=== PATIENT | male | born 1950 | race African-American/Black ===

== ENCOUNTER 2019-05-03 15:33 | Inpatient (IN) | payer OTHER ==
--- NOTE | 2019-05-03 16:10 | PDOC ---
History of Present Illness - General Chief Complaint: Shortness of Breath Stated Complaint: DIFFICULTY BREATHING Time Seen by Provider: 05/03/19 15:47 History Source: Patient, EMS, Spouse ( present at bedside.), Old Records Exam Limitations: No Limitations - History of Present Illness Initial Comments: HPI: 69 y/o male BIBEMS to [facility] ED from Dr. Johnson clinic waiting area for episode of weakness. EMS reports pt was found to be dyspneic and hypoxic. On arrival, the pt states he was getting off the elevator when he suddenly felt weak and then lowered himself to the floor. He never lost consciousness. On arrival, pts only complaint is tiredness. Denies worsening SOB, chest pain, lightheadedness, or dizziness. arrived at bedside after initial interview. Reports her has had poor PO intake for the past several weeks. Also reports he has received Azithromycin and Doxycycline for outpatient treatment of his cough with no improvement. Deck Worker: /Pt unable to recall name. Has been evaluated by Dr. Vazquez in past admission. Medical Assistant Dermatology: Dr. Mosley @ [facility] Steam Shovelman: Dr. Gibson Processing Manager: Dr. Bran PCP: Dr. Yousuf Mart Social Hx: - Tobacco: Former smoker, quit 1998 Medical Hx: - HTN - Emphysema - S/p renal transplant (2013, [facility]), on Prograf (Tacrolimus) - Insulin dependent diabetes Review of Systems: In addition to that documented in the HPI above, the additional ROS was obtained : Constitutional: Denies fevers or chills. In normal state of health. Head: Denies vision changes ENMT: Denies sore throat CV: Denies chest pain, orthopnea, or paroxysmal nocturnal dyspnea Resp: Endorses infrequent dry cough. Denies SOB or worsening exertional dyspnea. GI: Denies abd pain, vomiting, or diarrhea : Denies painful urination or hematuria MSK: Denies recent trauma Skin: Denies new rashes Neuro: Denies new numbness or tingling or weakness Endocrine: Denies polyuria Heme: Denies bleeding or bruising Physical Examination: Constitutional: Nontoxic elderly adult male in no acute distress or obvious discomfort. Found semi-fowlers on hospital bed. Alert and oriented x4. Answered all questions appropriately and completely. Speech was non-labored, non- pressured. Head: Normocephalic. No obvious external signs of trauma. Neck: Supple, trachea is midline. No JVD. Cardiovascular / Chest: Regular rate and regular rhythm. No murmur, rubs, clicks , or gallops. Peripheral pulses: radial pulses full. No pretibial edema. Respiratory: Nasal cannula in place. Breathing mildly tachypneic with infrequent wet sounding cough. Equal chest rise and fall. Decreased breath sounds bilaterally with diffuse trace rhonchi. No stridor or wheezing. Neuro: Alert and oriented. Moving all four extremities spontaneously. Skin: Warm, dry, and intact. Psych: Affect: appropriate. Mood: normal. MDM: *Reviewed vital signs, nursing notes, and prior visit documentation (if available). 69 y/o male presenting s/p pre-syncopal episode and weakness. Poor PO intake over the past several weeks. Afebrile. Vitals unremarkable for hypotension or tachycardia. Normoxic on 3LPM via nasal cannula, which is home dose per pt. Physical exam as described above. CBC revealed mild anemia, suspect chronic. CMP revealed elevated likely SOLE. Cr elevated above baseline. EKG unremarkable for acute ischemic findings. Troponin not elevated. Three hour repeat ordered. BNP elevated but CXR unremarkable for effusion, no significant pretibial edema, no JVD in setting of normal ECHO in November. Low suspicion for acute CHF exacerbation. CXR concerning for possible right lower lobe pneumonia. Ordered Vancomycin and Cefepime for broad spectrum given failure of outpatient abx. 18:50 Page sent for physician covering for Dr. Mosley through office answering service. Awaiting call back. 18:[address] Mart for admission through office answering service. Awaiting call back. Renal transplant U/S revealed morphologically unremarkable right renal transplant. 19:[address] Nevarez, nephrology fellow covering for Dr. Mart. Verbally appraised of the pts HPI, ED course, and current plan of management. Reports Cr baseline is actually 1.8-2.0 according to labs drawn from 2018 and earlier this year. Will place callback request with transplant outreach team. Will admit pt for presyncope with community acquired pneumonia that failed outpatient abx. 19:[address] Yousuf Mart. Verbally appraised of the pts HPI, ED course, and current plan of management. Will admit pt to telemetry on inpatient status. Requested cardiology and pulmonology consults. Three hour troponin and EKG pending. Jose Choe M.D., PGY2 Emergency Medicine Resident Past History - Past Medical History Allergies/Adverse Reactions: Allergies Allergy/AdvReac Type Severity Reaction Status Date / Time No Known Allergies Allergy Verified 05/03/19 15:45 Home Medications: Ambulatory Orders Amlodipine Besylate [Norvasc -] 10 mg PO DAILY 02/26/14 Aspirin [ASA -] 81 mg PO DAILY 02/26/14 Carvedilol 25 mg PO BID 02/26/14 Insulin Glargine,Hum.rec.anlog [Lantus Solostar PEN -] 0 units SQ HS 02/26/14 Insulin Regular, Human [Humulin R -] 0 units SQ DAILY 02/26/14 Atorvastatin Calcium 10 mg PO HS 05/03/19 Tacrolimus [Envarsus Xr] 12 mg PO DAILY 05/03/19 predniSONE [Deltasone -] 5 mg PO DAILY 05/03/19 COPD: Yes Diabetes: Yes (TYPE 2) Dialysis: Yes (T,TH,SA) HTN: Yes Hypercholesterolemia: Yes - Immunization History Immunization Up to Date: Yes - Suicide/Smoking/Psychosocial Hx Smoking Status: No Smoking History: Former smoker Have you smoked in the past 12 months: No Number of Cigarettes Smoked Daily: 0 If you are a former smoker, when did you quit?: 1990 Cigars Per Day: 0 Information on smoking cessation initiated: No 'Breaking Loose' booklet given: 01/24/12 Hx Alcohol Use: Yes (occasional socially) Drug/Substance Use Hx: No Substance Use Type: None Hx Substance Use Treatment: No *Physical Exam - Vital Signs Last Vital Signs Temp Pulse Resp BP Pulse Ox 98.9 F 75 30 H 118/51 L 88 L 05/03/19 15:43 05/03/19 15:43 05/03/19 15:43 05/03/19 15:43 05/03/19 15:43 Vital Signs - Vital Signs #1 Blood Pressure: 106/54 (@ 16:00) MAP: 71 BP Location: Right Arm Blood Pressure Position: Sitting Pulse Rate: 80 Respiratory Rate: 20 O2 Sat by Pulse Oximetry (%): 94 Oxygen Delivery Method: Nasal Cannula Oxygen Flow Rate: 3 ED Treatment Course - LABORATORY CBC & Chemistry Diagram: 05/03/19 16:32 05/03/19 16:32 - RADIOLOGY Radiology Studies Ordered: Category Date Time Status CHEST PA & LAT [RAD] Stat Radiology 05/03/19 16:05 Ordered *DC/Admit/Observation/Transfer Diagnosis at time of Disposition: Pre-syncope, Poor nutrition, Generalized weakness Pneumonia Qualifiers: Pneumonia type: due to unspecified organism Laterality: right Lung location: lower lobe of lung Qualified Code(s): J18.1 - Lobar pneumonia, unspecified organism - Discharge Dispostion Condition at time of disposition: Stable Decision to Admit order: Yes - Referrals Referrals: Yousuf Mart MD [Primary Care Provider] - - Patient Instructions - Post Discharge Activity
[2019-05-03 16:47] LABS: BASO % 0.1 % (0-2.0); EOS % 0.2 % (0-4.5); HEMATOCRIT 31.7 % (35.4-49); HEMOGLOBIN 10.1 GM/dL (11.7-16.9); LYMPH % 6.5 % (8-40); MCH 25.5 pg (25.7-33.7); MCHC 31.7 g/dl (32.0-35.9); MEAN CELL VOLUME 80.3 fl (80-96); MEAN PLT VOLUME 6.8 fl (7.5-11.1); MONO % 6.8 % (3.8-10.2); NEUT % 86.4 % (42.8-82.8); PLATELET COUNT 257 K/MM3 (134-434); RBC 3.95 M/mm3 (4.00-5.60); RDW 16.8 % (11.9-15.9); WHITE BLOOD COUNT 4.9 K/mm3 (4.0-10.0)
[2019-05-03 17:11] LABS: ALBUMIN 2.3 g/dl (3.4-5.0); BILIRUBIN,TOTAL 0.5 mg/dL (0.2-1); BLOOD UREA NITROGEN 36.4 mg/dL (7-18); CALCIUM 9.3 mg/dL (8.5-10.1); CREATININE 1.9 mg/dL (0.55-1.3); N-TERMINAL BNP 2660.3 pg/ml (5-125); POTASSIUM 4.3 mmol/L (3.5-5.1); TOT PROT 7.1 g/dl (6.4-8.2)
[2019-05-03] MEDS ORDERED: ALBUTEROL SO4 2.5/IPRATROPIUM 0.5 INH SOL 3 ML VIAL.NEB. NEB ONE ×2 (17:26→18:04)
[2019-05-03] MEDS ORDERED: methylPREDNISolone NA SUCC 125 MG/2 ML VIAL IVPUSH ONE (17:26)
[2019-05-03] MEDS ORDERED: SODIUM CHLORIDE 0.9% 500 ML INFUS.BAG IV ONE (17:26)
[2019-05-03] MEDS ORDERED: SODIUM CHLORIDE 1,000 ML IV SCH (17:30)
[2019-05-03] MEDS ORDERED: methylPREDNISolone NA SUCC 125 MG/2 ML VIAL ONE (18:05)
--- NOTE | 2019-05-03 18:15 | PDOC ---
Documentation entered by Mercedes Anderson SCRIBE, acting as scribe for Vanna Ordonez DO. Vanna Ordonez DO: This documentation has been prepared by the son, Mercedes Anderson SCRIBE, under my direction and personally reviewed by me in its entirety. I confirm that the documentation accurately reflects all work, treatment, procedures, and medical decision making performed by me. Attending Attestation - Resident Resident Name: ChoeJose - ED Attending Attestation I have performed the following: I have examined & evaluated the patient, The case was reviewed & discussed with the resident, I agree w/resident's findings & plan, Exceptions are as noted - HPI HPI: 05/03/19 18:18 The patient is a 69-year-old male with a past medical history significant for COPD (on home O2, f/up with Dr. Hernández), renal transplant, and DM presents to the emergency department via EMS s/p a near syncopal episode. The patient reports he was visiting Dr. Johnson office today for diabetes follow up when he had a near syncopal episode associated with generalized weakness and shortness of breath. EMS reports the patient was noted to be hypoxic on arrival despite having home O2 3L in use. The patient reports hes been having a productive cough with white sputum production. The patient was started on 2 courses of abx , Zpack about a month ago, and following doxycycline 10-day course last week. The patient endorses decreased appetite and generalized weakness. The patient reports he was unable to do COPD chest PT secondary to the weakness. The patient reports on a good day he has 2 meals a day, and on a bad day 1 meal, denies having any meals today. Denies head injury, nausea, or vomiting. Denies chest pain, abdominal pain - Physicial Exam PE: 05/03/19 18:18 Constitutional: Awake, alert, oriented. No acute distress. Head: Normocephalic. Atraumatic Eyes: PERRL. EOMI. Conjunctivae are not pale. ENT: Mucous membranes are moist and intact. Posterior pharynx without exudates or erythema. Uvula midline. Neck: Supple. Full ROM. No lymphadenopathy. Cardiovascular: Regular rate. Regular rhythm. S1, S2 regular. Pulmonary/Chest: +decreased breath sounds bilaterally. No wheezing, rales or rhonchi. Abdominal: Soft and nondistended. There is no tenderness. Back: No CVA tenderness. Musculoskeletal: No edema. No cyanosis. No clubbing. Full range of motion in all extremities. Skin: Skin is warm and dry. Neurological: No focal findings. - Medical Decision Making 05/03/19 18:04 I, Dr. Vanna Ordonez, DO, attest that this document has been prepared under my direction and personally reviewed by me in its entirety. I further attest, that it accurately reflects all work, treatment, procedures and medical decision -making performed by me. 05/03/19 18:04 a/p: 69yo male with copd on home o2, renal transplant, dm with a near syncopal episode at [facility]'s office today -pt states decreased po intake recently -pt states trying to do chest pt for copd but too weak to do it -only eating 1-2 meals a day -states cough - no f/c no change in sputum production, but has finished 2 courses of abx - azithro and then doxy -pulm is castillo hernández at [facility], PMD ramirez mart -pt with mild tachypnea and accessory muscle use -pt with dry mm -suspect dehydration and poss sole -suspect copd exacerbation - has only used inhalers intermittently at home -will send labs, ekg, cxr, ua -ivf hydration -will need admission for near syncope and failure to thrive 05/03/19 18:13 pt with SOLE, baseline cr 0.9, now 1.9 in a transplant kidney -cxr unchanged -pt with copd exacerbation -will obtain ultrasound of kidney -will call Dr. Mart 05/03/19 19:29 baseline cr per nephro at [facility] is 1.9-2, not an SOLE here resident discussed the case with nephzeynep pt will be admitted for copd/pna abx and cultures ordered cxr read as consolidation in chest - coughing, has had 2 courses of abx as outpt Heart Score/ECG Review - ECG Intrepretation Comment:: 05/03/19 18:14 sinus at 82, nl axis, nl interval, incomplete RBBB which is new from prior, no acute st/t wave findings
[2019-05-03] MEDS ORDERED: VANCOMYCIN 1,000 MG in DEXTROSE 5%-WATER - 250 ML IVPB ONE (18:52)
[2019-05-03] MEDS ORDERED: CEFEPIME HCL/D5W 2 GM/50 ML BAG IVPB ONE (18:53)
[2019-05-03] MEDS ORDERED: CEFEPIME 2 GM in DEXTROSE 5%-WATER 100 ML IVPB ONE (20:15)
[2019-05-03] MEDS ORDERED: VANCOMYCIN 1 GRAM (PRE-DOCKED) 1,000 MG/250 ML BAG IVPB ONE (22:13)
[2019-05-04] MEDS ORDERED: CARVEDILOL 12.5 MG TABLET (FP) ONE (00:16)
[2019-05-04] MEDS ORDERED: ATORVASTATIN CA 10 MG TABLET (FP) ONE (00:17)
[2019-05-04] MEDS: ATORVASTATIN CA 10 MG TABLET (FP) PO SCH ×2 (00:22→21:25)
[2019-05-04] MEDS: CARVEDILOL 25 MG TABLET (FP) PO SCH ×3 (00:22→21:25)
[2019-05-04 04:20] LABS: EPI CELLS 3.4 /HPF (0-5/HPF); HYALINE CASTS 10 /lpf (0-8); URINE APPEARANCE CLOUDY; URINE BACTERIA 4.6 /hpf (NEGATIVE); URINE BILIRUBIN NEGATIVE (NEGATIVE); URINE COLOR YELLOW; URINE GLUCOSE (UA) 2+ (NEGATIVE); URINE KETONE 1+ (NEGATIVE); URINE LEUK ESTERASE NEGATIVE (NEGATIVE); URINE NITRITE NEGATIVE (NEGATIVE); URINE PROTEIN 1+ (NEGATIVE); URINE UROBILINOGEN 0.2 mg/dL (0.2-1.0)
[2019-05-04 05:47] LABS: URINE RBC MANY /hpf (0-4)
[2019-05-04 05:48] LABS: URINE WBC MANY /hpf (0-5); YEAST MANY (NEGATIVE)
[2019-05-04 07:26] LABS: HEMATOCRIT 29.7 % (35.4-49); HEMOGLOBIN 9.5 GM/dL (11.7-16.9); MCHC 32.1 g/dl (32.0-35.9); MEAN CELL VOLUME 80.9 fl (80-96); MEAN PLT VOLUME 7.1 fl (7.5-11.1); PLATELET COUNT 258 K/MM3 (134-434); RBC 3.67 M/mm3 (4.00-5.60); RDW 17.3 % (11.9-15.9); WHITE BLOOD COUNT 2.9 K/mm3 (4.0-10.0)
[2019-05-04 07:38] LABS: ALBUMIN 2.1 g/dl (3.4-5.0); BILIRUBIN,TOTAL 0.6 mg/dL (0.2-1); BLOOD UREA NITROGEN 47.8 mg/dL (7-18); CALCIUM 8.9 mg/dL (8.5-10.1); CREATININE 1.9 mg/dL (0.55-1.3); POTASSIUM 5.3 mmol/L (3.5-5.1); TOT PROT 6.9 g/dl (6.4-8.2)
[2019-05-04] MEDS: INSULIN SLIDING SCALE (NOVOLOG) 1 VIAL SQ SCH ×4 (08:00→21:25)
[2019-05-04] MEDS ORDERED: Insulin (LOG) Aspart 100 UNITS/ML VIAL SQ ONE ×2 (09:02→10:38)
[2019-05-04] MEDS ORDERED: predniSONE 5 MG TABLET (UD) PO SCH (10:00)
--- NOTE | 2019-05-04 10:52 | HP ---
Admitting History and Physical - Primary Care Physician PCP: Yousuf Mart - Admission Chief Complaint: weakness History of Present Illness: Pt with significant Hx/o renal transplant, emphysema on O2 at home, DM, had appt to see Dr. Gibson ([facility]) yesterday but felt very weak and sat down on the floor by the elevator while in the her office builind; he came to ER via EMS. In ER he was found to have pneumonia. Per pt's baseline creatinine is 1.2 History Source: Patient, Family Member (pt's , at bedside) - Past Medical History QUALITY ASSURANCE SPECIALIST: No: Syncope Cardiovascular: Yes: HTN, Hyperlipdemia, MS, Other (Hx/o cardiac arrest) Pulmonary: Yes: COPD Renal/: Yes: Renal Inusuff, Other (renal transplant 10/09/13) Endocrine: Yes: Diabetes Mellitus - Past Surgical History Past Surgical History: Yes: Kidney Transplant - Smoking History Smoking history: Former smoker Have you smoked in the past 12 months: No Aproximately how many cigarettes per day: 0 If you are a former smoker, when did you quit?: 1989 - Alcohol/Substance Use Hx Alcohol Use: Yes (occasional socially) - Social History ADL: Independent History of Recent Travel: No Home Medications - Allergies Allergies/Adverse Reactions: Allergies Allergy/AdvReac Type Severity Reaction Status Date / Time No Known Allergies Allergy Verified 05/03/19 15:45 - Home Medications Home Medications: Ambulatory Orders Amlodipine Besylate [Norvasc -] 10 mg PO DAILY 02/26/14 Aspirin [ASA -] 81 mg PO DAILY 02/26/14 Carvedilol 25 mg PO BID 02/26/14 Insulin Glargine,Hum.rec.anlog [Lantus Solostar PEN -] 20 units SQ HS 02/26/14 Insulin Regular, Human [Humulin R -] 0 units SQ DAILY 02/26/14 Atorvastatin Calcium 10 mg PO HS 05/03/19 Fluticasone/Vilanterol [Breo Ellipta 100-25 Mcg INH] 1 each IH DAILY 05/03/19 Tacrolimus [Envarsus Xr] 12 mg PO DAILY 05/03/19 predniSONE [Deltasone -] 5 mg PO DAILY 05/03/19 Review of Systems - Review of Systems Constitutional: denies: Chills, Fever Eyes: reports: Blurred Vision. denies: Recent Change in Vision HENT: denies: Ear Discharge, Throat Pain Neck: denies: Pain on Movement, Stiffness Cardiovascular: denies: Chest Pain, Edema, Palpitations Respiratory: denies: Cough, Hemoptysis, SOB on Exertion, Wheezing Gastrointestinal: denies: Abdominal Pain, Diarrhea, Nausea, Vomiting Genitourinary: denies: Burning, Discharge Musculoskeletal: denies: Back Pain, Muscle Pain Integumentary: denies: Blister, Rash Neurological: reports: Weakness. denies: Change in LOC, Incoordination, Numbness Endocrine: denies: Excessive Sweating, Intolerance to Cold Hematology/Lymphatic: denies: Easily Bruised, Excessive Bleeding Psychiatric: denies: Anxiety, Depression Physical Examination Vital Signs: Vital Signs Temperature 97.4 F L 05/04/19 09:00 Pulse Rate 70 05/04/19 09:00 Respiratory Rate 17 05/04/19 09:00 Blood Pressure 115/58 L 05/04/19 09:00 O2 Sat by Pulse Oximetry (%) 95 05/04/19 09:00 Constitutional: Yes: No Distress, Calm Eyes: Yes: Conjunctiva Clear, EOM Intact HENT: Yes: Thrush. No: Epistaxis, Rhinnorhea Neck: Yes: Trachea Midline. No: Lymphadenopathy Cardiovascular: Yes: Regular Rate and Rhythm, S1, S2 Respiratory: Yes: Regular, Rhonchi (at bases , R > L). No: Wheezes Gastrointestinal: Yes: Normal Bowel Sounds, Soft. No: Tenderness ...Rectal Exam: Yes: Deferred Renal/: No: CVA Tenderness - Left, CVA Tenderness - Right Edema: No Integumentary: No: Bruising, Rash Neurological: Yes: Alert, Oriented, Other (motor and sensory examination is symmetric in UE/ LE/ face) Psychiatric: Yes: Alert, Oriented Labs: CBC, BMP 05/04/19 06:19 05/04/19 06:19 Imaging - Results Chest X-ray: Report Reviewed Problem List - Problems (1) Pneumonia Code(s): J18.9 - PNEUMONIA, UNSPECIFIED ORGANISM Qualifiers: Pneumonia type: due to unspecified organism Laterality: bilateral Lung location: lower lobe of lung Qualified Code(s): J18.1 - Lobar pneumonia, unspecified organism (2) Acute on chronic renal failure Code(s): N17.9 - ACUTE KIDNEY FAILURE, UNSPECIFIED; N18.9 - CHRONIC KIDNEY DISEASE, UNSPECIFIED Qualifiers: Chronic kidney disease stage: stage 5, not on chronic dialysis (3) Renal transplant recipient Code(s): Z94.0 - KIDNEY TRANSPLANT STATUS (4) Hyperglycemia Code(s): R73.9 - HYPERGLYCEMIA, UNSPECIFIED (5) Diabetes mellitus Code(s): E11.9 - TYPE 2 DIABETES MELLITUS WITHOUT COMPLICATIONS (6) Hyperkalemia Code(s): E87.5 - HYPERKALEMIA (7) COPD (chronic obstructive pulmonary disease) with emphysema Code(s): J43.9 - EMPHYSEMA, UNSPECIFIED Assessment/Plan IV abtx IVF ID consult Renal consult; pt's condition was d/w Dr. Morales Pulmonary consult Cardio Consult Endo consult; pt's condition and DM mangement was d/w Dr. Gibson. Admit to monitor bed AM labs Pt's contion was Rx was d/w ER nurse.
--- NOTE | 2019-05-04 10:56 | CON.CARD ---
Consult Consult Specialty:: Cardiology Referred by:: Yousuf Mart MD Reason for Consultation:: Near syncope - History of Present Illness Chief Complaint: Near syncope History of Present Illness: The patient is a 69-year-old male with a past medical history significant for COPD (on home O2, f/up with Dr. 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 EMS reports the patient was noted to be hypoxic on arrival despite having home O2 3L in use. The patient endorses decreased appetite and generalized weakness. Denies chest pain, palpitations, true syncope, orthopnea, PND or LE edema, feels back to baseline after eating. - History Source History Provided By: Patient Limitations to Obtaining History: No Limitations - Past Medical History Cardio/Vascular: Yes: HTN, Hyperlipdemia, [place] (cardiac arrest last evening see HPI) Pulmonary: Yes: COPD Renal/: Yes: Renal Inusuff, Other (renal transplant 10/09/13) Endocrine: Yes: Diabetes Mellitus - Past Surgical History Past Surgical History: Yes: Kidney Transplant - Alcohol/Substance Use Hx Alcohol Use: Yes (occasional socially) - Smoking History Smoking history: Former smoker Have you smoked in the past 12 months: No Aproximately how many cigarettes per day: 0 If you are a former smoker, when did you quit?: 1989 - Social History Usual Living Arrangement: With Spouse ADL: Independent History of Recent Travel: No Home Medications - Allergies Allergies/Adverse Reactions: Allergies Allergy/AdvReac Type Severity Reaction Status Date / Time No Known Allergies Allergy Verified 05/03/19 15:45 - Home Medications Home Medications: Ambulatory Orders Amlodipine Besylate [Norvasc -] 10 mg PO DAILY 02/26/14 Aspirin [ASA -] 81 mg PO DAILY 02/26/14 Carvedilol 25 mg PO BID 02/26/14 Insulin Glargine,Hum.rec.anlog [Lantus Solostar PEN -] 20 units SQ HS 02/26/14 Insulin Regular, Human [Humulin R -] 0 units SQ DAILY 02/26/14 Atorvastatin Calcium 10 mg PO HS 05/03/19 Fluticasone/Vilanterol [Breo Ellipta 100-25 Mcg INH] 1 each IH DAILY 05/03/19 Tacrolimus [Envarsus Xr] 12 mg PO DAILY 05/03/19 predniSONE [Deltasone -] 5 mg PO DAILY 05/03/19 Review of Systems - Review of Systems Constitutional: reports: Lethargy, Loss of Appetite, Weakness Vital Signs: Vital Signs Temperature 97.4 F L 05/04/19 09:00 Pulse Rate 70 05/04/19 09:00 Respiratory Rate 17 05/04/19 09:00 Blood Pressure 115/58 L 05/04/19 09:00 O2 Sat by Pulse Oximetry (%) 95 05/04/19 09:00 Constitutional: Yes: No Distress, Calm, Thin Neck: Yes: Supple Respiratory: Yes: Regular, Diminished, On Nasal O2 Gastrointestinal: Yes: Normal Bowel Sounds, Soft Cardiovascular: Yes: Regular Rate and Rhythm JVD: No Carotid Bruit: No Heart Sounds: Yes: S1, S2 Murmur: Yes: Systolic Murmur, Grade 1 Edema: No - Other Data Labs, Other Data: CBC, BMP 05/04/19 06:19 05/04/19 06:19 Troponin, BNP 05/03/19 05/03/19 05/04/19 16:32 20:00 06:19 Troponin I < 0.02 < 0.02 < 0.02 B-Natriuretic Peptide 2660.3 H Troponin, BNP 05/03/19 05/03/19 05/04/19 16:32 20:00 06:19 Troponin I < 0.02 < 0.02 < 0.02 B-Natriuretic Peptide 2660.3 H NSR @ 74 IRBBB Imaging - Results Chest X-ray: Report Reviewed (R>L infiltrates) Problem List - Problems (1) Generalized weakness Code(s): R53.1 - WEAKNESS (2) Pneumonia Code(s): J18.9 - PNEUMONIA, UNSPECIFIED ORGANISM Qualifiers: Pneumonia type: due to unspecified organism Laterality: bilateral Lung location: lower lobe of lung Qualified Code(s): J18.1 - Lobar pneumonia, unspecified organism (3) Pre-syncope Code(s): R55 - SYNCOPE AND COLLAPSE (4) Acute on chronic renal failure Code(s): N17.9 - ACUTE KIDNEY FAILURE, UNSPECIFIED; N18.9 - CHRONIC KIDNEY DISEASE, UNSPECIFIED Qualifiers: Chronic kidney disease stage: stage 5, not on chronic dialysis (5) Anemia Code(s): D64.9 - ANEMIA, UNSPECIFIED Qualifiers: Anemia type: due to chronic kidney disease Chronic kidney disease stage: stage 5, not on chronic dialysis Qualified Code(s): N18.5 - Chronic kidney disease, stage 5; D63.1 - Anemia in chronic kidney disease (6) Transplant recipient Code(s): Z94.89 - OTHER TRANSPLANTED ORGAN AND TISSUE STATUS Assessment/Plan 05/01/2017 Echo: Normal LV size, mild LVH, normal LV systolic function, normal biatrial sizes, normal RV size and fxn, mild AR, tr MR, TR, no pericardial effusion 1. Acute on Chronic Hypoxic Respiratory Failure 2. Anorexia, lethargy, R>L PNA ?atypical vs fungal 3. H/o post cardiopulmonary arrest, post respiratory failure now on O2 nasal 4. ESRD s/p right renal transplant with hyperkalemia 5. HTN 6. Type II DM 7. Hyperlipidemia 8. COPD 9. Erectile dysfunction on Cialis PLAN: 1. Continue current cardiac therapy including Metoprolol 2. IV steroids, BD and IV antibiotics coverage, f/u sputum cultures for C&S, AFB and fungus, O2 to keep SpO2 >90% 3. Immunosuppressive meds per renal, Lokelma, high resistive index in graft, urology called, IVF given pre-renal disease 4. CT chest noncontrast 5. Continue Norvasc 10 qd, ASA 81 qd, Lipitor 10 qhs, carvedilol 25 bid, Insulin , prednisone, tacrolimus per renal transplant team 6. Thank you for consultative opportunity
[2019-05-04] MEDS ORDERED: SODIUM POLYSTYRENE SULFONATE 15 GM/60 ML BOTTLE PO ONE (11:05)
[2019-05-04] MEDS: ASPIRIN 81 MG CHEWABLE TABLETS PO SCH (11:34)
[2019-05-04] MEDS: amLODIPine BESYLATE 10 MG TABLET (FP) PO SCH (11:34)
[2019-05-04] MEDS ORDERED: SODIUM ZIRCONIUM CYCLOSILICATE (LOKELMA) 5 GM PACKET PO ONE (11:45)
[2019-05-04] MEDS: TACROLIMUS 4 MG PO SCH (13:53)
--- NOTE | 2019-05-04 14:03 | EKG ---
Test Reason : Blood Pressure : / mmHG Vent. Rate : 074 BPM Atrial Rate : 074 BPM P-R Int : 140 ms QRS Dur : 122 ms QT Int : 416 ms P-R-T Axes : 076 078 067 degrees QTc Int : 461 ms NORMAL SINUS RHYTHM RSR' OR QR PATTERN IN V1 SUGGESTS RIGHT VENTRICULAR CONDUCTION DELAY WHEN COMPARED WITH ECG OF 03-MAY-2019 15:54, PREMATURE ATRIAL COMPLEXES ARE NO LONGER PRESENT Confirmed by YVES COUGHLIN MD ([id number]) on 05/04/2019 2:03:10 PM Referred By: Confirmed By:YVES COUGHLIN MD
--- NOTE | 2019-05-04 14:05 | EKG ---
Test Reason : Blood Pressure : / mmHG Vent. Rate : 082 BPM Atrial Rate : 082 BPM P-R Int : 144 ms QRS Dur : 116 ms QT Int : 404 ms P-R-T Axes : 073 080 064 degrees QTc Int : 472 ms SINUS RHYTHM WITH PREMATURE ATRIAL COMPLEXES INCOMPLETE RIGHT BUNDLE BRANCH BLOCK Confirmed by YVES COUGHLIN MD ([id number]) on 05/04/2019 2:05:26 PM Referred By: Confirmed By:YVES COUGHLIN MD
--- NOTE | 2019-05-04 14:58 | CONSULT ---
Consult Consult Specialty:: Nephrology Reason for Consultation:: CKD - History of Present Illness Chief Complaint: shortness of breath and fatigue History of Present Illness: Pt is a 69 year old male with pmhx of kidney transplant in 2013, dm, ht, copd on home oxygen who presents to the ER with shortness of breath and fatigue. He does have a cough. His blood sugar has been uncontrolled. I was called to evaluate him for elevated creatinine. He says he is compliant with his transplant meds. He denies dysuria or hematuria. He denies abdominal pain. He has not had much to eat or drink over the last few days. He denies lower ext edema. - History Source History Provided By: Patient, Medical Record - Past Medical History Cardio/Vascular: Yes: HTN, Hyperlipdemia, [place] (cardiac arrest last evening see HPI) Pulmonary: Yes: COPD, O2 Dependent Renal/: Yes: Renal Inusuff, Other (renal transplant 10/09/13) Endocrine: Yes: Diabetes Mellitus - Past Surgical History Past Surgical History: Yes: Kidney Transplant - Alcohol/Substance Use Hx Alcohol Use: Yes (occasional socially) - Smoking History Smoking history: Former smoker Have you smoked in the past 12 months: No Aproximately how many cigarettes per day: 0 If you are a former smoker, when did you quit?: 1989 - Social History Usual Living Arrangement: With Spouse ADL: Independent History of Recent Travel: No Home Medications - Allergies Allergies/Adverse Reactions: Allergies Allergy/AdvReac Type Severity Reaction Status Date / Time No Known Allergies Allergy Verified 05/03/19 15:45 - Home Medications Home Medications: Ambulatory Orders Amlodipine Besylate [Norvasc -] 10 mg PO DAILY 02/26/14 Aspirin [ASA -] 81 mg PO DAILY 02/26/14 Insulin Glargine,Hum.rec.anlog [Lantus Solostar PEN -] 20 units SQ HS 02/26/14 Insulin Regular, Human [Humulin R -] 0 units SQ DAILY 02/26/14 RX: Carvedilol 25 mg PO BID 02/26/14 Fluticasone/Vilanterol [Breo Ellipta 100-25 Mcg INH] 1 each IH DAILY 05/03/19 RX: Atorvastatin Calcium 10 mg PO HS 05/03/19 Tacrolimus [Envarsus Xr] 12 mg PO DAILY 05/03/19 predniSONE [Deltasone -] 5 mg PO DAILY 05/03/19 Family Disease History - Family Disease History Family History: Denies Review of Systems - Review of Systems Constitutional: reports: Malaise Eyes: reports: No Symptoms HENT: reports: No Symptoms Neck: reports: No Symptoms Cardiovascular: denies: Edema Respiratory: reports: Cough, SOB on Exertion Gastrointestinal: reports: No Symptoms Genitourinary: reports: No Symptoms Musculoskeletal: reports: No Symptoms Integumentary: reports: No Symptoms Neurological: reports: No Symptoms Endocrine: reports: No Symptoms Hematology/Lymphatic: reports: No Symptoms Psychiatric: reports: No Symptoms Physical Exam Vital Signs: Vital Signs Temperature 97.5 F L 05/04/19 11:00 Pulse Rate 75 05/04/19 11:25 Respiratory Rate 19 05/04/19 11:25 Blood Pressure 118/56 L 05/04/19 13:15 O2 Sat by Pulse Oximetry (%) 95 05/04/19 11:25 Constitutional: Yes: Calm Eyes: Yes: Conjunctiva Clear HENT: Yes: Atraumatic Neck: Yes: Supple Cardiovascular: Yes: S1, S2 Respiratory: Yes: On Nasal O2 Gastrointestinal: Yes: Soft Renal/: Yes: WNL, Other (graft is soft, neg thrill or bruit) Musculoskeletal: Yes: WNL Edema: No Neurological: Yes: Oriented Psychiatric: Yes: Oriented Labs: CBC, BMP 05/04/19 06:19 05/04/19 06:19 Laboratory Tests 05/03/19 05/03/19 05/04/19 16:32 16:32 03:45 Sodium Potassium 4.3 BUN Creatinine Creatine Kinase Urine Protein 1+ H Urine Blood Trace Ur Random Sodium Tacrolimus Pending 05/04/19 05/04/19 05/04/19 03:45 06:19 06:19 Sodium 138 Potassium 5.3 H BUN 47.8 H Creatinine 1.9 H Creatine Kinase 23 L Urine Protein Urine Blood Ur Random Sodium 26 L Tacrolimus Imaging - Results Chest X-ray: Report Reviewed Ultrasound: Report Reviewed Problem List - Problems (1) Generalized weakness Code(s): R53.1 - WEAKNESS (2) Pneumonia Code(s): J18.9 - PNEUMONIA, UNSPECIFIED ORGANISM Qualifiers: Pneumonia type: due to unspecified organism Laterality: right Lung location: lower lobe of lung Qualified Code(s): J18.1 - Lobar pneumonia, unspecified organism (3) Acute on chronic renal failure Code(s): N17.9 - ACUTE KIDNEY FAILURE, UNSPECIFIED; N18.9 - CHRONIC KIDNEY DISEASE, UNSPECIFIED (4) Transplant recipient Code(s): Z94.89 - OTHER TRANSPLANTED ORGAN AND TISSUE STATUS Assessment/Plan Current Medications Generic Name Dose Route Start Last Admin Trade Name Blake PRN Reason Stop Dose Admin Amlodipine Besylate 10 mg 05/04/19 10:00 05/04/19 11:34 Norvasc - PO 10 mg DAILY [facility] Administration Aspirin 81 mg 05/04/19 10:00 05/04/19 11:34 Asa - PO 81 mg DAILY [facility] Administration Atorvastatin Calcium 10 mg 05/03/19 23:34 05/04/19 00:22 Lipitor - PO 10 mg HS [facility] Administration Carvedilol 25 mg 05/03/19 23:45 05/04/19 11:34 Coreg - PO 25 mg BID [facility] Administration Insulin Aspart 1 vial 05/04/19 07:00 05/04/19 12:57 Novolog Vial Sliding Scale - SQ Not Given ACHS [facility] Protocol Non-Formulary Medication 1 each 05/04/19 10:00 Fluticasone/Vilanterol [Breo Ellipta 100-25 Mcg Inh] IH DAILY [facility] Patient's Own 12 mg 05/04/19 10:00 05/04/19 13:53 Medication (Non- PO 12 mg Formulary) ( DAILY [facility] Administration Tacrolimus [Envarsus Xr] 4 Mg) Prednisone 5 mg 05/04/19 10:00 05/04/19 11:34 Deltasone - PO 5 mg DAILY [facility] Administration Impression 1. CKD 2. SOLE 3. kidney transplant 4. copd 5. pna 6. DM 7. HLD 8. HTN 9. hyperkalemia Plan - cont fluids - d/c kayexylate, can give [facility] - called transplant center to verify meds, awaiting call back - urine sodium is low which is consistent with pre-renal disease - monitor response to fluids - recommend ID eval - check mag level - high resistive index in graft, urology called - discussed with medical team - check prograf level before next dose
--- NOTE | 2019-05-04 16:46 | CON.PULM ---
Consult Consult Specialty:: PULMONARY Referred by:: Dr Mart Reason for Consultation:: pneumonia - History of Present Illness Chief Complaint: generalized weakness History of Present Illness: 69yo male with h/o HTN, DM, hyperlipidemia, COPD, chronic hypoxic respiratory failure on home O2, ESRD on HD, h/o renal transplant who was admitted with worsening shortness of breath x 3 days. Denies chest pain or discomfort. + nonproductive cough without wheezing. No fevers, chills or sweats. Was treated for pneumonia last month as an outpt. Does report some coughing with eating. Appetite has been poor. He is a remote smoker. - History Source History Provided By: Patient, Medical Record Limitations to Obtaining History: No Limitations - Past Medical History Cardio/Vascular: Yes: HTN, Hyperlipdemia, [place] (cardiac arrest last evening see HPI) Pulmonary: Yes: COPD Renal/: Yes: Renal Inusuff, Other (renal transplant 10/09/13) Endocrine: Yes: Diabetes Mellitus - Past Surgical History Past Surgical History: Yes: Kidney Transplant - Alcohol/Substance Use Hx Alcohol Use: Yes (occasional socially) - Smoking History Smoking history: Former smoker Have you smoked in the past 12 months: No Aproximately how many cigarettes per day: 0 If you are a former smoker, when did you quit?: 1989 - Social History Usual Living Arrangement: With Spouse ADL: Independent History of Recent Travel: No Home Medications - Allergies Allergies/Adverse Reactions: Allergies Allergy/AdvReac Type Severity Reaction Status Date / Time No Known Allergies Allergy Verified 05/03/19 15:45 - Home Medications Home Medications: Ambulatory Orders Amlodipine Besylate [Norvasc -] 10 mg PO DAILY 02/26/14 Aspirin [ASA -] 81 mg PO DAILY 02/26/14 Carvedilol 25 mg PO BID 02/26/14 Insulin Glargine,Hum.rec.anlog [Lantus Solostar PEN -] 20 units SQ HS 02/26/14 Insulin Regular, Human [Humulin R -] 0 units SQ DAILY 02/26/14 Atorvastatin Calcium 10 mg PO HS 05/03/19 Fluticasone/Vilanterol [Breo Ellipta 100-25 Mcg INH] 1 each IH DAILY 05/03/19 Tacrolimus [Envarsus Xr] 12 mg PO DAILY 05/03/19 predniSONE [Deltasone -] 5 mg PO DAILY 05/03/19 Review of Systems - Review of Systems Constitutional: reports: Malaise, Weakness Eyes: denies: Recent Change in Vision HENT: denies: Nasal Congestion, Throat Pain Neck: denies: Stiffness, Tenderness Cardiovascular: denies: Chest Pain, Shortness of Breath Respiratory: reports: Cough. denies: Wheezing Gastrointestinal: denies: Abdominal Pain, Nausea, Vomiting Genitourinary: denies: Dysuria, Hematuria Neurological: denies: Dizziness, Headache Endocrine: denies: Unexplained Weight Loss Physical Exam Vital Sings: Vital Signs Temperature 97.5 F L 05/04/19 11:00 Pulse Rate 75 05/04/19 11:25 Respiratory Rate 19 05/04/19 11:25 Blood Pressure 118/56 L 05/04/19 13:15 O2 Sat by Pulse Oximetry (%) 95 05/04/19 11:25 Constitutional: Yes: Calm Eyes: Yes: Conjunctiva Clear, EOM Intact HENT: Yes: Atraumatic, Normocephalic Neck: Yes: Supple, Trachea Midline Cardiovascular: Yes: Regular Rate and Rhythm Respiratory: Yes: Rales ...Clubbing: No Gastrointestinal: Yes: Normal Bowel Sounds, Soft. No: Tenderness Edema: No Labs: CBC, BMP 05/04/19 06:19 05/04/19 06:19 Imaging - Results Chest X-ray: Report Reviewed, Image Reviewed (bibasilar infiltrates) Problem List - Problems (1) Pneumonia Code(s): J18.9 - PNEUMONIA, UNSPECIFIED ORGANISM Qualifiers: Pneumonia type: due to unspecified organism Laterality: right Lung location: lower lobe of lung Qualified Code(s): J18.1 - Lobar pneumonia, unspecified organism (2) Sepsis Code(s): A41.9 - SEPSIS, UNSPECIFIED ORGANISM Assessment/Plan Acute on Chronic Hypoxic Respiratory Failure Pneumonia Sepsis Acute COPD Exacerbation h/o Renal Transplant CAD HTN DM Hyperlipidemia - IV antibiotics - f/u cultures - urinary antigens - O2 to keep SpO2 >90% - short course of medrol - inhaled bronchodilators - CT chest noncontrast - swallow eval - DVT prophylaxis Thank you for this consult Sixto Solis MD
[2019-05-04] MEDS ORDERED: ALBUTEROL SO4 0.083% IH SOL 2.5 MG/3 ML VIAL.NEB. NEB PRN (16:54)
[2019-05-04] MEDS ORDERED: CEFTRIAXONE 1 GM in DEXTROSE 5%-WATER - 50 ML IVPB SCH (17:00)
[2019-05-04] MEDS ORDERED: AZITHROMYCIN IVPB 500 MG/250 ML BAG IVPB SCH (17:00)
--- NOTE | 2019-05-04 17:42 | PN ---
Progress Note (short form) - Note Progress Note: ID CONSULT DICTATED BIBASILAR PNEUMONIA S/P RENAL TRANSPLANT ON IMMUNOSUPPRESSIVE TX + ORAL CANDIDIASIS LEUKOPENIA AZOTEMIA UNCONTROLLED DM HX + SPUTUM C/S ASPERGILLUS, MAC UTI OBTAIN C/S CT CHEST ASPERGILLUS SEROLOGY QUANTIFERON SPUTUM AFB LEGIONELLA/ PNEUMOCOCCAL AG EMPIRIC ZOSYN WOULD AVOID POTENTIAL ZITHROMAX/ TACROLIMUS INTERACTION WOULD CONSIDER TRANSFER TO TRANSPLANT CENTER
[2019-05-04] MEDS ORDERED: CEFTRIAXONE 1 GM/50 ML BAG ONE (17:46)
[2019-05-04] MEDS ORDERED: methylPREDNISolone NA SUCC 40 MG/1 ML VIAL ONE (17:46)
[2019-05-04] MEDS: methylPREDNISolone NA SUCC 40 MG/1 ML VIAL IVPUSH SCH (17:59)
[2019-05-04] MEDS ORDERED: PIPERACILLIN/TAZOB 3.375 GM 3.375 GM/50 ML BAG IVPB ONE (18:03)
[2019-05-04] MEDS: NYSTATIN 500,000 UNITS/5 ML SUSPENSION PO SCH ×2 (18:39→23:35)
[2019-05-04] MEDS: PIPERACILLIN/TAZOB 3.375 GM 3.375 GM in DEXTROSE 5%-WATER - 50 ML IVPB SCH (18:39)
[2019-05-04] MEDS: ALBUTEROL SO4 2.5/IPRATROPIUM 0.5 INH SOL 3 ML VIAL.NEB. NEB SCH (20:53)
[2019-05-04] MEDS ORDERED: INSULIN (LEVEMIR) 100 UNITS/ML UNITS SQ SCH (22:00)
[2019-05-05] MEDS ORDERED: DEXTROSE 5%-WATER - 50 ML IVPB ONE ×3 (01:15→17:09)
[2019-05-05] MEDS ORDERED: PIPERACILLIN/TAZOBACTAM 3.375 GM VIAL IVPB ONE ×3 (01:15→17:09)
[2019-05-05] MEDS: PIPERACILLIN/TAZOB 3.375 GM 3.375 GM in DEXTROSE 5%-WATER - 50 ML IVPB SCH ×3 (01:52→17:10)
[2019-05-05] MEDS ORDERED: INSULIN (NOVOLOG) ASPART 100 UNITS/ML 10ML VIAL SQ ONE (02:00)
[2019-05-05] MEDS ORDERED: PT OWN MED DRAWER 7, Y5N ONE ×3 (03:39→19:45)
[2019-05-05] MEDS: INSULIN SLIDING SCALE (NOVOLOG) 1 VIAL SQ SCH ×4 (06:33→22:35)
[2019-05-05] MEDS: NYSTATIN 500,000 UNITS/5 ML SUSPENSION PO SCH ×3 (06:33→17:10)
--- NOTE | 2019-05-05 06:54 | CONS ---
INFECTIOUS DISEASE CONSULTATION DATE OF CONSULTATION: DATE OF DICTATION: 05/04/2019 HISTORY: The patient is a 69-year-old status post renal transplant 2013 evaluated for pneumonia. The patient reports that he was going to his scheduled appointment with his primary care physician when he felt profoundly weak. Prior to getting to the office, he was very weak and sat on the floor. He states he did not lose consciousness or have any head trauma. EMS was called. They responded, and he was found to be dyspneic. He was taken to the emergency room where he was further evaluated. Chest x-ray shows bibasilar infiltrates. Patient reports cough productive of whitish sputum and occasionally blood-streaked sputum. He denies any chest pain. He denies any associated fever or chills. The patient is status post renal transplant in 2013 on immunosuppressive therapy. He denies any ill contacts. No recent hospitalizations. He is a former smoker. PAST MEDICAL HISTORY: Positive for end-stage renal disease status post renal transplant 2013, COPD, hypertension, insulin-dependent diabetes mellitus, hyperlipidemia. ALLERGIES: No known allergies. SOCIAL HISTORY: He is a former smoker. Lives at home with his significant other. No history of alcohol abuse or illicit drug use. MEDICATIONS: Include albuterol, Norvasc, aspirin, Lipitor, Coreg, insulin, methylprednisolone, nystatin. SYSTEMS REVIEW: Neurologic: No loss of consciousness, seizure activity, focal weakness. Cardiac: Negative chest pain or palpitations. Respiratory: As per HPI. Gastrointestinal: Negative vomiting or diarrhea. Genitourinary: Positive for urinary tract infection. LABORATORY DATA: White count 2.9, neutrophils 86, lymphocytes 6, monocytes 6, hematocrit 29.7, platelets 258, BUN 47, creatinine 1.9, glucose 485. Liver enzymes normal. Urinalysis: Many white cells. Chest x-ray: Increased markings at the bases bilaterally. PHYSICAL EXAMINATION: General: He is awake on the stretcher in the emergency room. He is not acutely toxic appearing. His breathing is nonlabored. Vital Signs: Temperature 97.5, blood pressure 118/56, pulse 75 regular, respirations 19 per minute. HEENT: Sclerae anicteric. Oropharynx positive for thrush. Heart: Sounds S1, S2. Lungs: Rales at the bases bilaterally. Abdomen: Soft. No tenderness elicited. No mass, rebound, or rigidity. Extremities: Negative for edema. IMPRESSION: 1. Bibasilar pneumonia. 2. Status post renal transplant on immunosuppressive therapy. 3. Oral candidiasis. 4. Leukopenia. 5. Azotemia. 6. Uncontrolled diabetes mellitus. 7. History of positive sputum culture, Aspergillus and Mycobacterium avium complex. 8. Urinary tract infection. PLAN: Obtain cultures. CAT scan of the chest. Aspergillus serology. QuantiFERON. Sputum AFB. Urine Legionella and pneumococcal antigen. Empiric antibiotic coverage with Zosyn. Would avoid potential Zithromax, Tacrolimus interaction. Would consider transfer to transplant center. Thank you for the kind referral. YVES VICTOR M.D. [id number]
[2019-05-05 07:24] LABS: BILIRUBIN,TOTAL 0.2 mg/dL (0.2-1); CALCIUM 9.2 mg/dL (8.5-10.1); CREATININE 1.8 mg/dL (0.55-1.3); POTASSIUM 4.7 mmol/L (3.5-5.1); TOT PROT 6.6 g/dl (6.4-8.2)
[2019-05-05 07:27] LABS: BASO % 0.5 % (0-2.0); HEMATOCRIT 27.7 % (35.4-49); HEMOGLOBIN 9.1 GM/dL (11.7-16.9); LYMPH % 3.9 % (8-40); MCH 26.1 pg (25.7-33.7); MCHC 32.8 g/dl (32.0-35.9); MEAN CELL VOLUME 79.8 fl (80-96); MONO % 4.8 % (3.8-10.2); NEUT % 90.8 % (42.8-82.8); PLATELET COUNT 269 K/MM3 (134-434); RBC 3.48 M/mm3 (4.00-5.60); RDW 16.9 % (11.9-15.9); WHITE BLOOD COUNT 6.6 K/mm3 (4.0-10.0)
[2019-05-05] MEDS: ALBUTEROL SO4 2.5/IPRATROPIUM 0.5 INH SOL 3 ML VIAL.NEB. NEB SCH ×4 (08:43→20:40)
[2019-05-05] MEDS: ASPIRIN 81 MG CHEWABLE TABLETS PO SCH (10:15)
[2019-05-05] MEDS: amLODIPine BESYLATE 10 MG TABLET (FP) PO SCH (10:15)
[2019-05-05] MEDS: methylPREDNISolone NA SUCC 40 MG/1 ML VIAL IVPUSH SCH (10:16)
[2019-05-05] MEDS: CARVEDILOL 25 MG TABLET (FP) PO SCH ×2 (10:16→22:30)
--- NOTE | 2019-05-05 10:16 | PN ---
Progress Note, Physician History of Present Illness: Appetite improved, cough, dyspnea, weakness slowly recovering. - Current Medication List Current Medications: Active Medications Albuterol Sulfate (Ventolin 0.083% Nebulizer Soln -) 1 amp NEB Q4H PRN PRN Reason: SHORT OF BREATH/WHEEZING Albuterol/Ipratropium (Duoneb -) 1 amp NEB RQID [facility] Last Admin: 05/05/19 08:43 Dose: 1 amp Amlodipine Besylate (Norvasc -) 10 mg PO DAILY [facility] Last Admin: 05/04/19 11:34 Dose: 10 mg Aspirin (Asa -) 81 mg PO DAILY [facility] Last Admin: 05/04/19 11:34 Dose: 81 mg Atorvastatin Calcium (Lipitor -) 10 mg PO HS [facility] Last Admin: 05/04/19 21:25 Dose: 10 mg Carvedilol (Coreg -) 25 mg PO BID [facility] Last Admin: 05/04/19 21:25 Dose: 25 mg Piperacillin Sod/Tazobactam (Sod 3.375 gm/ Dextrose) 50 mls @ 100 mls/hr IVPB Q8H-IV [facility]; Protocol Last Admin: 05/05/19 01:52 Dose: 100 mls/hr Insulin Aspart (Novolog Vial Sliding Scale -) 1 vial SQ ACHS [facility]; Protocol Last Admin: 05/05/19 06:33 Dose: 10 units Insulin Detemir (Levemir Vial) 20 units SQ HS [facility] Last Admin: 05/04/19 22:16 Dose: 20 units Methylprednisolone Sodium Succinate (Solu-Medrol -) 40 mg IVPUSH DAILY [facility] Stop: 05/08/19 10:01 Last Admin: 05/04/19 17:59 Dose: 40 mg Non-Formulary Medication (Fluticasone/Vilanterol [Breo Ellipta 100-25 Mcg Inh]) 1 each IH DAILY [facility] Patient's Own Medication (Non- Formulary) ( Tacrolimus [Envarsus Xr] 4 Mg) 12 mg PO DAILY [facility] Last Admin: 05/04/19 13:53 Dose: 12 mg Nystatin (Nystatin Oral Suspension -) 500,000 units PO Q6HPO [facility] Last Admin: 05/05/19 06:33 Dose: 500,000 units - Objective Vital Signs: Vital Signs Temperature 97.8 F 05/05/19 09:00 Pulse Rate 63 05/05/19 09:00 Respiratory Rate 05/05/19 09:00 Blood Pressure 109/54 L 05/05/19 09:00 O2 Sat by Pulse Oximetry (%) 95 05/05/19 00:16 Constitutional: Yes: No Distress, Calm, Thin Neck: Yes: Supple Cardiovascular: Yes: Regular Rate and Rhythm Respiratory: Yes: Regular, Diminished, On Nasal O2 Gastrointestinal: Yes: Normal Bowel Sounds, Soft Edema: No Labs: CBC, BMP 05/05/19 06:00 05/05/19 06:00 - ....Imaging Cat Scan: Pending EKG: Report Reviewed (Tele< NSR) Problem List - Problems (1) Generalized weakness Code(s): R53.1 - WEAKNESS (2) Pneumonia Code(s): J18.9 - PNEUMONIA, UNSPECIFIED ORGANISM Qualifiers: Pneumonia type: due to unspecified organism Laterality: bilateral Lung location: lower lobe of lung Qualified Code(s): J18.1 - Lobar pneumonia, unspecified organism (3) Pre-syncope Code(s): R55 - SYNCOPE AND COLLAPSE (4) Acute on chronic renal failure Code(s): N17.9 - ACUTE KIDNEY FAILURE, UNSPECIFIED; N18.9 - CHRONIC KIDNEY DISEASE, UNSPECIFIED Qualifiers: Chronic kidney disease stage: stage 5, not on chronic dialysis (5) Anemia Code(s): D64.9 - ANEMIA, UNSPECIFIED Qualifiers: Anemia type: due to chronic kidney disease Chronic kidney disease stage: stage 5, not on chronic dialysis Qualified Code(s): N18.5 - Chronic kidney disease, stage 5; D63.1 - Anemia in chronic kidney disease (6) Transplant recipient Code(s): Z94.89 - OTHER TRANSPLANTED ORGAN AND TISSUE STATUS Assessment/Plan 05/01/2017 Echo: Normal LV size, mild LVH, normal LV systolic function, normal biatrial sizes, normal RV size and fxn, mild AR, tr MR, TR, no pericardial effusion 1. Acute on Chronic Hypoxic Respiratory Failure 2. Anorexia, lethargy, R>L PNA ?atypical vs fungal 3. H/o post cardiopulmonary arrest, post respiratory failure now on O2 nasal 4. ESRD s/p right renal transplant with hyperkalemia 5. HTN 6. Type II DM 7. Hyperlipidemia 8. COPD 9. Erectile dysfunction on Cialis PLAN: 1. Continue Norvasc 10 qd, ASA 81 qd, Lipitor 10 qhs, carvedilol 25 bid, Insulin , tacrolimus per renal transplant team 2. IV steroids, BD and IV antibiotics coverage, f/u sputum cultures for C&S, AFB and fungus, O2 to keep SpO2 >90% 3. Immunosuppressive meds per renal, high resistive index in graft, urology called 4. F/u CT chest noncontrast
[2019-05-05] MEDS: TACROLIMUS 4 MG PO SCH (10:17)
--- NOTE | 2019-05-05 11:14 | PN ---
Progress Note (short form) - Note Progress Note: PULMONARY Feeling better. Appetite improving. Denies shortness of breath. +nonproductive cough. No fevers or chills. Vital Signs Period Temp Pulse Resp BP Sys/Grey Pulse Ox Last 24 Hr 97.6 F-97.8 F 62-75 18-20 109-133/45-66 95-95 Gen: NAD at rest Heart: RRR Lung: decreased breath sounds at the bases Abd: soft, nontender Ext: no edema CBC, BMP 05/05/19 06:00 05/05/19 06:00 Active Medications Albuterol Sulfate (Ventolin 0.083% Nebulizer Soln -) 1 amp NEB Q4H PRN PRN Reason: SHORT OF BREATH/WHEEZING Albuterol/Ipratropium (Duoneb -) 1 amp NEB RQID [facility] Last Admin: 05/05/19 08:43 Dose: 1 amp Amlodipine Besylate (Norvasc -) 10 mg PO DAILY [facility] Last Admin: 05/05/19 10:15 Dose: 10 mg Aspirin (Asa -) 81 mg PO DAILY [facility] Last Admin: 05/05/19 10:15 Dose: 81 mg Atorvastatin Calcium (Lipitor -) 10 mg PO HS [facility] Last Admin: 05/04/19 21:25 Dose: 10 mg Carvedilol (Coreg -) 25 mg PO BID [facility] Last Admin: 05/05/19 10:16 Dose: 25 mg Piperacillin Sod/Tazobactam (Sod 3.375 gm/ Dextrose) 50 mls @ 100 mls/hr IVPB Q8H-IV [facility]; Protocol Last Admin: 05/05/19 10:16 Dose: 100 mls/hr Insulin Aspart (Novolog Vial Sliding Scale -) 1 vial SQ ACHS [facility]; Protocol Last Admin: 05/05/19 06:33 Dose: 10 units Insulin Detemir (Levemir Vial) 20 units SQ HS [facility] Last Admin: 05/04/19 22:16 Dose: 20 units Methylprednisolone Sodium Succinate (Solu-Medrol -) 40 mg IVPUSH DAILY [facility] Stop: 05/08/19 10:01 Last Admin: 05/05/19 10:16 Dose: 40 mg Non-Formulary Medication (Fluticasone/Vilanterol [Breo Ellipta 100-25 Mcg Inh]) 1 each IH DAILY [facility] Patient's Own Medication (Non- Formulary) ( Tacrolimus [Envarsus Xr] 4 Mg) 12 mg PO DAILY [facility] Last Admin: 05/05/19 10:17 Dose: 12 mg Nystatin (Nystatin Oral Suspension -) 500,000 units PO Q6HPO [facility] Last Admin: 05/05/19 06:33 Dose: 500,000 units A/P Acute on Chronic Hypoxic Respiratory Failure Pneumonia Sepsis Acute COPD Exacerbation h/o Renal Transplant CAD HTN DM Hyperlipidemia - continue antibiotics - f/u cultures - urinary antigens - O2 to keep SpO2 >90% - short course of medrol - inhaled bronchodilators - CT chest noncontrast - swallow eval - DVT prophylaxis Problem List - Problems (1) Pneumonia Code(s): J18.9 - PNEUMONIA, UNSPECIFIED ORGANISM Qualifiers: Pneumonia type: due to unspecified organism Laterality: bilateral Lung location: lower lobe of lung Qualified Code(s): J18.1 - Lobar pneumonia, unspecified organism (2) Sepsis Code(s): A41.9 - SEPSIS, UNSPECIFIED ORGANISM
--- NOTE | 2019-05-05 11:33 | PN ---
Progress Note, Physician History of Present Illness: Pt is breathing better, has better appetite. Pt W/o CP, palpitations, SOB, abd pain - Current Medication List Current Medications: Active Medications Albuterol Sulfate (Ventolin 0.083% Nebulizer Soln -) 1 amp NEB Q4H PRN PRN Reason: SHORT OF BREATH/WHEEZING Albuterol/Ipratropium (Duoneb -) 1 amp NEB RQID [facility] Last Admin: 05/05/19 08:43 Dose: 1 amp Amlodipine Besylate (Norvasc -) 10 mg PO DAILY [facility] Last Admin: 05/05/19 10:15 Dose: 10 mg Aspirin (Asa -) 81 mg PO DAILY [facility] Last Admin: 05/05/19 10:15 Dose: 81 mg Atorvastatin Calcium (Lipitor -) 10 mg PO HS [facility] Last Admin: 05/04/19 21:25 Dose: 10 mg Carvedilol (Coreg -) 25 mg PO BID [facility] Last Admin: 05/05/19 10:16 Dose: 25 mg Piperacillin Sod/Tazobactam (Sod 3.375 gm/ Dextrose) 50 mls @ 100 mls/hr IVPB Q8H-IV [facility]; Protocol Last Admin: 05/05/19 10:16 Dose: 100 mls/hr Insulin Aspart (Novolog Vial Sliding Scale -) 1 vial SQ [facility]; Protocol Last Admin: 05/05/19 06:33 Dose: 10 units Insulin Detemir (Levemir Vial) 20 units SQ HS [facility] Last Admin: 05/04/19 22:16 Dose: 20 units Methylprednisolone Sodium Succinate (Solu-Medrol -) 40 mg IVPUSH DAILY [facility] Stop: 05/08/19 10:01 Last Admin: 05/05/19 10:16 Dose: 40 mg Non-Formulary Medication (Fluticasone/Vilanterol [Breo Ellipta 100-25 Mcg Inh]) 1 each IH DAILY [facility] Patient's Own Medication (Non- Formulary) ( Tacrolimus [Envarsus Xr] 4 Mg) 12 mg PO DAILY [facility] Last Admin: 05/05/19 10:17 Dose: 12 mg Nystatin (Nystatin Oral Suspension -) 500,000 units PO Q6HPO [facility] Last Admin: 05/05/19 06:33 Dose: 500,000 units - Objective Vital Signs: Vital Signs Temperature 97.8 F 05/05/19 09:00 Pulse Rate 63 05/05/19 09:00 Respiratory Rate 19 05/05/19 09:00 Blood Pressure 109/54 L 05/05/19 09:00 O2 Sat by Pulse Oximetry (%) 95 05/05/19 00:16 Constitutional: Yes: No Distress, Calm Cardiovascular: Yes: Regular Rate and Rhythm, S1, S2 Respiratory: Yes: Regular, Rales Gastrointestinal: Yes: Normal Bowel Sounds, Soft. No: Tenderness Edema: No Neurological: Yes: Alert, Oriented Labs: CBC, BMP 05/05/19 06:00 05/05/19 06:00 Problem List - Problems (1) Pneumonia Code(s): J18.9 - PNEUMONIA, UNSPECIFIED ORGANISM Qualifiers: Pneumonia type: due to unspecified organism Laterality: bilateral Lung location: lower lobe of lung Qualified Code(s): J18.1 - Lobar pneumonia, unspecified organism (2) Renal transplant recipient Code(s): Z94.0 - KIDNEY TRANSPLANT STATUS (3) Hyperglycemia Code(s): R73.9 - HYPERGLYCEMIA, UNSPECIFIED (4) Diabetes mellitus Code(s): E11.9 - TYPE 2 DIABETES MELLITUS WITHOUT COMPLICATIONS (5) Hyperkalemia Code(s): E87.5 - HYPERKALEMIA (6) COPD (chronic obstructive pulmonary disease) with emphysema Code(s): J43.9 - EMPHYSEMA, UNSPECIFIED (7) CRF (chronic renal failure) Code(s): N18.9 - CHRONIC KIDNEY DISEASE, UNSPECIFIED Assessment/Plan IV abtx IV steroids ID, Renal, Cardio. Pulmonary consults are appreciated To increase Levemir Trial of Robitussin DM diabetic Pt's baseline recent creatinine is 1.9 (per his transplant team), so no ARF. Admitted to monitor bed AM labs Pt's condition and Rx was d/w his nurse.
[2019-05-05] MEDS: guaiFENesin/D-M SUGAR-FREE/ACLHOL-FREE 118 ML BOTTLE PO SCH ×3 (13:00→22:31)
--- NOTE | 2019-05-05 15:05 | CONS ---
INFECTIOUS DISEASE CONSULTATION DATE OF CONSULTATION: DATE OF DICTATION: 05/05/2019 HISTORY OF PRESENT ILLNESS: The patient is a 69-year-old male, status post renal transplant 2013, evaluated for sepsis. The patient reports that he was going to his routine doctor's appointment, when he felt profoundly weak. Prior to the arrival at the doctor's office, he became very weak and short of breath. He reports sitting on the floor. He denies falling or sustaining trauma. He denies any loss of consciousness. EMS was called and he was taken to the emergency room. In the emergency room, he complained of shortness of breath and cough productive of whitish sputum and occasionally blood-streaked sputum. According to the notes, he has been experiencing worsening generalized weakness for the past several weeks, in addition to poor oral intake. He has had respiratory tract symptoms and had received a course of Zithromax and a recent 10-day course of doxycycline. In the emergency room, a chest x-ray was performed and showed increased markings at the bases bilaterally. He was empirically treated with vancomycin and cefepime. He denies any ill contacts. He lives at home with his significant other. No recent travel. He is status post renal transplant, on immunosuppressive therapy. Transplant was performed in 2013. He denies any recent hospitalizations. PAST MEDICAL HISTORY: Positive for COPD, hypertension, insulin-dependent diabetes mellitus, hyperlipidemia, chronic kidney disease. He was hospitalized in 2014 with pneumonia and was found at that time to have positive sputum cultures for aspergillus and MAC. PAST SURGICAL HISTORY: Status post renal transplant. ALLERGIES: No known allergies. MEDICATIONS: Albuterol, amlodipine, aspirin, Lipitor, Coreg, insulin, methylprednisolone, tacrolimus, prednisone 5 mg. SOCIAL HISTORY: As per HPI. He is a former smoker. SYSTEMS REVIEW: Neurologic: No loss of consciousness, seizure activity, focal weakness. Cardiac: Negative chest pain or palpitations. Respiratory: As per HPI. Gastrointestinal: Negative vomiting or diarrhea. Genitourinary: Negative for dysuria or hematuria. LABORATORY DATA: White count 2.9, neutrophils 86, lymphocytes 6, monocytes 6, hematocrit 29.7, platelets 258; BUN 47, creatinine 1.9, glucose 485. Urinalysis: Many white cells. PHYSICAL EXAMINATION: General: On examination, he is awake and responsive. Slightly short of breath at rest on nasal cannula O2. Vital signs: Temperature 97.5, blood pressure 118/56, pulse 75 regular, respirations 19 per minute. Eyes: Sclerae are anicteric. Throat: Oropharynx positive for thrush. Lungs: Crepitations at the bases bilaterally. Abdomen: Soft and nontender. Palpable mass in the right lower abdomen. Extremities: Negative for edema. IMPRESSION: 1. Bibasilar pneumonia. 2. Status post renal transplant; on immunosuppressive therapy. 3. Oral candidiasis. 4. Leukopenia. 5. Azotemia. 6. Uncontrolled diabetes mellitus. 7. 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 8. Urinary tract infection. Await cultures. Obtain CT of the chest, QuantiFERON, aspergillus serology, urine legionella, and pneumococcal antigen. Empiric antibiotic coverage with Zosyn, pending sepsis workup. Would avoid Zithromax due to potential Zithromax-tacrolimus interaction. Thank you for the kind referral. YVES VICTOR M.D. [id number]
[2019-05-05 15:29] VITALS: BMI 19.7
--- NOTE | 2019-05-05 16:17 | PN ---
Progress Note, Physician History of Present Illness: AWAKE, ALERT NO COMPLAINTS DENIES CHEST PAIN/ DYSPNEA/ COUGH NO C/O DYSURIA AFEBRILE - Current Medication List Current Medications: Active Medications Albuterol Sulfate (Ventolin 0.083% Nebulizer Soln -) 1 amp NEB Q4H PRN PRN Reason: SHORT OF BREATH/WHEEZING Albuterol/Ipratropium (Duoneb -) 1 amp NEB RQID [facility] Last Admin: 05/05/19 15:39 Dose: 1 amp Amlodipine Besylate (Norvasc -) 10 mg PO DAILY [facility] Last Admin: 05/05/19 10:15 Dose: 10 mg Aspirin (Asa -) 81 mg PO DAILY [facility] Last Admin: 05/05/19 10:15 Dose: 81 mg Atorvastatin Calcium (Lipitor -) 10 mg PO HS [facility] Last Admin: 05/04/19 21:25 Dose: 10 mg Carvedilol (Coreg -) 25 mg PO BID [facility] Last Admin: 05/05/19 10:16 Dose: 25 mg Guaifenesin (Diabetic Tussin Dm -) 5 ml PO Q4H [facility] Stop: 05/10/19 12:44 Piperacillin Sod/Tazobactam (Sod 3.375 gm/ Dextrose) 50 mls @ 100 mls/hr IVPB Q8H-IV [facility]; Protocol Last Admin: 05/05/19 10:16 Dose: 100 mls/hr Insulin Aspart (Novolog Vial Sliding Scale -) 1 vial SQ [facility]; Protocol Last Admin: 05/05/19 11:58 Dose: 10 units Insulin Detemir (Levemir Vial) 30 units SQ [facility] Methylprednisolone Sodium Succinate (Solu-Medrol -) 40 mg IVPUSH DAILY [facility] Stop: 05/08/19 10:01 Last Admin: 05/05/19 10:16 Dose: 40 mg Non-Formulary Medication (Fluticasone/Vilanterol [Breo Ellipta 100-25 Mcg Inh]) 1 each IH DAILY [facility] Patient's Own Medication (Non- Formulary) ( Tacrolimus [Envarsus Xr] 4 Mg) 12 mg PO DAILY [facility] Last Admin: 05/05/19 10:17 Dose: 12 mg Nystatin (Nystatin Oral Suspension -) 500,000 units PO Q6HPO [facility] Last Admin: 05/05/19 11:58 Dose: 500,000 units - Objective Vital Signs: Vital Signs Temperature 97.9 F 05/05/19 14:20 Pulse Rate 66 05/05/19 14:20 Respiratory Rate 20 05/05/19 14:20 Blood Pressure 124/57 L 05/05/19 14:20 O2 Sat by Pulse Oximetry (%) 95 05/05/19 00:16 Constitutional: Yes: No Distress Cardiovascular: Yes: Regular Rate and Rhythm, S1, S2 Respiratory: Yes: Other (CREPITATIONS T BASES) Gastrointestinal: Yes: Normal Bowel Sounds, Soft Edema: No Labs: CBC, BMP 05/05/19 06:00 05/05/19 06:00 Assessment/Plan RLL PNEUMONIA BRONCHIECTASIS S/P RENAL TRANSPLANT LEUKOPENIA IMPROVED AZOTEMIA UTI UNCONTROLLED DIABETES MELLITUS AWAIT C/S CONTINUE ZOSYN
--- NOTE | 2019-05-05 21:11 | PN ---
Progress Note (short form) - Note Progress Note: covering dr louis ckd s/p kidney txplt Pna Current Medications Albuterol Sulfate (Ventolin 0.083% Nebulizer Soln -) 1 amp NEB Q4H PRN PRN Reason: SHORT OF BREATH/WHEEZING Albuterol/Ipratropium (Duoneb -) 1 amp NEB RQID [facility] Last Admin: 05/05/19 15:39 Dose: 1 amp Amlodipine Besylate (Norvasc -) 10 mg PO DAILY [facility] Last Admin: 05/05/19 10:15 Dose: 10 mg Aspirin (Asa -) 81 mg PO DAILY [facility] Last Admin: 05/05/19 10:15 Dose: 81 mg Atorvastatin Calcium (Lipitor -) 10 mg PO HS [facility] Last Admin: 05/04/19 21:25 Dose: 10 mg Carvedilol (Coreg -) 25 mg PO BID [facility] Last Admin: 05/05/19 10:16 Dose: 25 mg Guaifenesin (Diabetic Tussin Dm -) 5 ml PO Q4H [facility] Stop: 05/10/19 12:44 Last Admin: 05/05/19 17:10 Dose: 5 ml Piperacillin Sod/Tazobactam (Sod 3.375 gm/ Dextrose) 50 mls @ 100 mls/hr IVPB Q8H-IV [facility]; Protocol Last Admin: 05/05/19 17:10 Dose: 100 mls/hr Insulin Aspart (Novolog Vial Sliding Scale -) 1 vial SQ [facility]; Protocol Last Admin: 05/05/19 17:05 Dose: 10 units Insulin Detemir (Levemir Vial) 30 units SQ [facility] Methylprednisolone Sodium Succinate (Solu-Medrol -) 40 mg IVPUSH DAILY [facility] Stop: 05/08/19 10:01 Last Admin: 05/05/19 10:16 Dose: 40 mg Non-Formulary Medication (Fluticasone/Vilanterol [Breo Ellipta 100-25 Mcg Inh]) 1 each IH DAILY [facility] Patient's Own Medication (Non- Formulary) ( Tacrolimus [Envarsus Xr] 4 Mg) 12 mg PO DAILY [facility] Last Admin: 05/05/19 10:17 Dose: 12 mg Nystatin (Nystatin Oral Suspension -) 500,000 units PO Q6HPO [facility] Last Admin: 05/05/19 17:10 Dose: 500,000 units Last Vital Signs Temp Pulse Resp BP Pulse Ox 98.0 F 72 18 138/68 95 05/05/19 18:00 05/05/19 18:00 05/05/19 18:00 05/05/19 18:00 05/05/19 09:00 CBC, BMP 05/05/19 06:00 05/05/19 06:00 IMP- mirna improving trend Plan- continue supportive care hydration
[2019-05-05] MEDS: ATORVASTATIN CA 10 MG TABLET (FP) PO SCH (22:30)
[2019-05-05] MEDS: INSULIN (LEVEMIR) 100 UNITS/ML UNITS SQ SCH (22:34)
[2019-05-06] MEDS: NYSTATIN 500,000 UNITS/5 ML SUSPENSION PO SCH ×4 (00:49→18:22)
[2019-05-06] MEDS: guaiFENesin/D-M SUGAR-FREE/ACLHOL-FREE 118 ML BOTTLE PO SCH ×6 (00:49→21:19)
[2019-05-06] MEDS ORDERED: PIPERACILLIN/TAZOBACTAM 3.375 GM VIAL IVPB ONE ×3 (01:08→18:21)
[2019-05-06] MEDS ORDERED: DEXTROSE 5%-WATER - 50 ML IVPB ONE ×3 (01:09→18:21)
[2019-05-06] MEDS ORDERED: INSULIN (LEVEMIR) 100 UNITS/ML UNITS SQ ONE (01:10)
[2019-05-06] MEDS: PIPERACILLIN/TAZOB 3.375 GM 3.375 GM in DEXTROSE 5%-WATER - 50 ML IVPB SCH ×3 (01:13→18:38)
[2019-05-06] MEDS: INSULIN SLIDING SCALE (NOVOLOG) 1 VIAL SQ SCH ×4 (06:42→21:20)
[2019-05-06] MEDS ORDERED: INSULIN SLIDING SCALE (NOVOLOG) 1 VIAL SQ ONE (07:00)
[2019-05-06] MEDS: ALBUTEROL SO4 2.5/IPRATROPIUM 0.5 INH SOL 3 ML VIAL.NEB. NEB SCH ×4 (08:01→20:39)
[2019-05-06 08:38] LABS: HEMATOCRIT 30.4 % (35.4-49); HEMOGLOBIN 9.8 GM/dL (11.7-16.9); MCH 25.8 pg (25.7-33.7); MCHC 32.2 g/dl (32.0-35.9); MEAN CELL VOLUME 80.1 fl (80-96); MEAN PLT VOLUME 6.8 fl (7.5-11.1); PLATELET COUNT 257 K/MM3 (134-434); RBC 3.79 M/mm3 (4.00-5.60); RDW 16.9 % (11.9-15.9); WHITE BLOOD COUNT 6.5 K/mm3 (4.0-10.0)
[2019-05-06 09:16] LABS: ALBUMIN 2.2 g/dl (3.4-5.0); BILIRUBIN,TOTAL 0.6 mg/dL (0.2-1); BLOOD UREA NITROGEN 42.7 mg/dL (7-18); CALCIUM 9.4 mg/dL (8.5-10.1); CREATININE 1.5 mg/dL (0.55-1.3); POTASSIUM 4.1 mmol/L (3.5-5.1)
[2019-05-06] MEDS: amLODIPine BESYLATE 10 MG TABLET (FP) PO SCH (10:02)
[2019-05-06] MEDS: ASPIRIN 81 MG CHEWABLE TABLETS PO SCH (10:03)
[2019-05-06] MEDS: CARVEDILOL 25 MG TABLET (FP) PO SCH ×2 (10:03→21:19)
[2019-05-06] MEDS: methylPREDNISolone NA SUCC 40 MG/1 ML VIAL IVPUSH SCH (10:03)
[2019-05-06] MEDS: TACROLIMUS 4 MG PO SCH (10:04)
--- NOTE | 2019-05-06 10:23 | PN ---
Progress Note (short form) - Note Progress Note: PULMONARY Denies shortness of breath. +nonproductive cough. No fevers or chills. Vital Signs Period Temp Pulse Resp BP Sys/Grey Pulse Ox Last 24 Hr 97.8 F-98.6 F 57-72 18-69 105-138/54-68 94 Gen: NAD at rest Heart: RRR Lung: decreased breath sounds at the bases Abd: soft, nontender Ext: no edema CBC, BMP 05/06/19 08:15 05/06/19 08:15 Active Medications Albuterol Sulfate (Ventolin 0.083% Nebulizer Soln -) 1 amp NEB Q4H PRN PRN Reason: SHORT OF BREATH/WHEEZING Albuterol/Ipratropium (Duoneb -) 1 amp NEB RQID [facility] Last Admin: 05/06/19 08:01 Dose: 1 amp Amlodipine Besylate (Norvasc -) 10 mg PO DAILY [facility] Last Admin: 05/05/19 10:15 Dose: 10 mg Aspirin (Asa -) 81 mg PO DAILY [facility] Last Admin: 05/05/19 10:15 Dose: 81 mg Atorvastatin Calcium (Lipitor -) 10 mg PO HS [facility] Last Admin: 05/05/19 22:30 Dose: 10 mg Carvedilol (Coreg -) 25 mg PO BID [facility] Last Admin: 05/05/19 22:30 Dose: 25 mg Guaifenesin (Diabetic Tussin Dm -) 5 ml PO Q4H [facility] Stop: 05/10/19 12:44 Last Admin: 05/06/19 06:41 Dose: 5 ml Piperacillin Sod/Tazobactam (Sod 3.375 gm/ Dextrose) 50 mls @ 100 mls/hr IVPB Q8H-IV [facility]; Protocol Last Admin: 05/06/19 01:13 Dose: 100 mls/hr Insulin Aspart (Novolog Vial Sliding Scale -) 1 vial SQ [facility]; Protocol Last Admin: 05/06/19 06:42 Dose: 8 units Insulin Detemir (Levemir Vial) 30 units SQ HS [facility] Last Admin: 05/05/19 22:34 Dose: 30 units Methylprednisolone Sodium Succinate (Solu-Medrol -) 40 mg IVPUSH DAILY [facility] Stop: 05/08/19 10:01 Last Admin: 05/05/19 10:16 Dose: 40 mg Non-Formulary Medication (Fluticasone/Vilanterol [Breo Ellipta 100-25 Mcg Inh]) 1 each IH DAILY [facility] Patient's Own Medication (Non- Formulary) ( Tacrolimus [Envarsus Xr] 4 Mg) 12 mg PO DAILY [facility] Last Admin: 05/05/19 10:17 Dose: 12 mg Nystatin (Nystatin Oral Suspension -) 500,000 units PO Q6HPO [facility] Last Admin: 05/06/19 06:42 Dose: 500,000 units A/P Acute on Chronic Hypoxic Respiratory Failure Pneumonia Sepsis Acute COPD Exacerbation h/o Renal Transplant CAD HTN DM Hyperlipidemia - continue antibiotics - f/u cultures - urinary antigens - O2 to keep SpO2 >90% - short course of medrol - inhaled bronchodilators - outpt f/u of chest imaging - swallow eval - DVT prophylaxis Problem List - Problems (1) Pneumonia Code(s): J18.9 - PNEUMONIA, UNSPECIFIED ORGANISM Qualifiers: Pneumonia type: due to unspecified organism Laterality: bilateral Lung location: lower lobe of lung Qualified Code(s): J18.1 - Lobar pneumonia, unspecified organism (2) Sepsis Code(s): A41.9 - SEPSIS, UNSPECIFIED ORGANISM
--- NOTE | 2019-05-06 14:04 | PN ---
Progress Note, Physician History of Present Illness: Appetite improved, cough, dyspnea, weakness slowly recovering. - Current Medication List Current Medications: Active Medications Albuterol Sulfate (Ventolin 0.083% Nebulizer Soln -) 1 amp NEB Q4H PRN PRN Reason: SHORT OF BREATH/WHEEZING Albuterol/Ipratropium (Duoneb -) 1 amp NEB RQID [facility] Last Admin: 05/06/19 12:03 Dose: 1 amp Amlodipine Besylate (Norvasc -) 10 mg PO DAILY [facility] Last Admin: 05/06/19 10:02 Dose: 10 mg Aspirin (Asa -) 81 mg PO DAILY [facility] Last Admin: 05/06/19 10:03 Dose: 81 mg Atorvastatin Calcium (Lipitor -) 10 mg PO HS [facility] Last Admin: 05/05/19 22:30 Dose: 10 mg Carvedilol (Coreg -) 25 mg PO BID [facility] Last Admin: 05/06/19 10:03 Dose: 25 mg Guaifenesin (Diabetic Tussin Dm -) 5 ml PO Q4H [facility] Stop: 05/10/19 12:44 Last Admin: 05/06/19 06:41 Dose: 5 ml Piperacillin Sod/Tazobactam (Sod 3.375 gm/ Dextrose) 50 mls @ 100 mls/hr IVPB Q8H-IV [facility]; Protocol Last Admin: 05/06/19 10:03 Dose: 100 mls/hr Insulin Aspart (Novolog Vial Sliding Scale -) 1 vial SQ ACHS [facility]; Protocol Last Admin: 05/06/19 13:18 Dose: 2 units Insulin Detemir (Levemir Vial) 30 units SQ HS [facility] Last Admin: 05/05/19 22:34 Dose: 30 units Methylprednisolone Sodium Succinate (Solu-Medrol -) 40 mg IVPUSH DAILY [facility] Stop: 05/08/19 10:01 Last Admin: 05/06/19 10:03 Dose: 40 mg Non-Formulary Medication (Fluticasone/Vilanterol [Breo Ellipta 100-25 Mcg Inh]) 1 each IH DAILY [facility] Patient's Own Medication (Non- Formulary) ( Tacrolimus [Envarsus Xr] 4 Mg) 12 mg PO DAILY [facility] Last Admin: 05/06/19 10:04 Dose: 12 mg Nystatin (Nystatin Oral Suspension -) 500,000 units PO Q6HPO [facility] Last Admin: 05/06/19 13:15 Dose: 500,000 units - Objective Vital Signs: Vital Signs Temperature 97.9 F 05/06/19 06:48 Pulse Rate 57 L 05/06/19 06:48 Respiratory Rate 18 05/06/19 06:48 Blood Pressure 119/66 05/06/19 06:48 O2 Sat by Pulse Oximetry (%) 94 L 05/05/19 21:00 Constitutional: Yes: No Distress, Calm, Thin Neck: Yes: Supple Cardiovascular: Yes: Regular Rate and Rhythm Respiratory: Yes: Regular, Diminished, On Nasal O2 Gastrointestinal: Yes: Normal Bowel Sounds, Soft Edema: No Labs: CBC, BMP 05/06/19 08:15 05/06/19 08:15 - ....Imaging EKG: Report Reviewed (Tele: NSR) Problem List - Problems (1) Generalized weakness Code(s): R53.1 - WEAKNESS (2) Pneumonia Code(s): J18.9 - PNEUMONIA, UNSPECIFIED ORGANISM Qualifiers: Pneumonia type: due to unspecified organism Laterality: bilateral Lung location: lower lobe of lung Qualified Code(s): J18.1 - Lobar pneumonia, unspecified organism (3) Pre-syncope Code(s): R55 - SYNCOPE AND COLLAPSE (4) Acute on chronic renal failure Code(s): N17.9 - ACUTE KIDNEY FAILURE, UNSPECIFIED; N18.9 - CHRONIC KIDNEY DISEASE, UNSPECIFIED Qualifiers: Chronic kidney disease stage: stage 5, not on chronic dialysis (5) Anemia Code(s): D64.9 - ANEMIA, UNSPECIFIED Qualifiers: Anemia type: due to chronic kidney disease Chronic kidney disease stage: stage 5, not on chronic dialysis Qualified Code(s): N18.5 - Chronic kidney disease, stage 5; D63.1 - Anemia in chronic kidney disease (6) Transplant recipient Code(s): Z94.89 - OTHER TRANSPLANTED ORGAN AND TISSUE STATUS Assessment/Plan 05/01/2017 Echo: Normal LV size, mild LVH, normal LV systolic function, normal biatrial sizes, normal RV size and fxn, mild AR, tr MR, TR, no pericardial effusion 05/04/[address]: Chronic ILD, RLL PNA 1. Acute on Chronic Hypoxic Respiratory Failure 2. Anorexia, lethargy, RLL PNA ?atypical vs fungal 3. H/o post cardiopulmonary arrest, post respiratory failure now on O2 nasal 4. ESRD s/p right renal transplant with acute on CKD and hyperkalemia resolving 5. HTN 6. Type II DM 7. Hyperlipidemia 8. COPD 9. Erectile dysfunction on Cialis PLAN: 1. Continue Norvasc 10 qd, ASA 81 qd, Lipitor 10 qhs, carvedilol 25 bid, Insulin , tacrolimus per renal transplant team 2. IV steroids, BD and IV antibiotics coverage, f/u sputum cultures for C&S, AFB and fungus, O2 to keep SpO2 >90% 3. Immunosuppressive meds per renal, high resistive index in graft, urology called 4. OOB to chair
--- NOTE | 2019-05-06 14:58 | PN ---
Progress Note, Physician History of Present Illness: Pt is breathing better (sitting in the chair , with his ). Pt W/o CP, palpitations, SOB, abd pain - Current Medication List Current Medications: Active Medications Albuterol Sulfate (Ventolin 0.083% Nebulizer Soln -) 1 amp NEB Q4H PRN PRN Reason: SHORT OF BREATH/WHEEZING Albuterol/Ipratropium (Duoneb -) 1 amp NEB RQID [facility] Last Admin: 05/06/19 12:03 Dose: 1 amp Amlodipine Besylate (Norvasc -) 10 mg PO DAILY [facility] Last Admin: 05/06/19 10:02 Dose: 10 mg Aspirin (Asa -) 81 mg PO DAILY [facility] Last Admin: 05/06/19 10:03 Dose: 81 mg Atorvastatin Calcium (Lipitor -) 10 mg PO HS [facility] Last Admin: 05/05/19 22:30 Dose: 10 mg Carvedilol (Coreg -) 25 mg PO BID [facility] Last Admin: 05/06/19 10:03 Dose: 25 mg Guaifenesin (Diabetic Tussin Dm -) 5 ml PO Q4H [facility] Stop: 05/10/19 12:44 Last Admin: 05/06/19 06:41 Dose: 5 ml Piperacillin Sod/Tazobactam (Sod 3.375 gm/ Dextrose) 50 mls @ 100 mls/hr IVPB Q8H-IV [facility]; Protocol Last Admin: 05/06/19 10:03 Dose: 100 mls/hr Insulin Aspart (Novolog Vial Sliding Scale -) 1 vial SQ [facility]; Protocol Last Admin: 05/06/19 13:18 Dose: 2 units Insulin Detemir (Levemir Vial) 30 units SQ [facility] Last Admin: 05/05/19 22:34 Dose: 30 units Methylprednisolone Sodium Succinate (Solu-Medrol -) 40 mg IVPUSH DAILY [facility] Stop: 05/08/19 10:01 Last Admin: 05/06/19 10:03 Dose: 40 mg Non-Formulary Medication (Fluticasone/Vilanterol [Breo Ellipta 100-25 Mcg Inh]) 1 each IH DAILY [facility] Patient's Own Medication (Non- Formulary) ( Tacrolimus [Envarsus Xr] 4 Mg) 12 mg PO DAILY [facility] Last Admin: 05/06/19 10:04 Dose: 12 mg Nystatin (Nystatin Oral Suspension -) 500,000 units PO Q6HPO [facility] Last Admin: 05/06/19 13:15 Dose: 500,000 units - Objective Vital Signs: Vital Signs Temperature 97.9 F 05/06/19 06:48 Pulse Rate 57 L 05/06/19 06:48 Respiratory Rate 18 05/06/19 06:48 Blood Pressure 119/66 05/06/19 06:48 O2 Sat by Pulse Oximetry (%) 94 L 05/05/19 21:00 Constitutional: Yes: No Distress, Calm Cardiovascular: Yes: Regular Rate and Rhythm, S1, S2 Respiratory: Yes: Regular, Rales, Rhonchi Gastrointestinal: Yes: Normal Bowel Sounds, Soft. No: Tenderness Edema: No Neurological: Yes: Alert, Oriented Labs: CBC, BMP 05/06/19 08:15 05/06/19 08:15 Problem List - Problems (1) Pneumonia Code(s): J18.9 - PNEUMONIA, UNSPECIFIED ORGANISM Qualifiers: Pneumonia type: due to unspecified organism Laterality: bilateral Lung location: lower lobe of lung Qualified Code(s): J18.1 - Lobar pneumonia, unspecified organism (2) Renal transplant recipient Code(s): Z94.0 - KIDNEY TRANSPLANT STATUS (3) Hyperglycemia Code(s): R73.9 - HYPERGLYCEMIA, UNSPECIFIED (4) Diabetes mellitus Code(s): E11.9 - TYPE 2 DIABETES MELLITUS WITHOUT COMPLICATIONS (5) Hyperkalemia Code(s): E87.5 - HYPERKALEMIA (6) COPD (chronic obstructive pulmonary disease) with emphysema Code(s): J43.9 - EMPHYSEMA, UNSPECIFIED (7) CRF (chronic renal failure) Code(s): N18.9 - CHRONIC KIDNEY DISEASE, UNSPECIFIED Assessment/Plan IV abtx (Zosyn) IV steroids ID, Renal, Cardio. Pulmonary consults are appreciated Levemir was increased, BGM are getting better, to monitor. Trial of Robitussin DM diabetic Pt's baseline recent creatinine is 1.9 (per his transplant team), so no ARF. Admitted to monitor bed AM labs Pt's condition and Rx was d/w his nurse, pt and his (at bedside).
--- NOTE | 2019-05-06 15:52 | PN ---
Progress Note, Physician History of Present Illness: OOB IN CHAIR AWAKE, ALERT NO COMPLAINTS DENIES CHEST PAIN/ DYSPNEA/ COUGH NO C/O DYSURIA AFEBRILE - Current Medication List Current Medications: Active Medications Albuterol Sulfate (Ventolin 0.083% Nebulizer Soln -) 1 amp NEB Q4H PRN PRN Reason: SHORT OF BREATH/WHEEZING Albuterol/Ipratropium (Duoneb -) 1 amp NEB RQID [facility] Last Admin: 05/06/19 12:03 Dose: 1 amp Amlodipine Besylate (Norvasc -) 10 mg PO DAILY [facility] Last Admin: 05/06/19 10:02 Dose: 10 mg Aspirin (Asa -) 81 mg PO DAILY [facility] Last Admin: 05/06/19 10:03 Dose: 81 mg Atorvastatin Calcium (Lipitor -) 10 mg PO HS [facility] Last Admin: 05/05/19 22:30 Dose: 10 mg Carvedilol (Coreg -) 25 mg PO BID [facility] Last Admin: 05/06/19 10:03 Dose: 25 mg Guaifenesin (Diabetic Tussin Dm -) 5 ml PO Q4H [facility] Stop: 05/10/19 12:44 Last Admin: 05/06/19 06:41 Dose: 5 ml Piperacillin Sod/Tazobactam (Sod 3.375 gm/ Dextrose) 50 mls @ 100 mls/hr IVPB Q8H-IV [facility]; Protocol Last Admin: 05/06/19 10:03 Dose: 100 mls/hr Insulin Aspart (Novolog Vial Sliding Scale -) 1 vial SQ [facility]; Protocol Last Admin: 05/06/19 13:18 Dose: 2 units Insulin Detemir (Levemir Vial) 30 units SQ [facility] Last Admin: 05/05/19 22:34 Dose: 30 units Methylprednisolone Sodium Succinate (Solu-Medrol -) 40 mg IVPUSH DAILY [facility] Stop: 05/08/19 10:01 Last Admin: 05/06/19 10:03 Dose: 40 mg Non-Formulary Medication (Fluticasone/Vilanterol [Breo Ellipta 100-25 Mcg Inh]) 1 each IH DAILY [facility] Patient's Own Medication (Non- Formulary) ( Tacrolimus [Envarsus Xr] 4 Mg) 12 mg PO DAILY [facility] Last Admin: 05/06/19 10:04 Dose: 12 mg Nystatin (Nystatin Oral Suspension -) 500,000 units PO Q6HPO [facility] Last Admin: 05/06/19 13:15 Dose: 500,000 units - Objective Vital Signs: Vital Signs Temperature 97.9 F 05/06/19 06:48 Pulse Rate 57 L 05/06/19 06:48 Respiratory Rate 18 05/06/19 06:48 Blood Pressure 119/66 05/06/19 06:48 O2 Sat by Pulse Oximetry (%) 94 L 05/05/19 21:00 Constitutional: Yes: No Distress Cardiovascular: Yes: Regular Rate and Rhythm, S1, S2 Respiratory: Yes: Other (FEW CREPITATIONS, BASES) Gastrointestinal: Yes: Soft, Abdomen, Obese Edema: No Labs: CBC, BMP 05/06/19 08:15 05/06/19 08:15 Assessment/Plan RLL PNEUMONIA BRONCHIECTASIS S/P RENAL TRANSPLANT LEUKOPENIA IMPROVED AZOTEMIA UTI UNCONTROLLED DIABETES MELLITUS CONTINUE ZOSYN
--- NOTE | 2019-05-06 21:07 | PN ---
Progress Note (short form) - Note Progress Note: covering dr louis ckd s/p kidney txplt Pna Current Medications Albuterol Sulfate (Ventolin 0.083% Nebulizer Soln -) 1 amp NEB Q4H PRN PRN Reason: SHORT OF BREATH/WHEEZING Albuterol/Ipratropium (Duoneb -) 1 amp NEB RQID [facility] Last Admin: 05/06/19 20:39 Dose: 1 amp Amlodipine Besylate (Norvasc -) 10 mg PO DAILY [facility] Last Admin: 05/06/19 10:02 Dose: 10 mg Aspirin (Asa -) 81 mg PO DAILY [facility] Last Admin: 05/06/19 10:03 Dose: 81 mg Atorvastatin Calcium (Lipitor -) 10 mg PO HS [facility] Last Admin: 05/05/19 22:30 Dose: 10 mg Carvedilol (Coreg -) 25 mg PO BID [facility] Last Admin: 05/06/19 10:03 Dose: 25 mg Guaifenesin (Diabetic Tussin Dm -) 5 ml PO Q4H [facility] Stop: 05/10/19 12:44 Last Admin: 05/06/19 18:39 Dose: 5 ml Piperacillin Sod/Tazobactam (Sod 3.375 gm/ Dextrose) 50 mls @ 100 mls/hr IVPB Q8H-IV [facility]; Protocol Last Admin: 05/06/19 18:38 Dose: 100 mls/hr Insulin Aspart (Novolog Vial Sliding Scale -) 1 vial SQ ACHS [facility]; Protocol Last Admin: 05/06/19 18:17 Dose: 6 units Insulin Detemir (Levemir Vial) 30 units SQ [facility] Last Admin: 05/05/19 22:34 Dose: 30 units Methylprednisolone Sodium Succinate (Solu-Medrol -) 40 mg IVPUSH DAILY [facility] Stop: 05/08/19 10:01 Last Admin: 05/06/19 10:03 Dose: 40 mg Non-Formulary Medication (Fluticasone/Vilanterol [Breo Ellipta 100-25 Mcg Inh]) 1 each IH DAILY [facility] Patient's Own Medication (Non- Formulary) ( Tacrolimus [Envarsus Xr] 4 Mg) 12 mg PO DAILY [facility] Last Admin: 05/06/19 10:04 Dose: 12 mg Nystatin (Nystatin Oral Suspension -) 500,000 units PO Q6HPO [facility] Last Admin: 05/06/19 18:22 Dose: 500,000 units Last Vital Signs Temp Pulse Resp BP Pulse Ox 97.9 F 57 L 18 119/66 94 L 05/06/19 06:48 05/06/19 06:48 05/06/19 09:00 05/06/19 06:48 05/06/19 09:00 alert in nad, c/o persistent sob Lungs clear heart reg Abd soft nontender ext no edema CBC, BMP 05/06/19 08:15 05/06/19 08:15 CBC, BMP 05/05/19 06:00 05/05/19 06:00 IMP- mirna improving resp status minimally improved c/o anxiety with albuterol nebs Plan- continue supportive care hydration
[2019-05-06] MEDS: ATORVASTATIN CA 10 MG TABLET (FP) PO SCH (21:19)
[2019-05-06] MEDS: INSULIN (LEVEMIR) 100 UNITS/ML UNITS SQ SCH (21:19)
[2019-05-07] MEDS: NYSTATIN 500,000 UNITS/5 ML SUSPENSION PO SCH ×5 (00:18→23:10)
[2019-05-07] MEDS: guaiFENesin/D-M SUGAR-FREE/ACLHOL-FREE 118 ML BOTTLE PO SCH ×6 (00:18→22:36)
[2019-05-07] MEDS ORDERED: DEXTROSE 5%-WATER - 50 ML IVPB ONE ×3 (00:52→16:49)
[2019-05-07] MEDS ORDERED: PIPERACILLIN/TAZOBACTAM 3.375 GM VIAL IVPB ONE ×3 (00:52→16:48)
[2019-05-07] MEDS: PIPERACILLIN/TAZOB 3.375 GM 3.375 GM in DEXTROSE 5%-WATER - 50 ML IVPB SCH ×3 (01:46→17:31)
[2019-05-07] MEDS: INSULIN SLIDING SCALE (NOVOLOG) 1 VIAL SQ SCH ×4 (06:19→23:04)
[2019-05-07 06:41] LABS: HEMATOCRIT 29.4 % (35.4-49); HEMOGLOBIN 9.4 GM/dL (11.7-16.9); MCH 25.9 pg (25.7-33.7); MEAN CELL VOLUME 80.7 fl (80-96); MEAN PLT VOLUME 7.2 fl (7.5-11.1); PLATELET COUNT 244 K/MM3 (134-434); RBC 3.64 M/mm3 (4.00-5.60); RDW 17.2 % (11.9-15.9); WHITE BLOOD COUNT 7.1 K/mm3 (4.0-10.0)
[2019-05-07] MEDS ORDERED: INSULIN (LEVEMIR) 100 UNITS/ML UNITS SQ ONE (06:41)
[2019-05-07] MEDS ORDERED: INSULIN SLIDING SCALE (NOVOLOG) 1 VIAL SQ ONE (06:41)
[2019-05-07 06:43] LABS: BILIRUBIN,TOTAL 0.3 mg/dL (0.2-1); BLOOD UREA NITROGEN 40.4 mg/dL (7-18); CALCIUM 9.1 mg/dL (8.5-10.1); CREATININE 1.4 mg/dL (0.55-1.3); POTASSIUM 4.7 mmol/L (3.5-5.1); TOT PROT 6.2 g/dl (6.4-8.2)
[2019-05-07] MEDS: ALBUTEROL SO4 2.5/IPRATROPIUM 0.5 INH SOL 3 ML VIAL.NEB. NEB SCH ×4 (07:30→20:10)
--- NOTE | 2019-05-07 09:32 | PN ---
Progress Note, Physician History of Present Illness: Pt had breakfast, now resting comfortably. Pt w/o CP, palpitations, SOB, abd pain - Current Medication List Current Medications: Active Medications Albuterol Sulfate (Ventolin 0.083% Nebulizer Soln -) 1 amp NEB Q4H PRN PRN Reason: SHORT OF BREATH/WHEEZING Albuterol/Ipratropium (Duoneb -) 1 amp NEB RQID [facility] Last Admin: 05/07/19 07:30 Dose: 1 amp Amlodipine Besylate (Norvasc -) 10 mg PO DAILY [facility] Last Admin: 05/06/19 10:02 Dose: 10 mg Aspirin (Asa -) 81 mg PO DAILY [facility] Last Admin: 05/06/19 10:03 Dose: 81 mg Atorvastatin Calcium (Lipitor -) 10 mg PO HS [facility] Last Admin: 05/06/19 21:19 Dose: 10 mg Carvedilol (Coreg -) 25 mg PO BID [facility] Last Admin: 05/06/19 21:19 Dose: 25 mg Guaifenesin (Diabetic Tussin Dm -) 5 ml PO Q4H [facility] Stop: 05/10/19 12:44 Last Admin: 05/07/19 06:18 Dose: 5 ml Piperacillin Sod/Tazobactam (Sod 3.375 gm/ Dextrose) 50 mls @ 100 mls/hr IVPB Q8H-IV [facility]; Protocol Last Admin: 05/07/19 01:46 Dose: 100 mls/hr Insulin Aspart (Novolog Vial Sliding Scale -) 1 vial SQ [facility]; Protocol Last Admin: 05/07/19 06:19 Dose: 6 units Insulin Detemir (Levemir Vial) 30 units SQ [facility] Last Admin: 05/06/19 21:19 Dose: 30 units Methylprednisolone Sodium Succinate (Solu-Medrol -) 40 mg IVPUSH DAILY [facility] Stop: 05/08/19 10:01 Last Admin: 05/06/19 10:03 Dose: 40 mg Non-Formulary Medication (Fluticasone/Vilanterol [Breo Ellipta 100-25 Mcg Inh]) 1 each IH DAILY [facility] Patient's Own Medication (Non- Formulary) ( Tacrolimus [Envarsus Xr] 4 Mg) 12 mg PO DAILY [facility] Last Admin: 05/06/19 10:04 Dose: 12 mg Nystatin (Nystatin Oral Suspension -) 500,000 units PO Q6HPO [facility] Last Admin: 05/07/19 06:19 Dose: 500,000 units - Objective Vital Signs: Vital Signs Temperature 97.9 F 05/07/19 06:00 Pulse Rate 60 05/07/19 06:00 Respiratory Rate 18 05/07/19 06:00 Blood Pressure 122/64 05/07/19 06:00 O2 Sat by Pulse Oximetry (%) 94 L 05/06/19 21:00 Constitutional: Yes: No Distress Cardiovascular: Yes: Regular Rate and Rhythm, S1, S2 Respiratory: Yes: Regular, Wheezes (minimal, scatered bilat) Gastrointestinal: Yes: Normal Bowel Sounds, Soft, Tenderness Edema: No Neurological: Yes: Alert, Oriented Labs: CBC, BMP 05/07/19 05:10 05/07/19 05:10 Problem List - Problems (1) Pneumonia Code(s): J18.9 - PNEUMONIA, UNSPECIFIED ORGANISM Qualifiers: Pneumonia type: due to unspecified organism Laterality: bilateral Lung location: lower lobe of lung Qualified Code(s): J18.1 - Lobar pneumonia, unspecified organism (2) Renal transplant recipient Code(s): Z94.0 - KIDNEY TRANSPLANT STATUS (3) Hyperglycemia Code(s): R73.9 - HYPERGLYCEMIA, UNSPECIFIED (4) Diabetes mellitus Code(s): E11.9 - TYPE 2 DIABETES MELLITUS WITHOUT COMPLICATIONS (5) Hyperkalemia Code(s): E87.5 - HYPERKALEMIA (6) COPD (chronic obstructive pulmonary disease) with emphysema Code(s): J43.9 - EMPHYSEMA, UNSPECIFIED Assessment/Plan IV abtx ID, Renal, Pulmonary, Cardio consults are appreciated TO consider increasing Levemir if BGM are still running high. Admitted to monitor bed AM labs Pt's condition was d/w his nurse.
[2019-05-07] MEDS: amLODIPine BESYLATE 10 MG TABLET (FP) PO SCH (10:25)
[2019-05-07] MEDS: CARVEDILOL 25 MG TABLET (FP) PO SCH ×2 (10:25→22:36)
[2019-05-07] MEDS: ASPIRIN 81 MG CHEWABLE TABLETS PO SCH (10:25)
[2019-05-07] MEDS: TACROLIMUS 4 MG PO SCH (10:26)
[2019-05-07] MEDS: methylPREDNISolone NA SUCC 40 MG/1 ML VIAL IVPUSH SCH (10:26)
--- NOTE | 2019-05-07 10:47 | PN ---
Progress Note, Physician History of Present Illness: Pt seen and examined at bedside. He is awake and alert. He says that his breathing is alot better today. - Current Medication List Current Medications: Active Medications Albuterol Sulfate (Ventolin 0.083% Nebulizer Soln -) 1 amp NEB Q4H PRN PRN Reason: SHORT OF BREATH/WHEEZING Albuterol/Ipratropium (Duoneb -) 1 amp NEB RQID [facility] Last Admin: 05/07/19 07:30 Dose: 1 amp Amlodipine Besylate (Norvasc -) 10 mg PO DAILY [facility] Last Admin: 05/07/19 10:25 Dose: 10 mg Aspirin (Asa -) 81 mg PO DAILY [facility] Last Admin: 05/07/19 10:25 Dose: 81 mg Atorvastatin Calcium (Lipitor -) 10 mg PO HS [facility] Last Admin: 05/06/19 21:19 Dose: 10 mg Carvedilol (Coreg -) 25 mg PO BID [facility] Last Admin: 05/07/19 10:25 Dose: 25 mg Guaifenesin (Diabetic Tussin Dm -) 5 ml PO Q4H [facility] Stop: 05/10/19 12:44 Last Admin: 05/07/19 10:32 Dose: Not Given Piperacillin Sod/Tazobactam (Sod 3.375 gm/ Dextrose) 50 mls @ 100 mls/hr IVPB Q8H-IV [facility]; Protocol Last Admin: 05/07/19 10:25 Dose: 100 mls/hr Insulin Aspart (Novolog Vial Sliding Scale -) 1 vial SQ [facility]; Protocol Last Admin: 05/07/19 06:19 Dose: 6 units Insulin Detemir (Levemir Vial) 30 units SQ [facility] Last Admin: 05/06/19 21:19 Dose: 30 units Methylprednisolone Sodium Succinate (Solu-Medrol -) 40 mg IVPUSH DAILY [facility] Stop: 05/08/19 10:01 Last Admin: 05/07/19 10:26 Dose: 40 mg Non-Formulary Medication (Fluticasone/Vilanterol [Breo Ellipta 100-25 Mcg Inh]) 1 each IH DAILY [facility] Patient's Own Medication (Non- Formulary) ( Tacrolimus [Envarsus Xr] 4 Mg) 12 mg PO DAILY [facility] Last Admin: 05/07/19 10:26 Dose: 12 mg Nystatin (Nystatin Oral Suspension -) 500,000 units PO Q6HPO [facility] Last Admin: 05/07/19 06:19 Dose: 500,000 units - Objective Vital Signs: Vital Signs Temperature 97.9 F 05/07/19 06:00 Pulse Rate 60 05/07/19 06:00 Respiratory Rate 18 05/07/19 06:00 Blood Pressure 122/64 05/07/19 06:00 O2 Sat by Pulse Oximetry (%) 94 L 05/06/19 21:00 Constitutional: Yes: Calm Eyes: Yes: Conjunctiva Clear HENT: Yes: Atraumatic Neck: Yes: Supple Cardiovascular: Yes: S1, S2 Respiratory: Yes: On Nasal O2, Wheezes Gastrointestinal: Yes: Soft Genitourinary: Yes: Other (graft soft and non tender) Musculoskeletal: Yes: WNL Edema: No Integumentary: Yes: WNL Neurological: Yes: Oriented Psychiatric: Yes: Oriented Labs: CBC, BMP 05/07/19 05:10 05/07/19 05:10 Problem List - Problems (1) Generalized weakness Code(s): R53.1 - WEAKNESS (2) Pneumonia Code(s): J18.9 - PNEUMONIA, UNSPECIFIED ORGANISM Qualifiers: Pneumonia type: due to unspecified organism Laterality: bilateral Lung location: lower lobe of lung Qualified Code(s): J18.1 - Lobar pneumonia, unspecified organism (3) Acute on chronic renal failure Code(s): N17.9 - ACUTE KIDNEY FAILURE, UNSPECIFIED; N18.9 - CHRONIC KIDNEY DISEASE, UNSPECIFIED Qualifiers: Chronic kidney disease stage: stage 5, not on chronic dialysis (4) Transplant recipient Code(s): Z94.89 - OTHER TRANSPLANTED ORGAN AND TISSUE STATUS Assessment/Plan Current Medications Generic Name Dose Route Start Last Admin Trade Name Freq PRN Reason Stop Dose Admin Albuterol Sulfate 1 amp 05/04/19 16:54 Ventolin 0.083% Nebulizer Soln - NEB Q4H PRN SHORT OF BREATH/WHEEZING Albuterol/Ipratropium 1 amp 05/04/19 20:00 05/07/19 07:30 Duoneb - NEB 1 amp RQID [facility] Administration Amlodipine Besylate 10 mg 05/04/19 10:00 05/07/19 10:25 Norvasc - PO 10 mg DAILY [facility] Administration Aspirin 81 mg 05/04/19 10:00 05/07/19 10:25 Asa - PO 81 mg DAILY [facility] Administration Atorvastatin Calcium 10 mg 05/03/19 23:34 05/06/19 21:19 Lipitor - PO 10 mg HS [facility] Administration Carvedilol 25 mg 05/03/19 23:45 05/07/19 10:25 Coreg - PO 25 mg BID [facility] Administration Guaifenesin 5 ml 05/05/19 12:45 05/07/19 10:32 Diabetic Tussin Dm - PO 05/10/19 12:44 Not Given Q4H [facility] Piperacillin Sod/Tazobactam 50 mls @ 100 mls/hr 05/04/19 18:00 05/07/19 10:25 Sod 3.375 gm/ Dextrose IVPB 100 mls/hr Q8H-IV [facility] Administration Protocol Insulin Aspart 1 vial 05/04/19 07:00 05/07/19 06:19 Novolog Vial Sliding Scale - SQ 6 units ACHS [facility] Administration Protocol Insulin Detemir 30 units 05/05/19 22:00 05/06/19 21:19 Levemir Vial SQ 30 units HS [facility] Administration Methylprednisolone Sodium Succinate 40 mg 05/04/19 17:00 05/07/19 10:26 Solu-Medrol - IVPUSH 05/08/19 10:01 40 mg DAILY [facility] Administration Non-Formulary Medication 1 each 05/04/19 10:00 Fluticasone/Vilanterol [Breo Ellipta 100-25 Mcg Inh] IH DAILY [facility] Patient's Own 12 mg 05/04/19 10:00 05/07/19 10:26 Medication (Non- PO 12 mg Formulary) ( DAILY [facility] Administration Tacrolimus [Envarsus Xr] 4 Mg) Nystatin 500,000 units 05/04/19 18:00 05/07/19 06:19 Nystatin Oral Suspension - PO 500,000 units Q6HPO [facility] Administration Microbiology 05/03/19 21:25 Blood - Peripheral Venous Blood Culture - Preliminary NO GROWTH OBTAINED AFTER 72 HOURS, INCUBATION TO CONTINUE FOR 2 DAYS. 05/03/19 20:50 Blood - Peripheral Venous Blood Culture - Preliminary NO GROWTH OBTAINED AFTER 72 HOURS, INCUBATION TO CONTINUE FOR 2 DAYS. Impression 1. CKD 2. SOLE 3. kidney transplant 4. copd 5. pna 6. DM 7. HLD 8. HTN 9. hyperkalemia Plan - renal function is improving - last network operations lead at transplant center was 1.9 - stable off of fluids - cultures neg so far - will need better glucose control - follow prograf level - high resistive index in graft, follow urology
--- NOTE | 2019-05-07 11:02 | PN ---
Progress Note, Physician History of Present Illness: Appetite improved, cough, dyspnea, weakness slowly recovering on NC. - Current Medication List Current Medications: Active Medications Albuterol Sulfate (Ventolin 0.083% Nebulizer Soln -) 1 amp NEB Q4H PRN PRN Reason: SHORT OF BREATH/WHEEZING Albuterol/Ipratropium (Duoneb -) 1 amp NEB RQID [facility] Last Admin: 05/07/19 07:30 Dose: 1 amp Amlodipine Besylate (Norvasc -) 10 mg PO DAILY [facility] Last Admin: 05/07/19 10:25 Dose: 10 mg Aspirin (Asa -) 81 mg PO DAILY [facility] Last Admin: 05/07/19 10:25 Dose: 81 mg Atorvastatin Calcium (Lipitor -) 10 mg PO HS [facility] Last Admin: 05/06/19 21:19 Dose: 10 mg Carvedilol (Coreg -) 25 mg PO BID [facility] Last Admin: 05/07/19 10:25 Dose: 25 mg Guaifenesin (Diabetic Tussin Dm -) 5 ml PO Q4H [facility] Stop: 05/10/19 12:44 Last Admin: 05/07/19 10:32 Dose: Not Given Piperacillin Sod/Tazobactam (Sod 3.375 gm/ Dextrose) 50 mls @ 100 mls/hr IVPB Q8H-IV [facility]; Protocol Last Admin: 05/07/19 10:25 Dose: 100 mls/hr Insulin Aspart (Novolog Vial Sliding Scale -) 1 vial SQ ACHS [facility]; Protocol Last Admin: 05/07/19 06:19 Dose: 6 units Insulin Detemir (Levemir Vial) 30 units SQ [facility] Last Admin: 05/06/19 21:19 Dose: 30 units Methylprednisolone Sodium Succinate (Solu-Medrol -) 40 mg IVPUSH DAILY [facility] Stop: 05/08/19 10:01 Last Admin: 05/07/19 10:26 Dose: 40 mg Non-Formulary Medication (Fluticasone/Vilanterol [Breo Ellipta 100-25 Mcg Inh]) 1 each IH DAILY [facility] Patient's Own Medication (Non- Formulary) ( Tacrolimus [Envarsus Xr] 4 Mg) 12 mg PO DAILY [facility] Last Admin: 05/07/19 10:26 Dose: 12 mg Nystatin (Nystatin Oral Suspension -) 500,000 units PO Q6HPO [facility] Last Admin: 05/07/19 06:19 Dose: 500,000 units - Objective Vital Signs: Vital Signs Temperature 97.9 F 05/07/19 06:00 Pulse Rate 60 05/07/19 06:00 Respiratory Rate 18 05/07/19 06:00 Blood Pressure 122/64 05/07/19 06:00 O2 Sat by Pulse Oximetry (%) 94 L 05/06/19 21:00 Constitutional: Yes: No Distress, Calm, Thin Neck: Yes: Supple Cardiovascular: Yes: Regular Rate and Rhythm Respiratory: Yes: Regular, Diminished, On Nasal O2 Gastrointestinal: Yes: Normal Bowel Sounds, Soft Edema: No Labs: CBC, BMP 05/07/19 05:10 05/07/19 05:10 - ....Imaging EKG: Report Reviewed (Tele: NSR) Problem List - Problems (1) Generalized weakness Code(s): R53.1 - WEAKNESS (2) Pneumonia Code(s): J18.9 - PNEUMONIA, UNSPECIFIED ORGANISM Qualifiers: Pneumonia type: due to unspecified organism Laterality: bilateral Lung location: lower lobe of lung Qualified Code(s): J18.1 - Lobar pneumonia, unspecified organism (3) Pre-syncope Code(s): R55 - SYNCOPE AND COLLAPSE (4) Acute on chronic renal failure Code(s): N17.9 - ACUTE KIDNEY FAILURE, UNSPECIFIED; N18.9 - CHRONIC KIDNEY DISEASE, UNSPECIFIED Qualifiers: Chronic kidney disease stage: stage 5, not on chronic dialysis (5) Anemia Code(s): D64.9 - ANEMIA, UNSPECIFIED Qualifiers: Anemia type: due to chronic kidney disease Chronic kidney disease stage: stage 5, not on chronic dialysis Qualified Code(s): N18.5 - Chronic kidney disease, stage 5; D63.1 - Anemia in chronic kidney disease (6) Transplant recipient Code(s): Z94.89 - OTHER TRANSPLANTED ORGAN AND TISSUE STATUS Assessment/Plan 05/01/2017 Echo: Normal LV size, mild LVH, normal LV systolic function, normal biatrial sizes, normal RV size and fxn, mild AR, tr MR, TR, no pericardial effusion 05/04/[address]: Chronic ILD, RLL PNA 1. Acute on Chronic Hypoxic Respiratory Failure 2. Anorexia, lethargy, RLL PNA ?atypical vs fungal 3. H/o post cardiopulmonary arrest, post respiratory failure now on O2 nasal 4. ESRD s/p right renal transplant with acute on CKD and hyperkalemia resolving 5. HTN 6. Type II DM 7. Hyperlipidemia 8. COPD 9. Erectile dysfunction on Cialis PLAN: 1. Continue Norvasc 10 qd, ASA 81 qd, Lipitor 10 qhs, carvedilol 25 bid, Insulin , tacrolimus per renal transplant team 2. IV steroids, BD and IV antibiotics coverage, f/u sputum cultures for C&S, AFB and fungus, O2 to keep SpO2 >90% 3. Immunosuppressive meds per renal, high resistive index in graft, urology called 4. Ambulate as tolerated
[2019-05-07 11:23] LABS: MAGNESIUM 1.8 mg/dL (1.8-2.4)
--- NOTE | 2019-05-07 11:34 | PN ---
Progress Note, Physician History of Present Illness: PULMONARY ALERT,OOB-CHAIR,LESS DYSPNEIC ON O2 - Current Medication List Current Medications: Active Medications Albuterol Sulfate (Ventolin 0.083% Nebulizer Soln -) 1 amp NEB Q4H PRN PRN Reason: SHORT OF BREATH/WHEEZING Albuterol/Ipratropium (Duoneb -) 1 amp NEB RQID [facility] Last Admin: 05/07/19 07:30 Dose: 1 amp Amlodipine Besylate (Norvasc -) 10 mg PO DAILY [facility] Last Admin: 05/07/19 10:25 Dose: 10 mg Aspirin (Asa -) 81 mg PO DAILY [facility] Last Admin: 05/07/19 10:25 Dose: 81 mg Atorvastatin Calcium (Lipitor -) 10 mg PO HS [facility] Last Admin: 05/06/19 21:19 Dose: 10 mg Carvedilol (Coreg -) 25 mg PO BID [facility] Last Admin: 05/07/19 10:25 Dose: 25 mg Guaifenesin (Diabetic Tussin Dm -) 5 ml PO Q4H [facility] Stop: 05/10/19 12:44 Last Admin: 05/07/19 10:32 Dose: Not Given Piperacillin Sod/Tazobactam (Sod 3.375 gm/ Dextrose) 50 mls @ 100 mls/hr IVPB Q8H-IV [facility]; Protocol Last Admin: 05/07/19 10:25 Dose: 100 mls/hr Insulin Aspart (Novolog Vial Sliding Scale -) 1 vial SQ ACHS [facility]; Protocol Last Admin: 05/07/19 06:19 Dose: 6 units Insulin Detemir (Levemir Vial) 30 units SQ [facility] Last Admin: 05/06/19 21:19 Dose: 30 units Methylprednisolone Sodium Succinate (Solu-Medrol -) 40 mg IVPUSH DAILY [facility] Stop: 05/08/19 10:01 Last Admin: 05/07/19 10:26 Dose: 40 mg Non-Formulary Medication (Fluticasone/Vilanterol [Breo Ellipta 100-25 Mcg Inh]) 1 each IH DAILY [facility] Patient's Own Medication (Non- Formulary) ( Tacrolimus [Envarsus Xr] 4 Mg) 12 mg PO DAILY [facility] Last Admin: 05/07/19 10:26 Dose: 12 mg Nystatin (Nystatin Oral Suspension -) 500,000 units PO Q6HPO [facility] Last Admin: 05/07/19 06:19 Dose: 500,000 units - Objective Vital Signs: Vital Signs Temperature 97.8 F 05/07/19 10:00 Pulse Rate 70 05/07/19 10:00 Respiratory Rate 23 H 05/07/19 10:00 Blood Pressure 131/70 05/07/19 10:00 O2 Sat by Pulse Oximetry (%) 91 L 05/07/19 09:00 Constitutional: Yes: Well Nourished, Other (MOLDLY DYSPNEIC) Eyes: Yes: WNL HENT: Yes: WNL Neck: Yes: WNL Cardiovascular: Yes: Regular Rate and Rhythm, S1, S2 Respiratory: Yes: Rhonchi (SCATTERED RHONCHI) Gastrointestinal: Yes: Normal Bowel Sounds, Soft Extremities: Yes: WNL Edema: No Labs: CBC, BMP 05/07/19 05:10 05/07/19 05:10 Problem List - Problems (1) Acute and chronic respiratory failure with hypoxia Code(s): J96.21 - ACUTE AND CHRONIC RESPIRATORY FAILURE WITH HYPOXIA (2) COPD (chronic obstructive pulmonary disease) with emphysema Code(s): J43.9 - EMPHYSEMA, UNSPECIFIED (3) Diabetes mellitus Code(s): E11.9 - TYPE 2 DIABETES MELLITUS WITHOUT COMPLICATIONS (4) Transplant recipient Code(s): Z94.89 - OTHER TRANSPLANTED ORGAN AND TISSUE STATUS Assessment/Plan A/P Acute on Chronic Hypoxic Respiratory Failure Pneumonia Sepsis Acute COPD Exacerbation h/o Renal Transplant CAD HTN DM Hyperlipidemia - antibiotics - O2 to keep SpO2 >90% - medrol - inhaled bronchodilators - outpt f/u of chest imaging - DVT prophylaxis Problem List - Problems (1) Pneumonia Code(s): J18.9 - PNEUMONIA, UNSPECIFIED ORGANISM Qualifiers: Pneumonia type: due to unspecified organism Laterality: bilateral Lung location: lower lobe of lung Qualified Code(s): J18.1 - Lobar pneumonia, unspecified organism (2) Sepsis Code(s): A41.9 - SEPSIS, UNSPECIFIED ORGANISM
--- NOTE | 2019-05-07 14:18 | PN ---
Progress Note (short form) - Note Progress Note: feels improved still with cough, nonproductive- feels like the mucous is stuck Vital Signs Period Temp Pulse Resp BP Sys/Grey Pulse Ox Last 24 Hr 97.6 F-97.9 F 60-70 18-23 113-131/58-70 91-94 +thrush cor-rrr lungs bibasilar crackles abd soft,nt ext no edema CBC, BMP 05/07/19 05:10 05/07/19 05:10 Microbiology 05/03/19 20:50 Blood - Peripheral Venous Blood Culture - Preliminary NO GROWTH OBTAINED AFTER 72 HOURS, INCUBATION TO CONTINUE FOR 2 DAYS. 05/03/19 21:25 Blood - Peripheral Venous Blood Culture - Preliminary NO GROWTH OBTAINED AFTER 72 HOURS, INCUBATION TO CONTINUE FOR 2 DAYS. a/p pneumonia RLL renal transplant anemia diabetes continue zosyn day #3 urinary antigens
[2019-05-07] MEDS ORDERED: PT OWN MED DRAWER 7, Y5N ONE ×2 (22:12→22:48)
[2019-05-07] MEDS: ATORVASTATIN CA 10 MG TABLET (FP) PO SCH (22:37)
[2019-05-07] MEDS: FLUTICASONE PROP 0.05% 16 GM NASAL SPRAY NS SCH (22:41)
[2019-05-07] MEDS: INSULIN (LEVEMIR) 100 UNITS/ML UNITS SQ SCH (23:04)
[2019-05-07] MEDS ORDERED: INSULIN (NOVOLOG) ASPART 100 UNITS/ML 10ML VIAL SQ ONE (23:15)
[2019-05-07] MEDS ORDERED: INSULIN (LEVEMIR) 100 UNITS/ML UNITS SQ SCH (23:15)
[2019-05-08] MEDS ORDERED: LORATADINE 10 MG TABLET PO ONE (00:45)
[2019-05-08] MEDS: guaiFENesin/D-M SUGAR-FREE/ACLHOL-FREE 118 ML BOTTLE PO SCH ×6 (00:59→20:37)
[2019-05-08] MEDS ORDERED: DEXTROSE 5%-WATER - 50 ML IVPB ONE ×2 (01:01→09:40)
[2019-05-08] MEDS ORDERED: PIPERACILLIN/TAZOBACTAM 3.375 GM VIAL IVPB ONE ×3 (01:01→17:02)
[2019-05-08] MEDS: SODIUM CHLORIDE NASAL SPRAY 44 ML BOTTLE NS PRN ×4 (01:09→17:15)
[2019-05-08] MEDS: PIPERACILLIN/TAZOB 3.375 GM 3.375 GM in DEXTROSE 5%-WATER - 50 ML IVPB SCH ×3 (01:38→17:16)
[2019-05-08] MEDS ORDERED: INSULIN (NOVOLOG) ASPART 100 UNITS/ML 10ML VIAL SQ ONE ×2 (03:00→21:20)
[2019-05-08] MEDS ORDERED: PT OWN MED DRAWER 7, Y5N ONE ×5 (03:10→20:53)
[2019-05-08] MEDS: NYSTATIN 500,000 UNITS/5 ML SUSPENSION PO SCH ×4 (06:48→23:19)
[2019-05-08] MEDS: INSULIN SLIDING SCALE (NOVOLOG) 1 VIAL SQ SCH ×4 (06:49→21:38)
[2019-05-08 07:44] LABS: HEMATOCRIT 31.7 % (35.4-49); HEMOGLOBIN 10.1 GM/dL (11.7-16.9); MCH 25.8 pg (25.7-33.7); MCHC 31.9 g/dl (32.0-35.9); MEAN CELL VOLUME 80.6 fl (80-96); MEAN PLT VOLUME 7.2 fl (7.5-11.1); PLATELET COUNT 261 K/MM3 (134-434); RBC 3.93 M/mm3 (4.00-5.60); RDW 16.9 % (11.9-15.9); WHITE BLOOD COUNT 7.1 K/mm3 (4.0-10.0)
[2019-05-08 07:53] LABS: ALBUMIN 2.2 g/dl (3.4-5.0); BILIRUBIN,TOTAL 0.2 mg/dL (0.2-1); BLOOD UREA NITROGEN 43.8 mg/dL (7-18); CALCIUM 9.4 mg/dL (8.5-10.1); CREATININE 1.4 mg/dL (0.55-1.3); MAGNESIUM 1.7 mg/dL (1.8-2.4); POTASSIUM 4.3 mmol/L (3.5-5.1); TOT PROT 6.9 g/dl (6.4-8.2)
[2019-05-08] MEDS: ALBUTEROL SO4 2.5/IPRATROPIUM 0.5 INH SOL 3 ML VIAL.NEB. NEB SCH ×4 (08:36→20:48)
[2019-05-08] MEDS: CARVEDILOL 25 MG TABLET (FP) PO SCH ×2 (10:09→21:53)
[2019-05-08] MEDS: ASPIRIN 81 MG CHEWABLE TABLETS PO SCH (10:09)
[2019-05-08] MEDS: amLODIPine BESYLATE 10 MG TABLET (FP) PO SCH (10:09)
[2019-05-08] MEDS: FLUTICASONE PROP 0.05% 16 GM NASAL SPRAY NS SCH ×2 (10:10→21:54)
[2019-05-08] MEDS: methylPREDNISolone NA SUCC 40 MG/1 ML VIAL IVPUSH SCH (10:10)
[2019-05-08] MEDS: TACROLIMUS 4 MG PO SCH (10:12)
[2019-05-08] MEDS ORDERED: MAGNESIUM SULF 50% (8.12 MEQ/2 ML-1 GM VIAL) IVPB ONE (10:30)
--- NOTE | 2019-05-08 12:03 | PN ---
Progress Note, Physician Chief Complaint: Events noted Intermittent cough and dyspnea, improving History of Present Illness: Patient was seen and examined. Awake and alert. Chart was reviewed Denies chest pain or palpitations. As outlined - Current Medication List Current Medications: Active Medications Albuterol Sulfate (Ventolin 0.083% Nebulizer Soln -) 1 amp NEB Q4H PRN PRN Reason: SHORT OF BREATH/WHEEZING Last Admin: 05/08/19 00:10 Dose: 1 amp Albuterol/Ipratropium (Duoneb -) 1 amp NEB RQID [facility] Last Admin: 05/08/19 08:36 Dose: 1 amp Amlodipine Besylate (Norvasc -) 10 mg PO DAILY [facility] Last Admin: 05/08/19 10:09 Dose: 10 mg Aspirin (Asa -) 81 mg PO DAILY [facility] Last Admin: 05/08/19 10:09 Dose: 81 mg Atorvastatin Calcium (Lipitor -) 10 mg PO HS [facility] Last Admin: 05/07/19 22:37 Dose: 10 mg Carvedilol (Coreg -) 25 mg PO BID [facility] Last Admin: 05/08/19 10:09 Dose: 25 mg Fluticasone Propionate (Flonase -) 1 spray NS BID [facility] Last Admin: 05/08/19 10:10 Dose: 1 spray Guaifenesin (Diabetic Tussin Dm -) 5 ml PO Q4H [facility] Stop: 05/10/19 12:44 Last Admin: 05/08/19 10:09 Dose: 5 ml Piperacillin Sod/Tazobactam (Sod 3.375 gm/ Dextrose) 50 mls @ 100 mls/hr IVPB Q8H-IV [facility]; Protocol Last Admin: 05/08/19 10:09 Dose: 100 mls/hr Insulin Aspart (Novolog Vial Sliding Scale -) 1 vial SQ ACHS [facility]; Protocol Last Admin: 05/08/19 06:49 Dose: 2 units Insulin Detemir (Levemir Vial) 36 units SQ [facility] Last Admin: 05/07/19 23:19 Dose: 36 unit Non-Formulary Medication (Fluticasone/Vilanterol [Breo Ellipta 100-25 Mcg Inh]) 1 each IH DAILY [facility] Patient's Own Medication (Non- Formulary) ( Tacrolimus [Envarsus Xr] 4 Mg) 12 mg PO DAILY [facility] Last Admin: 05/08/19 10:12 Dose: 12 mg Nystatin (Nystatin Oral Suspension -) 500,000 units PO Q6HPO [facility] Last Admin: 05/08/19 06:48 Dose: 500,000 units Sodium Chloride ([place] Nasal [place] -) 2 spray NS Q1H PRN PRN Reason: NASAL CONGESTION Last Admin: 05/08/19 03:05 Dose: 2 spray - Objective Vital Signs: Vital Signs Temperature 98.2 F 05/08/19 08:18 Pulse Rate 62 05/08/19 08:18 Respiratory Rate 16 05/08/19 08:18 Blood Pressure 153/67 05/08/19 08:18 O2 Sat by Pulse Oximetry (%) 98 05/08/19 08:06 Eyes: Yes: PERRL HENT: Yes: Atraumatic Neck: Yes: Supple Cardiovascular: Yes: Regular Rate and Rhythm, S1, S2 Respiratory: Yes: Diminished Gastrointestinal: Yes: Normal Bowel Sounds, Soft. No: Tenderness Edema: No Additional Findings/Remarks: - Review of Systems Constitutional: denies Weakness. denies: Chills, Fever Cardiovascular: denies: Palpitations, (+) Shortness of Breath. denies: Chest Pain Respiratory: (+) Cough, denies:Hemoptysis, Orthopnea, PND Gastrointestinal: denies: Abdominal Pain, Constipation, Diarrhea, Melena, Nausea , Rectal Bleeding, Vomiting Genitourinary: denies: Dysuria Neurological: denies: Dizziness, Headache, Seizure, Syncope Labs: CBC, BMP 05/08/19 06:05 05/08/19 06:05 Problem List - Problems (1) Acute and chronic respiratory failure with hypoxia Code(s): J96.21 - ACUTE AND CHRONIC RESPIRATORY FAILURE WITH HYPOXIA (2) COPD (chronic obstructive pulmonary disease) with emphysema Code(s): J43.9 - EMPHYSEMA, UNSPECIFIED (3) Diabetes mellitus Code(s): E11.9 - TYPE 2 DIABETES MELLITUS WITHOUT COMPLICATIONS (4) Generalized weakness Code(s): R53.1 - WEAKNESS (5) Hyperkalemia Code(s): E87.5 - HYPERKALEMIA (6) Pneumonia Code(s): J18.9 - PNEUMONIA, UNSPECIFIED ORGANISM Qualifiers: Pneumonia type: due to unspecified organism Laterality: bilateral Lung location: lower lobe of lung Qualified Code(s): J18.1 - Lobar pneumonia, unspecified organism (7) Sepsis Code(s): A41.9 - SEPSIS, UNSPECIFIED ORGANISM (8) Anemia Code(s): D64.9 - ANEMIA, UNSPECIFIED Qualifiers: Anemia type: due to chronic kidney disease Chronic kidney disease stage: stage 5, not on chronic dialysis Qualified Code(s): N18.5 - Chronic kidney disease, stage 5; D63.1 - Anemia in chronic kidney disease Assessment/Plan 1. Acute on Chronic hypoxic respiratory failure 2. Anorexia, lethargy, RLL pneumonia ?atypical vs. fungal 3. Post cardiopulmonary arrest and respiratory failure 4. ESRD s/p right renal transplant with acute on CKD and hyperkalemia 5. HTN 6. Type II DM 7. Hyperlipidemia 8. COPD 9. Erectile dysfunction on Cialis PLAN: 1. Continue Norvasc 10 mg QD, ASA 81 mg QD, Lipitor 10 mg QHS and Carvedilol 25 mg BID. Continue Insulin and Tacrolimus per renal transplant 2. IV steroids, bronchodilator and IV antibiotics coverage 3. Ambulate as tolerated Further plans are to follow Juan Ward MD
--- NOTE | 2019-05-08 12:20 | PN ---
Progress Note, Physician History of Present Illness: PULMONARY AWAKE,WEAK,STILL SOB WITH EXERTION - Current Medication List Current Medications: Active Medications Albuterol Sulfate (Ventolin 0.083% Nebulizer Soln -) 1 amp NEB Q4H PRN PRN Reason: SHORT OF BREATH/WHEEZING Last Admin: 05/08/19 00:10 Dose: 1 amp Albuterol/Ipratropium (Duoneb -) 1 amp NEB RQID [facility] Last Admin: 05/08/19 08:36 Dose: 1 amp Amlodipine Besylate (Norvasc -) 10 mg PO DAILY [facility] Last Admin: 05/08/19 10:09 Dose: 10 mg Aspirin (Asa -) 81 mg PO DAILY [facility] Last Admin: 05/08/19 10:09 Dose: 81 mg Atorvastatin Calcium (Lipitor -) 10 mg PO HS [facility] Last Admin: 05/07/19 22:37 Dose: 10 mg Carvedilol (Coreg -) 25 mg PO BID [facility] Last Admin: 05/08/19 10:09 Dose: 25 mg Fluticasone Propionate (Flonase -) 1 spray NS BID [facility] Last Admin: 05/08/19 10:10 Dose: 1 spray Guaifenesin (Diabetic Tussin Dm -) 5 ml PO Q4H [facility] Stop: 05/10/19 12:44 Last Admin: 05/08/19 10:09 Dose: 5 ml Piperacillin Sod/Tazobactam (Sod 3.375 gm/ Dextrose) 50 mls @ 100 mls/hr IVPB Q8H-IV [facility]; Protocol Last Admin: 05/08/19 10:09 Dose: 100 mls/hr Insulin Aspart (Novolog Vial Sliding Scale -) 1 vial SQ ACHS [facility]; Protocol Last Admin: 05/08/19 12:13 Dose: Not Given Insulin Detemir (Levemir Vial) 36 units SQ HS [facility] Last Admin: 05/07/19 23:19 Dose: 36 unit Non-Formulary Medication (Fluticasone/Vilanterol [Breo Ellipta 100-25 Mcg Inh]) 1 each IH DAILY [facility] Patient's Own Medication (Non- Formulary) ( Tacrolimus [Envarsus Xr] 4 Mg) 12 mg PO DAILY [facility] Last Admin: 05/08/19 10:12 Dose: 12 mg Nystatin (Nystatin Oral Suspension -) 500,000 units PO Q6HPO [facility] Last Admin: 05/08/19 06:48 Dose: 500,000 units Sodium Chloride ([place] Nasal [place] -) 2 spray NS Q1H PRN PRN Reason: NASAL CONGESTION Last Admin: 05/08/19 03:05 Dose: 2 spray - Objective Vital Signs: Vital Signs Temperature 98.2 F 05/08/19 08:18 Pulse Rate 62 05/08/19 08:18 Respiratory Rate 16 05/08/19 08:18 Blood Pressure 153/67 05/08/19 08:18 O2 Sat by Pulse Oximetry (%) 98 05/08/19 08:06 Constitutional: Yes: Well Nourished, Calm Eyes: Yes: WNL HENT: Yes: WNL Neck: Yes: WNL Cardiovascular: Yes: Regular Rate and Rhythm, S1, S2 Respiratory: Yes: Diminished Gastrointestinal: Yes: Normal Bowel Sounds, Soft Extremities: Yes: WNL Edema: No Labs: CBC, BMP 05/08/19 06:05 05/08/19 06:05 Problem List - Problems (1) Acute and chronic respiratory failure with hypoxia Code(s): J96.21 - ACUTE AND CHRONIC RESPIRATORY FAILURE WITH HYPOXIA (2) COPD (chronic obstructive pulmonary disease) with emphysema Code(s): J43.9 - EMPHYSEMA, UNSPECIFIED (3) Diabetes mellitus Code(s): E11.9 - TYPE 2 DIABETES MELLITUS WITHOUT COMPLICATIONS (4) Transplant recipient Code(s): Z94.89 - OTHER TRANSPLANTED ORGAN AND TISSUE STATUS Assessment/Plan A/P Acute on Chronic Hypoxic Respiratory Failure Pneumonia Sepsis Acute COPD Exacerbation h/o Renal Transplant CAD HTN DM Hyperlipidemia - antibiotics - O2 to keep SpO2 >90% - medrol - inhaled bronchodilators - outpt f/u of chest imaging - DVT prophylaxis Problem List - Problems (1) Pneumonia Code(s): J18.9 - PNEUMONIA, UNSPECIFIED ORGANISM Qualifiers: Pneumonia type: due to unspecified organism Laterality: bilateral Lung location: lower lobe of lung Qualified Code(s): J18.1 - Lobar pneumonia, unspecified organism (2) Sepsis Code(s): A41.9 - SEPSIS, UNSPECIFIED ORGANISM
--- NOTE | 2019-05-08 12:22 | PN ---
Progress Note, Physician - Current Medication List Current Medications: Active Medications Albuterol Sulfate (Ventolin 0.083% Nebulizer Soln -) 1 amp NEB Q4H PRN PRN Reason: SHORT OF BREATH/WHEEZING Last Admin: 05/08/19 00:10 Dose: 1 amp Albuterol/Ipratropium (Duoneb -) 1 amp NEB RQID [facility] Last Admin: 05/08/19 08:36 Dose: 1 amp Amlodipine Besylate (Norvasc -) 10 mg PO DAILY [facility] Last Admin: 05/08/19 10:09 Dose: 10 mg Aspirin (Asa -) 81 mg PO DAILY [facility] Last Admin: 05/08/19 10:09 Dose: 81 mg Atorvastatin Calcium (Lipitor -) 10 mg PO HS [facility] Last Admin: 05/07/19 22:37 Dose: 10 mg Carvedilol (Coreg -) 25 mg PO BID [facility] Last Admin: 05/08/19 10:09 Dose: 25 mg Fluticasone Propionate (Flonase -) 1 spray NS BID [facility] Last Admin: 05/08/19 10:10 Dose: 1 spray Guaifenesin (Diabetic Tussin Dm -) 5 ml PO Q4H [facility] Stop: 05/10/19 12:44 Last Admin: 05/08/19 10:09 Dose: 5 ml Piperacillin Sod/Tazobactam (Sod 3.375 gm/ Dextrose) 50 mls @ 100 mls/hr IVPB Q8H-IV [facility]; Protocol Last Admin: 05/08/19 10:09 Dose: 100 mls/hr Insulin Aspart (Novolog Vial Sliding Scale -) 1 vial SQ [facility]; Protocol Last Admin: 05/08/19 12:13 Dose: Not Given Insulin Detemir (Levemir Vial) 36 units SQ [facility] Last Admin: 05/07/19 23:19 Dose: 36 unit Non-Formulary Medication (Fluticasone/Vilanterol [Breo Ellipta 100-25 Mcg Inh]) 1 each IH DAILY [facility] Patient's Own Medication (Non- Formulary) ( Tacrolimus [Envarsus Xr] 4 Mg) 12 mg PO DAILY [facility] Last Admin: 05/08/19 10:12 Dose: 12 mg Nystatin (Nystatin Oral Suspension -) 500,000 units PO Q6HPO [facility] Last Admin: 05/08/19 06:48 Dose: 500,000 units Sodium Chloride ([place] Nasal [place] -) 2 spray NS Q1H PRN PRN Reason: NASAL CONGESTION Last Admin: 05/08/19 03:05 Dose: 2 spray - Objective Vital Signs: Vital Signs Temperature 98.2 F 05/08/19 08:18 Pulse Rate 62 05/08/19 08:18 Respiratory Rate 16 05/08/19 08:18 Blood Pressure 153/67 05/08/19 08:18 O2 Sat by Pulse Oximetry (%) 98 05/08/19 08:06 Labs: CBC, BMP 05/08/19 06:05 05/08/19 06:05 Problem List - Problems (1) Acute and chronic respiratory failure with hypoxia Code(s): J96.21 - ACUTE AND CHRONIC RESPIRATORY FAILURE WITH HYPOXIA (2) COPD (chronic obstructive pulmonary disease) with emphysema Code(s): J43.9 - EMPHYSEMA, UNSPECIFIED (3) Diabetes mellitus Code(s): E11.9 - TYPE 2 DIABETES MELLITUS WITHOUT COMPLICATIONS (4) Transplant recipient Code(s): Z94.89 - OTHER TRANSPLANTED ORGAN AND TISSUE STATUS
--- NOTE | 2019-05-08 13:16 | PN ---
Progress Note, Physician History of Present Illness: Pt seen and examined at bedside. He is awake and alert. He denies shortness of breath. - Current Medication List Current Medications: Active Medications Albuterol Sulfate (Ventolin 0.083% Nebulizer Soln -) 1 amp NEB Q4H PRN PRN Reason: SHORT OF BREATH/WHEEZING Last Admin: 05/08/19 00:10 Dose: 1 amp Albuterol/Ipratropium (Duoneb -) 1 amp NEB RQID [facility] Last Admin: 05/08/19 12:55 Dose: 1 amp Amlodipine Besylate (Norvasc -) 10 mg PO DAILY [facility] Last Admin: 05/08/19 10:09 Dose: 10 mg Aspirin (Asa -) 81 mg PO DAILY [facility] Last Admin: 05/08/19 10:09 Dose: 81 mg Atorvastatin Calcium (Lipitor -) 10 mg PO HS [facility] Last Admin: 05/07/19 22:37 Dose: 10 mg Carvedilol (Coreg -) 25 mg PO BID [facility] Last Admin: 05/08/19 10:09 Dose: 25 mg Fluticasone Propionate (Flonase -) 1 spray NS BID [facility] Last Admin: 05/08/19 10:10 Dose: 1 spray Guaifenesin (Diabetic Tussin Dm -) 5 ml PO Q4H [facility] Stop: 05/10/19 12:44 Last Admin: 05/08/19 13:08 Dose: 5 ml Piperacillin Sod/Tazobactam (Sod 3.375 gm/ Dextrose) 50 mls @ 100 mls/hr IVPB Q8H-IV [facility]; Protocol Last Admin: 05/08/19 10:09 Dose: 100 mls/hr Insulin Aspart (Novolog Vial Sliding Scale -) 1 vial SQ ACHS [facility]; Protocol Last Admin: 05/08/19 12:13 Dose: Not Given Insulin Detemir (Levemir Vial) 36 units SQ HS [facility] Last Admin: 05/07/19 23:19 Dose: 36 unit Non-Formulary Medication (Fluticasone/Vilanterol [Breo Ellipta 100-25 Mcg Inh]) 1 each IH DAILY [facility] Patient's Own Medication (Non- Formulary) ( Tacrolimus [Envarsus Xr] 4 Mg) 12 mg PO DAILY [facility] Last Admin: 05/08/19 10:12 Dose: 12 mg Nystatin (Nystatin Oral Suspension -) 500,000 units PO Q6HPO [facility] Last Admin: 05/08/19 13:08 Dose: 500,000 units Sodium Chloride ([place] Nasal [place] -) 2 spray NS Q1H PRN PRN Reason: NASAL CONGESTION Last Admin: 05/08/19 13:08 Dose: 2 spray - Objective Vital Signs: Vital Signs Temperature 98.2 F 05/08/19 08:18 Pulse Rate 62 05/08/19 08:18 Respiratory Rate 16 05/08/19 08:18 Blood Pressure 153/67 05/08/19 08:18 O2 Sat by Pulse Oximetry (%) 98 05/08/19 08:06 Constitutional: Yes: Calm Eyes: Yes: Conjunctiva Clear HENT: Yes: Atraumatic Cardiovascular: Yes: S1, S2 Respiratory: Yes: CTA Bilaterally Gastrointestinal: Yes: Soft Genitourinary: Yes: WNL, Other (graft soft and non tender) Musculoskeletal: Yes: WNL Edema: No Neurological: Yes: Oriented Psychiatric: Yes: Oriented Labs: CBC, BMP 05/08/19 06:05 05/08/19 06:05 Problem List - Problems (1) Generalized weakness Code(s): R53.1 - WEAKNESS (2) Pneumonia Code(s): J18.9 - PNEUMONIA, UNSPECIFIED ORGANISM Qualifiers: Pneumonia type: due to unspecified organism Laterality: bilateral Lung location: lower lobe of lung Qualified Code(s): J18.1 - Lobar pneumonia, unspecified organism (3) Acute on chronic renal failure Code(s): N17.9 - ACUTE KIDNEY FAILURE, UNSPECIFIED; N18.9 - CHRONIC KIDNEY DISEASE, UNSPECIFIED Qualifiers: Chronic kidney disease stage: stage 5, not on chronic dialysis (4) Transplant recipient Code(s): Z94.89 - OTHER TRANSPLANTED ORGAN AND TISSUE STATUS Assessment/Plan Current Medications Generic Name Dose Route Start Last Admin Trade Name Freq PRN Reason Stop Dose Admin Albuterol Sulfate 1 amp 05/04/19 16:54 05/08/19 00:10 Ventolin 0.083% Nebulizer Soln - NEB 1 amp Q4H PRN Administration SHORT OF BREATH/WHEEZING Albuterol/Ipratropium 1 amp 05/04/19 20:00 05/08/19 12:55 Duoneb - NEB 1 amp RQID [facility] Administration Amlodipine Besylate 10 mg 05/04/19 10:00 05/08/19 10:09 Norvasc - PO 10 mg DAILY [facility] Administration Aspirin 81 mg 05/04/19 10:00 05/08/19 10:09 Asa - PO 81 mg DAILY [facility] Administration Atorvastatin Calcium 10 mg 05/03/19 23:34 05/07/19 22:37 Lipitor - PO 10 mg HS [facility] Administration Carvedilol 25 mg 05/03/19 23:45 05/08/19 10:09 Coreg - PO 25 mg BID [facility] Administration Fluticasone Propionate 1 spray 05/07/19 22:00 05/08/19 10:10 Flonase - NS 1 spray BID [facility] Administration Guaifenesin 5 ml 05/05/19 12:45 05/08/19 13:08 Diabetic Tussin Dm - PO 05/10/19 12:44 5 ml Q4H [facility] Administration Piperacillin Sod/Tazobactam 50 mls @ 100 mls/hr 05/04/19 18:00 05/08/19 10:09 Sod 3.375 gm/ Dextrose IVPB 100 mls/hr Q8H-IV [facility] Administration Protocol Insulin Aspart 1 vial 05/04/19 07:00 05/08/19 12:13 Novolog Vial Sliding Scale - SQ Not Given ACHS [facility] Protocol Insulin Detemir 36 units 05/07/19 23:15 05/07/19 23:19 Levemir Vial SQ 36 unit HS [facility] Administration Non-Formulary Medication 1 each 05/04/19 10:00 Fluticasone/Vilanterol [Breo Ellipta 100-25 Mcg Inh] IH DAILY [facility] Patient's Own 12 mg 05/04/19 10:00 05/08/19 10:12 Medication (Non- PO 12 mg Formulary) ( DAILY [facility] Administration Tacrolimus [Envarsus Xr] 4 Mg) Nystatin 500,000 units 05/04/19 18:00 05/08/19 13:08 Nystatin Oral Suspension - PO 500,000 units Q6HPO [facility] Administration Sodium Chloride 2 spray 05/08/19 00:39 05/08/19 13:08 [place] Nasal [place] - NS 2 spray Q1H PRN Administration NASAL CONGESTION Impression 1. CKD 2. SOLE 3. kidney transplant 4. copd 5. pna 6. DM 7. HLD 8. HTN 9. hyperkalemia Plan - cont to monitor renal function - follow repeat prograf level, first one was drawn at more time - renal function is improved - cultures neg so far - high resistive index in graft, follow urology
[2019-05-08 15:07] LABS: ASPERGIL AG 0.04 Index (0.00-0.49)
[2019-05-08] MEDS ORDERED: DEXTROSE 5%-WATER - 100 ML IVPB ONE (17:02)
--- NOTE | 2019-05-08 17:31 | PN ---
Progress Note (short form) - Note Progress Note: feels improved great appetite no complaints nose is less stuffed today Vital Signs Period Temp Pulse Resp BP Sys/Grey Pulse Ox Last 24 Hr 97.5 F-98.3 F 62-81 16-22 117-153/63-74 98-98 cor-rrr lungs scattered rhonchi abd soft,nt ext no edema CBC, BMP 05/08/19 06:05 05/08/19 06:05 Microbiology 05/07/19 20:05 Sputum - Expectorated Gram Stain - Final 05/07/19 16:30 Urine For Antigen Detection Legionella Antigen - Final- negative 05/07/19 16:30 Urine For Antigen Detection Streptococcus pneumoniae Antigen (M - Final-negative 05/03/19 20:50 Blood - Peripheral Venous Blood Culture - Preliminary NO GROWTH OBTAINED AFTER 96 HOURS, INCUBATION TO CONTINUE FOR 1 DAYS. 05/03/19 21:25 Blood - Peripheral Venous Blood Culture - Preliminary NO GROWTH OBTAINED AFTER 96 HOURS, INCUBATION TO CONTINUE FOR 1 DAYS. a/p pneumonia RLL copd on home oxygen renal transplant anemia diabetes continue zosyn day #4 urinary antigens negative can switch to po augmentin in am would finish total 10 days please call back if needed
[2019-05-08] MEDS: ATORVASTATIN CA 10 MG TABLET (FP) PO SCH (21:53)
[2019-05-08] MEDS ORDERED: LORATADINE 10 MG TABLET PO SCH (22:00)
[2019-05-08] MEDS ORDERED: INSULIN (LEVEMIR) 100 UNITS/ML UNITS SQ SCH (22:00)
--- NOTE | 2019-05-08 23:45 | PN ---
Progress Note, Physician History of Present Illness: Pt w/o CP, palpitations, SOB, abd pain. He feel a litlte tight this afternnon - Current Medication List Current Medications: Active Medications Albuterol Sulfate (Ventolin 0.083% Nebulizer Soln -) 1 amp NEB Q4H PRN PRN Reason: SHORT OF BREATH/WHEEZING Last Admin: 05/08/19 00:10 Dose: 1 amp Albuterol/Ipratropium (Duoneb -) 1 amp NEB RQID [facility] Last Admin: 05/08/19 20:48 Dose: 1 amp Amlodipine Besylate (Norvasc -) 10 mg PO DAILY [facility] Last Admin: 05/08/19 10:09 Dose: 10 mg Aspirin (Asa -) 81 mg PO DAILY [facility] Last Admin: 05/08/19 10:09 Dose: 81 mg Atorvastatin Calcium (Lipitor -) 10 mg PO HS [facility] Last Admin: 05/08/19 21:53 Dose: 10 mg Carvedilol (Coreg -) 25 mg PO BID [facility] Last Admin: 05/08/19 21:53 Dose: 25 mg Fluticasone Propionate (Flonase -) 1 spray NS BID [facility] Last Admin: 05/08/19 21:54 Dose: 1 spray Guaifenesin (Diabetic Tussin Dm -) 5 ml PO Q4H [facility] Stop: 05/10/19 12:44 Last Admin: 05/08/19 20:37 Dose: 5 ml Piperacillin Sod/Tazobactam (Sod 3.375 gm/ Dextrose) 50 mls @ 100 mls/hr IVPB Q8H-IV [facility]; Protocol Last Admin: 05/08/19 17:16 Dose: 100 mls/hr Insulin Aspart (Novolog Vial Sliding Scale -) 1 vial SQ ACHS [facility]; Protocol Last Admin: 05/08/19 21:38 Dose: Not Given Insulin Aspart (Novolog Vial) 7 units SQ TIDAC [facility]; Protocol Insulin Detemir (Levemir Vial) 40 units SQ HS [facility] Last Admin: 05/08/19 21:54 Dose: 40 units Loratadine (Claritin -) 10 mg PO HS [facility] Last Admin: 05/08/19 21:53 Dose: 10 mg Non-Formulary Medication (Fluticasone/Vilanterol [Breo Ellipta 100-25 Mcg Inh]) 1 each IH DAILY [facility] Patient's Own Medication (Non- Formulary) ( Tacrolimus [Envarsus Xr] 4 Mg) 12 mg PO DAILY [facility] Last Admin: 05/08/19 10:12 Dose: 12 mg Nystatin (Nystatin Oral Suspension -) 500,000 units PO Q6HPO [facility] Last Admin: 05/08/19 23:19 Dose: Not Given Sodium Chloride ([place] Nasal [place] -) 2 spray NS Q1H PRN PRN Reason: NASAL CONGESTION Last Admin: 05/08/19 17:15 Dose: 2 spray - Objective Vital Signs: Vital Signs Temperature 97.5 F L 05/08/19 22:00 Pulse Rate 76 05/08/19 22:00 Respiratory Rate 18 05/08/19 22:00 Blood Pressure 136/67 05/08/19 22:00 O2 Sat by Pulse Oximetry (%) 97 05/08/19 21:00 Constitutional: Yes: No Distress, Calm Cardiovascular: Yes: Regular Rate and Rhythm, S1, S2 Respiratory: Yes: Regular, Rhonchi (scattered bilat with deep inspiration) Gastrointestinal: Yes: Normal Bowel Sounds, Soft, Tenderness Edema: No Neurological: Yes: Alert, Oriented Labs: CBC, BMP 05/08/19 06:05 05/08/19 06:05 Problem List - Problems (1) Pneumonia Code(s): J18.9 - PNEUMONIA, UNSPECIFIED ORGANISM Qualifiers: Pneumonia type: due to unspecified organism Laterality: bilateral Lung location: lower lobe of lung Qualified Code(s): J18.1 - Lobar pneumonia, unspecified organism (2) Renal transplant recipient Code(s): Z94.0 - KIDNEY TRANSPLANT STATUS (3) Hyperglycemia Code(s): R73.9 - HYPERGLYCEMIA, UNSPECIFIED (4) Diabetes mellitus Code(s): E11.9 - TYPE 2 DIABETES MELLITUS WITHOUT COMPLICATIONS (5) Hyperkalemia Code(s): E87.5 - HYPERKALEMIA (6) COPD (chronic obstructive pulmonary disease) with emphysema Code(s): J43.9 - EMPHYSEMA, UNSPECIFIED Assessment/Plan IV abtx -to f/u with ID ID, Renal, Pulmonary, Cardio consults are appreciated. Levemir was increased last night,; today BGMs were better untill ACDinner. To consider increasing Levemir again. Admitted to monitor bed AM labs Pt's condition was d/w his nurse.
[2019-05-09] MEDS ORDERED: PIPERACILLIN/TAZOBACTAM 3.375 GM VIAL IVPB ONE ×3 (00:56→16:47)
[2019-05-09] MEDS ORDERED: DEXTROSE 5%-WATER - 50 ML IVPB ONE ×3 (00:57→16:47)
[2019-05-09] MEDS ORDERED: PT OWN MED DRAWER 7, Y5N ONE ×6 (00:58→18:39)
[2019-05-09] MEDS: guaiFENesin/D-M SUGAR-FREE/ACLHOL-FREE 118 ML BOTTLE PO SCH ×5 (01:45→17:46)
[2019-05-09] MEDS: PIPERACILLIN/TAZOB 3.375 GM 3.375 GM in DEXTROSE 5%-WATER - 50 ML IVPB SCH ×3 (01:45→17:45)
[2019-05-09] MEDS ORDERED: INSULIN (NOVOLOG) ASPART 100 UNITS/ML 10ML VIAL SQ ONE (02:00)
[2019-05-09] MEDS: INSULIN SLIDING SCALE (NOVOLOG) 1 VIAL SQ SCH ×3 (06:45→17:09)
[2019-05-09] MEDS: INSULIN (NOVOLOG) ASPART 100 UNITS/ML 10ML VIAL SQ SCH ×3 (06:47→17:08)
[2019-05-09] MEDS: NYSTATIN 500,000 UNITS/5 ML SUSPENSION PO SCH ×3 (06:50→17:46)
[2019-05-09 08:07] LABS: BILIRUBIN,TOTAL 0.3 mg/dL (0.2-1); BLOOD UREA NITROGEN 38.5 mg/dL (7-18); CALCIUM 9.3 mg/dL (8.5-10.1); CREATININE 1.3 mg/dL (0.55-1.3); POTASSIUM 4.1 mmol/L (3.5-5.1); TOT PROT 6.4 g/dl (6.4-8.2)
--- NOTE | 2019-05-09 08:34 | CONSULT ---
Consult Consult Specialty:: urology Referred by:: Brittny Reason for Consultation:: Acute kidney injury in transplanted kidney - History of Present Illness Chief Complaint: acute kidney injury History of Present Illness: Patient is a 69 year old male with history of ESRD s/p renal transplant 5 years ago. Patient was admitted with weakness. Patient denies gross hematuria, dysuria, nausea/vomiting, or pain. Patient is voiding well without evidence of obstruction. Patient is currently on iv antibiotics for pneumonia. 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 Cardio/Vascular: Yes: HTN, Hyperlipdemia, MO, Other (Hx/o cardiac arrest) Pulmonary: Yes: COPD Renal/: Yes: Renal Inusuff, Other (renal transplant 10/09/13) Endocrine: Yes: Diabetes Mellitus - Past Surgical History Past Surgical History: Yes: Kidney Transplant - Alcohol/Substance Use Hx Alcohol Use: Yes (occasional socially) - Smoking History Smoking history: Former smoker Have you smoked in the past 12 months: No Aproximately how many cigarettes per day: 0 If you are a former smoker, when did you quit?: 1989 - Social History Usual Living Arrangement: With Spouse ADL: Independent History of Recent Travel: No Home Medications - Allergies Allergies/Adverse Reactions: Allergies Allergy/AdvReac Type Severity Reaction Status Date / Time No Known Allergies Allergy Verified 05/03/19 15:45 - Home Medications Home Medications: Ambulatory Orders Amlodipine Besylate [Norvasc -] 10 mg PO DAILY 02/26/14 Aspirin [ASA -] 81 mg PO DAILY 02/26/14 Carvedilol 25 mg PO BID 02/26/14 Insulin Glargine,Hum.rec.anlog [Lantus Solostar PEN -] 20 units SQ HS 02/26/14 Insulin Regular, Human [Humulin R -] 0 units SQ DAILY 02/26/14 Atorvastatin Calcium 10 mg PO HS 05/03/19 Fluticasone/Vilanterol [Breo Ellipta 100-25 Mcg INH] 1 each IH DAILY 05/03/19 Tacrolimus [Envarsus Xr] 12 mg PO DAILY 05/03/19 predniSONE [Deltasone -] 5 mg PO DAILY 05/03/19 Physical Exam Vital Signs: Vital Signs Temperature 98.1 F 05/09/19 06:00 Pulse Rate 62 05/09/19 06:00 Respiratory Rate 16 05/09/19 06:00 Blood Pressure 131/58 L 05/09/19 06:00 O2 Sat by Pulse Oximetry (%) 97 05/08/19 21:00 Constitutional: Yes: No Distress, Calm Eyes: Yes: WNL, Conjunctiva Clear, EOM Intact HENT: Yes: WNL, Atraumatic, Normocephalic Neck: Yes: WNL, Supple, Trachea Midline Cardiovascular: Yes: WNL, Regular Rate and Rhythm Respiratory: Yes: WNL, Regular Gastrointestinal: Yes: WNL, Normal Bowel Sounds, Soft ...Rectal Exam: Yes: Deferred Renal/: Yes: WNL Breast(s): Yes: WNL (bladder not palpable) Labs: CBC, BMP 05/09/19 06:08 Imaging - Results Ultrasound: Report Reviewed Assessment/Plan imp pneumonia acute kidney injury in renal translplant plan Patient with increase resistance to 1.0 (normal is up to .70) in artery to transplant unit without evidence of obstruction of kidney This may indicate early rejection. At this time it may be prudent to have patient treated for his pneumonia and then patient has been instructed to follow -up with his transplant team. His creatine has improved but is above his baseline. If creatinine rises further he should be transferred to a tertiary center and may need a renal biopsy to rule out acute rejection.
[2019-05-09 08:47] LABS: HEMATOCRIT 30.8 % (35.4-49); HEMOGLOBIN 9.8 GM/dL (11.7-16.9); MCH 25.5 pg (25.7-33.7); MCHC 31.7 g/dl (32.0-35.9); MEAN CELL VOLUME 80.5 fl (80-96); MEAN PLT VOLUME 7.2 fl (7.5-11.1); PLATELET COUNT 248 K/MM3 (134-434); RBC 3.83 M/mm3 (4.00-5.60); RDW 17.5 % (11.9-15.9); WHITE BLOOD COUNT 6.1 K/mm3 (4.0-10.0)
[2019-05-09] MEDS: ALBUTEROL SO4 2.5/IPRATROPIUM 0.5 INH SOL 3 ML VIAL.NEB. NEB SCH ×3 (09:18→17:23)
--- NOTE | 2019-05-09 09:26 | PN ---
Progress Note, Physician History of Present Illness: Appetite improved, cough, dyspnea, weakness resolving on NC. - Current Medication List Current Medications: Active Medications Albuterol Sulfate (Ventolin 0.083% Nebulizer Soln -) 1 amp NEB Q4H PRN PRN Reason: SHORT OF BREATH/WHEEZING Last Admin: 05/08/19 00:10 Dose: 1 amp Albuterol/Ipratropium (Duoneb -) 1 amp NEB RQID [facility] Last Admin: 05/09/19 09:18 Dose: 1 amp Amlodipine Besylate (Norvasc -) 10 mg PO DAILY [facility] Last Admin: 05/08/19 10:09 Dose: 10 mg Aspirin (Asa -) 81 mg PO DAILY [facility] Last Admin: 05/08/19 10:09 Dose: 81 mg Atorvastatin Calcium (Lipitor -) 10 mg PO HS [facility] Last Admin: 05/08/19 21:53 Dose: 10 mg Carvedilol (Coreg -) 25 mg PO BID [facility] Last Admin: 05/08/19 21:53 Dose: 25 mg Fluticasone Propionate (Flonase -) 1 spray NS BID [facility] Last Admin: 05/08/19 21:54 Dose: 1 spray Guaifenesin (Diabetic Tussin Dm -) 5 ml PO Q4H [facility] Stop: 05/10/19 12:44 Last Admin: 05/09/19 06:50 Dose: Not Given Piperacillin Sod/Tazobactam (Sod 3.375 gm/ Dextrose) 50 mls @ 100 mls/hr IVPB Q8H-IV [facility]; Protocol Last Admin: 05/09/19 01:45 Dose: 100 mls/hr Insulin Aspart (Novolog Vial Sliding Scale -) 1 vial SQ ACHS [facility]; Protocol Last Admin: 05/09/19 06:45 Dose: Not Given Insulin Aspart (Novolog Vial) 7 units SQ TIDAC [facility]; Protocol Last Admin: 05/09/19 06:47 Dose: 7 units Insulin Detemir (Levemir Vial) 40 units SQ HS [facility] Last Admin: 05/08/19 21:54 Dose: 40 units Loratadine (Claritin -) 10 mg PO HS [facility] Last Admin: 05/08/19 21:53 Dose: 10 mg Non-Formulary Medication (Fluticasone/Vilanterol [Breo Ellipta 100-25 Mcg Inh]) 1 each IH DAILY [facility] Patient's Own Medication (Non- Formulary) ( Tacrolimus [Envarsus Xr] 4 Mg) 12 mg PO DAILY [facility] Last Admin: 05/08/19 10:12 Dose: 12 mg Nystatin (Nystatin Oral Suspension -) 500,000 units PO Q6HPO [facility] Last Admin: 05/09/19 06:50 Dose: Not Given Sodium Chloride ([place] Nasal [place] -) 2 spray NS Q1H PRN PRN Reason: NASAL CONGESTION Last Admin: 05/08/19 17:15 Dose: 2 spray - Objective Vital Signs: Vital Signs Temperature 98.1 F 05/09/19 06:00 Pulse Rate 62 05/09/19 06:00 Respiratory Rate 16 05/09/19 06:00 Blood Pressure 131/58 L 05/09/19 06:00 O2 Sat by Pulse Oximetry (%) 97 05/08/19 21:00 Constitutional: Yes: No Distress, Calm, Thin Neck: Yes: Supple Cardiovascular: Yes: Regular Rate and Rhythm Respiratory: Yes: Regular, Cough, Diminished, On Nasal O2, SOB Gastrointestinal: Yes: Normal Bowel Sounds, Soft Edema: No Labs: CBC, BMP 05/09/19 06:08 05/09/19 06:08 - ....Imaging EKG: Report Reviewed (Tele: NSR) Problem List - Problems (1) Generalized weakness Code(s): R53.1 - WEAKNESS (2) Pneumonia Code(s): J18.9 - PNEUMONIA, UNSPECIFIED ORGANISM Qualifiers: Pneumonia type: due to unspecified organism Laterality: bilateral Lung location: lower lobe of lung Qualified Code(s): J18.1 - Lobar pneumonia, unspecified organism (3) Pre-syncope Code(s): R55 - SYNCOPE AND COLLAPSE (4) Acute on chronic renal failure Code(s): N17.9 - ACUTE KIDNEY FAILURE, UNSPECIFIED; N18.9 - CHRONIC KIDNEY DISEASE, UNSPECIFIED Qualifiers: Chronic kidney disease stage: stage 5, not on chronic dialysis (5) Anemia Code(s): D64.9 - ANEMIA, UNSPECIFIED Qualifiers: Anemia type: due to chronic kidney disease Chronic kidney disease stage: stage 5, not on chronic dialysis Qualified Code(s): N18.5 - Chronic kidney disease, stage 5; D63.1 - Anemia in chronic kidney disease (6) Transplant recipient Code(s): Z94.89 - OTHER TRANSPLANTED ORGAN AND TISSUE STATUS Assessment/Plan 05/01/2017 Echo: Normal LV size, mild LVH, normal LV systolic function, normal biatrial sizes, normal RV size and fxn, mild AR, tr MR, TR, no pericardial effusion 05/04/[address]: Chronic ILD, RLL PNA 1. Acute on Chronic Hypoxic Respiratory Failure 2. Anorexia, lethargy, RLL PNA ?atypical vs fungal 3. H/o post cardiopulmonary arrest, post respiratory failure now on O2 nasal 4. ESRD s/p right renal transplant with acute on CKD and hyperkalemia resolving 5. HTN 6. Type II DM 7. Hyperlipidemia 8. COPD 9. Erectile dysfunction on Cialis PLAN: 1. Continue Norvasc 10 mg QD, ASA 81 mg QD, Lipitor 10 mg QHS and Carvedilol 25 mg BID. Continue Insulin and Tacrolimus per renal transplant 2. Bronchodilator and IV antibiotics coverage, off steroids 3. Ambulate as tolerated 4. RI is high in graft, urology input greatly appreciated, will need follow up with transplant team, pt was taken off of mmf at [place] for leukopenia
[2019-05-09] MEDS: ASPIRIN 81 MG CHEWABLE TABLETS PO SCH (09:28)
[2019-05-09] MEDS: CARVEDILOL 25 MG TABLET (FP) PO SCH (09:28)
[2019-05-09] MEDS: amLODIPine BESYLATE 10 MG TABLET (FP) PO SCH (09:28)
[2019-05-09] MEDS: FLUTICASONE PROP 0.05% 16 GM NASAL SPRAY NS SCH (09:29)
[2019-05-09] MEDS: TACROLIMUS 4 MG PO SCH (09:31)
--- NOTE | 2019-05-09 09:52 | PN ---
Progress Note, Physician History of Present Illness: Pt w/o CP, palpitations, SOB, abd pain. - Current Medication List Current Medications: Active Medications Albuterol Sulfate (Ventolin 0.083% Nebulizer Soln -) 1 amp NEB Q4H PRN PRN Reason: SHORT OF BREATH/WHEEZING Last Admin: 05/08/19 00:10 Dose: 1 amp Albuterol/Ipratropium (Duoneb -) 1 amp NEB RQID [facility] Last Admin: 05/09/19 09:18 Dose: 1 amp Amlodipine Besylate (Norvasc -) 10 mg PO DAILY [facility] Last Admin: 05/09/19 09:28 Dose: 10 mg Aspirin (Asa -) 81 mg PO DAILY [facility] Last Admin: 05/09/19 09:28 Dose: 81 mg Atorvastatin Calcium (Lipitor -) 10 mg PO HS [facility] Last Admin: 05/08/19 21:53 Dose: 10 mg Carvedilol (Coreg -) 25 mg PO BID [facility] Last Admin: 05/09/19 09:28 Dose: 25 mg Fluticasone Propionate (Flonase -) 1 spray NS BID [facility] Last Admin: 05/09/19 09:29 Dose: Not Given Guaifenesin (Diabetic Tussin Dm -) 5 ml PO Q4H [facility] Stop: 05/10/19 12:44 Last Admin: 05/09/19 09:28 Dose: 5 ml Piperacillin Sod/Tazobactam (Sod 3.375 gm/ Dextrose) 50 mls @ 100 mls/hr IVPB Q8H-IV [facility]; Protocol Last Admin: 05/09/19 09:29 Dose: 100 mls/hr Insulin Aspart (Novolog Vial Sliding Scale -) 1 vial SQ ACHS [facility]; Protocol Last Admin: 05/09/19 06:45 Dose: Not Given Insulin Aspart (Novolog Vial) 7 units SQ TIDAC [facility]; Protocol Last Admin: 05/09/19 06:47 Dose: 7 units Insulin Detemir (Levemir Vial) 40 units SQ HS [facility] Last Admin: 05/08/19 21:54 Dose: 40 units Loratadine (Claritin -) 10 mg PO HS [facility] Last Admin: 05/08/19 21:53 Dose: 10 mg Non-Formulary Medication (Fluticasone/Vilanterol [Breo Ellipta 100-25 Mcg Inh]) 1 each IH DAILY [facility] Patient's Own Medication (Non- Formulary) ( Tacrolimus [Envarsus Xr] 4 Mg) 12 mg PO DAILY [facility] Last Admin: 05/09/19 09:31 Dose: 12 mg Nystatin (Nystatin Oral Suspension -) 500,000 units PO Q6HPO [facility] Last Admin: 05/09/19 06:50 Dose: Not Given Sodium Chloride ([place] Nasal [place] -) 2 spray NS Q1H PRN PRN Reason: NASAL CONGESTION Last Admin: 05/08/19 17:15 Dose: 2 spray - Objective Vital Signs: Vital Signs Temperature 98.1 F 05/09/19 06:00 Pulse Rate 62 05/09/19 06:00 Respiratory Rate 16 05/09/19 06:00 Blood Pressure 131/58 L 05/09/19 06:00 O2 Sat by Pulse Oximetry (%) 97 05/08/19 21:00 Constitutional: Yes: No Distress, Calm Cardiovascular: Yes: Regular Rate and Rhythm, S1, S2 Respiratory: Yes: Regular, Rales (minimal, scattered) Gastrointestinal: Yes: Normal Bowel Sounds, Soft. No: Tenderness Edema: No Neurological: Yes: Alert, Oriented Labs: CBC, BMP 05/09/19 06:08 05/09/19 06:08 Problem List - Problems (1) Pneumonia Code(s): J18.9 - PNEUMONIA, UNSPECIFIED ORGANISM Qualifiers: Pneumonia type: due to unspecified organism Laterality: bilateral Lung location: lower lobe of lung Qualified Code(s): J18.1 - Lobar pneumonia, unspecified organism (2) Renal transplant recipient Code(s): Z94.0 - KIDNEY TRANSPLANT STATUS (3) Hyperglycemia Code(s): R73.9 - HYPERGLYCEMIA, UNSPECIFIED (4) Diabetes mellitus Code(s): E11.9 - TYPE 2 DIABETES MELLITUS WITHOUT COMPLICATIONS (5) Hyperkalemia Code(s): E87.5 - HYPERKALEMIA (6) COPD (chronic obstructive pulmonary disease) with emphysema Code(s): J43.9 - EMPHYSEMA, UNSPECIFIED Assessment/Plan Abtx to be chahged to PO ID, Renal, Pulmonary, Cardio consults are appreciated. Better BGM values Admitted to monitor bed To [place] home with outpt f/u Pt's condition was d/w his nurse.
--- NOTE | 2019-05-09 10:17 | PN ---
Progress Note, Physician History of Present Illness: Pt seen and examined at bedside. He says he feels better. He denies shortness of breath. - Current Medication List Current Medications: Active Medications Albuterol Sulfate (Ventolin 0.083% Nebulizer Soln -) 1 amp NEB Q4H PRN PRN Reason: SHORT OF BREATH/WHEEZING Last Admin: 05/08/19 00:10 Dose: 1 amp Albuterol/Ipratropium (Duoneb -) 1 amp NEB RQID [facility] Last Admin: 05/09/19 09:18 Dose: 1 amp Amlodipine Besylate (Norvasc -) 10 mg PO DAILY [facility] Last Admin: 05/09/19 09:28 Dose: 10 mg Aspirin (Asa -) 81 mg PO DAILY [facility] Last Admin: 05/09/19 09:28 Dose: 81 mg Atorvastatin Calcium (Lipitor -) 10 mg PO HS [facility] Last Admin: 05/08/19 21:53 Dose: 10 mg Carvedilol (Coreg -) 25 mg PO BID [facility] Last Admin: 05/09/19 09:28 Dose: 25 mg Fluticasone Propionate (Flonase -) 1 spray NS BID [facility] Last Admin: 05/09/19 09:29 Dose: Not Given Guaifenesin (Diabetic Tussin Dm -) 5 ml PO Q4H [facility] Stop: 05/10/19 12:44 Last Admin: 05/09/19 09:28 Dose: 5 ml Piperacillin Sod/Tazobactam (Sod 3.375 gm/ Dextrose) 50 mls @ 100 mls/hr IVPB Q8H-IV [facility]; Protocol Last Admin: 05/09/19 09:29 Dose: 100 mls/hr Insulin Aspart (Novolog Vial Sliding Scale -) 1 vial SQ ACHS [facility]; Protocol Last Admin: 05/09/19 06:45 Dose: Not Given Insulin Aspart (Novolog Vial) 7 units SQ TIDAC [facility]; Protocol Last Admin: 05/09/19 06:47 Dose: 7 units Insulin Detemir (Levemir Vial) 40 units SQ HS [facility] Last Admin: 05/08/19 21:54 Dose: 40 units Loratadine (Claritin -) 10 mg PO HS [facility] Last Admin: 05/08/19 21:53 Dose: 10 mg Non-Formulary Medication (Fluticasone/Vilanterol [Breo Ellipta 100-25 Mcg Inh]) 1 each IH DAILY [facility] Patient's Own Medication (Non- Formulary) ( Tacrolimus [Envarsus Xr] 4 Mg) 12 mg PO DAILY [facility] Last Admin: 05/09/19 09:31 Dose: 12 mg Nystatin (Nystatin Oral Suspension -) 500,000 units PO Q6HPO [facility] Last Admin: 05/09/19 06:50 Dose: Not Given Sodium Chloride ([place] Nasal [place] -) 2 spray NS Q1H PRN PRN Reason: NASAL CONGESTION Last Admin: 05/08/19 17:15 Dose: 2 spray - Objective Vital Signs: Vital Signs Temperature 98.1 F 05/09/19 06:00 Pulse Rate 62 05/09/19 06:00 Respiratory Rate 16 05/09/19 06:00 Blood Pressure 131/58 L 05/09/19 06:00 O2 Sat by Pulse Oximetry (%) 97 05/08/19 21:00 Constitutional: Yes: Calm Eyes: Yes: Conjunctiva Clear HENT: Yes: Atraumatic Neck: Yes: Supple Cardiovascular: Yes: S1, S2 Respiratory: Yes: CTA Bilaterally Gastrointestinal: Yes: Soft Genitourinary: Yes: WNL, Other (graft soft) Musculoskeletal: Yes: WNL Edema: No Neurological: Yes: Oriented Psychiatric: Yes: Oriented Labs: CBC, BMP 05/09/19 06:08 05/09/19 06:08 Problem List - Problems (1) Generalized weakness Code(s): R53.1 - WEAKNESS (2) Pneumonia Code(s): J18.9 - PNEUMONIA, UNSPECIFIED ORGANISM Qualifiers: Pneumonia type: due to unspecified organism Laterality: bilateral Lung location: lower lobe of lung Qualified Code(s): J18.1 - Lobar pneumonia, unspecified organism (3) Acute on chronic renal failure Code(s): N17.9 - ACUTE KIDNEY FAILURE, UNSPECIFIED; N18.9 - CHRONIC KIDNEY DISEASE, UNSPECIFIED Qualifiers: Chronic kidney disease stage: stage 5, not on chronic dialysis (4) Transplant recipient Code(s): Z94.89 - OTHER TRANSPLANTED ORGAN AND TISSUE STATUS Assessment/Plan Current Medications Generic Name Dose Route Start Last Admin Trade Name Freq PRN Reason Stop Dose Admin Albuterol Sulfate 1 amp 05/04/19 16:54 05/08/19 00:10 Ventolin 0.083% Nebulizer Soln - NEB 1 amp Q4H PRN Administration SHORT OF BREATH/WHEEZING Albuterol/Ipratropium 1 amp 05/04/19 20:00 05/09/19 09:18 Duoneb - NEB 1 amp RQID [facility] Administration Amlodipine Besylate 10 mg 05/04/19 10:00 05/09/19 09:28 Norvasc - PO 10 mg DAILY [facility] Administration Aspirin 81 mg 05/04/19 10:00 05/09/19 09:28 Asa - PO 81 mg DAILY [facility] Administration Atorvastatin Calcium 10 mg 05/03/19 23:34 05/08/19 21:53 Lipitor - PO 10 mg HS [facility] Administration Carvedilol 25 mg 05/03/19 23:45 05/09/19 09:28 Coreg - PO 25 mg BID [facility] Administration Fluticasone Propionate 1 spray 05/07/19 22:00 05/09/19 09:29 Flonase - NS Not Given BID [facility] Guaifenesin 5 ml 05/05/19 12:45 05/09/19 09:28 Diabetic Tussin Dm - PO 05/10/19 12:44 5 ml Q4H [facility] Administration Piperacillin Sod/Tazobactam 50 mls @ 100 mls/hr 05/04/19 18:00 05/09/19 09:29 Sod 3.375 gm/ Dextrose IVPB 100 mls/hr Q8H-IV [facility] Administration Protocol Insulin Aspart 1 vial 05/04/19 07:00 05/09/19 06:45 Novolog Vial Sliding Scale - SQ Not Given ACHS [facility] Protocol Insulin Aspart 7 units 05/09/19 07:00 05/09/19 06:47 Novolog Vial SQ 7 units TIDAC [facility] Administration Protocol Insulin Detemir 40 units 05/08/19 22:00 05/08/19 21:54 Levemir Vial SQ 40 units HS [facility] Administration Loratadine 10 mg 05/08/19 22:00 05/08/19 21:53 Claritin - PO 10 mg HS [facility] Administration Non-Formulary Medication 1 each 05/04/19 10:00 Fluticasone/Vilanterol [Breo Ellipta 100-25 Mcg Inh] IH DAILY [facility] Patient's Own 12 mg 05/04/19 10:00 05/09/19 09:31 Medication (Non- PO 12 mg Formulary) ( DAILY [facility] Administration Tacrolimus [Envarsus Xr] 4 Mg) Nystatin 500,000 units 05/04/19 18:00 05/09/19 06:50 Nystatin Oral Suspension - PO Not Given Q6HPO [facility] Sodium Chloride 2 spray 05/08/19 00:39 05/08/19 17:15 Stem [place] Nasal [place] - NS 2 spray Q1H PRN Administration NASAL CONGESTION Impression 1. CKD 2. SOLE 3. kidney transplant 4. copd 5. pna 6. DM 7. HLD 8. HTN 9. 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
--- NOTE | 2019-05-09 13:25 | PN ---
Progress Note, Physician History of Present Illness: PULMONARY ALERT,FEELING BETTER,LESS DYSPNEIC,WEAKNESS IMPROVING,LESS COUGH - Current Medication List Current Medications: Active Medications Albuterol Sulfate (Ventolin 0.083% Nebulizer Soln -) 1 amp NEB Q4H PRN PRN Reason: SHORT OF BREATH/WHEEZING Last Admin: 05/08/19 00:10 Dose: 1 amp Albuterol/Ipratropium (Duoneb -) 1 amp NEB RQID [facility] Last Admin: 05/09/19 12:03 Dose: 1 amp Amlodipine Besylate (Norvasc -) 10 mg PO DAILY [facility] Last Admin: 05/09/19 09:28 Dose: 10 mg Aspirin (Asa -) 81 mg PO DAILY [facility] Last Admin: 05/09/19 09:28 Dose: 81 mg Atorvastatin Calcium (Lipitor -) 10 mg PO HS [facility] Last Admin: 05/08/19 21:53 Dose: 10 mg Carvedilol (Coreg -) 25 mg PO BID [facility] Last Admin: 05/09/19 09:28 Dose: 25 mg Fluticasone Propionate (Flonase -) 1 spray NS BID [facility] Last Admin: 05/09/19 09:29 Dose: Not Given Guaifenesin (Diabetic Tussin Dm -) 5 ml PO Q4H [facility] Stop: 05/10/19 12:44 Last Admin: 05/09/19 12:45 Dose: Not Given Piperacillin Sod/Tazobactam (Sod 3.375 gm/ Dextrose) 50 mls @ 100 mls/hr IVPB Q8H-IV [facility]; Protocol Last Admin: 05/09/19 09:29 Dose: 100 mls/hr Insulin Aspart (Novolog Vial Sliding Scale -) 1 vial SQ ACHS [facility]; Protocol Last Admin: 05/09/19 11:34 Dose: Not Given Insulin Aspart (Novolog Vial) 7 units SQ TIDAC [facility]; Protocol Last Admin: 05/09/19 11:33 Dose: Not Given Insulin Detemir (Levemir Vial) 40 units SQ HS [facility] Last Admin: 05/08/19 21:54 Dose: 40 units Loratadine (Claritin -) 10 mg PO HS [facility] Last Admin: 05/08/19 21:53 Dose: 10 mg Non-Formulary Medication (Fluticasone/Vilanterol [Breo Ellipta 100-25 Mcg Inh]) 1 each IH DAILY [facility] Patient's Own Medication (Non- Formulary) ( Tacrolimus [Envarsus Xr] 4 Mg) 12 mg PO DAILY [facility] Last Admin: 05/09/19 09:31 Dose: 12 mg Nystatin (Nystatin Oral Suspension -) 500,000 units PO Q6HPO [facility] Last Admin: 05/09/19 12:01 Dose: 500,000 units Sodium Chloride ([place] Nasal [place] -) 2 spray NS Q1H PRN PRN Reason: NASAL CONGESTION Last Admin: 05/08/19 17:15 Dose: 2 spray - Objective Vital Signs: Vital Signs Temperature 97.6 F 05/09/19 10:00 Pulse Rate 76 05/09/19 10:00 Respiratory Rate 20 05/09/19 10:00 Blood Pressure 122/67 05/09/19 10:00 O2 Sat by Pulse Oximetry (%) 96 05/09/19 10:00 Constitutional: Yes: Well Nourished, Calm Eyes: Yes: WNL HENT: Yes: WNL Neck: Yes: WNL Cardiovascular: Yes: Regular Rate and Rhythm, S1, S2 Respiratory: Yes: Diminished Gastrointestinal: Yes: Normal Bowel Sounds, Soft Extremities: Yes: WNL Edema: No Labs: CBC, BMP 05/09/19 06:08 05/09/19 06:08 Problem List - Problems (1) Acute and chronic respiratory failure with hypoxia Code(s): J96.21 - ACUTE AND CHRONIC RESPIRATORY FAILURE WITH HYPOXIA (2) COPD (chronic obstructive pulmonary disease) with emphysema Code(s): J43.9 - EMPHYSEMA, UNSPECIFIED (3) Diabetes mellitus Code(s): E11.9 - TYPE 2 DIABETES MELLITUS WITHOUT COMPLICATIONS (4) Transplant recipient Code(s): Z94.89 - OTHER TRANSPLANTED ORGAN AND TISSUE STATUS Assessment/Plan A/P Acute on Chronic Hypoxic Respiratory Failure Pneumonia Sepsis Acute COPD Exacerbation h/o Renal Transplant CAD HTN DM Hyperlipidemia - antibiotics - O2 to keep SpO2 >90% - inhaled bronchodilators - outpt f/u of chest imaging - DVT prophylaxis Problem List - Problems (1) Pneumonia Code(s): J18.9 - PNEUMONIA, UNSPECIFIED ORGANISM Qualifiers: Pneumonia type: due to unspecified organism Laterality: bilateral Lung location: lower lobe of lung Qualified Code(s): J18.1 - Lobar pneumonia, unspecified organism (2) Sepsis Code(s): A41.9 - SEPSIS, UNSPECIFIED ORGANISM
--- NOTE | 2019-05-09 17:42 | DS ---
Physical Examination Vital Signs: Vital Signs Temperature 97.6 F 05/09/19 13:35 Pulse Rate 68 05/09/19 13:35 Respiratory Rate 18 05/09/19 13:35 Blood Pressure 128/63 05/09/19 13:35 O2 Sat by Pulse Oximetry (%) 96 05/09/19 10:00 Findings/Remarks: See Progress Note for HPI, ROS, PE, Plan Labs: CBC, BMP 05/09/19 06:08 05/09/19 06:08 Discharge Summary Reason For Visit: PRE-SYNCOPE,WEAKNESS,PNEUMONIA,NUTRITIONAL DEF Current Active Problems Acute and chronic respiratory failure with hypoxia (Acute) COPD (chronic obstructive pulmonary disease) with emphysema (Acute) CRF (chronic renal failure) (Acute) Diabetes mellitus (Acute) Generalized weakness (Acute) Hyperkalemia (Acute) Pneumonia (Acute) Poor nutrition (Acute) Pre-syncope (Acute) Renal transplant recipient (Acute) Sepsis (Acute) Procedures: Principal: CHest CT scan. Renal US Hospital Course: Pt with significant Hx/o of COPD, DM, renal transplant came to ER with severe weakness, found to have PNA. Pt was started on IV Abtx, was seen by ID ( Dr Haque), Pulmonary(Dr. Solis/ Flavio, started on IV steroids), Cardio (Dr Vazquez), Renal (Dr. Morales), (Dr Perales, for high resistive index in R renal artery). Pt's hospital stay was significant for uncontrolled DM (multifactorial : infection, steroids) that responded adjustment in medications. Pt to be DC'ed home on PO abtx and outpt f/u. Condition: Improved - Instructions Diet, Activity, Other Instructions: Resume diet. To follow up with Transplant team within one week Referrals: Yousuf Mart MD [Primary Care Provider] - (in 1 week) Carlos Bran MD [Staff Physician] - 1 Week () Charity Gibson MD [Staff Physician] - 1 Week Disposition: HOME - Home Medications Comprehensive Discharge Medication List: Ambulatory Orders See PaTIENT DISCHARGE INSTRUCTIONS
[2019-05-09 18:09] VITALS: BP 144/69; PULSE 71; TEMP 98
== END 2019-05-09 19:31 | disposition home or self-care (01) | DRG 177 ==
LOC: JER 15:33 → JERBED 19:08 → J4S 05-04 20:37
PROVIDERS: ADMIT Specialist; ATTEND Specialist
DX: J15.6 Pneumonia due to other Gram-negative bacteria (principal); J96.21 Acute and chronic respiratory failure with hypoxia; N18.6 End stage renal disease; Z94.0 Kidney transplant status; N17.9 Acute kidney failure, unspecified; Z68.1 Body mass index [BMI] 19.9 or less, adult; B37.0 Candidal stomatitis; E46 Unspecified protein-calorie malnutrition; E11.22 Type 2 diabetes mellitus with diabetic chronic kidney disease; J43.9 Emphysema, unspecified; I12.9 Hypertensive chronic kidney disease with stage 1 through stage 4 chronic kidney disease, or unspecified chronic kidney disease; N18.9 Chronic kidney disease, unspecified; E11.65 Type 2 diabetes mellitus with hyperglycemia; J47.9 Bronchiectasis, uncomplicated; N52.9 Male erectile dysfunction, unspecified; E87.5 Hyperkalemia; D72.819 Decreased white blood cell count, unspecified; Z87.891 Personal history of nicotine dependence; Z79.4 Long term (current) use of insulin; I25.2 Old myocardial infarction; Z86.74 Personal history of sudden cardiac arrest; Z99.81 Dependence on supplemental oxygen; D64.9 Anemia, unspecified
CPT/HCPCS: 36415; 71046-TC-FY; 71250-TC; 76775-TC; 80053; 80197; 81003; 82436; 82550; 82962; 83735; 83880; 84133; 84300; 84484; 85025; 85027; 86480; 87040; 87070; 87107; 87186; 87205; 87305; 87449; 87899; 93005; 93010; 94640; 97116-GP; 97161-GP; 99284-25; J7030

== ENCOUNTER 2019-05-15 11:42 | Inpatient (IN) | payer OTHER ==
[2019-05-15] MEDS ORDERED: ALBUTEROL SO4 2.5/IPRATROPIUM 0.5 INH SOL 3 ML VIAL.NEB. NEB ONE ×3 (12:36→16:28)
--- NOTE | 2019-05-15 13:01 | PDOC ---
History of Present Illness - General Chief Complaint: Shortness of Breath Stated Complaint: Shortness of Breath Time Seen by Provider: 05/15/19 12:07 History Source: Patient Exam Limitations: No Limitations - History of Present Illness Initial Comments: 05/15/19 12:07 69 yo M pmh DM, COPD, CRD s/p renal transplant on chronic immunosupression ( tacrolimnus, prednisone) who was recently admitted for PNA and discharged on sent in by night clerk Dr. Bran for DIETZ, stuffy nose, and productive cough (sometimes blood-tinged) that has not improved since discharge. Has been on constant 3L home O2 since dc, which is new for patient. Endorses new swelling around the ankles. Denies fevers/chills, chest pain, n/v/d , abdominal pain, bloody stool, or dysuria/hematuria. Patient was discharged w/ augmentin. Chart review of sputum culture (05/07/19) show pseudomonas that is sensitive only to levofloxacin and maltophilia sensitive to levofloxacin and bactrim. NKDA Denies current tobacco, etoh Past History - Past Medical History Allergies/Adverse Reactions: Allergies Allergy/AdvReac Type Severity Reaction Status Date / Time No Known Allergies Allergy Verified 05/15/19 12:12 Home Medications: Ambulatory Orders Amlodipine Besylate [Norvasc -] 10 mg PO DAILY 02/26/14 Aspirin [ASA -] 81 mg PO DAILY 02/26/14 Insulin Glargine,Hum.rec.anlog [Lantus Solostar PEN -] 20 units SQ HS 02/26/14 Insulin Regular, Human [Humulin R -] 0 units SQ DAILY 02/26/14 Atorvastatin Calcium 10 mg PO HS 05/03/19 Fluticasone/Vilanterol [Breo Ellipta 100-25 Mcg INH] 1 each IH DAILY 05/03/19 Tacrolimus [Envarsus Xr] 12 mg PO DAILY 05/03/19 predniSONE [Deltasone -] 5 mg PO DAILY 05/03/19 Amoxicillin/Potassium Clav [Augmentin 875-125 Tablet] 1 each PO Q12H 6 Days #12 tablet MDD 2 05/09/19 Carvedilol [Coreg -] 25 mg PO BID tablet 05/09/19 Fluticasone Prop 0.05% Nasal [Flonase -] 1 spray NS BID #1 bottle MDD 2 Loratadine [Claritin -] 10 mg PO HS 30 Days #30 tablet MDD 1 05/09/19 Nystatin Oral Suspension - [Nystatin Oral Susp 266548 Units/5 ML -] 5 ml PO Q6HPO #600 ml MDD 4 05/09/19 Sodium Chloride Nasal [place] [[place] Nasal [place] -] 2 spray NS Q1H PRN #1 bottle MDD 2 05/09/19 COPD: Yes Diabetes: Yes (TYPE 2) Dialysis: Yes (T,TH,SA) HTN: Yes Hypercholesterolemia: Yes - Immunization History Immunization Up to Date: Yes - Suicide/Smoking/Psychosocial Hx Smoking Status: No Smoking History: Unknown if ever smoked Have you smoked in the past 12 months: No Number of Cigarettes Smoked Daily: 0 If you are a former smoker, when did you quit?: 1990 Cigars Per Day: 0 Information on smoking cessation initiated: No 'Breaking Loose' booklet given: 01/24/12 Hx Alcohol Use: No Drug/Substance Use Hx: No Substance Use Type: None Hx Substance Use Treatment: No Review of Systems - Review of Systems Able to Perform ROS?: Yes Comments:: 05/15/19 12:07 ENDORSES new swelling around the ankles. DENIES fevers/chills, chest pain, n/v/d, abdominal pain, bloody stool, or dysuria/hematuria Is the patient limited Indonesian proficient: No *Physical Exam - Vital Signs Last Vital Signs Temp Pulse Resp BP Pulse Ox 97.8 F 78 18 130/95 95 05/15/19 12:08 05/15/19 12:08 05/15/19 12:08 05/15/19 12:08 05/15/19 12:08 - Physical Exam Comments: 05/15/19 12:07 GEN: nontoxic appearing, tachypnic in speech HEENT: NC/AT, EOMI, PERRLA, CN II-XII intact. CV: S1/S2, RRR, no m/r/g LUNG: increased work of breathing on 4L NC, saturating well. Decreased air movement on ascultation but no wheezes, crackles GI: soft, ndnt, +BS, no guarding, no rebound. No masses EXTREMITIES: mild nonpitting edema around the b/l ankles ED Treatment Course - LABORATORY CBC & Chemistry Diagram: 05/15/19 14:15 05/15/19 14:15 - RADIOLOGY Radiology Studies Ordered: Category Date Time Status CHEST X-RAY PORTABLE* [RAD] Stat Radiology 05/15/19 12:35 Ordered Medical Decision Making - Medical Decision Making 05/15/19 12:48 69 yo M on chronic immunosuppresion s/p transplant who was recently discharged with augmentin for a pneumonia admission with non-improving symptoms. Has occasional blood tinged sputum. Previous sputum culture (05/07/19) shows pseudomonas sensitive to levofloxacin and maltophilia sensitive to levofloxacin and bactrim. Exam significant for increased work of breathing and decreased air movement b/l. Tachypnic in speech but saturating well on 4L NC. DDx - likely treatment resistant PNA; COPD exacerbation. Unlikely ACS given noncardiac hx but will r/o. - CBC, CMP, BCX, cardiac - CT chest - EKG - pulm c/s - Nebs 05/15/19 13:40 Discussed patient w/ Dr. Mart - will admit under him, pending labs for bed situation. c/s Dr. Bran and Dr. Haque. Team discussed patient w/ Dr. Solis 05/15/19 14:20 An ultrasound guided IV was placed. will initiate abx pendings labs - Initiate Levoquin bc renal dosing only changes the timing. 05/15/19 15:24 EKG today NSR vent rate 76, NH 144, QRS 124, QTC 466 showing RBBB - not significantly different when compared to previous EKG in system (05/03/19) E-GFR seen; Bactrim initiated / / ADMITTED *DC/Admit/Observation/Transfer Diagnosis at time of Disposition: Shortness of breath - Discharge Dispostion Condition at time of disposition: Guarded Decision to Admit order: Yes - Referrals - Patient Instructions - Post Discharge Activity
--- NOTE | 2019-05-15 14:15 | PDOC ---
Documentation entered by Geneva Zhao SCRIBE, acting as scribe for Vanna Ordonez DO. Vanna Ordonez DO: This documentation has been prepared by the Pavel cline Brenda, SCRIBE, under my direction and personally reviewed by me in its entirety. I confirm that the documentation accurately reflects all work, treatment, procedures, and medical decision making performed by me. Attending Attestation - Resident Resident Name: Ar Quigley - ED Attending Attestation I have performed the following: I have examined & evaluated the patient, The case was reviewed & discussed with the resident, I agree w/resident's findings & plan, Exceptions are as noted - HPI HPI: 05/15/19 13:21 The patient is a 69 year old male, with a significant PMH of HTN, HLD, COPD ( on home O2, f/up with Dr. Bran), ESRD (//Tue), renal transplant, and NIDDM, who was recently admitted for PNA and discharged on 05/09/19, presents to the emergency department with dyspnea on exertion, along with a cough productive of blood. Patient reports that at first he was coughing up a brown colored sputum, which turned into blood earlier today. As per patient, when he was discharged he was told to follow-up with his PCP which he did today, who advised him to return to the hospital. The patient denies chest pain, headache and dizziness. Denies fever, chills, nausea, vomiting, diarrhea and constipation. Denies any urinary symptoms. . Allergies: NKA Past surgical history: Kidney transplant, on chronic immunosuppression ( tacrolimus, prednisone). Social history: Former smoker, quit 1998. Senior System Operator: Dr. Bran PCP: Dr. Yousuf Mart - Physicial Exam PE: 05/15/19 13:21 GENERAL: (+) Conversational dyspnea. (+) Respiratory distress. 95 on nasal cannula. Awake, alert, and fully oriented. HEAD: No signs of trauma EYES: Sclera anicteric, conjunctiva clear NECK: Normal ROM, supple, no lymphadenopathy, JVD, or masses LUNGS: (+) Coarse breath sounds bilaterally. No wheezes, and no crackles HEART: Regular rate and rhythm, normal S1 and S2, no murmurs, rubs or gallops ABDOMEN: Soft, nontender, normoactive bowel sounds. No guarding, no rebound. No masses EXTREMITIES: Normal range of motion, no edema. No clubbing or cyanosis. No cords, erythema, or tenderness NEUROLOGICAL: Cranial nerves II through XII grossly intact. Normal speech, normal gait SKIN: Warm, Dry, normal turgor, no rashes or lesions noted. - Medical Decision Making 05/15/19 14:12 I, Dr. Vanna Ordonez, DO, attest that this document has been prepared under my direction and personally reviewed by me in its entirety. I further attest, that it accurately reflects all work, treatment, procedures and medical decision -making performed by me. a/p: 69yo male with hx of recent admission for pna and hx of renal transplant followed at [facility] -recently on abx for pna -culture +mdr pseudomonas -on augmentin - not getting better -still with blood tinged sputum -sob, worsening cough -sent by Dr. Mart for further eval -pulm dr. bran -will send labs, cultures, ct chest, ekg -will start levaquin and bactrim for abx given prior culture -will discuss with Dr. Mart 05/15/19 14:[address] Solis who will see patient in consult resident discussed the case with Dr. Mart 05/15/19 14:33 pt will be admitted to Dr. Mart 05/15/19 15:04 no elevated wbc case discussed with Dr. Haque who will see the patient in consult 05/15/19 15:18 gfr 58 will add bactrim pt will need admission Heart Score/ECG Review - ECG Intrepretation Comment:: 05/15/19 15:17 sinus at 75, RBBB, no acute st/t wave findings
[2019-05-15 14:38] LABS: BASO % 0.2 % (0-2.0); EOS % 0.7 % (0-4.5); HEMOGLOBIN 10.4 GM/dL (11.7-16.9); MCH 25.8 pg (25.7-33.7); MCHC 32.4 g/dl (32.0-35.9); MEAN CELL VOLUME 79.7 fl (80-96); MEAN PLT VOLUME 7.2 fl (7.5-11.1); MONO % 7.4 % (3.8-10.2); NEUT % 84.7 % (42.8-82.8); PLATELET COUNT 238 K/MM3 (134-434); RBC 4.01 M/mm3 (4.00-5.60); RDW 17.1 % (11.9-15.9); WHITE BLOOD COUNT 5.1 K/mm3 (4.0-10.0)
[2019-05-15 15:08] LABS: ARTERIAL BLD GAS O2 SATURATION 95.3 % (95-98); ARTERIAL BLOOD GAS BASE EXCESS 6.6 meq/l (-2-2); ARTERIAL BLOOD GAS PCO2 52.7 mmHg (35-45); ARTERIAL BLOOD GAS PO2 77.6 mmHg (80-100); CARBOXYHEMOGLOBIN 1.4 % (0-2)
[2019-05-15 15:14] LABS: ALBUMIN 2.4 g/dl (3.4-5.0); BILIRUBIN,TOTAL 0.6 mg/dL (0.2-1); CALCIUM 9.6 mg/dL (8.5-10.1); CREATININE 1.4 mg/dL (0.55-1.3); POTASSIUM 4.5 mmol/L (3.5-5.1); TOT PROT 7.5 g/dl (6.4-8.2)
[2019-05-15] MEDS ORDERED: SULFAMETHOXAZOLE/TRIMETHOPRIM 800MG/160MG D.S. TABLET PO ONE (15:18)
--- NOTE | 2019-05-15 15:34 | CON.PULM ---
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 Hemoptysis described as pink colored. No chest pain, fevers or chills. Last admission sputum culture grew out pseudomonas and stenotrophomonas as well as mold. - History Source History Provided By: Patient, Medical Record Limitations to Obtaining History: Clinical Condition - Past Medical History Cardio/Vascular: Yes: HTN, Hyperlipdemia, [place], Other (Hx/o cardiac arrest) Pulmonary: Yes: COPD Renal/: Yes: Renal Inusuff, Other (renal transplant 10/09/13) Endocrine: Yes: Diabetes Mellitus - Past Surgical History Past Surgical History: Yes: Kidney Transplant - Alcohol/Substance Use Hx Alcohol Use: No - Smoking History Smoking history: Unknown if ever smoked Have you smoked in the past 12 months: No Aproximately how many cigarettes per day: 0 If you are a former smoker, when did you quit?: 1989 - Social History Usual Living Arrangement: With Spouse ADL: Independent History of Recent Travel: No Home Medications - Allergies Allergies/Adverse Reactions: Allergies Allergy/AdvReac Type Severity Reaction Status Date / Time No Known Allergies Allergy Verified 05/15/19 12:12 - Home Medications Home Medications: Ambulatory Orders Amlodipine Besylate [Norvasc -] 10 mg PO DAILY 02/26/14 Aspirin [ASA -] 81 mg PO DAILY 02/26/14 Insulin Glargine,Hum.rec.anlog [Lantus Solostar PEN -] 20 units SQ HS 02/26/14 Insulin Regular, Human [Humulin R -] 0 units SQ DAILY 02/26/14 Atorvastatin Calcium 10 mg PO HS 05/03/19 Fluticasone/Vilanterol [Breo Ellipta 100-25 Mcg INH] 1 each IH DAILY 05/03/19 Tacrolimus [Envarsus Xr] 12 mg PO DAILY 05/03/19 predniSONE [Deltasone -] 5 mg PO DAILY 05/03/19 Amoxicillin/Potassium Clav [Augmentin 875-125 Tablet] 1 each PO Q12H 6 Days #12 tablet MDD 2 05/09/19 Carvedilol [Coreg -] 25 mg PO BID tablet 05/09/19 Fluticasone Prop 0.05% Nasal [Flonase -] 1 spray NS BID #1 bottle MDD 2 Loratadine [Claritin -] 10 mg PO HS 30 Days #30 tablet MDD 1 05/09/19 Nystatin Oral Suspension - [Nystatin Oral Susp 330862 Units/5 ML -] 5 ml PO Q6HPO #600 ml MDD 4 05/09/19 Sodium Chloride Nasal [place] [[place] Nasal [place] -] 2 spray NS Q1H PRN #1 bottle MDD 2 05/09/19 Review of Systems - Review of Systems Constitutional: reports: Malaise, Weakness. denies: Chills, Fever Eyes: denies: Recent Change in Vision HENT: denies: Nasal Congestion, Throat Pain Neck: denies: Tenderness Cardiovascular: reports: Shortness of Breath. denies: Chest Pain, Edema, Palpitations Respiratory: reports: Cough, Hemoptysis. denies: Wheezing Gastrointestinal: denies: Abdominal Pain, Nausea, Vomiting Genitourinary: denies: Dysuria, Hematuria Neurological: denies: Dizziness, Headache Endocrine: denies: Unexplained Weight Loss Physical Exam Vital Sings: Vital Signs Temperature 97.8 F 05/15/19 12:08 Pulse Rate 78 05/15/19 12:08 Respiratory Rate 18 05/15/19 12:08 Blood Pressure 130/95 05/15/19 12:08 O2 Sat by Pulse Oximetry (%) 95 05/15/19 12:12 Constitutional: Yes: Mild Distress Eyes: Yes: Conjunctiva Clear, EOM Intact HENT: Yes: Atraumatic, Normocephalic Neck: Yes: Supple, Trachea Midline Cardiovascular: Yes: Regular Rate and Rhythm Respiratory: Yes: Rales, Rhonchi ...Clubbing: No Gastrointestinal: Yes: Normal Bowel Sounds, Soft. No: Tenderness Edema: No Neurological: Yes: Alert, Oriented Labs: CBC, BMP 05/15/19 14:15 05/15/19 14:15 ABG Results ABG pH 7.40 (7.35-7.45) 05/15/19 14:32 ABG pCO2 at Pt Temp 52.7 mmHg (35-45) H 05/15/19 14:32 ABG pO2 at Pt Temp 77.6 mmHg (80-100) L 05/15/19 14:32 ABG HCO3 32.0 mmol/L (22-27) H 05/15/19 14:32 ABG O2 Sat (Measured) 95.3 % (95-98) 05/15/19 14:32 ABG O2 Content 13.1 % vol (15-22) L 05/15/19 14:32 ABG Base Excess 6.6 meq/l (-2-2) H 05/15/19 14:32 Problem List - Problems (1) COPD with acute exacerbation Code(s): J44.1 - CHRONIC OBSTRUCTIVE PULMONARY DISEASE W (ACUTE) EXACERBATION (2) Acute exacerbation of bronchiectasis Code(s): J47.1 - BRONCHIECTASIS WITH (ACUTE) EXACERBATION Assessment/Plan Acute COPD/Bronchiectasis Exacerbation Hemoptysis Pneumonia r/o Fungal Pneumonia Chronic Hypoxic Respiratory Failure CKD s/p Renal Transplant on immunosuppressants HTN DM Hyperlipidemia - IV medrol - send sputum for C&S, fungal cultures - IV antibiotics, likely will need antifungals - ID eval - inhaled bronchodilators - O2 to keep SpO2 >90% - monitor urine output, creatinine - consider transfer to transplant center - DVT prophylaxis Thank you for this consult Sixto Solis MD
[2019-05-15] MEDS ORDERED: ALBUTEROL SO4 0.083% IH SOL 2.5 MG/3 ML VIAL.NEB. NEB PRN (15:45)
--- NOTE | 2019-05-15 15:54 | CONSULT ---
Consult Consult Specialty:: Nephrology Reason for Consultation:: kidney transplant - History of Present Illness Chief Complaint: shortness of breath History of Present Illness: Pt is a 69 year old male with pmhx of htn, hld, copd, and kidney transplant who presents with shortness of breath and cough. He was recently discharged. I was called to evaluate him as he has a kidney transplant. He denies dysuria or hematuria. - History Source History Provided By: Patient - Past Medical History Cardio/Vascular: Yes: HTN, Hyperlipdemia, [place], Other (Hx/o cardiac arrest) Pulmonary: Yes: COPD Renal/: Yes: Renal Inusuff, Other (renal transplant 10/09/13) Endocrine: Yes: Diabetes Mellitus - Past Surgical History Past Surgical History: Yes: Kidney Transplant - Alcohol/Substance Use Hx Alcohol Use: No - Smoking History Smoking history: Unknown if ever smoked Have you smoked in the past 12 months: No Aproximately how many cigarettes per day: 0 If you are a former smoker, when did you quit?: 1989 - Social History Usual Living Arrangement: With Spouse ADL: Independent History of Recent Travel: No Home Medications - Allergies Allergies/Adverse Reactions: Allergies Allergy/AdvReac Type Severity Reaction Status Date / Time No Known Allergies Allergy Verified 05/15/19 12:12 - Home Medications Home Medications: Ambulatory Orders Amlodipine Besylate [Norvasc -] 10 mg PO DAILY 02/26/14 Aspirin [ASA -] 81 mg PO DAILY 02/26/14 Insulin Glargine,Hum.rec.anlog [Lantus Solostar PEN -] 20 units SQ HS 02/26/14 Insulin Regular, Human [Humulin R -] 0 units SQ DAILY 02/26/14 Atorvastatin Calcium 10 mg PO HS 05/03/19 Fluticasone/Vilanterol [Breo Ellipta 100-25 Mcg INH] 1 each IH DAILY 05/03/19 Tacrolimus [Envarsus Xr] 12 mg PO DAILY 05/03/19 predniSONE [Deltasone -] 5 mg PO DAILY 05/03/19 Amoxicillin/Potassium Clav [Augmentin 875-125 Tablet] 1 each PO Q12H 6 Days #12 tablet MDD 2 05/09/19 Carvedilol [Coreg -] 25 mg PO BID tablet 05/09/19 Fluticasone Prop 0.05% Nasal [Flonase -] 1 spray NS BID #1 bottle MDD 2 Loratadine [Claritin -] 10 mg PO HS 30 Days #30 tablet MDD 1 05/09/19 Nystatin Oral Suspension - [Nystatin Oral Susp 886652 Units/5 ML -] 5 ml PO Q6HPO #600 ml MDD 4 05/09/19 Sodium Chloride Nasal [place] [[place] Nasal [place] -] 2 spray NS Q1H PRN #1 bottle MDD 2 05/09/19 Family Disease History - Family Disease History Family History: Denies Review of Systems - Review of Systems Constitutional: reports: Malaise Eyes: reports: No Symptoms HENT: reports: No Symptoms Neck: reports: No Symptoms Cardiovascular: reports: No Symptoms Respiratory: reports: Cough, SOB, SOB on Exertion Gastrointestinal: reports: No Symptoms Genitourinary: reports: No Symptoms Musculoskeletal: reports: No Symptoms Integumentary: reports: No Symptoms Neurological: reports: No Symptoms Endocrine: reports: No Symptoms Hematology/Lymphatic: reports: No Symptoms Physical Exam Vital Signs: Vital Signs Temperature 97.8 F 05/15/19 12:08 Pulse Rate 78 05/15/19 12:08 Respiratory Rate 18 05/15/19 12:08 Blood Pressure 130/95 05/15/19 12:08 O2 Sat by Pulse Oximetry (%) 95 05/15/19 12:12 Constitutional: Yes: Calm Eyes: Yes: Conjunctiva Clear HENT: Yes: Atraumatic Neck: Yes: Supple Cardiovascular: Yes: S1, S2 Respiratory: Yes: On Nasal O2 Gastrointestinal: Yes: Normal Bowel Sounds, Soft Renal/: Yes: Other (graft soft and non tender) Musculoskeletal: Yes: WNL Edema: No Neurological: Yes: Oriented Psychiatric: Yes: Oriented Labs: CBC, BMP 05/15/19 14:15 05/15/19 14:15 Problem List - Problems (1) Shortness of breath Code(s): R06.02 - SHORTNESS OF BREATH (2) COPD (chronic obstructive pulmonary disease) with emphysema Code(s): J43.9 - EMPHYSEMA, UNSPECIFIED (3) CRF (chronic renal failure) Code(s): N18.9 - CHRONIC KIDNEY DISEASE, UNSPECIFIED (4) Renal transplant recipient Code(s): Z94.0 - KIDNEY TRANSPLANT STATUS Assessment/Plan Current Medications Generic Name Dose Route Start Last Admin Trade Name Freq PRN Reason Stop Dose Admin Albuterol Sulfate 1 amp 05/15/19 15:45 Ventolin 0.083% Nebulizer Soln - NEB Q4H PRN SHORT OF BREATH/WHEEZING Albuterol/Ipratropium 1 amp 05/15/19 16:00 Duoneb - NEB RQID HELADIO Levofloxacin 750 mg in 150 mls @ 100 mls/hr 05/15/19 14:48 05/15/19 14:57 Levaquin 750 Mg Premixed Ivpb - IVPB 05/15/19 16:17 100 mls/hr ONCE ONE Administration Protocol Methylprednisolone Sodium Succinate 40 mg 05/15/19 15:45 Solu-Medrol - IVPUSH Q8H-IV HELADIO Impression 1. CKD 2. dyspnea 3. kidney transplant 4. copd 5. pna 6. DM 7. HLD 8. HTN Plan - restart pts prograf, has bottle - had high resistive index on last ultrasound, he will follow with transplant center - cont er evaluation - avoid nephrotoxins - potassium stable - pt is not on MMF (hx of leukopenia)
[2019-05-15] MEDS ORDERED: SULFAMETHOXAZOLE/TRIMETHOPRIM 800MG/160MG D.S. TABLET ONE (16:28)
[2019-05-15] MEDS ORDERED: methylPREDNISolone NA SUCC 40 MG/1 ML VIAL ONE (16:28)
[2019-05-15] MEDS: methylPREDNISolone NA SUCC 40 MG/1 ML VIAL IVPUSH SCH ×2 (17:06→21:32)
[2019-05-15] MEDS: ALBUTEROL SO4 2.5/IPRATROPIUM 0.5 INH SOL 3 ML VIAL.NEB. NEB SCH ×2 (17:06→20:17)
--- NOTE | 2019-05-15 17:41 | PN ---
Progress Note (short form) - Note Progress Note: ID CONSULT DICTATED WORSENING RLL INFILTRATE WITH ?CAVITATION IN THIS RENAL TRANSPLANT PT ON IMMUNOSUPPRESSIVE THERAPY AND + SPUTUM C/S FOR (R) PSEUDOMONAS AND MOLD WELL PREVIOUS SPUTUM C/S MAC AWAIT SPUTUM C/S REPEAT ASPERGILLUS SEROLOGIES ? [facility] MAY NEED SOLDERER TORCH TX WITH VORICONAZOLE WHICH WILL BE PROBLEMATIC (RX INTERACTION WITH TACROLIMUS) TRANSFER TO [facility] TRANSPLANT CTR FOR CONTINUED CARE SHOULD BE CONSIDERED
[2019-05-15] MEDS ORDERED: SODIUM CHLORIDE NASAL SPRAY 44 ML BOTTLE NS PRN (18:50)
--- NOTE | 2019-05-15 18:50 | HP ---
Admitting History and Physical - Primary Care Physician PCP: Yousuf Mart - Admission Chief Complaint: Weakness, Cough, DIETZ History of Present Illness: Pt with known renal transplant, CRF, COPD, recently DC'ed home from our hospital on PO abtx (Augmentin, after Rx with Zosyn) for PNA, not feeling that is improving after discharge, saw today Dr Bran (Pulmonary) and was noticed to be weak and SOB; pt was referred to ER for evaluation. Pt was admitted for PNA with Pseudomonas Aeruginosa. History Source: Patient, Family Member (his ) - Past Medical History Cardiovascular: Yes: HTN, Hyperlipdemia, [place], Other (Hx/o cardiac arrest) Pulmonary: Yes: COPD, Pneumonia Renal/: Yes: Renal Inusuff, Other (renal transplant 10/09/13) Endocrine: Yes: Diabetes Mellitus - Past Surgical History Past Surgical History: Yes: Kidney Transplant - Smoking History Smoking history: Unknown if ever smoked Have you smoked in the past 12 months: No Aproximately how many cigarettes per day: 0 If you are a former smoker, when did you quit?: 1989 - Alcohol/Substance Use Hx Alcohol Use: No - Social History ADL: Independent History of Recent Travel: No Home Medications - Allergies Allergies/Adverse Reactions: Allergies Allergy/AdvReac Type Severity Reaction Status Date / Time No Known Allergies Allergy Verified 05/15/19 12:12 - Home Medications Home Medications: Ambulatory Orders Amlodipine Besylate [Norvasc -] 10 mg PO HS 02/26/14 Aspirin [ASA -] 81 mg PO DAILY 02/26/14 Insulin Glargine,Hum.rec.anlog [Lantus Solostar PEN -] 20 units SQ HS 02/26/14 Insulin Regular, Human [Humulin R -] 0 units SQ DAILY 02/26/14 Atorvastatin Calcium 10 mg PO HS 05/03/19 Fluticasone/Vilanterol [Breo Ellipta 100-25 Mcg INH] 1 each IH DAILY 05/03/19 Tacrolimus [Envarsus Xr] 12 mg PO DAILY 05/03/19 predniSONE [Deltasone -] 5 mg PO DAILY 05/03/19 Amoxicillin/Potassium Clav [Augmentin 875-125 Tablet] 1 each PO Q12H 6 Days #12 tablet MDD 2 05/09/19 Carvedilol [Coreg -] 25 mg PO BID tablet 05/09/19 Fluticasone Prop 0.05% Nasal [Flonase -] 1 spray NS BID #1 bottle MDD 2 Loratadine [Claritin -] 10 mg PO HS 30 Days #30 tablet MDD 1 05/09/19 Nystatin Oral Suspension - [Nystatin Oral Susp 310747 Units/5 ML -] 5 ml PO Q6HPO #600 ml MDD 4 05/09/19 Sodium Chloride Nasal [place] [[place] Nasal [place] -] 2 spray NS Q1H PRN #1 bottle MDD 2 05/09/19 Review of Systems - Review of Systems Constitutional: denies: Chills, Fever Eyes: denies: Blurred Vision, Double Vision HENT: reports: Nasal Congestion. denies: Ear Discharge, Ear Pain, Mouth Swelling, Throat Pain Neck: denies: Pain on Movement, Stiffness Cardiovascular: reports: Shortness of Breath. denies: Chest Pain, Edema, Palpitations Respiratory: reports: Cough, Hemoptysis Gastrointestinal: denies: Abdominal Pain, Diarrhea, Vomiting Genitourinary: denies: Burning, Discharge Musculoskeletal: denies: Back Pain, Joint Pain, Joint Swelling Integumentary: denies: Bruising, Rash Neurological: denies: Change in LOC, Change in Speech, Confusion Endocrine: denies: Excessive Sweating, Intolerance to Cold Psychiatric: reports: Depression. denies: Anxiety Physical Examination Vital Signs: Vital Signs Temperature 97.8 F 05/15/19 12:08 Pulse Rate 82 05/15/19 17:26 Respiratory Rate 16 05/15/19 17:26 Blood Pressure 130/61 05/15/19 17:26 O2 Sat by Pulse Oximetry (%) 95 05/15/19 17:26 Constitutional: Yes: Calm, Cachectic Eyes: Yes: Conjunctiva Clear, EOM Intact HENT: No: Epistaxis, Rhinnorhea Neck: Yes: Trachea Midline. No: Lymphadenopathy Cardiovascular: Yes: Regular Rate and Rhythm, S1, S2 Respiratory: Yes: Regular, Rhonchi Gastrointestinal: Yes: Normal Bowel Sounds, Soft. No: Tenderness ...Rectal Exam: Yes: Deferred Renal/: No: CVA Tenderness - Left, CVA Tenderness - Right Musculoskeletal: No: Back Pain, Joint Swelling Extremities: No: Cold, Cool Edema: No Integumentary: No: Erythema, Jaundice Neurological: Yes: Alert, Oriented, Other (motor adn sensory examination is symmetric in UE/ LE/ face) Psychiatric: Yes: Alert, Oriented Labs: CBC, BMP 05/15/19 14:15 05/15/19 14:15 Imaging - Results Cat Scan: Report Reviewed Problem List - Problems (1) Pneumonia Code(s): J18.9 - PNEUMONIA, UNSPECIFIED ORGANISM Qualifiers: Pneumonia type: due to unspecified organism Laterality: bilateral Lung location: lower lobe of lung Qualified Code(s): J18.1 - Lobar pneumonia, unspecified organism (2) Hemoptysis, unspecified Code(s): R04.2 - HEMOPTYSIS (3) COPD (chronic obstructive pulmonary disease) with emphysema Code(s): J43.9 - EMPHYSEMA, UNSPECIFIED (4) Renal transplant recipient Code(s): Z94.0 - KIDNEY TRANSPLANT STATUS (5) CRF (chronic renal failure) Code(s): N18.9 - CHRONIC KIDNEY DISEASE, UNSPECIFIED (6) Diabetes mellitus Code(s): E11.9 - TYPE 2 DIABETES MELLITUS WITHOUT COMPLICATIONS (7) Generalized weakness Code(s): R53.1 - WEAKNESS (8) Anemia Code(s): D64.9 - ANEMIA, UNSPECIFIED Qualifiers: Anemia type: due to chronic kidney disease Chronic kidney disease stage: stage 5, not on chronic dialysis Qualified Code(s): N18.5 - Chronic kidney disease, stage 5; D63.1 - Anemia in chronic kidney disease Assessment/Plan IV abtx IV steroids ID consult, is appreciated; case was d/w Dr. Flores Pulmonary consult, is appreciated Renal consult To monitor BGM, likely to trend up from baseline (secondary to steroid sand PNA) AM labs
[2019-05-15 19:04] VITALS: BMI 19.8
--- NOTE | 2019-05-15 20:32 | CONS ---
DATE OF CONSULTATION: DATE OF DICTATION: 05/15/2019 INFECTIOUS DISEASE CONSULTATION HISTORY OF PRESENT ILLNESS: The patient is a 69-year-old male who is evaluated for pneumonia. The patient was recently hospitalized at [facility] from May 03 to May 09, 2019, and was treated for bibasilar pneumonia. He received a course of Zosyn and was discharged on Augmentin. He now returns with worsening shortness of breath and cough productive of pinkish sputum. Patient and report that since his hospital discharge, he continued to experience shortness of breath, and profound weakness. 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 A followup CAT scan was performed today and shows progression of a right lower lobe infiltrate with possible cavitation. A smaller lesion which also appeared to be cavitary was present in the left upper lung. The patient reports dyspnea both at rest and on exertion. He has had bilateral pedal edema. He denies any chest pain. He reports cough productive of whitish sputum which is at times pinkish. He denies any cirilo hemoptysis or large amounts of bright red blood. PAST MEDICAL HISTORY: Positive for renal transplant 2014 on immunosuppressive therapy, diabetes mellitus, hypertension, hyperlipidemia, COPD/bronchiectasis. ALLERGIES: No known allergies. MEDICATION: Include tacrolimus, prednisone 5 mg, albuterol. SOCIAL HISTORY: Lives at home with his significant other. Former smoker. PAST SURGICAL HISTORY: Status post renal transplant 2014, [facility]. SYSTEMS REVIEW: Neurologic: No loss of consciousness, seizure activity, focal weakness. Cardiac: Negative for chest pain or palpitations. Respiratory: As per HPI. Gastrointestinal: Negative vomiting or diarrhea. Genitourinary: Negative for urinary tract infection. LABORATORY DATA: White count 5.1, hematocrit 32.0, platelets 238, BUN 35, creatinine 1.4. Differential: White blood cell count 5.1, 84 neutrophils, 7 lymphocytes, 7 monocytes. PHYSICAL EXAMINATION: General: On exam, he is seated in the stretcher in the emergency room. He is slightly short of breath at rest. Vital signs: Temperature 97.8, blood pressure 130/95, pulse 78 regular, respirations 18 per minute. HEENT: Sclerae anicteric. Neck: Supple. No palpable nodes. Cardiovascular: Heart sounds S1, S2. Lungs: Bibasilar crepitations and scattered rhonchi. Abdomen: Soft, nontender. Extremities: Positive for pedal edema. IMPRESSION: Worsening right lower lobe infiltrate with what appears to be cavitation in this renal transplant patient on immunosuppressive therapy, positive sputum cultures in the recent past for resistant pseudomonas and mold, as well as previous sputum cultures positive for MAC. Await sputum culture. Repeat aspergillus serologies. Would consider bronchoscopy. May need correction treatment with voriconazole, which will be problematic as it interacts with tacrolimus, transferred to [facility] transplant center for continued care should be strongly considered. YVES VICTOR M.D. [id number]
[2019-05-15] MEDS: ATORVASTATIN CA 10 MG TABLET (FP) PO SCH (21:32)
[2019-05-15] MEDS: FLUTICASONE PROP 0.05% 16 GM NASAL SPRAY NS SCH (21:32)
[2019-05-15] MEDS: amLODIPine BESYLATE 10 MG TABLET (FP) PO SCH (21:32)
[2019-05-15] MEDS: CARVEDILOL 25 MG TABLET (FP) PO SCH (21:32)
[2019-05-15] MEDS: LORATADINE 10 MG TABLET PO SCH (21:32)
[2019-05-15] MEDS: INSULIN SLIDING SCALE (NOVOLOG) 1 VIAL SQ SCH (21:39)
[2019-05-16] MEDS: INSULIN (LEVEMIR) 100 UNITS/ML UNITS SQ SCH ×2 (00:25→21:54)
[2019-05-16] MEDS: NYSTATIN 500,000 UNITS/5 ML SUSPENSION PO SCH ×4 (01:37→18:22)
[2019-05-16] MEDS: methylPREDNISolone NA SUCC 40 MG/1 ML VIAL IVPUSH SCH ×3 (01:37→18:22)
[2019-05-16] MEDS: INSULIN SLIDING SCALE (NOVOLOG) 1 VIAL SQ SCH ×4 (06:20→21:55)
[2019-05-16] MEDS ORDERED: Insulin (LOG) Aspart 100 UNITS/ML VIAL SQ SCH (07:00)
[2019-05-16] MEDS: ALBUTEROL SO4 2.5/IPRATROPIUM 0.5 INH SOL 3 ML VIAL.NEB. NEB SCH ×4 (07:37→20:18)
--- NOTE | 2019-05-16 09:20 | PN ---
Progress Note, Physician History of Present Illness: Pt w/o fever, chills, CP, palpitations, abd pain, N, V; pt w/o change in cough, SOB. - Current Medication List Current Medications: Active Medications Albuterol Sulfate (Ventolin 0.083% Nebulizer Soln -) 1 amp NEB Q4H PRN PRN Reason: SHORT OF BREATH/WHEEZING Last Admin: 05/15/19 23:21 Dose: 1 amp Albuterol/Ipratropium (Duoneb -) 1 amp NEB RQID [facility] Last Admin: 05/16/19 07:37 Dose: 1 amp Amlodipine Besylate (Norvasc -) 10 mg PO HS [facility] Last Admin: 05/15/19 21:32 Dose: 10 mg Aspirin (Asa -) 81 mg PO DAILY [facility] Atorvastatin Calcium (Lipitor -) 10 mg PO HS [facility] Last Admin: 05/15/19 21:32 Dose: 10 mg Carvedilol (Coreg -) 25 mg PO BID [facility] Last Admin: 05/15/19 21:32 Dose: 25 mg Fluticasone Propionate (Flonase -) 1 spray NS BID [facility] Last Admin: 05/15/19 21:32 Dose: 1 spray Levofloxacin (Levaquin 500 Mg Premixed Ivpb -) 500 mg in 100 mls @ 100 mls/hr IVPB DAILY [facility]; Protocol Insulin Aspart (Novolog Vial Sliding Scale -) 1 vial SQ ACHS [facility]; Protocol Last Admin: 05/16/19 06:20 Dose: 14 unit Insulin Detemir (Levemir Vial) 30 units SQ [facility] Last Admin: 05/16/19 00:25 Dose: 30 unit Loratadine (Claritin -) 10 mg PO HS [facility] Last Admin: 05/15/19 21:32 Dose: 10 mg Methylprednisolone Sodium Succinate (Solu-Medrol -) 40 mg IVPUSH Q8H-IV [facility] Last Admin: 05/16/19 01:37 Dose: 40 mg Non-Formulary Medication (Fluticasone/Vilanterol [Breo Ellipta 100-25 Mcg Inh]) 1 each IH DAILY [facility] Tacrolimus [Envarsus (Xr] 4 Mg Tab) 12 mg PO DAILY [facility] Nystatin (Nystatin Oral Suspension -) 500,000 units PO Q6HPO [facility] Last Admin: 05/16/19 06:19 Dose: 500,000 units Prednisone (Deltasone -) 5 mg PO DAILY [facility] Sodium Chloride ([place] Nasal [place] -) 2 spray NS Q1H PRN PRN Reason: NASAL CONGESTION - Objective Vital Signs: Vital Signs Temperature 98.2 F 05/16/19 06:00 Pulse Rate 68 05/16/19 06:00 Respiratory Rate 18 05/16/19 06:00 Blood Pressure 126/65 05/16/19 06:00 O2 Sat by Pulse Oximetry (%) 95 05/15/19 17:26 Constitutional: Yes: No Distress, Calm Cardiovascular: Yes: Regular Rate and Rhythm, S1, S2 Respiratory: Yes: Regular, Rhonchi Gastrointestinal: Yes: Normal Bowel Sounds, Soft. No: Tenderness Edema: No Neurological: Yes: Alert, Oriented Labs: CBC, BMP 05/15/19 14:15 05/15/19 14:15 Problem List - Problems (1) Pneumonia Code(s): J18.9 - PNEUMONIA, UNSPECIFIED ORGANISM Qualifiers: Pneumonia type: due to unspecified organism Laterality: bilateral Lung location: lower lobe of lung Qualified Code(s): J18.1 - Lobar pneumonia, unspecified organism (2) Hemoptysis, unspecified Code(s): R04.2 - HEMOPTYSIS (3) COPD (chronic obstructive pulmonary disease) with emphysema Code(s): J43.9 - EMPHYSEMA, UNSPECIFIED (4) Renal transplant recipient Code(s): Z94.0 - KIDNEY TRANSPLANT STATUS (5) CRF (chronic renal failure) Code(s): N18.9 - CHRONIC KIDNEY DISEASE, UNSPECIFIED (6) Diabetes mellitus Code(s): E11.9 - TYPE 2 DIABETES MELLITUS WITHOUT COMPLICATIONS (7) Generalized weakness Code(s): R53.1 - WEAKNESS Assessment/Plan Creatinine is trending up IV abtx IV steroids ID, Pulmonary consults are appreciated. Renal consult To monitor BGM. To f/u CX Pt might need to be transferred to [facility] labs
[2019-05-16] MEDS ORDERED: predniSONE 5 MG TABLET (UD) PO SCH (10:00)
--- NOTE | 2019-05-16 10:16 | EKG ---
Test Reason : Blood Pressure : / mmHG Vent. Rate : 075 BPM Atrial Rate : 075 BPM P-R Int : 144 ms QRS Dur : 124 ms QT Int : 418 ms P-R-T Axes : 068 075 069 degrees QTc Int : 466 ms NORMAL SINUS RHYTHM RIGHT BUNDLE BRANCH BLOCK ABNORMAL ECG WHEN COMPARED WITH ECG OF 03-MAY-2019 19:50, RIGHT BUNDLE BRANCH BLOCK HAS REPLACED RSR' PATTERN IN V1 Confirmed by BLANCO MORIN, HUGO ([id number]) on 05/16/2019 10:16:15 AM Referred By: Confirmed By:HUGO SIMEON MD
--- NOTE | 2019-05-16 10:47 | PN ---
Progress Note, Physician History of Present Illness: PULMOARY ALERT,STILL C/O SOB,WEAKNESS,-HEMOPTYSIS TODAY - Current Medication List Current Medications: Active Medications Albuterol Sulfate (Ventolin 0.083% Nebulizer Soln -) 1 amp NEB Q4H PRN PRN Reason: SHORT OF BREATH/WHEEZING Last Admin: 05/15/19 23:21 Dose: 1 amp Albuterol/Ipratropium (Duoneb -) 1 amp NEB RQID [facility] Last Admin: 05/16/19 07:37 Dose: 1 amp Amlodipine Besylate (Norvasc -) 10 mg PO HS [facility] Last Admin: 05/15/19 21:32 Dose: 10 mg Aspirin (Asa -) 81 mg PO DAILY [facility] Atorvastatin Calcium (Lipitor -) 10 mg PO HS [facility] Last Admin: 05/15/19 21:32 Dose: 10 mg Carvedilol (Coreg -) 25 mg PO BID [facility] Last Admin: 05/15/19 21:32 Dose: 25 mg Fluticasone Propionate (Flonase -) 1 spray NS BID [facility] Last Admin: 05/15/19 21:32 Dose: 1 spray Levofloxacin (Levaquin 500 Mg Premixed Ivpb -) 500 mg in 100 mls @ 100 mls/hr IVPB DAILY [facility]; Protocol Insulin Aspart (Novolog Vial Sliding Scale -) 1 vial SQ ACHS [facility]; Protocol Last Admin: 05/16/19 06:20 Dose: 14 unit Insulin Aspart (Novolog) 7 units SQ TID@0700,1200,1630 [facility] Insulin Detemir (Levemir Vial) 30 units SQ HS [facility] Last Admin: 05/16/19 00:25 Dose: 30 unit Loratadine (Claritin -) 10 mg PO HS [facility] Last Admin: 05/15/19 21:32 Dose: 10 mg Methylprednisolone Sodium Succinate (Solu-Medrol -) 40 mg IVPUSH Q8H-IV [facility] Last Admin: 05/16/19 01:37 Dose: 40 mg Non-Formulary Medication (Fluticasone/Vilanterol [Breo Ellipta 100-25 Mcg Inh]) 1 each IH DAILY [facility] Tacrolimus [Envarsus (Xr] 4 Mg Tab) 12 mg PO DAILY [facility] Nystatin (Nystatin Oral Suspension -) 500,000 units PO Q6HPO [facility] Last Admin: 05/16/19 06:19 Dose: 500,000 units Prednisone (Deltasone -) 5 mg PO DAILY [facility] Sodium Chloride ([place] Nasal [place] -) 2 spray NS Q1H PRN PRN Reason: NASAL CONGESTION - Objective Vital Signs: Vital Signs Temperature 98.2 F 05/16/19 06:00 Pulse Rate 68 05/16/19 06:00 Respiratory Rate 18 05/16/19 06:00 Blood Pressure 126/65 05/16/19 06:00 O2 Sat by Pulse Oximetry (%) 95 05/15/19 17:26 Constitutional: Yes: Well Nourished, Calm, Other (MILDLY DYSPNEIC) Eyes: Yes: WNL HENT: Yes: WNL Neck: Yes: WNL Cardiovascular: Yes: Regular Rate and Rhythm, S1, S2 Respiratory: Yes: Rales, Rhonchi (SCATTERED CRACKLES AND RHONCHI) Gastrointestinal: Yes: Normal Bowel Sounds, Soft Extremities: Yes: WNL Edema: No Labs: CBC, BMP 05/15/19 14:15 05/15/19 14:15 - ....Imaging Cat Scan: Report Reviewed, Image Reviewed Assessment/Plan Problem List - Problems (1) COPD with acute exacerbation Code(s): J44.1 - CHRONIC OBSTRUCTIVE PULMONARY DISEASE W (ACUTE) EXACERBATION (2) Acute exacerbation of bronchiectasis Code(s): J47.1 - BRONCHIECTASIS WITH (ACUTE) EXACERBATION Assessment/Plan Acute COPD/Bronchiectasis Exacerbation Hemoptysis Pneumonia r/o Fungal Pneumonia Chronic Hypoxic Respiratory Failure CKD s/p Renal Transplant on immunosuppressants HTN DM Hyperlipidemia - IV medrol - IV antibiotics, ?antifungals - inhaled bronchodilators - O2 to keep SpO2 >90% - monitor urine output, creatinine - consider transfer to transplant center - DVT prophylaxis DR SALDANA
[2019-05-16] MEDS: CARVEDILOL 25 MG TABLET (FP) PO SCH ×2 (11:01→21:58)
[2019-05-16] MEDS: ASPIRIN 81 MG CHEWABLE TABLETS PO SCH (11:02)
[2019-05-16] MEDS: TACROLIMUS 4 MG PO SCH (11:02)
[2019-05-16 12:28] LABS: ALBUMIN 2.1 g/dl (3.4-5.0); BILIRUBIN,TOTAL 0.3 mg/dL (0.2-1); BLOOD UREA NITROGEN 35.4 mg/dL (7-18); CALCIUM 9.3 mg/dL (8.5-10.1); CREATININE 1.7 mg/dL (0.55-1.3); POTASSIUM 4.8 mmol/L (3.5-5.1); TOT PROT 6.4 g/dl (6.4-8.2)
[2019-05-16 12:29] LABS: HEMATOCRIT 28.3 % (35.4-49); MCH 25.5 pg (25.7-33.7); MCHC 31.8 g/dl (32.0-35.9); MEAN CELL VOLUME 80.3 fl (80-96); MEAN PLT VOLUME 7.5 fl (7.5-11.1); PLATELET COUNT 210 K/MM3 (134-434); RBC 3.52 M/mm3 (4.00-5.60); RDW 17.2 % (11.9-15.9); WHITE BLOOD COUNT 6.5 K/mm3 (4.0-10.0)
[2019-05-16] MEDS ORDERED: INSULIN (NOVOLOG) ASPART 100 UNITS/ML 10ML VIAL ONE (12:49)
[2019-05-16] MEDS: Insulin (LOG) Aspart 100 UNITS/ML VIAL SQ SCH ×2 (13:06→18:21)
--- NOTE | 2019-05-16 13:38 | PN ---
Progress Note, Physician History of Present Illness: Pt seen and examined at bedside. He is awake and alert. He still has hemoptysis. - Current Medication List Current Medications: Active Medications Albuterol Sulfate (Ventolin 0.083% Nebulizer Soln -) 1 amp NEB Q4H PRN PRN Reason: SHORT OF BREATH/WHEEZING Last Admin: 05/15/19 23:21 Dose: 1 amp Albuterol/Ipratropium (Duoneb -) 1 amp NEB RQID [facility] Last Admin: 05/16/19 11:32 Dose: 1 amp Amlodipine Besylate (Norvasc -) 10 mg PO HS [facility] Last Admin: 05/15/19 21:32 Dose: 10 mg Aspirin (Asa -) 81 mg PO DAILY [facility] Last Admin: 05/16/19 11:02 Dose: 81 mg Atorvastatin Calcium (Lipitor -) 10 mg PO HS [facility] Last Admin: 05/15/19 21:32 Dose: 10 mg Carvedilol (Coreg -) 25 mg PO BID [facility] Last Admin: 05/16/19 11:01 Dose: 25 mg Fluticasone Propionate (Flonase -) 1 spray NS BID [facility] Last Admin: 05/15/19 21:32 Dose: 1 spray Levofloxacin (Levaquin 500 Mg Premixed Ivpb -) 500 mg in 100 mls @ 100 mls/hr IVPB DAILY [facility]; Protocol Last Admin: 05/16/19 11:02 Dose: 100 mls/hr Insulin Aspart (Novolog Vial Sliding Scale -) 1 vial SQ ACHS [facility]; Protocol Last Admin: 05/16/19 13:06 Dose: 12 unit Insulin Aspart (Novolog) 7 units SQ TID@0700,1200,1630 [facility] Last Admin: 05/16/19 13:06 Dose: 7 units Insulin Detemir (Levemir Vial) 30 units SQ HS [facility] Last Admin: 05/16/19 00:25 Dose: 30 unit Loratadine (Claritin -) 10 mg PO HS [facility] Last Admin: 05/15/19 21:32 Dose: 10 mg Methylprednisolone Sodium Succinate (Solu-Medrol -) 40 mg IVPUSH Q8H-IV [facility] Last Admin: 05/16/19 11:01 Dose: 40 mg Non-Formulary Medication (Fluticasone/Vilanterol [Breo Ellipta 100-25 Mcg Inh]) 1 each IH DAILY [facility] Tacrolimus [Envarsus (Xr] 4 Mg Tab) 12 mg PO DAILY [facility] Last Admin: 05/16/19 11:02 Dose: 12 mg Nystatin (Nystatin Oral Suspension -) 500,000 units PO Q6HPO [facility] Last Admin: 05/16/19 13:04 Dose: 500,000 units Sodium Chloride ([place] Nasal [place] -) 2 spray NS Q1H PRN PRN Reason: NASAL CONGESTION - Objective Vital Signs: Vital Signs Temperature 98.2 F 05/16/19 06:00 Pulse Rate 68 05/16/19 06:00 Respiratory Rate 18 05/16/19 06:00 Blood Pressure 126/65 05/16/19 06:00 O2 Sat by Pulse Oximetry (%) 95 05/15/19 17:26 Constitutional: Yes: Calm Eyes: Yes: Conjunctiva Clear HENT: Yes: Atraumatic Cardiovascular: Yes: S1, S2 Respiratory: Yes: On Nasal O2 Gastrointestinal: Yes: Soft Genitourinary: Yes: Other (graft is soft and non tender) Musculoskeletal: Yes: WNL Edema: No Neurological: Yes: Oriented Psychiatric: Yes: Oriented Labs: CBC, BMP 05/16/19 10:30 05/16/19 10:30 Problem List - Problems (1) Shortness of breath Code(s): R06.02 - SHORTNESS OF BREATH (2) COPD (chronic obstructive pulmonary disease) with emphysema Code(s): J43.9 - EMPHYSEMA, UNSPECIFIED (3) CRF (chronic renal failure) Code(s): N18.9 - CHRONIC KIDNEY DISEASE, UNSPECIFIED (4) Renal transplant recipient Code(s): Z94.0 - KIDNEY TRANSPLANT STATUS Assessment/Plan Current Medications Generic Name Dose Route Start Last Admin Trade Name Freq PRN Reason Stop Dose Admin Albuterol Sulfate 1 amp 05/15/19 15:45 05/15/19 23:21 Ventolin 0.083% Nebulizer Soln - NEB 1 amp Q4H PRN Administration SHORT OF BREATH/WHEEZING Albuterol/Ipratropium 1 amp 05/15/19 16:00 05/16/19 11:32 Duoneb - NEB 1 amp RQID [facility] Administration Amlodipine Besylate 10 mg 05/15/19 22:00 05/15/19 21:32 Norvasc - PO 10 mg HS [facility] Administration Aspirin 81 mg 05/16/19 10:00 05/16/19 11:02 Asa - PO 81 mg DAILY [facility] Administration Atorvastatin Calcium 10 mg 05/15/19 22:00 05/15/19 21:32 Lipitor - PO 10 mg HS [facility] Administration Carvedilol 25 mg 05/15/19 22:00 05/16/19 11:01 Coreg - PO 25 mg BID [facility] Administration Fluticasone Propionate 1 spray 05/15/19 22:00 05/15/19 21:32 Flonase - NS 1 spray BID [facility] Administration Levofloxacin 500 mg in 100 mls @ 100 mls/hr 05/16/19 10:00 05/16/19 11:02 Levaquin 500 Mg Premixed Ivpb - IVPB 100 mls/hr DAILY [facility] Administration Protocol Insulin Aspart 1 vial 05/15/19 22:00 05/16/19 13:06 Novolog Vial Sliding Scale - SQ 12 unit ACHS [facility] Administration Protocol Insulin Aspart 7 units 05/16/19 09:20 05/16/19 13:06 Novolog SQ 7 units TID@0700,1200,1630 [facility] Administration Insulin Detemir 30 units 05/15/19 22:00 05/16/19 00:25 Levemir Vial SQ 30 unit HS [facility] Administration Loratadine 10 mg 05/15/19 22:00 05/15/19 21:32 Claritin - PO 10 mg HS [facility] Administration Methylprednisolone Sodium Succinate 40 mg 05/15/19 15:45 05/16/19 11:01 Solu-Medrol - IVPUSH 40 mg Q8H-IV [facility] Administration Non-Formulary Medication 1 each 05/16/19 10:00 Fluticasone/Vilanterol [Breo Ellipta 100-25 Mcg Inh] IH DAILY [facility] Tacrolimus [Envarsus 12 mg 05/16/19 10:00 05/16/19 11:02 Xr] 4 Mg Tab PO 12 mg DAILY [facility] Administration Nystatin 500,000 units 05/16/19 00:00 05/16/19 13:04 Nystatin Oral Suspension - PO 500,000 units Q6HPO [facility] Administration Sodium Chloride 2 spray 05/15/19 18:50 [place] Nasal [place] - NS Q1H PRN NASAL CONGESTION Impression 1. CKD 2. dyspnea 3. kidney transplant 4. copd 5. pna 6. DM 7. HLD 8. 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
[2019-05-16] MEDS ORDERED: SODIUM CHLORIDE 0.45% 1,000 ML IV SCH (13:45)
[2019-05-16] MEDS: FLUTICASONE PROP 0.05% 16 GM NASAL SPRAY NS SCH ×2 (18:21→21:58)
--- NOTE | 2019-05-16 18:26 | PN ---
Progress Note, Physician History of Present Illness: SL TACHYPNEIC ON MASK RECEIVING BD TREATMENT REPORTS LESS COUGH, NOW DRY NO HEMOPTYSIS NO C/O CHEST PAIN NO F/C - Current Medication List Current Medications: Active Medications Albuterol Sulfate (Ventolin 0.083% Nebulizer Soln -) 1 amp NEB Q4H PRN PRN Reason: SHORT OF BREATH/WHEEZING Last Admin: 05/15/19 23:21 Dose: 1 amp Albuterol/Ipratropium (Duoneb -) 1 amp NEB RQID [facility] Last Admin: 05/16/19 15:45 Dose: 1 amp Amlodipine Besylate (Norvasc -) 10 mg PO HS [facility] Last Admin: 05/15/19 21:32 Dose: 10 mg Aspirin (Asa -) 81 mg PO DAILY [facility] Last Admin: 05/16/19 11:02 Dose: 81 mg Atorvastatin Calcium (Lipitor -) 10 mg PO HS [facility] Last Admin: 05/15/19 21:32 Dose: 10 mg Carvedilol (Coreg -) 25 mg PO BID [facility] Last Admin: 05/16/19 11:01 Dose: 25 mg Fluticasone Propionate (Flonase -) 1 spray NS BID [facility] Last Admin: 05/16/19 18:21 Dose: 1 spray Levofloxacin (Levaquin 500 Mg Premixed Ivpb -) 500 mg in 100 mls @ 100 mls/hr IVPB DAILY [facility]; Protocol Last Admin: 05/16/19 11:02 Dose: 100 mls/hr Sodium Chloride (1/2 Normal Saline) 1,000 mls @ 42 mls/hr IV ASDIR [facility] Stop: 05/16/19 23:44 Last Admin: 05/16/19 17:20 Dose: 42 mls/hr Insulin Aspart (Novolog Vial Sliding Scale -) 1 vial SQ ACHS [facility]; Protocol Last Admin: 05/16/19 18:21 Dose: 3 unit Insulin Aspart (Novolog) 7 units SQ TID@0700,1200,1630 [facility] Last Admin: 05/16/19 18:21 Dose: 7 units Insulin Detemir (Levemir Vial) 30 units SQ HS [facility] Last Admin: 05/16/19 00:25 Dose: 30 unit Loratadine (Claritin -) 10 mg PO HS [facility] Last Admin: 05/15/19 21:32 Dose: 10 mg Methylprednisolone Sodium Succinate (Solu-Medrol -) 40 mg IVPUSH Q8H-IV [facility] Last Admin: 05/16/19 18:22 Dose: 40 mg Non-Formulary Medication (Fluticasone/Vilanterol [Breo Ellipta 100-25 Mcg Inh]) 1 each IH DAILY [facility] Tacrolimus [Envarsus (Xr] 4 Mg Tab) 12 mg PO DAILY [facility] Last Admin: 05/16/19 11:02 Dose: 12 mg Nystatin (Nystatin Oral Suspension -) 500,000 units PO Q6HPO [facility] Last Admin: 05/16/19 18:22 Dose: 500,000 units Sodium Chloride ([place] Nasal [place] -) 2 spray NS Q1H PRN PRN Reason: NASAL CONGESTION - Objective Vital Signs: Vital Signs Temperature 97.8 F 05/16/19 14:00 Pulse Rate 72 05/16/19 14:00 Respiratory Rate 22 H 05/16/19 10:00 Blood Pressure 132/65 05/16/19 14:00 O2 Sat by Pulse Oximetry (%) 95 05/15/19 17:26 Constitutional: Yes: No Distress Eyes: Yes: Conjunctiva Clear Cardiovascular: Yes: Regular Rate and Rhythm, S1, S2 Respiratory: Yes: Rhonchi Gastrointestinal: Yes: Normal Bowel Sounds, Soft Edema: No Labs: CBC, BMP 05/16/19 10:30 05/16/19 10:30 Assessment/Plan PNEUMONIA ? ETIO COPD EXACERBATION R/O CAVITARY LUNG LESION RENAL TRANSPLANT ON IMMUNOSUPPRESSIVE TX + SPUTUM C/S PSEUDOMONAS, MOLD CONTINUE LEVAQUIN ? BRONCH CONSIDER TRANSFER TO TRANSPLANT CTR
[2019-05-16] MEDS: amLODIPine BESYLATE 10 MG TABLET (FP) PO SCH (21:58)
[2019-05-16] MEDS: ATORVASTATIN CA 10 MG TABLET (FP) PO SCH (21:58)
[2019-05-16] MEDS: LORATADINE 10 MG TABLET PO SCH (21:58)
[2019-05-17] MEDS: NYSTATIN 500,000 UNITS/5 ML SUSPENSION PO SCH ×4 (00:37→17:33)
[2019-05-17] MEDS: methylPREDNISolone NA SUCC 40 MG/1 ML VIAL IVPUSH SCH ×3 (02:03→22:21)
[2019-05-17] MEDS: INSULIN SLIDING SCALE (NOVOLOG) 1 VIAL SQ SCH ×5 (03:45→22:22)
[2019-05-17] MEDS ORDERED: PT OWN MED DRAWER 7, Y5N ONE ×2 (07:33→10:01)
[2019-05-17] MEDS: Insulin (LOG) Aspart 100 UNITS/ML VIAL SQ SCH ×3 (07:36→17:33)
[2019-05-17 07:38] LABS: HEMATOCRIT 27.3 % (35.4-49); HEMOGLOBIN 8.6 GM/dL (11.7-16.9); MCH 25.1 pg (25.7-33.7); MCHC 31.3 g/dl (32.0-35.9); MEAN CELL VOLUME 80.2 fl (80-96); MEAN PLT VOLUME 7.5 fl (7.5-11.1); PLATELET COUNT 224 K/MM3 (134-434); RBC 3.41 M/mm3 (4.00-5.60); RDW 16.8 % (11.9-15.9); WHITE BLOOD COUNT 12.2 K/mm3 (4.0-10.0)
[2019-05-17] MEDS: ALBUTEROL SO4 2.5/IPRATROPIUM 0.5 INH SOL 3 ML VIAL.NEB. NEB SCH ×4 (07:40→20:33)
[2019-05-17 08:05] LABS: ALBUMIN 2.1 g/dl (3.4-5.0); BILIRUBIN,TOTAL 0.2 mg/dL (0.2-1); BLOOD UREA NITROGEN 43.8 mg/dL (7-18); CALCIUM 9.1 mg/dL (8.5-10.1); CREATININE 1.6 mg/dL (0.55-1.3); POTASSIUM 4.2 mmol/L (3.5-5.1); TOT PROT 6.4 g/dl (6.4-8.2)
[2019-05-17] MEDS: ASPIRIN 81 MG CHEWABLE TABLETS PO SCH (09:20)
[2019-05-17] MEDS: CARVEDILOL 25 MG TABLET (FP) PO SCH ×2 (09:20→22:21)
[2019-05-17] MEDS: TACROLIMUS 4 MG PO SCH (09:21)
[2019-05-17] MEDS: FLUTICASONE PROP 0.05% 16 GM NASAL SPRAY NS SCH ×2 (09:31→22:35)
--- NOTE | 2019-05-17 12:40 | PN ---
Progress Note, Physician History of Present Illness: pulmonary alert,weak,less dyspneic,-hemoptysis - Current Medication List Current Medications: Active Medications Albuterol Sulfate (Ventolin 0.083% Nebulizer Soln -) 1 amp NEB Q4H PRN PRN Reason: SHORT OF BREATH/WHEEZING Last Admin: 05/15/19 23:21 Dose: 1 amp Albuterol/Ipratropium (Duoneb -) 1 amp NEB RQID [facility] Last Admin: 05/17/19 07:40 Dose: 1 amp Amlodipine Besylate (Norvasc -) 10 mg PO HS [facility] Last Admin: 05/16/19 21:58 Dose: 10 mg Aspirin (Asa -) 81 mg PO DAILY [facility] Last Admin: 05/17/19 09:20 Dose: 81 mg Atorvastatin Calcium (Lipitor -) 10 mg PO HS [facility] Last Admin: 05/16/19 21:58 Dose: 10 mg Carvedilol (Coreg -) 25 mg PO BID [facility] Last Admin: 05/17/19 09:20 Dose: 25 mg Fluticasone Propionate (Flonase -) 1 spray NS BID [facility] Last Admin: 05/17/19 09:31 Dose: 1 spray Levofloxacin (Levaquin 500 Mg Premixed Ivpb -) 500 mg in 100 mls @ 100 mls/hr IVPB DAILY [facility]; Protocol Last Admin: 05/17/19 09:20 Dose: 100 mls/hr Insulin Aspart (Novolog Vial Sliding Scale -) 1 vial SQ ACHS [facility]; Protocol Last Admin: 05/17/19 12:03 Dose: 3 unit Insulin Aspart (Novolog) 7 units SQ TID@0700,1200,1630 [facility] Last Admin: 05/17/19 12:04 Dose: 7 units Insulin Detemir (Levemir Vial) 30 units SQ HS [facility] Last Admin: 05/16/19 21:54 Dose: 30 unit Loratadine (Claritin -) 10 mg PO HS [facility] Last Admin: 05/16/19 21:58 Dose: 10 mg Methylprednisolone Sodium Succinate (Solu-Medrol -) 40 mg IVPUSH Q8H-IV [facility] Last Admin: 05/17/19 09:20 Dose: 40 mg Non-Formulary Medication (Fluticasone/Vilanterol [Breo Ellipta 100-25 Mcg Inh]) 1 each IH DAILY [facility] Tacrolimus [Envarsus (Xr] 4 Mg Tab) 12 mg PO DAILY [facility] Last Admin: 05/17/19 09:21 Dose: 12 mg Nystatin (Nystatin Oral Suspension -) 500,000 units PO Q6HPO [facility] Last Admin: 05/17/19 12:05 Dose: 500,000 units Sodium Chloride ([place] Nasal [place] -) 2 spray NS Q1H PRN PRN Reason: NASAL CONGESTION - Objective Vital Signs: Vital Signs Temperature 97.7 F 05/17/19 10:00 Pulse Rate 66 05/17/19 10:00 Respiratory Rate 22 H 05/17/19 10:00 Blood Pressure 143/60 05/17/19 10:00 O2 Sat by Pulse Oximetry (%) 99 05/16/19 21:00 Constitutional: Yes: Calm, Thin Eyes: Yes: WNL HENT: Yes: WNL, Other Cardiovascular: Yes: Regular Rate and Rhythm, S1, S2 Respiratory: Yes: Rales, Rhonchi (scatterd crackles bilaterally,less rhonchi) Gastrointestinal: Yes: Normal Bowel Sounds, Soft Extremities: Yes: WNL Edema: No Labs: CBC, BMP 05/17/19 05:30 05/17/19 05:30 Assessment/Plan Problem List - Problems (1) COPD with acute exacerbation Code(s): J44.1 - CHRONIC OBSTRUCTIVE PULMONARY DISEASE W (ACUTE) EXACERBATION (2) Acute exacerbation of bronchiectasis Code(s): J47.1 - BRONCHIECTASIS WITH (ACUTE) EXACERBATION Assessment/Plan Acute COPD/Bronchiectasis Exacerbation Hemoptysis Pneumonia r/o Fungal Pneumonia Chronic Hypoxic Respiratory Failure CKD s/p Renal Transplant on immunosuppressants HTN DM Hyperlipidemia - taper medrol - IV antibiotics, ?antifungals - inhaled bronchodilators - O2 to keep SpO2 >90% - monitor urine output, creatinine - consider transfer to transplant center - DVT prophylaxis DR SALDANA
--- NOTE | 2019-05-17 12:53 | PN ---
Progress Note, Physician History of Present Illness: Pt w/o fever, chills, CP, palpitations, SOB, abd pain, N, V; pt w/o change in chronic cough - Current Medication List Current Medications: Active Medications Albuterol Sulfate (Ventolin 0.083% Nebulizer Soln -) 1 amp NEB Q4H PRN PRN Reason: SHORT OF BREATH/WHEEZING Last Admin: 05/15/19 23:21 Dose: 1 amp Albuterol/Ipratropium (Duoneb -) 1 amp NEB RQID [facility] Last Admin: 05/17/19 07:40 Dose: 1 amp Amlodipine Besylate (Norvasc -) 10 mg PO HS [facility] Last Admin: 05/16/19 21:58 Dose: 10 mg Aspirin (Asa -) 81 mg PO DAILY [facility] Last Admin: 05/17/19 09:20 Dose: 81 mg Atorvastatin Calcium (Lipitor -) 10 mg PO HS [facility] Last Admin: 05/16/19 21:58 Dose: 10 mg Carvedilol (Coreg -) 25 mg PO BID [facility] Last Admin: 05/17/19 09:20 Dose: 25 mg Fluticasone Propionate (Flonase -) 1 spray NS BID [facility] Last Admin: 05/17/19 09:31 Dose: 1 spray Levofloxacin (Levaquin 500 Mg Premixed Ivpb -) 500 mg in 100 mls @ 100 mls/hr IVPB DAILY [facility]; Protocol Last Admin: 05/17/19 09:20 Dose: 100 mls/hr Insulin Aspart (Novolog Vial Sliding Scale -) 1 vial SQ ACHS [facility]; Protocol Last Admin: 05/17/19 12:03 Dose: 3 unit Insulin Aspart (Novolog) 7 units SQ TID@0700,1200,1630 [facility] Last Admin: 05/17/19 12:04 Dose: 7 units Insulin Detemir (Levemir Vial) 30 units SQ HS [facility] Last Admin: 05/16/19 21:54 Dose: 30 unit Loratadine (Claritin -) 10 mg PO HS [facility] Last Admin: 05/16/19 21:58 Dose: 10 mg Methylprednisolone Sodium Succinate (Solu-Medrol -) 40 mg IVPUSH Q12H [facility] Non-Formulary Medication (Fluticasone/Vilanterol [Breo Ellipta 100-25 Mcg Inh]) 1 each IH DAILY [facility] Tacrolimus [Envarsus (Xr] 4 Mg Tab) 12 mg PO DAILY [facility] Last Admin: 05/17/19 09:21 Dose: 12 mg Nystatin (Nystatin Oral Suspension -) 500,000 units PO Q6HPO [facility] Last Admin: 05/17/19 12:05 Dose: 500,000 units Sodium Chloride ([place] Nasal [place] -) 2 spray NS Q1H PRN PRN Reason: NASAL CONGESTION - Objective Vital Signs: Vital Signs Temperature 97.7 F 05/17/19 10:00 Pulse Rate 66 05/17/19 10:00 Respiratory Rate 22 H 05/17/19 10:00 Blood Pressure 143/60 05/17/19 10:00 O2 Sat by Pulse Oximetry (%) 99 05/16/19 21:00 Constitutional: Yes: No Distress, Calm Cardiovascular: Yes: Regular Rate and Rhythm, S1, S2 Respiratory: Yes: Regular, Rhonchi, Wheezes (expiratory, minimal) Gastrointestinal: Yes: Normal Bowel Sounds, Soft. No: Tenderness Edema: No Neurological: Yes: Alert, Oriented Labs: CBC, BMP 05/17/19 05:30 05/17/19 05:30 Problem List - Problems (1) Pneumonia Code(s): J18.9 - PNEUMONIA, UNSPECIFIED ORGANISM Qualifiers: Pneumonia type: due to unspecified organism Laterality: bilateral Lung location: lower lobe of lung Qualified Code(s): J18.1 - Lobar pneumonia, unspecified organism (2) Hemoptysis, unspecified Code(s): R04.2 - HEMOPTYSIS (3) COPD (chronic obstructive pulmonary disease) with emphysema Code(s): J43.9 - EMPHYSEMA, UNSPECIFIED (4) Renal transplant recipient Code(s): Z94.0 - KIDNEY TRANSPLANT STATUS (5) CRF (chronic renal failure) Code(s): N18.9 - CHRONIC KIDNEY DISEASE, UNSPECIFIED (6) Diabetes mellitus Code(s): E11.9 - TYPE 2 DIABETES MELLITUS WITHOUT COMPLICATIONS (7) Generalized weakness Code(s): R53.1 - WEAKNESS Assessment/Plan Creatinine elevated from admission IV abtx IV steroids ID, Pulmonary, Renal consults are appreciated. T increase Levemir. To monitor BGM. To f/u CX I called [place] [facility] transplant [facility] coordinator, Cleo, yesterday; today at noon I was back called by Dr. Knight (ph #: [phone]); she is covering Dr Mosley (pt' movie writer) from transplant center; dr Knight agrees that pt should be transferred to [place] for further care; she suggested to call transfer center and admit pt to medicine and transplant team would followup ; I called [place] transfered center and requested transfer; I was called by Dr. Albert, IM attending, case was presented; he wanted to talk with Dr Knight before deciding about accepting the transfer. AM labs
--- NOTE | 2019-05-17 13:37 | PN ---
Progress Note, Physician History of Present Illness: Pt seen and examined at bedside. He says that he does not feel much different than yesterday. He has not coughed up any blood. - Current Medication List Current Medications: Active Medications Albuterol Sulfate (Ventolin 0.083% Nebulizer Soln -) 1 amp NEB Q4H PRN PRN Reason: SHORT OF BREATH/WHEEZING Last Admin: 05/15/19 23:21 Dose: 1 amp Albuterol/Ipratropium (Duoneb -) 1 amp NEB RQID [facility] Last Admin: 05/17/19 11:15 Dose: 1 amp Amlodipine Besylate (Norvasc -) 10 mg PO HS [facility] Last Admin: 05/16/19 21:58 Dose: 10 mg Aspirin (Asa -) 81 mg PO DAILY [facility] Last Admin: 05/17/19 09:20 Dose: 81 mg Atorvastatin Calcium (Lipitor -) 10 mg PO HS [facility] Last Admin: 05/16/19 21:58 Dose: 10 mg Carvedilol (Coreg -) 25 mg PO BID [facility] Last Admin: 05/17/19 09:20 Dose: 25 mg Fluticasone Propionate (Flonase -) 1 spray NS BID [facility] Last Admin: 05/17/19 09:31 Dose: 1 spray Levofloxacin (Levaquin 500 Mg Premixed Ivpb -) 500 mg in 100 mls @ 100 mls/hr IVPB DAILY [facility]; Protocol Last Admin: 05/17/19 09:20 Dose: 100 mls/hr Insulin Aspart (Novolog Vial Sliding Scale -) 1 vial SQ ACHS [facility]; Protocol Last Admin: 05/17/19 12:03 Dose: 3 unit Insulin Aspart (Novolog) 7 units SQ TID@0700,1200,1630 [facility] Last Admin: 05/17/19 12:04 Dose: 7 units Insulin Detemir (Levemir Vial) 40 units SQ HS [facility] Loratadine (Claritin -) 10 mg PO HS [facility] Last Admin: 05/16/19 21:58 Dose: 10 mg Methylprednisolone Sodium Succinate (Solu-Medrol -) 40 mg IVPUSH BID [facility] Non-Formulary Medication (Fluticasone/Vilanterol [Breo Ellipta 100-25 Mcg Inh]) 1 each IH DAILY [facility] Tacrolimus [Envarsus (Xr] 4 Mg Tab) 12 mg PO DAILY [facility] Last Admin: 05/17/19 09:21 Dose: 12 mg Nystatin (Nystatin Oral Suspension -) 500,000 units PO Q6HPO [facility] Last Admin: 05/17/19 12:05 Dose: 500,000 units Sodium Chloride ([place] Nasal [place] -) 2 spray NS Q1H PRN PRN Reason: NASAL CONGESTION - Objective Vital Signs: Vital Signs Temperature 97.7 F 05/17/19 10:00 Pulse Rate 66 05/17/19 10:00 Respiratory Rate 22 H 05/17/19 10:00 Blood Pressure 143/60 05/17/19 10:00 O2 Sat by Pulse Oximetry (%) 99 05/16/19 21:00 Constitutional: Yes: Calm Eyes: Yes: Conjunctiva Clear HENT: Yes: Atraumatic Neck: Yes: Supple Cardiovascular: Yes: S1, S2 Respiratory: Yes: On Nasal O2 Gastrointestinal: Yes: Soft Genitourinary: Yes: Other (graft soft and non tender) Musculoskeletal: Yes: WNL Extremities: Yes: WNL Edema: No Neurological: Yes: Oriented Psychiatric: Yes: Oriented Labs: CBC, BMP 05/17/19 05:30 05/17/19 05:30 Problem List - Problems (1) Shortness of breath Code(s): R06.02 - SHORTNESS OF BREATH (2) COPD (chronic obstructive pulmonary disease) with emphysema Code(s): J43.9 - EMPHYSEMA, UNSPECIFIED (3) CRF (chronic renal failure) Code(s): N18.9 - CHRONIC KIDNEY DISEASE, UNSPECIFIED (4) Renal transplant recipient Code(s): Z94.0 - KIDNEY TRANSPLANT STATUS Assessment/Plan Current Medications Generic Name Dose Route Start Last Admin Trade Name Freq PRN Reason Stop Dose Admin Albuterol Sulfate 1 amp 05/15/19 15:45 05/15/19 23:21 Ventolin 0.083% Nebulizer Soln - NEB 1 amp Q4H PRN Administration SHORT OF BREATH/WHEEZING Albuterol/Ipratropium 1 amp 05/15/19 16:00 05/17/19 11:15 Duoneb - NEB 1 amp RQID [facility] Administration Amlodipine Besylate 10 mg 05/15/19 22:00 05/16/19 21:58 Norvasc - PO 10 mg HS [facility] Administration Aspirin 81 mg 05/16/19 10:00 05/17/19 09:20 Asa - PO 81 mg DAILY [facility] Administration Atorvastatin Calcium 10 mg 05/15/19 22:00 05/16/19 21:58 Lipitor - PO 10 mg HS [facility] Administration Carvedilol 25 mg 05/15/19 22:00 05/17/19 09:20 Coreg - PO 25 mg BID [facility] Administration Fluticasone Propionate 1 spray 05/15/19 22:00 05/17/19 09:31 Flonase - NS 1 spray BID [facility] Administration Levofloxacin 500 mg in 100 mls @ 100 mls/hr 05/16/19 10:00 05/17/19 09:20 Levaquin 500 Mg Premixed Ivpb - IVPB 100 mls/hr DAILY [facility] Administration Protocol Insulin Aspart 1 vial 05/15/19 22:00 05/17/19 12:03 Novolog Vial Sliding Scale - SQ 3 unit ACHS [facility] Administration Protocol Insulin Aspart 7 units 05/16/19 09:20 05/17/19 12:04 Novolog SQ 7 units TID@0700,1200,1630 [facility] Administration Insulin Detemir 40 units 05/17/19 13:22 Levemir Vial SQ HS [facility] Loratadine 10 mg 05/15/19 22:00 05/16/19 21:58 Claritin - PO 10 mg HS [facility] Administration Methylprednisolone Sodium Succinate 40 mg 05/17/19 22:00 Solu-Medrol - IVPUSH BID [facility] Non-Formulary Medication 1 each 05/16/19 10:00 Fluticasone/Vilanterol [Breo Ellipta 100-25 Mcg Inh] IH DAILY [facility] Tacrolimus [Envarsus 12 mg 05/16/19 10:00 05/17/19 09:21 Xr] 4 Mg Tab PO 12 mg DAILY [facility] Administration Nystatin 500,000 units 05/16/19 00:00 05/17/19 12:05 Nystatin Oral Suspension - PO 500,000 units Q6HPO [facility] Administration Sodium Chloride 2 spray 05/15/19 18:50 [place] Nasal [place] - NS Q1H PRN NASAL CONGESTION Impression 1. CKD 2. dyspnea 3. kidney transplant 4. copd 5. pna 6. DM 7. HLD 8. HTN Plan - cont to monitor renal function - pt pending transfer to [facility] - cont prograf - pulmonary workup in progress - had high resistive index on last ultrasound on last admission - avoid nephrotoxins - pt is not on MMF (hx of leukopenia)
[2019-05-17] MEDS: amLODIPine BESYLATE 10 MG TABLET (FP) PO SCH (22:21)
[2019-05-17] MEDS: LORATADINE 10 MG TABLET PO SCH (22:22)
[2019-05-17] MEDS: ATORVASTATIN CA 10 MG TABLET (FP) PO SCH (22:22)
[2019-05-17] MEDS: INSULIN (LEVEMIR) 100 UNITS/ML UNITS SQ SCH (22:22)
[2019-05-18] MEDS: NYSTATIN 500,000 UNITS/5 ML SUSPENSION PO SCH ×4 (00:11→17:05)
[2019-05-18] MEDS: INSULIN SLIDING SCALE (NOVOLOG) 1 VIAL SQ SCH ×4 (02:11→22:09)
[2019-05-18] MEDS: Insulin (LOG) Aspart 100 UNITS/ML VIAL SQ SCH ×3 (06:59→17:06)
[2019-05-18 07:43] LABS: HEMOGLOBIN 8.8 GM/dL (11.7-16.9); MCH 25.7 pg (25.7-33.7); MCHC 32.5 g/dl (32.0-35.9); MEAN CELL VOLUME 79.1 fl (80-96); MEAN PLT VOLUME 7.3 fl (7.5-11.1); PLATELET COUNT 235 K/MM3 (134-434); RBC 3.41 M/mm3 (4.00-5.60); RDW 17.2 % (11.9-15.9); WHITE BLOOD COUNT 11.7 K/mm3 (4.0-10.0)
[2019-05-18] MEDS: ALBUTEROL SO4 2.5/IPRATROPIUM 0.5 INH SOL 3 ML VIAL.NEB. NEB SCH ×4 (08:05→21:10)
[2019-05-18 08:06] LABS: ALBUMIN 2.1 g/dl (3.4-5.0); BILIRUBIN,TOTAL 0.2 mg/dL (0.2-1); BLOOD UREA NITROGEN 45.1 mg/dL (7-18); CREATININE 1.4 mg/dL (0.55-1.3); POTASSIUM 4.5 mmol/L (3.5-5.1); TOT PROT 6.2 g/dl (6.4-8.2)
[2019-05-18] MEDS ORDERED: PT OWN MED DRAWER 7, Y5N ONE ×2 (09:47→10:39)
[2019-05-18] MEDS: methylPREDNISolone NA SUCC 40 MG/1 ML VIAL IVPUSH SCH ×2 (09:53→22:09)
[2019-05-18] MEDS: ASPIRIN 81 MG CHEWABLE TABLETS PO SCH (09:54)
[2019-05-18] MEDS: CARVEDILOL 25 MG TABLET (FP) PO SCH ×2 (09:54→22:09)
[2019-05-18] MEDS: FLUTICASONE PROP 0.05% 16 GM NASAL SPRAY NS SCH ×2 (09:54→22:10)
[2019-05-18] MEDS: TACROLIMUS 4 MG PO SCH (09:55)
--- NOTE | 2019-05-18 10:50 | PN ---
Progress Note, Physician History of Present Illness: PULMONARY ALERT,FEELING BETTER,LESS COUGH,HEMOPTYSIS RESOLVED - Current Medication List Current Medications: Active Medications Albuterol Sulfate (Ventolin 0.083% Nebulizer Soln -) 1 amp NEB Q4H PRN PRN Reason: SHORT OF BREATH/WHEEZING Last Admin: 05/15/19 23:21 Dose: 1 amp Albuterol/Ipratropium (Duoneb -) 1 amp NEB RQID [facility] Last Admin: 05/18/19 08:05 Dose: 1 amp Amlodipine Besylate (Norvasc -) 10 mg PO HS [facility] Last Admin: 05/17/19 22:21 Dose: 10 mg Aspirin (Asa -) 81 mg PO DAILY [facility] Last Admin: 05/18/19 09:54 Dose: 81 mg Atorvastatin Calcium (Lipitor -) 10 mg PO HS [facility] Last Admin: 05/17/19 22:22 Dose: 10 mg Carvedilol (Coreg -) 25 mg PO BID [facility] Last Admin: 05/18/19 09:54 Dose: 25 mg Fluticasone Propionate (Flonase -) 1 spray NS BID [facility] Last Admin: 05/18/19 09:54 Dose: 1 spray Levofloxacin (Levaquin 500 Mg Premixed Ivpb -) 500 mg in 100 mls @ 100 mls/hr IVPB DAILY [facility]; Protocol Last Admin: 05/18/19 09:54 Dose: 100 mls/hr Insulin Aspart (Novolog Vial Sliding Scale -) 1 vial SQ ACHS [facility]; Protocol Last Admin: 05/18/19 06:59 Dose: 3 unit Insulin Aspart (Novolog) 7 units SQ TID@0700,1200,1630 [facility] Last Admin: 05/18/19 06:59 Dose: 7 units Insulin Detemir (Levemir Vial) 40 units SQ HS [facility] Last Admin: 05/17/19 22:22 Dose: 40 units Loratadine (Claritin -) 10 mg PO HS [facility] Last Admin: 05/17/19 22:22 Dose: 10 mg Methylprednisolone Sodium Succinate (Solu-Medrol -) 40 mg IVPUSH BID [facility] Last Admin: 05/18/19 09:53 Dose: 40 mg Non-Formulary Medication (Fluticasone/Vilanterol [Breo Ellipta 100-25 Mcg Inh]) 1 each IH DAILY [facility] Tacrolimus [Envarsus (Xr] 4 Mg Tab) 12 mg PO DAILY [facility] Last Admin: 05/18/19 09:55 Dose: 12 mg Nystatin (Nystatin Oral Suspension -) 500,000 units PO Q6HPO [facility] Last Admin: 05/18/19 06:59 Dose: 500,000 units Sodium Chloride ([place] Nasal [place] -) 2 spray NS Q1H PRN PRN Reason: NASAL CONGESTION - Objective Vital Signs: Vital Signs Temperature 97.5 F L 05/18/19 06:00 Pulse Rate 66 05/18/19 06:00 Respiratory Rate 20 05/18/19 06:00 Blood Pressure 134/64 05/18/19 06:00 O2 Sat by Pulse Oximetry (%) 98 05/17/19 21:00 Constitutional: Yes: Calm, Thin Eyes: Yes: WNL HENT: Yes: WNL Neck: Yes: WNL Cardiovascular: Yes: Regular Rate and Rhythm, S1, S2 Respiratory: Yes: Rales (SCATTERED CRACKLES,-RHONCHI) Gastrointestinal: Yes: Normal Bowel Sounds, Soft Extremities: Yes: WNL Edema: No Labs: CBC, BMP 05/18/19 05:30 05/18/19 05:30 Assessment/Plan Problem List - Problems (1) COPD with acute exacerbation Code(s): J44.1 - CHRONIC OBSTRUCTIVE PULMONARY DISEASE W (ACUTE) EXACERBATION (2) Acute exacerbation of bronchiectasis Code(s): J47.1 - BRONCHIECTASIS WITH (ACUTE) EXACERBATION Assessment/Plan Acute COPD/Bronchiectasis Exacerbationimproved Hemoptysis reolved Pneumonia clinically improving r/o Fungal Pneumonia Chronic Hypoxic Respiratory Failure CKD s/p Renal Transplant on immunosuppressants HTN DM Hyperlipidemia - medrol - IV antibiotics, ?antifungals - inhaled bronchodilators - O2 to keep SpO2 >90% - monitor urine output, creatinine - transfer to transplant center - DVT prophylaxis DR SALDANA
--- NOTE | 2019-05-18 11:04 | PN ---
Progress Note, Physician History of Present Illness: Pt w/o fever, chills, CP, palpitations, SOB, abd pain, N, V; pt w/o change in chronic cough - Current Medication List Current Medications: Active Medications Albuterol Sulfate (Ventolin 0.083% Nebulizer Soln -) 1 amp NEB Q4H PRN PRN Reason: SHORT OF BREATH/WHEEZING Last Admin: 05/15/19 23:21 Dose: 1 amp Albuterol/Ipratropium (Duoneb -) 1 amp NEB RQID [facility] Last Admin: 05/18/19 08:05 Dose: 1 amp Amlodipine Besylate (Norvasc -) 10 mg PO HS [facility] Last Admin: 05/17/19 22:21 Dose: 10 mg Aspirin (Asa -) 81 mg PO DAILY [facility] Last Admin: 05/18/19 09:54 Dose: 81 mg Atorvastatin Calcium (Lipitor -) 10 mg PO HS [facility] Last Admin: 05/17/19 22:22 Dose: 10 mg Carvedilol (Coreg -) 25 mg PO BID [facility] Last Admin: 05/18/19 09:54 Dose: 25 mg Fluticasone Propionate (Flonase -) 1 spray NS BID [facility] Last Admin: 05/18/19 09:54 Dose: 1 spray Levofloxacin (Levaquin 500 Mg Premixed Ivpb -) 500 mg in 100 mls @ 100 mls/hr IVPB DAILY [facility]; Protocol Last Admin: 05/18/19 09:54 Dose: 100 mls/hr Insulin Aspart (Novolog Vial Sliding Scale -) 1 vial SQ ACHS [facility]; Protocol Last Admin: 05/18/19 06:59 Dose: 3 unit Insulin Aspart (Novolog) 7 units SQ TID@0700,1200,1630 [facility] Last Admin: 05/18/19 06:59 Dose: 7 units Insulin Detemir (Levemir Vial) 40 units SQ HS [facility] Last Admin: 05/17/19 22:22 Dose: 40 units Loratadine (Claritin -) 10 mg PO HS [facility] Last Admin: 05/17/19 22:22 Dose: 10 mg Methylprednisolone Sodium Succinate (Solu-Medrol -) 30 mg IVPUSH BID [facility] Non-Formulary Medication (Fluticasone/Vilanterol [Breo Ellipta 100-25 Mcg Inh]) 1 each IH DAILY [facility] Tacrolimus [Envarsus (Xr] 4 Mg Tab) 12 mg PO DAILY [facility] Last Admin: 05/18/19 09:55 Dose: 12 mg Nystatin (Nystatin Oral Suspension -) 500,000 units PO Q6HPO [facility] Last Admin: 05/18/19 06:59 Dose: 500,000 units Sodium Chloride ([place]al [place] -) 2 spray NS Q1H PRN PRN Reason: NASAL CONGESTION - Objective Vital Signs: Vital Signs Temperature 97.5 F L 05/18/19 06:00 Pulse Rate 66 05/18/19 06:00 Respiratory Rate 20 05/18/19 06:00 Blood Pressure 134/64 05/18/19 06:00 O2 Sat by Pulse Oximetry (%) 98 05/17/19 21:00 Constitutional: Yes: No Distress, Calm Cardiovascular: Yes: Regular Rate and Rhythm, S1, S2 Respiratory: Yes: Regular, Rhonchi, Wheezes Gastrointestinal: Yes: Normal Bowel Sounds, Soft. No: Tenderness Edema: No Neurological: Yes: Alert, Oriented Labs: CBC, BMP 05/18/19 05:30 05/18/19 05:30 Problem List - Problems (1) Pneumonia Code(s): J18.9 - PNEUMONIA, UNSPECIFIED ORGANISM Qualifiers: Pneumonia type: due to unspecified organism Laterality: bilateral Lung location: lower lobe of lung Qualified Code(s): J18.1 - Lobar pneumonia, unspecified organism (2) Hemoptysis, unspecified Code(s): R04.2 - HEMOPTYSIS (3) COPD (chronic obstructive pulmonary disease) with emphysema Code(s): J43.9 - EMPHYSEMA, UNSPECIFIED (4) COPD with acute exacerbation Code(s): J44.1 - CHRONIC OBSTRUCTIVE PULMONARY DISEASE W (ACUTE) EXACERBATION (5) Renal transplant recipient Code(s): Z94.0 - KIDNEY TRANSPLANT STATUS (6) CRF (chronic renal failure) Code(s): N18.9 - CHRONIC KIDNEY DISEASE, UNSPECIFIED (7) Diabetes mellitus Code(s): E11.9 - TYPE 2 DIABETES MELLITUS WITHOUT COMPLICATIONS (8) Generalized weakness Code(s): R53.1 - WEAKNESS (9) Anemia Code(s): D64.9 - ANEMIA, UNSPECIFIED Qualifiers: Anemia type: due to chronic kidney disease Chronic kidney disease stage: stage 5, not on chronic dialysis Qualified Code(s): N18.5 - Chronic kidney disease, stage 5; D63.1 - Anemia in chronic kidney disease Assessment/Plan IV abtx IV steroids ID, Pulmonary, Renal consults are appreciated. Levemir dose was increased. To monitor BGM. To f/u CX Pending transfer to [facility] AM labs
--- NOTE | 2019-05-18 14:44 | PN ---
Progress Note, Physician History of Present Illness: Pt seen and examined at bedside. He is awake and alert. He complains of cough. He denies dysuria or hematuria. - Current Medication List Current Medications: Active Medications Albuterol Sulfate (Ventolin 0.083% Nebulizer Soln -) 1 amp NEB Q4H PRN PRN Reason: SHORT OF BREATH/WHEEZING Last Admin: 05/15/19 23:21 Dose: 1 amp Albuterol/Ipratropium (Duoneb -) 1 amp NEB RQID [facility] Last Admin: 05/18/19 08:05 Dose: 1 amp Amlodipine Besylate (Norvasc -) 10 mg PO HS [facility] Last Admin: 05/17/19 22:21 Dose: 10 mg Aspirin (Asa -) 81 mg PO DAILY [facility] Last Admin: 05/18/19 09:54 Dose: 81 mg Atorvastatin Calcium (Lipitor -) 10 mg PO HS [facility] Last Admin: 05/17/19 22:22 Dose: 10 mg Carvedilol (Coreg -) 25 mg PO BID [facility] Last Admin: 05/18/19 09:54 Dose: 25 mg Fluticasone Propionate (Flonase -) 1 spray NS BID [facility] Last Admin: 05/18/19 09:54 Dose: 1 spray Levofloxacin (Levaquin 500 Mg Premixed Ivpb -) 500 mg in 100 mls @ 100 mls/hr IVPB DAILY [facility]; Protocol Last Admin: 05/18/19 09:54 Dose: 100 mls/hr Insulin Aspart (Novolog Vial Sliding Scale -) 1 vial SQ ACHS [facility]; Protocol Last Admin: 05/18/19 06:59 Dose: 3 unit Insulin Aspart (Novolog) 7 units SQ TID@0700,1200,1630 [facility] Last Admin: 05/18/19 12:10 Dose: 7 units Insulin Detemir (Levemir Vial) 40 units SQ HS [facility] Last Admin: 05/17/19 22:22 Dose: 40 units Loratadine (Claritin -) 10 mg PO HS [facility] Last Admin: 05/17/19 22:22 Dose: 10 mg Methylprednisolone Sodium Succinate (Solu-Medrol -) 30 mg IVPUSH BID [facility] Non-Formulary Medication (Fluticasone/Vilanterol [Breo Ellipta 100-25 Mcg Inh]) 1 each IH DAILY [facility] Tacrolimus [Envarsus (Xr] 4 Mg Tab) 12 mg PO DAILY [facility] Last Admin: 05/18/19 09:55 Dose: 12 mg Nystatin (Nystatin Oral Suspension -) 500,000 units PO Q6HPO [facility] Last Admin: 05/18/19 14:11 Dose: 500,000 units Sodium Chloride ([place] Nasal [place] -) 2 spray NS Q1H PRN PRN Reason: NASAL CONGESTION - Objective Vital Signs: Vital Signs Temperature 97.6 F 05/18/19 10:00 Pulse Rate 62 05/18/19 10:00 Respiratory Rate 20 05/18/19 10:00 Blood Pressure 132/54 L 05/18/19 10:00 O2 Sat by Pulse Oximetry (%) 95 05/18/19 09:00 Constitutional: Yes: Calm Eyes: Yes: Conjunctiva Clear HENT: Yes: Atraumatic Cardiovascular: Yes: S1, S2 Respiratory: Yes: On Nasal O2 Gastrointestinal: Yes: Soft Genitourinary: Yes: WNL, Other (graft soft and non tender) Musculoskeletal: Yes: WNL Edema: No Neurological: Yes: Oriented Psychiatric: Yes: Oriented Labs: CBC, BMP 05/18/19 05:30 05/18/19 05:30 Problem List - Problems (1) Shortness of breath Code(s): R06.02 - SHORTNESS OF BREATH (2) COPD (chronic obstructive pulmonary disease) with emphysema Code(s): J43.9 - EMPHYSEMA, UNSPECIFIED (3) CRF (chronic renal failure) Code(s): N18.9 - CHRONIC KIDNEY DISEASE, UNSPECIFIED (4) Renal transplant recipient Code(s): Z94.0 - KIDNEY TRANSPLANT STATUS Assessment/Plan Current Medications Generic Name Dose Route Start Last Admin Trade Name Freq PRN Reason Stop Dose Admin Albuterol Sulfate 1 amp 05/15/19 15:45 05/15/19 23:21 Ventolin 0.083% Nebulizer Soln - NEB 1 amp Q4H PRN Administration SHORT OF BREATH/WHEEZING Albuterol/Ipratropium 1 amp 05/15/19 16:00 05/18/19 08:05 Duoneb - NEB 1 amp RQID [facility] Administration Amlodipine Besylate 10 mg 05/15/19 22:00 05/17/19 22:21 Norvasc - PO 10 mg HS [facility] Administration Aspirin 81 mg 05/16/19 10:00 05/18/19 09:54 Asa - PO 81 mg DAILY [facility] Administration Atorvastatin Calcium 10 mg 05/15/19 22:00 05/17/19 22:22 Lipitor - PO 10 mg HS [facility] Administration Carvedilol 25 mg 05/15/19 22:00 05/18/19 09:54 Coreg - PO 25 mg BID [facility] Administration Fluticasone Propionate 1 spray 05/15/19 22:00 05/18/19 09:54 Flonase - NS 1 spray BID [facility] Administration Levofloxacin 500 mg in 100 mls @ 100 mls/hr 05/16/19 10:00 05/18/19 09:54 Levaquin 500 Mg Premixed Ivpb - IVPB 100 mls/hr DAILY [facility] Administration Protocol Insulin Aspart 1 vial 05/15/19 22:00 05/18/19 06:59 Novolog Vial Sliding Scale - SQ 3 unit ACHS [facility] Administration Protocol Insulin Aspart 7 units 05/16/19 09:20 05/18/19 12:10 Novolog SQ 7 units TID@0700,1200,1630 [facility] Administration Insulin Detemir 40 units 05/17/19 13:22 05/17/19 22:22 Levemir Vial SQ 40 units HS [facility] Administration Loratadine 10 mg 05/15/19 22:00 05/17/19 22:22 Claritin - PO 10 mg HS [facility] Administration Methylprednisolone Sodium Succinate 30 mg 05/18/19 10:50 Solu-Medrol - IVPUSH BID [facility] Non-Formulary Medication 1 each 05/16/19 10:00 Fluticasone/Vilanterol [Breo Ellipta 100-25 Mcg Inh] IH DAILY [facility] Tacrolimus [Envarsus 12 mg 05/16/19 10:00 05/18/19 09:55 Xr] 4 Mg Tab PO 12 mg DAILY [facility] Administration Nystatin 500,000 units 05/16/19 00:00 05/18/19 14:11 Nystatin Oral Suspension - PO 500,000 units Q6HPO [facility] Administration Sodium Chloride 2 spray 05/15/19 18:50 [place] Nasal [place] - NS Q1H PRN NASAL CONGESTION Impression 1. CKD 2. dyspnea 3. kidney transplant 4. copd 5. pna 6. DM 7. HLD 8. HTN Plan - renal function is improving - can d/c fluids - pt pending transfer to [place] - cont prograf - pulmonary workup in progress - had high resistive index on last ultrasound on last admission, will need eval by transplant team - avoid nephrotoxins - pt is not on MMF (hx of leukopenia)
--- NOTE | 2019-05-18 15:27 | PN ---
Progress Note, Physician History of Present Illness: SL TACHYPNEIC ON NASAL CANNULA O2 REPORTS LESS COUGH; NO SPUTUM PRODUCTION NO HEMOPTYSIS NO C/O CHEST PAIN NO F/C - Current Medication List Current Medications: Active Medications Albuterol Sulfate (Ventolin 0.083% Nebulizer Soln -) 1 amp NEB Q4H PRN PRN Reason: SHORT OF BREATH/WHEEZING Last Admin: 05/15/19 23:21 Dose: 1 amp Albuterol/Ipratropium (Duoneb -) 1 amp NEB RQID [facility] Last Admin: 05/18/19 08:05 Dose: 1 amp Amlodipine Besylate (Norvasc -) 10 mg PO HS [facility] Last Admin: 05/17/19 22:21 Dose: 10 mg Aspirin (Asa -) 81 mg PO DAILY [facility] Last Admin: 05/18/19 09:54 Dose: 81 mg Atorvastatin Calcium (Lipitor -) 10 mg PO HS [facility] Last Admin: 05/17/19 22:22 Dose: 10 mg Carvedilol (Coreg -) 25 mg PO BID [facility] Last Admin: 05/18/19 09:54 Dose: 25 mg Fluticasone Propionate (Flonase -) 1 spray NS BID [facility] Last Admin: 05/18/19 09:54 Dose: 1 spray Levofloxacin (Levaquin 500 Mg Premixed Ivpb -) 500 mg in 100 mls @ 100 mls/hr IVPB DAILY [facility]; Protocol Last Admin: 05/18/19 09:54 Dose: 100 mls/hr Insulin Aspart (Novolog Vial Sliding Scale -) 1 vial SQ ACHS [facility]; Protocol Last Admin: 05/18/19 06:59 Dose: 3 unit Insulin Aspart (Novolog) 7 units SQ TID@0700,1200,1630 [facility] Last Admin: 05/18/19 12:10 Dose: 7 units Insulin Detemir (Levemir Vial) 40 units SQ HS [facility] Last Admin: 05/17/19 22:22 Dose: 40 units Loratadine (Claritin -) 10 mg PO HS [facility] Last Admin: 05/17/19 22:22 Dose: 10 mg Methylprednisolone Sodium Succinate (Solu-Medrol -) 30 mg IVPUSH BID [facility] Non-Formulary Medication (Fluticasone/Vilanterol [Breo Ellipta 100-25 Mcg Inh]) 1 each IH DAILY [facility] Tacrolimus [Envarsus (Xr] 4 Mg Tab) 12 mg PO DAILY [facility] Last Admin: 05/18/19 09:55 Dose: 12 mg Nystatin (Nystatin Oral Suspension -) 500,000 units PO Q6HPO [facility] Last Admin: 05/18/19 14:11 Dose: 500,000 units Sodium Chloride ([place] Nasal [place] -) 2 spray NS Q1H PRN PRN Reason: NASAL CONGESTION - Objective Vital Signs: Vital Signs Temperature 97.6 F 05/18/19 10:00 Pulse Rate 62 05/18/19 10:00 Respiratory Rate 20 05/18/19 10:00 Blood Pressure 132/54 L 05/18/19 10:00 O2 Sat by Pulse Oximetry (%) 95 05/18/19 09:00 Constitutional: Yes: No Distress Eyes: Yes: Conjunctiva Clear Cardiovascular: Yes: Regular Rate and Rhythm, S1, S2 Respiratory: Yes: Other (+ CREPITATIONS R BASE, SCATTERRED RHONCHI) Gastrointestinal: Yes: Normal Bowel Sounds, Soft. No: Tenderness Edema: No Labs: CBC, BMP 05/18/19 05:30 05/18/19 05:30 Assessment/Plan PNEUMONIA ? ETIO COPD EXACERBATION R/O CAVITARY LUNG LESION RENAL TRANSPLANT ON IMMUNOSUPPRESSIVE TX + SPUTUM C/S PSEUDOMONAS, MOLD CONTINUE LEVAQUIN ? BRONCH CONSIDER TRANSFER TO TRANSPLANT CTR
[2019-05-18] MEDS: amLODIPine BESYLATE 10 MG TABLET (FP) PO SCH (22:09)
[2019-05-18] MEDS: LORATADINE 10 MG TABLET PO SCH (22:09)
[2019-05-18] MEDS: ATORVASTATIN CA 10 MG TABLET (FP) PO SCH (22:09)
[2019-05-18] MEDS: INSULIN (LEVEMIR) 100 UNITS/ML UNITS SQ SCH (22:10)
[2019-05-19] MEDS: NYSTATIN 500,000 UNITS/5 ML SUSPENSION PO SCH ×5 (01:00→23:34)
[2019-05-19] MEDS: INSULIN SLIDING SCALE (NOVOLOG) 1 VIAL SQ SCH ×5 (01:55→23:35)
[2019-05-19] MEDS: Insulin (LOG) Aspart 100 UNITS/ML VIAL SQ SCH ×3 (06:52→17:41)
[2019-05-19 07:00] LABS: HEMATOCRIT 28.3 % (35.4-49); HEMOGLOBIN 9.1 GM/dL (11.7-16.9); MCH 25.7 pg (25.7-33.7); MEAN CELL VOLUME 80.2 fl (80-96); MEAN PLT VOLUME 7.4 fl (7.5-11.1); PLATELET COUNT 232 K/MM3 (134-434); RBC 3.53 M/mm3 (4.00-5.60); RDW 17.7 % (11.9-15.9); WHITE BLOOD COUNT 11.1 K/mm3 (4.0-10.0)
[2019-05-19 07:10] LABS: ALBUMIN 2.2 g/dl (3.4-5.0); BILIRUBIN,TOTAL 0.2 mg/dL (0.2-1); BLOOD UREA NITROGEN 46.6 mg/dL (7-18); CALCIUM 8.9 mg/dL (8.5-10.1); CREATININE 1.5 mg/dL (0.55-1.3); POTASSIUM 4.4 mmol/L (3.5-5.1); TOT PROT 6.3 g/dl (6.4-8.2)
[2019-05-19] MEDS: ALBUTEROL SO4 2.5/IPRATROPIUM 0.5 INH SOL 3 ML VIAL.NEB. NEB SCH ×4 (09:00→20:49)
--- NOTE | 2019-05-19 09:04 | PN ---
Progress Note, Physician History of Present Illness: PULMONARY AWAKE,NO CHANGE, C/O SFEELING SOB,WEAK,+ COUGH,-HEMOPTYSIS - Current Medication List Current Medications: Active Medications Albuterol Sulfate (Ventolin 0.083% Nebulizer Soln -) 1 amp NEB Q4H PRN PRN Reason: SHORT OF BREATH/WHEEZING Last Admin: 05/15/19 23:21 Dose: 1 amp Albuterol/Ipratropium (Duoneb -) 1 amp NEB RQID [facility] Last Admin: 05/19/19 09:00 Dose: 1 amp Amlodipine Besylate (Norvasc -) 10 mg PO HS [facility] Last Admin: 05/18/19 22:09 Dose: 10 mg Aspirin (Asa -) 81 mg PO DAILY [facility] Last Admin: 05/18/19 09:54 Dose: 81 mg Atorvastatin Calcium (Lipitor -) 10 mg PO HS [facility] Last Admin: 05/18/19 22:09 Dose: 10 mg Carvedilol (Coreg -) 25 mg PO BID [facility] Last Admin: 05/18/19 22:09 Dose: 25 mg Fluticasone Propionate (Flonase -) 1 spray NS BID [facility] Last Admin: 05/18/19 22:10 Dose: 1 spray Levofloxacin (Levaquin 500 Mg Premixed Ivpb -) 500 mg in 100 mls @ 100 mls/hr IVPB DAILY [facility]; Protocol Last Admin: 05/18/19 09:54 Dose: 100 mls/hr Insulin Aspart (Novolog Vial Sliding Scale -) 1 vial SQ ACHS [facility]; Protocol Last Admin: 05/19/19 06:52 Dose: 3 unit Insulin Aspart (Novolog) 7 units SQ TID@0700,1200,1630 [facility] Last Admin: 05/19/19 06:52 Dose: 7 units Insulin Detemir (Levemir Vial) 40 units SQ HS [facility] Last Admin: 05/18/19 22:10 Dose: 40 units Loratadine (Claritin -) 10 mg PO HS [facility] Last Admin: 05/18/19 22:09 Dose: 10 mg Methylprednisolone Sodium Succinate (Solu-Medrol -) 30 mg IVPUSH BID [facility] Last Admin: 05/18/19 22:09 Dose: 30 mg Non-Formulary Medication (Fluticasone/Vilanterol [Breo Ellipta 100-25 Mcg Inh]) 1 each IH DAILY [facility] Tacrolimus [Envarsus (Xr] 4 Mg Tab) 12 mg PO DAILY [facility] Last Admin: 05/18/19 09:55 Dose: 12 mg Nystatin (Nystatin Oral Suspension -) 500,000 units PO Q6HPO [facility] Last Admin: 05/19/19 06:52 Dose: 500,000 units Sodium Chloride ([place] Nasal [place] -) 2 spray NS Q1H PRN PRN Reason: NASAL CONGESTION - Objective Vital Signs: Vital Signs Temperature 97.9 F 05/19/19 06:00 Pulse Rate 67 05/19/19 06:00 Respiratory Rate 20 05/19/19 06:00 Blood Pressure 124/52 L 05/19/19 06:00 O2 Sat by Pulse Oximetry (%) 98 05/18/19 21:00 Constitutional: Yes: Calm, Thin Eyes: Yes: WNL HENT: Yes: WNL Neck: Yes: WNL Cardiovascular: Yes: Regular Rate and Rhythm, S1, S2 Respiratory: Yes: [place]ales (SCATTERED CRACKLES) Gastrointestinal: Yes: Normal Bowel Sounds, Soft Extremities: Yes: WNL Edema: No Labs: CBC, BMP 05/19/19 05:00 05/19/19 05:00 Assessment/Plan Problem List - Problems (1) COPD with acute exacerbation Code(s): J44.1 - CHRONIC OBSTRUCTIVE PULMONARY DISEASE W (ACUTE) EXACERBATION (2) Acute exacerbation of bronchiectasis Code(s): J47.1 - BRONCHIECTASIS WITH (ACUTE) EXACERBATION Assessment/Plan Acute COPD/Bronchiectasis Exacerbation improving Hemoptysis resolved Pneumonia clinically improving r/o Fungal Pneumonia Chronic Hypoxic Respiratory Failure CKD s/p Renal Transplant on immunosuppressants HTN DM Hyperlipidemia - medrol taper - IV antibiotics, ?antifungals - inhaled bronchodilators - O2 to keep SpO2 >90% - monitor urine output, creatinine - transfer to transplant center - DVT prophylaxis - chest x-ray today DR SALDANA
[2019-05-19] MEDS: methylPREDNISolone NA SUCC 40 MG/1 ML VIAL IVPUSH SCH ×2 (10:22→23:33)
[2019-05-19] MEDS: TACROLIMUS 4 MG PO SCH (10:22)
[2019-05-19] MEDS: CARVEDILOL 25 MG TABLET (FP) PO SCH ×2 (10:22→23:32)
[2019-05-19] MEDS: ASPIRIN 81 MG CHEWABLE TABLETS PO SCH (10:22)
[2019-05-19] MEDS: FLUTICASONE PROP 0.05% 16 GM NASAL SPRAY NS SCH ×2 (10:23→23:35)
[2019-05-19] MEDS ORDERED: INSULIN (NOVOLOG) ASPART 100 UNITS/ML 10ML VIAL ONE (11:32)
--- NOTE | 2019-05-19 12:57 | PN ---
Progress Note, Physician History of Present Illness: Pt seen and examined at bedside. He does not feel a change in his breathing. He denies fevers or chills. - Current Medication List Current Medications: Active Medications Albuterol Sulfate (Ventolin 0.083% Nebulizer Soln -) 1 amp NEB Q4H PRN PRN Reason: SHORT OF BREATH/WHEEZING Last Admin: 05/15/19 23:21 Dose: 1 amp Albuterol/Ipratropium (Duoneb -) 1 amp NEB RQID [facility] Last Admin: 05/19/19 09:00 Dose: 1 amp Amlodipine Besylate (Norvasc -) 10 mg PO HS [facility] Last Admin: 05/18/19 22:09 Dose: 10 mg Aspirin (Asa -) 81 mg PO DAILY [facility] Last Admin: 05/19/19 10:22 Dose: 81 mg Atorvastatin Calcium (Lipitor -) 10 mg PO HS [facility] Last Admin: 05/18/19 22:09 Dose: 10 mg Carvedilol (Coreg -) 25 mg PO BID [facility] Last Admin: 05/19/19 10:22 Dose: 25 mg Fluticasone Propionate (Flonase -) 1 spray NS BID [facility] Last Admin: 05/19/19 10:23 Dose: 1 spray Levofloxacin (Levaquin 500 Mg Premixed Ivpb -) 500 mg in 100 mls @ 100 mls/hr IVPB DAILY [facility]; Protocol Last Admin: 05/19/19 10:22 Dose: 100 mls/hr Insulin Aspart (Novolog Vial Sliding Scale -) 1 vial SQ ACHS [facility]; Protocol Last Admin: 05/19/19 12:08 Dose: 10 unit Insulin Aspart (Novolog) 7 units SQ TID@0700,1200,1630 [facility] Last Admin: 05/19/19 12:08 Dose: 7 units Insulin Detemir (Levemir Vial) 40 units SQ HS [facility] Last Admin: 05/18/19 22:10 Dose: 40 units Loratadine (Claritin -) 10 mg PO HS [facility] Last Admin: 05/18/19 22:09 Dose: 10 mg Methylprednisolone Sodium Succinate (Solu-Medrol -) 30 mg IVPUSH BID [facility] Last Admin: 05/19/19 10:22 Dose: 30 mg Non-Formulary Medication (Fluticasone/Vilanterol [Breo Ellipta 100-25 Mcg Inh]) 1 each IH DAILY [facility] Tacrolimus [Envarsus (Xr] 4 Mg Tab) 12 mg PO DAILY [facility] Last Admin: 05/19/19 10:22 Dose: 12 mg Nystatin (Nystatin Oral Suspension -) 500,000 units PO Q6HPO [facility] Last Admin: 05/19/19 12:10 Dose: 500,000 units Sodium Chloride ([place] Nasal [place] -) 2 spray NS Q1H PRN PRN Reason: NASAL CONGESTION - Objective Vital Signs: Vital Signs Temperature 97.9 F 05/19/19 06:00 Pulse Rate 67 05/19/19 06:00 Respiratory Rate 20 05/19/19 09:00 Blood Pressure 124/52 L 05/19/19 06:00 O2 Sat by Pulse Oximetry (%) 99 05/19/19 09:00 Constitutional: Yes: Calm Eyes: Yes: Conjunctiva Clear HENT: Yes: Atraumatic Neck: Yes: Supple Cardiovascular: Yes: S1, S2 Respiratory: Yes: On Nasal O2 Gastrointestinal: Yes: Normal Bowel Sounds, Soft Genitourinary: Yes: WNL, Other (graft soft and non tender) Musculoskeletal: Yes: WNL Edema: No Neurological: Yes: Oriented Psychiatric: Yes: Oriented Labs: CBC, BMP 05/19/19 05:00 05/19/19 05:00 Problem List - Problems (1) Shortness of breath Code(s): R06.02 - SHORTNESS OF BREATH (2) COPD (chronic obstructive pulmonary disease) with emphysema Code(s): J43.9 - EMPHYSEMA, UNSPECIFIED (3) CRF (chronic renal failure) Code(s): N18.9 - CHRONIC KIDNEY DISEASE, UNSPECIFIED (4) Renal transplant recipient Code(s): Z94.0 - KIDNEY TRANSPLANT STATUS Assessment/Plan Current Medications Generic Name Dose Route Start Last Admin Trade Name Freq PRN Reason Stop Dose Admin Albuterol Sulfate 1 amp 05/15/19 15:45 05/15/19 23:21 Ventolin 0.083% Nebulizer Soln - NEB 1 amp Q4H PRN Administration SHORT OF BREATH/WHEEZING Albuterol/Ipratropium 1 amp 05/15/19 16:00 05/19/19 09:00 Duoneb - NEB 1 amp RQID [facility] Administration Amlodipine Besylate 10 mg 05/15/19 22:00 05/18/19 22:09 Norvasc - PO 10 mg HS [facility] Administration Aspirin 81 mg 05/16/19 10:00 05/19/19 10:22 Asa - PO 81 mg DAILY [facility] Administration Atorvastatin Calcium 10 mg 05/15/19 22:00 05/18/19 22:09 Lipitor - PO 10 mg HS [facility] Administration Carvedilol 25 mg 05/15/19 22:00 05/19/19 10:22 Coreg - PO 25 mg BID [facility] Administration Fluticasone Propionate 1 spray 05/15/19 22:00 05/19/19 10:23 Flonase - NS 1 spray BID [facility] Administration Levofloxacin 500 mg in 100 mls @ 100 mls/hr 05/16/19 10:00 05/19/19 10:22 Levaquin 500 Mg Premixed Ivpb - IVPB 100 mls/hr DAILY [facility] Administration Protocol Insulin Aspart 1 vial 05/15/19 22:00 05/19/19 12:08 Novolog Vial Sliding Scale - SQ 10 unit ACHS [facility] Administration Protocol Insulin Aspart 7 units 05/16/19 09:20 05/19/19 12:08 Novolog SQ 7 units TID@0700,1200,1630 [facility] Administration Insulin Detemir 40 units 05/17/19 13:22 05/18/19 22:10 Levemir Vial SQ 40 units HS [facility] Administration Loratadine 10 mg 05/15/19 22:00 05/18/19 22:09 Claritin - PO 10 mg HS [facility] Administration Methylprednisolone Sodium Succinate 30 mg 05/18/19 10:50 05/19/19 10:22 Solu-Medrol - IVPUSH 30 mg BID [facility] Administration Non-Formulary Medication 1 each 05/16/19 10:00 Fluticasone/Vilanterol [Breo Ellipta 100-25 Mcg Inh] IH DAILY [facility] Tacrolimus [Envarsus 12 mg 05/16/19 10:00 05/19/19 10:22 Xr] 4 Mg Tab PO 12 mg DAILY [facility] Administration Nystatin 500,000 units 05/16/19 00:00 05/19/19 12:10 Nystatin Oral Suspension - PO 500,000 units Q6HPO [facility] Administration Sodium Chloride 2 spray 05/15/19 18:50 [place] Nasal [place] - NS Q1H PRN NASAL CONGESTION Impression 1. CKD 2. dyspnea 3. kidney transplant 4. copd 5. pna 6. DM 7. HLD 8. HTN Plan - pt pending transfer to [place] - monitor renal function - hold fluids today - repeat lags in am of he is here - if not transferred will need to check prograf levels - had high resistive index on last ultrasound on last admission, will need eval by transplant team - avoid nephrotoxins - pt is not on MMF (hx of leukopenia)
--- NOTE | 2019-05-19 14:23 | PN ---
Progress Note, Physician History of Present Illness: Pt is OOBTC (sitting by the window) Pt w/o CP, palpitations, SOB, abd pain, N, V; pt w/o change in chronic cough - Current Medication List Current Medications: Active Medications Albuterol Sulfate (Ventolin 0.083% Nebulizer Soln -) 1 amp NEB Q4H PRN PRN Reason: SHORT OF BREATH/WHEEZING Last Admin: 05/15/19 23:21 Dose: 1 amp Albuterol/Ipratropium (Duoneb -) 1 amp NEB RQID [facility] Last Admin: 05/19/19 09:00 Dose: 1 amp Amlodipine Besylate (Norvasc -) 10 mg PO HS [facility] Last Admin: 05/18/19 22:09 Dose: 10 mg Aspirin (Asa -) 81 mg PO DAILY [facility] Last Admin: 05/19/19 10:22 Dose: 81 mg Atorvastatin Calcium (Lipitor -) 10 mg PO HS [facility] Last Admin: 05/18/19 22:09 Dose: 10 mg Carvedilol (Coreg -) 25 mg PO BID [facility] Last Admin: 05/19/19 10:22 Dose: 25 mg Fluticasone Propionate (Flonase -) 1 spray NS BID [facility] Last Admin: 05/19/19 10:23 Dose: 1 spray Levofloxacin (Levaquin 500 Mg Premixed Ivpb -) 500 mg in 100 mls @ 100 mls/hr IVPB DAILY [facility]; Protocol Last Admin: 05/19/19 10:22 Dose: 100 mls/hr Insulin Aspart (Novolog Vial Sliding Scale -) 1 vial SQ ACHS [facility]; Protocol Last Admin: 05/19/19 12:08 Dose: 10 unit Insulin Aspart (Novolog) 7 units SQ TID@0700,1200,1630 [facility] Last Admin: 05/19/19 12:08 Dose: 7 units Insulin Detemir (Levemir Vial) 40 units SQ HS [facility] Last Admin: 05/18/19 22:10 Dose: 40 units Loratadine (Claritin -) 10 mg PO HS [facility] Last Admin: 05/18/19 22:09 Dose: 10 mg Methylprednisolone Sodium Succinate (Solu-Medrol -) 30 mg IVPUSH BID [facility] Last Admin: 05/19/19 10:22 Dose: 30 mg Non-Formulary Medication (Fluticasone/Vilanterol [Breo Ellipta 100-25 Mcg Inh]) 1 each IH DAILY [facility] Tacrolimus [Envarsus (Xr] 4 Mg Tab) 12 mg PO DAILY [facility] Last Admin: 05/19/19 10:22 Dose: 12 mg Nystatin (Nystatin Oral Suspension -) 500,000 units PO Q6HPO [facility] Last Admin: 05/19/19 12:10 Dose: 500,000 units Sodium Chloride ([place] Nasal [place] -) 2 spray NS Q1H PRN PRN Reason: NASAL CONGESTION - Objective Vital Signs: Vital Signs Temperature 97.9 F 05/19/19 06:00 Pulse Rate 67 05/19/19 06:00 Respiratory Rate 20 05/19/19 09:00 Blood Pressure 124/52 L 05/19/19 06:00 O2 Sat by Pulse Oximetry (%) 99 05/19/19 09:00 Constitutional: Yes: No Distress, Calm Cardiovascular: Yes: Regular Rate and Rhythm, S1, S2 Respiratory: Yes: Regular, Rhonchi, Wheezes Gastrointestinal: Yes: Normal Bowel Sounds, Soft. No: Tenderness Edema: No Neurological: Yes: Alert, Oriented Labs: CBC, BMP 05/19/19 05:00 05/19/19 05:00 Problem List - Problems (1) Pneumonia Code(s): J18.9 - PNEUMONIA, UNSPECIFIED ORGANISM Qualifiers: Pneumonia type: due to unspecified organism Laterality: bilateral Lung location: lower lobe of lung Qualified Code(s): J18.1 - Lobar pneumonia, unspecified organism (2) Hemoptysis, unspecified Code(s): R04.2 - HEMOPTYSIS (3) COPD (chronic obstructive pulmonary disease) with emphysema Code(s): J43.9 - EMPHYSEMA, UNSPECIFIED (4) COPD with acute exacerbation Code(s): J44.1 - CHRONIC OBSTRUCTIVE PULMONARY DISEASE W (ACUTE) EXACERBATION (5) Renal transplant recipient Code(s): Z94.0 - KIDNEY TRANSPLANT STATUS (6) CRF (chronic renal failure) Code(s): N18.9 - CHRONIC KIDNEY DISEASE, UNSPECIFIED (7) Diabetes mellitus Code(s): E11.9 - TYPE 2 DIABETES MELLITUS WITHOUT COMPLICATIONS (8) Generalized weakness Code(s): R53.1 - WEAKNESS (9) Anemia Code(s): D64.9 - ANEMIA, UNSPECIFIED Qualifiers: Anemia type: due to chronic kidney disease Chronic kidney disease stage: stage 5, not on chronic dialysis Qualified Code(s): N18.5 - Chronic kidney disease, stage 5; D63.1 - Anemia in chronic kidney disease Assessment/Plan IV abtx IV steroids ID, Pulmonary, Renal consults are appreciated. To increase Levemir dose. To monitor BGM. To f/u CX Pending transfer to [facility] AM labs
[2019-05-19] MEDS: ATORVASTATIN CA 10 MG TABLET (FP) PO SCH (23:33)
[2019-05-19] MEDS: amLODIPine BESYLATE 10 MG TABLET (FP) PO SCH (23:33)
[2019-05-19] MEDS: LORATADINE 10 MG TABLET PO SCH (23:33)
[2019-05-19] MEDS: INSULIN (LEVEMIR) 100 UNITS/ML UNITS SQ SCH (23:34)
[2019-05-20 06:42] LABS: HEMATOCRIT 29.4 % (35.4-49); HEMOGLOBIN 9.4 GM/dL (11.7-16.9); MCH 25.8 pg (25.7-33.7); MCHC 31.9 g/dl (32.0-35.9); MEAN CELL VOLUME 80.9 fl (80-96); MEAN PLT VOLUME 7.4 fl (7.5-11.1); PLATELET COUNT 240 K/MM3 (134-434); RBC 3.64 M/mm3 (4.00-5.60); WHITE BLOOD COUNT 10.1 K/mm3 (4.0-10.0)
[2019-05-20] MEDS: INSULIN SLIDING SCALE (NOVOLOG) 1 VIAL SQ SCH ×4 (06:55→23:01)
[2019-05-20] MEDS: Insulin (LOG) Aspart 100 UNITS/ML VIAL SQ SCH ×3 (06:56→17:41)
[2019-05-20] MEDS: NYSTATIN 500,000 UNITS/5 ML SUSPENSION PO SCH ×4 (06:56→23:31)
[2019-05-20 07:10] LABS: ALBUMIN 2.2 g/dl (3.4-5.0); BILIRUBIN,TOTAL 0.4 mg/dL (0.2-1); CALCIUM 9.3 mg/dL (8.5-10.1); CREATININE 1.6 mg/dL (0.55-1.3); TOT PROT 6.3 g/dl (6.4-8.2)
[2019-05-20] MEDS: ALBUTEROL SO4 2.5/IPRATROPIUM 0.5 INH SOL 3 ML VIAL.NEB. NEB SCH ×2 (07:42→11:42)
--- NOTE | 2019-05-20 09:12 | PN ---
Progress Note, Physician History of Present Illness: PULMONARY ALERT,FEELING BETTER,STILL WEAK,CP - Current Medication List Current Medications: Active Medications Albuterol Sulfate (Ventolin 0.083% Nebulizer Soln -) 1 amp NEB Q4H PRN PRN Reason: SHORT OF BREATH/WHEEZING Last Admin: 05/15/19 23:21 Dose: 1 amp Albuterol/Ipratropium (Duoneb -) 1 amp NEB RQID [facility] Last Admin: 05/19/19 20:49 Dose: 1 amp Amlodipine Besylate (Norvasc -) 10 mg PO HS [facility] Last Admin: 05/19/19 23:33 Dose: 10 mg Aspirin (Asa -) 81 mg PO DAILY [facility] Last Admin: 05/19/19 10:22 Dose: 81 mg Atorvastatin Calcium (Lipitor -) 10 mg PO HS [facility] Last Admin: 05/19/19 23:33 Dose: 10 mg Carvedilol (Coreg -) 25 mg PO BID [facility] Last Admin: 05/19/19 23:32 Dose: 25 mg Fluticasone Propionate (Flonase -) 1 spray NS BID [facility] Last Admin: 05/19/19 23:35 Dose: 1 spray Levofloxacin (Levaquin 500 Mg Premixed Ivpb -) 500 mg in 100 mls @ 100 mls/hr IVPB DAILY [facility]; Protocol Last Admin: 05/19/19 10:22 Dose: 100 mls/hr Insulin Aspart (Novolog Vial Sliding Scale -) 1 vial SQ ACHS [facility]; Protocol Last Admin: 05/20/19 06:55 Dose: 12 unit Insulin Aspart (Novolog) 7 units SQ TID@0700,1200,1630 [facility] Last Admin: 05/20/19 06:56 Dose: 7 units Insulin Detemir (Levemir Vial) 46 units SQ HS [facility] Last Admin: 05/19/19 23:34 Dose: 46 units Loratadine (Claritin -) 10 mg PO HS [facility] Last Admin: 05/19/19 23:33 Dose: 10 mg Methylprednisolone Sodium Succinate (Solu-Medrol -) 30 mg IVPUSH BID [facility] Last Admin: 05/19/19 23:33 Dose: 30 mg Non-Formulary Medication (Fluticasone/Vilanterol [Breo Ellipta 100-25 Mcg Inh]) 1 each IH DAILY [facility] Tacrolimus [Envarsus (Xr] 4 Mg Tab) 12 mg PO DAILY [facility] Last Admin: 05/19/19 10:22 Dose: 12 mg Nystatin (Nystatin Oral Suspension -) 500,000 units PO Q6HPO [facility] Last Admin: 05/20/19 06:56 Dose: 500,000 units Sodium Chloride ([place] Nasal [place] -) 2 spray NS Q1H PRN PRN Reason: NASAL CONGESTION - Objective Vital Signs: Vital Signs Temperature 98.4 F 05/20/19 02:00 Pulse Rate 76 05/20/19 02:00 Respiratory Rate 20 05/20/19 02:00 Blood Pressure 136/59 L 05/20/19 02:00 O2 Sat by Pulse Oximetry (%) 99 05/19/19 21:00 Constitutional: Yes: Calm, Thin Eyes: Yes: WNL HENT: Yes: WNL Neck: Yes: WNL Cardiovascular: Yes: Regular Rate and Rhythm, S1, S2 Respiratory: Yes: Rales (CRACKLES ON R 1/2 UP) Gastrointestinal: Yes: Normal Bowel Sounds, Soft Extremities: Yes: WNL Edema: No Labs: CBC, BMP 05/20/19 05:05 05/20/19 05:05 Assessment/Plan Problem List - Problems (1) COPD with acute exacerbation Code(s): J44.1 - CHRONIC OBSTRUCTIVE PULMONARY DISEASE W (ACUTE) EXACERBATION (2) Acute exacerbation of bronchiectasis Code(s): J47.1 - BRONCHIECTASIS WITH (ACUTE) EXACERBATION Assessment/Plan Acute COPD/Bronchiectasis Exacerbation improving Hemoptysis resolved Pneumonia clinically improving r/o Fungal Pneumonia Chronic Hypoxic Respiratory Failure CKD s/p Renal Transplant on immunosuppressants HTN DM Hyperlipidemia - medrol taper - IV antibiotics as per ID?antifungals - inhaled bronchodilators - O2 to keep SpO2 >90% - monitor urine output, creatinine - transfer to transplant center - DVT prophylaxis DR SALDANA
[2019-05-20] MEDS: methylPREDNISolone NA SUCC 40 MG/1 ML VIAL IVPUSH SCH ×2 (09:42→23:03)
[2019-05-20] MEDS: TACROLIMUS 4 MG PO SCH (09:42)
[2019-05-20] MEDS: CARVEDILOL 25 MG TABLET (FP) PO SCH ×2 (09:42→23:02)
[2019-05-20] MEDS: ASPIRIN 81 MG CHEWABLE TABLETS PO SCH (09:42)
[2019-05-20] MEDS: FLUTICASONE PROP 0.05% 16 GM NASAL SPRAY NS SCH ×2 (09:43→23:10)
[2019-05-20] MEDS ORDERED: PT OWN MED DRAWER 7, Y5N ONE (10:35)
--- NOTE | 2019-05-20 12:30 | PN ---
Progress Note, Physician History of Present Illness: Pt w/o CP, palpitations, SOB, abd pain, N, V; pt's breathing might be a little better. Pt is trying to eat more, to "help" healing process. - Current Medication List Current Medications: Active Medications Albuterol Sulfate (Ventolin 0.083% Nebulizer Soln -) 1 amp NEB Q4H PRN PRN Reason: SHORT OF BREATH/WHEEZING Last Admin: 05/15/19 23:21 Dose: 1 amp Albuterol/Ipratropium (Duoneb -) 1 amp NEB RQID [facility] Last Admin: 05/20/19 11:42 Dose: 1 amp Amlodipine Besylate (Norvasc -) 10 mg PO HS [facility] Last Admin: 05/19/19 23:33 Dose: 10 mg Aspirin (Asa -) 81 mg PO DAILY [facility] Last Admin: 05/20/19 09:42 Dose: 81 mg Atorvastatin Calcium (Lipitor -) 10 mg PO HS [facility] Last Admin: 05/19/19 23:33 Dose: 10 mg Carvedilol (Coreg -) 25 mg PO BID [facility] Last Admin: 05/20/19 09:42 Dose: 25 mg Fluticasone Propionate (Flonase -) 1 spray NS BID [facility] Last Admin: 05/20/19 09:43 Dose: 1 spray Levofloxacin (Levaquin 500 Mg Premixed Ivpb -) 500 mg in 100 mls @ 100 mls/hr IVPB DAILY [facility]; Protocol Last Admin: 05/20/19 09:42 Dose: 100 mls/hr Insulin Aspart (Novolog Vial Sliding Scale -) 1 vial SQ ACHS [facility]; Protocol Last Admin: 05/20/19 12:00 Dose: 3 unit Insulin Aspart (Novolog) 7 units SQ TID@0700,1200,1630 [facility] Last Admin: 05/20/19 12:00 Dose: 7 units Insulin Detemir (Levemir Vial) 46 units SQ HS [facility] Last Admin: 05/19/19 23:34 Dose: 46 units Loratadine (Claritin -) 10 mg PO HS [facility] Last Admin: 05/19/19 23:33 Dose: 10 mg Methylprednisolone Sodium Succinate (Solu-Medrol -) 30 mg IVPUSH BID [facility] Last Admin: 05/20/19 09:42 Dose: 30 mg Non-Formulary Medication (Fluticasone/Vilanterol [Breo Ellipta 100-25 Mcg Inh]) 1 each IH DAILY [facility] Tacrolimus [Envarsus (Xr] 4 Mg Tab) 12 mg PO DAILY [facility] Last Admin: 05/20/19 09:42 Dose: 12 mg Nystatin (Nystatin Oral Suspension -) 500,000 units PO Q6HPO [facility] Last Admin: 05/20/19 12:02 Dose: Not Given Sodium Chloride ([place] Nasal [place] -) 2 spray NS Q1H PRN PRN Reason: NASAL CONGESTION - Objective Vital Signs: Vital Signs Temperature 98.4 F 05/20/19 02:00 Pulse Rate 76 05/20/19 02:00 Respiratory Rate 20 05/20/19 09:00 Blood Pressure 136/59 L 05/20/19 02:00 O2 Sat by Pulse Oximetry (%) 99 05/20/19 09:00 Constitutional: Yes: No Distress, Calm Cardiovascular: Yes: Regular Rate and Rhythm, S1, S2 Respiratory: Yes: Regular, Rhonchi, Wheezes (minimal) Gastrointestinal: Yes: Normal Bowel Sounds, Soft. No: Tenderness Edema: No Neurological: Yes: Alert, Oriented Labs: CBC, BMP 05/20/19 05:05 05/20/19 05:05 Problem List - Problems (1) Pneumonia Code(s): J18.9 - PNEUMONIA, UNSPECIFIED ORGANISM Qualifiers: Pneumonia type: due to unspecified organism Laterality: bilateral Lung location: lower lobe of lung Qualified Code(s): J18.1 - Lobar pneumonia, unspecified organism (2) Hemoptysis, unspecified Code(s): R04.2 - HEMOPTYSIS (3) COPD (chronic obstructive pulmonary disease) with emphysema Code(s): J43.9 - EMPHYSEMA, UNSPECIFIED (4) COPD with acute exacerbation Code(s): J44.1 - CHRONIC OBSTRUCTIVE PULMONARY DISEASE W (ACUTE) EXACERBATION (5) Renal transplant recipient Code(s): Z94.0 - KIDNEY TRANSPLANT STATUS (6) CRF (chronic renal failure) Code(s): N18.9 - CHRONIC KIDNEY DISEASE, UNSPECIFIED (7) Diabetes mellitus Code(s): E11.9 - TYPE 2 DIABETES MELLITUS WITHOUT COMPLICATIONS (8) Generalized weakness Code(s): R53.1 - WEAKNESS (9) Anemia Code(s): D64.9 - ANEMIA, UNSPECIFIED Qualifiers: Anemia type: due to chronic kidney disease Chronic kidney disease stage: stage 5, not on chronic dialysis Qualified Code(s): N18.5 - Chronic kidney disease, stage 5; D63.1 - Anemia in chronic kidney disease Assessment/Plan IV abtx IV steroids ID, Pulmonary, Renal consults are appreciated. Levemir dose was increased. To monitor BGM. To f/u CX Pending transfer to [facility] AM labs
[2019-05-20] MEDS ORDERED: SODIUM CHLORIDE 0.45% 1,000 ML IV SCH (14:15)
--- NOTE | 2019-05-20 14:15 | PN ---
Progress Note, Physician History of Present Illness: Pt seen and examined at bedside. He feels that his breathing is very mildly improved. He does get sob with minimal activity. He denies dysuria or hematuria. - Current Medication List Current Medications: Active Medications Albuterol Sulfate (Ventolin 0.083% Nebulizer Soln -) 1 amp NEB Q4H PRN PRN Reason: SHORT OF BREATH/WHEEZING Last Admin: 05/15/19 23:21 Dose: 1 amp Albuterol/Ipratropium (Duoneb -) 1 amp NEB RQID [facility] Last Admin: 05/20/19 11:42 Dose: 1 amp Amlodipine Besylate (Norvasc -) 10 mg PO HS [facility] Last Admin: 05/19/19 23:33 Dose: 10 mg Aspirin (Asa -) 81 mg PO DAILY [facility] Last Admin: 05/20/19 09:42 Dose: 81 mg Atorvastatin Calcium (Lipitor -) 10 mg PO HS [facility] Last Admin: 05/19/19 23:33 Dose: 10 mg Carvedilol (Coreg -) 25 mg PO BID [facility] Last Admin: 05/20/19 09:42 Dose: 25 mg Fluticasone Propionate (Flonase -) 1 spray NS BID [facility] Last Admin: 05/20/19 09:43 Dose: 1 spray Levofloxacin (Levaquin 500 Mg Premixed Ivpb -) 500 mg in 100 mls @ 100 mls/hr IVPB DAILY [facility]; Protocol Last Admin: 05/20/19 09:42 Dose: 100 mls/hr Insulin Aspart (Novolog Vial Sliding Scale -) 1 vial SQ ACHS [facility]; Protocol Last Admin: 05/20/19 12:00 Dose: 3 unit Insulin Aspart (Novolog) 7 units SQ TID@0700,1200,1630 [facility] Last Admin: 05/20/19 12:00 Dose: 7 units Insulin Detemir (Levemir Vial) 46 units SQ HS [facility] Last Admin: 05/19/19 23:34 Dose: 46 units Loratadine (Claritin -) 10 mg PO HS [facility] Last Admin: 05/19/19 23:33 Dose: 10 mg Methylprednisolone Sodium Succinate (Solu-Medrol -) 30 mg IVPUSH BID [facility] Last Admin: 05/20/19 09:42 Dose: 30 mg Non-Formulary Medication (Fluticasone/Vilanterol [Breo Ellipta 100-25 Mcg Inh]) 1 each IH DAILY [facility] Tacrolimus [Envarsus (Xr] 4 Mg Tab) 12 mg PO DAILY [facility] Last Admin: 05/20/19 09:42 Dose: 12 mg Nystatin (Nystatin Oral Suspension -) 500,000 units PO Q6HPO [facility] Last Admin: 05/20/19 12:02 Dose: Not Given Sodium Chloride ([place] Nasal [place] -) 2 spray NS Q1H PRN PRN Reason: NASAL CONGESTION - Objective Vital Signs: Vital Signs Temperature 98.4 F 05/20/19 02:00 Pulse Rate 76 05/20/19 02:00 Respiratory Rate 20 05/20/19 09:00 Blood Pressure 136/59 L 05/20/19 02:00 O2 Sat by Pulse Oximetry (%) 99 05/20/19 09:00 Constitutional: Yes: Calm Eyes: Yes: Conjunctiva Clear HENT: Yes: Atraumatic Neck: Yes: Supple Cardiovascular: Yes: S1, S2 Respiratory: Yes: On Nasal O2 Gastrointestinal: Yes: Normal Bowel Sounds, Soft Genitourinary: Yes: WNL Musculoskeletal: Yes: WNL Edema: No Integumentary: Yes: WNL Neurological: Yes: Oriented Psychiatric: Yes: Oriented Labs: CBC, BMP 05/20/19 05:05 05/20/19 05:05 Problem List - Problems (1) Shortness of breath Code(s): R06.02 - SHORTNESS OF BREATH (2) COPD (chronic obstructive pulmonary disease) with emphysema Code(s): J43.9 - EMPHYSEMA, UNSPECIFIED (3) CRF (chronic renal failure) Code(s): N18.9 - CHRONIC KIDNEY DISEASE, UNSPECIFIED (4) Renal transplant recipient Code(s): Z94.0 - KIDNEY TRANSPLANT STATUS Assessment/Plan Current Medications Generic Name Dose Route Start Last Admin Trade Name Freq PRN Reason Stop Dose Admin Albuterol Sulfate 1 amp 05/15/19 15:45 05/15/19 23:21 Ventolin 0.083% Nebulizer Soln - NEB 1 amp Q4H PRN Administration SHORT OF BREATH/WHEEZING Albuterol/Ipratropium 1 amp 05/15/19 16:00 05/20/19 11:42 Duoneb - NEB 1 amp RQID [facility] Administration Amlodipine Besylate 10 mg 05/15/19 22:00 05/19/19 23:33 Norvasc - PO 10 mg HS [facility] Administration Aspirin 81 mg 05/16/19 10:00 05/20/19 09:42 Asa - PO 81 mg DAILY [facility] Administration Atorvastatin Calcium 10 mg 05/15/19 22:00 05/19/19 23:33 Lipitor - PO 10 mg HS [facility] Administration Carvedilol 25 mg 05/15/19 22:00 05/20/19 09:42 Coreg - PO 25 mg BID [facility] Administration Fluticasone Propionate 1 spray 05/15/19 22:00 05/20/19 09:43 Flonase - NS 1 spray BID [facility] Administration Levofloxacin 500 mg in 100 mls @ 100 mls/hr 05/16/19 10:00 05/20/19 09:42 Levaquin 500 Mg Premixed Ivpb - IVPB 100 mls/hr DAILY [facility] Administration Protocol Insulin Aspart 1 vial 05/15/19 22:00 05/20/19 12:00 Novolog Vial Sliding Scale - SQ 3 unit ACHS [facility] Administration Protocol Insulin Aspart 7 units 05/16/19 09:20 05/20/19 12:00 Novolog SQ 7 units TID@0700,1200,1630 [facility] Administration Insulin Detemir 46 units 05/19/19 15:53 05/19/19 23:34 Levemir Vial SQ 46 units HS [facility] Administration Loratadine 10 mg 05/15/19 22:00 05/19/19 23:33 Claritin - PO 10 mg HS [facility] Administration Methylprednisolone Sodium Succinate 30 mg 05/18/19 10:50 05/20/19 09:42 Solu-Medrol - IVPUSH 30 mg BID [facility] Administration Non-Formulary Medication 1 each 05/16/19 10:00 Fluticasone/Vilanterol [Breo Ellipta 100-25 Mcg Inh] IH DAILY [facility] Tacrolimus [Envarsus 12 mg 05/16/19 10:00 05/20/19 09:42 Xr] 4 Mg Tab PO 12 mg DAILY [facility] Administration Nystatin 500,000 units 05/16/19 00:00 05/20/19 12:02 Nystatin Oral Suspension - PO Not Given Q6HPO [facility] Sodium Chloride 2 spray 05/15/19 18:50 [place] Nasal [place] - NS Q1H PRN NASAL CONGESTION Impression 1. CKD 2. dyspnea 3. kidney transplant 4. copd 5. pna 6. DM 7. HLD 8. HTN Plan - check prograf - will give fluids for 1/2 liter - repeat labs in am - will need better glucose control - check prograf level - pt pending transfer to [place] - monitor renal function - had high resistive index on last ultrasound on last admission, will need eval by transplant team - avoid nephrotoxins - pt is not on MMF (hx of leukopenia)
[2019-05-20] MEDS: ATORVASTATIN CA 10 MG TABLET (FP) PO SCH (23:02)
[2019-05-20] MEDS: LORATADINE 10 MG TABLET PO SCH (23:02)
[2019-05-20] MEDS: amLODIPine BESYLATE 10 MG TABLET (FP) PO SCH (23:03)
[2019-05-20] MEDS: INSULIN (LEVEMIR) 100 UNITS/ML UNITS SQ SCH (23:06)
[2019-05-21] MEDS: NYSTATIN 500,000 UNITS/5 ML SUSPENSION PO SCH ×3 (06:06→17:18)
[2019-05-21] MEDS: Insulin (LOG) Aspart 100 UNITS/ML VIAL SQ SCH ×3 (06:14→17:19)
[2019-05-21] MEDS: INSULIN SLIDING SCALE (NOVOLOG) 1 VIAL SQ SCH ×4 (06:16→21:15)
[2019-05-21 06:58] LABS: HEMATOCRIT 28.6 % (35.4-49); HEMOGLOBIN 9.3 GM/dL (11.7-16.9); MCH 26.2 pg (25.7-33.7); MCHC 32.5 g/dl (32.0-35.9); MEAN CELL VOLUME 80.5 fl (80-96); MEAN PLT VOLUME 7.5 fl (7.5-11.1); PLATELET COUNT 218 K/MM3 (134-434); RBC 3.55 M/mm3 (4.00-5.60); RDW 17.7 % (11.9-15.9); WHITE BLOOD COUNT 9.1 K/mm3 (4.0-10.0)
[2019-05-21 07:11] LABS: ALBUMIN 2.1 g/dl (3.4-5.0); BILIRUBIN,TOTAL 0.2 mg/dL (0.2-1); BLOOD UREA NITROGEN 44.8 mg/dL (7-18); CREATININE 1.3 mg/dL (0.55-1.3); POTASSIUM 4.9 mmol/L (3.5-5.1); TOT PROT 5.7 g/dl (6.4-8.2)
[2019-05-21] MEDS: methylPREDNISolone NA SUCC 40 MG/1 ML VIAL IVPUSH SCH ×2 (09:29→21:14)
[2019-05-21] MEDS: ASPIRIN 81 MG CHEWABLE TABLETS PO SCH (09:30)
[2019-05-21] MEDS: CARVEDILOL 25 MG TABLET (FP) PO SCH ×2 (09:30→21:15)
[2019-05-21] MEDS: TACROLIMUS 4 MG PO SCH (09:30)
[2019-05-21] MEDS: FLUTICASONE PROP 0.05% 16 GM NASAL SPRAY NS SCH ×2 (09:30→21:29)
[2019-05-21] MEDS ORDERED: PT OWN MED DRAWER 7, Y5N ONE (09:38)
[2019-05-21 10:06] LABS: ASPERGIL AG 0.04 Index (0.00-0.49)
--- NOTE | 2019-05-21 10:35 | PN ---
Progress Note, Physician History of Present Illness: PULMONARY ALERT,FEELING BETTER,LESS DYSPNEIC ON NASAL CANNULA,-HEMOPTYSIS - Current Medication List Current Medications: Active Medications Amlodipine Besylate (Norvasc -) 10 mg PO HS [facility] Last Admin: 05/20/19 23:03 Dose: 10 mg Aspirin (Asa -) 81 mg PO DAILY [facility] Last Admin: 05/21/19 09:30 Dose: 81 mg Atorvastatin Calcium (Lipitor -) 10 mg PO HS [facility] Last Admin: 05/20/19 23:02 Dose: 10 mg Carvedilol (Coreg -) 25 mg PO BID [facility] Last Admin: 05/21/19 09:30 Dose: 25 mg Fluticasone Propionate (Flonase -) 1 spray NS BID [facility] Last Admin: 05/21/19 09:30 Dose: 1 spray Levofloxacin (Levaquin 500 Mg Premixed Ivpb -) 500 mg in 100 mls @ 100 mls/hr IVPB DAILY [facility]; Protocol Last Admin: 05/21/19 09:30 Dose: 100 mls/hr Insulin Aspart (Novolog Vial Sliding Scale -) 1 vial SQ ACHS [facility]; Protocol Last Admin: 05/21/19 06:16 Dose: 7 unit Insulin Aspart (Novolog) 7 units SQ TID@0700,1200,1630 [facility] Last Admin: 05/21/19 06:14 Dose: 7 units Insulin Detemir (Levemir Vial) 46 units SQ [facility] Last Admin: 05/20/19 23:06 Dose: 46 units Loratadine (Claritin -) 10 mg PO [facility] Last Admin: 05/20/19 23:02 Dose: 10 mg Methylprednisolone Sodium Succinate (Solu-Medrol -) 30 mg IVPUSH BID [facility] Last Admin: 05/21/19 09:29 Dose: 30 mg Non-Formulary Medication (Fluticasone/Vilanterol [Breo Ellipta 100-25 Mcg Inh]) 1 each IH DAILY [facility] Tacrolimus [Envarsus (Xr] 4 Mg Tab) 12 mg PO DAILY [facility] Last Admin: 05/21/19 09:30 Dose: 12 mg Nystatin (Nystatin Oral Suspension -) 500,000 units PO Q6HPO [facility] Last Admin: 05/21/19 06:06 Dose: 500,000 units Sodium Chloride ([place] Nasal [place] -) 2 spray NS Q1H PRN PRN Reason: NASAL CONGESTION - Objective Vital Signs: Vital Signs Temperature 97.9 F 05/21/19 06:00 Pulse Rate 69 05/21/19 06:00 Respiratory Rate 20 05/21/19 06:00 Blood Pressure 128/62 05/21/19 06:00 O2 Sat by Pulse Oximetry (%) 100 05/20/19 21:00 Constitutional: Yes: Calm, Thin Eyes: Yes: WNL HENT: Yes: WNL Neck: Yes: WNL Cardiovascular: Yes: Regular Rate and Rhythm, S1, S2 Respiratory: Yes: Rales (ANDREA CRACKLES L>R) Gastrointestinal: Yes: Normal Bowel Sounds, Soft Extremities: Yes: WNL Edema: No Labs: CBC, BMP 05/21/19 05:08 05/21/19 05:08 Assessment/Plan Problem List - Problems (1) COPD with acute exacerbation Code(s): J44.1 - CHRONIC OBSTRUCTIVE PULMONARY DISEASE W (ACUTE) EXACERBATION (2) Acute exacerbation of bronchiectasis Code(s): J47.1 - BRONCHIECTASIS WITH (ACUTE) EXACERBATION Assessment/Plan Acute COPD/Bronchiectasis Exacerbation improving Hemoptysis resolved Pneumonia clinically improving r/o Fungal Pneumonia Chronic Hypoxic Respiratory Failure CKD s/p Renal Transplant on immunosuppressants HTN DM Hyperlipidemia - medrol taper - IV antibiotics as per ID?antifungals - inhaled bronchodilators - O2 to keep SpO2 >90% - monitor urine output, creatinine - transfer to transplant center - DVT prophylaxis DR SALDANA
--- NOTE | 2019-05-21 11:05 | PN ---
Progress Note, Physician History of Present Illness: Pt seen and examined at bedside. He does not feel that his breathing is improved. He denies dysuria. - Current Medication List Current Medications: Active Medications Amlodipine Besylate (Norvasc -) 10 mg PO [facility] Last Admin: 05/20/19 23:03 Dose: 10 mg Aspirin (Asa -) 81 mg PO DAILY [facility] Last Admin: 05/21/19 09:30 Dose: 81 mg Atorvastatin Calcium (Lipitor -) 10 mg PO [facility] Last Admin: 05/20/19 23:02 Dose: 10 mg Carvedilol (Coreg -) 25 mg PO BID [facility] Last Admin: 05/21/19 09:30 Dose: 25 mg Fluticasone Propionate (Flonase -) 1 spray NS BID [facility] Last Admin: 05/21/19 09:30 Dose: 1 spray Levofloxacin (Levaquin 500 Mg Premixed Ivpb -) 500 mg in 100 mls @ 100 mls/hr IVPB DAILY [facility]; Protocol Last Admin: 05/21/19 09:30 Dose: 100 mls/hr Insulin Aspart (Novolog Vial Sliding Scale -) 1 vial SQ ACHS [facility]; Protocol Last Admin: 05/21/19 06:16 Dose: 7 unit Insulin Aspart (Novolog) 7 units SQ TID@0700,1200,1630 [facility] Last Admin: 05/21/19 06:14 Dose: 7 units Insulin Detemir (Levemir Vial) 46 units SQ [facility] Last Admin: 05/20/19 23:06 Dose: 46 units Loratadine (Claritin -) 10 mg PO [facility] Last Admin: 05/20/19 23:02 Dose: 10 mg Methylprednisolone Sodium Succinate (Solu-Medrol -) 20 mg IVPUSH BID [facility] Non-Formulary Medication (Fluticasone/Vilanterol [Breo Ellipta 100-25 Mcg Inh]) 1 each IH DAILY [facility] Tacrolimus [Envarsus (Xr] 4 Mg Tab) 12 mg PO DAILY [facility] Last Admin: 05/21/19 09:30 Dose: 12 mg Nystatin (Nystatin Oral Suspension -) 500,000 units PO Q6HPO [facility] Last Admin: 05/21/19 06:06 Dose: 500,000 units Sodium Chloride ([place]al [place] -) 2 spray NS Q1H PRN PRN Reason: NASAL CONGESTION - Objective Vital Signs: Vital Signs Temperature 98.2 F 08/26/19 10:00 Pulse Rate 68 05/21/19 10:00 Respiratory Rate 20 05/21/19 10:00 Blood Pressure 130/60 05/21/19 10:00 O2 Sat by Pulse Oximetry (%) 98 05/21/19 09:00 Constitutional: Yes: Calm Eyes: Yes: Conjunctiva Clear HENT: Yes: Atraumatic Neck: Yes: Supple Cardiovascular: Yes: S1, S2 Respiratory: Yes: On Nasal O2 Gastrointestinal: Yes: Soft Genitourinary: Yes: Other (non tender graft) Musculoskeletal: Yes: WNL Edema: No Neurological: Yes: Oriented Psychiatric: Yes: Oriented Labs: CBC, BMP 05/21/19 05:08 05/21/19 05:08 Problem List - Problems (1) Shortness of breath Code(s): R06.02 - SHORTNESS OF BREATH (2) COPD (chronic obstructive pulmonary disease) with emphysema Code(s): J43.9 - EMPHYSEMA, UNSPECIFIED (3) CRF (chronic renal failure) Code(s): N18.9 - CHRONIC KIDNEY DISEASE, UNSPECIFIED (4) Renal transplant recipient Code(s): Z94.0 - KIDNEY TRANSPLANT STATUS Assessment/Plan Current Medications Generic Name Dose Route Start Last Admin Trade Name Freq PRN Reason Stop Dose Admin Amlodipine Besylate 10 mg 05/15/19 22:00 05/20/19 23:03 Norvasc - PO 10 mg HS [facility] Administration Aspirin 81 mg 05/16/19 10:00 05/21/19 09:30 Asa - PO 81 mg DAILY [facility] Administration Atorvastatin Calcium 10 mg 05/15/19 22:00 05/20/19 23:02 Lipitor - PO 10 mg HS [facility] Administration Carvedilol 25 mg 05/15/19 22:00 05/21/19 09:30 Coreg - PO 25 mg BID [facility] Administration Fluticasone Propionate 1 spray 05/15/19 22:00 05/21/19 09:30 Flonase - NS 1 spray BID [facility] Administration Levofloxacin 500 mg in 100 mls @ 100 mls/hr 05/16/19 10:00 05/21/19 09:30 Levaquin 500 Mg Premixed Ivpb - IVPB 100 mls/hr DAILY [facility] Administration Protocol Insulin Aspart 1 vial 05/15/19 22:00 05/21/19 06:16 Novolog Vial Sliding Scale - SQ 7 unit ACHS [facility] Administration Protocol Insulin Aspart 7 units 05/16/19 09:20 05/21/19 06:14 Novolog SQ 7 units TID@0700,1200,1630 [facility] Administration Insulin Detemir 46 units 05/19/19 15:53 05/20/19 23:06 Levemir Vial SQ 46 units HS [facility] Administration Loratadine 10 mg 05/15/19 22:00 05/20/19 23:02 Claritin - PO 10 mg HS [facility] Administration Methylprednisolone Sodium Succinate 20 mg 05/21/19 10:35 Solu-Medrol - IVPUSH BID [facility] Non-Formulary Medication 1 each 05/16/19 10:00 Fluticasone/Vilanterol [Breo Ellipta 100-25 Mcg Inh] IH DAILY [facility] Tacrolimus [Envarsus 12 mg 05/16/19 10:00 05/21/19 09:30 Xr] 4 Mg Tab PO 12 mg DAILY [facility] Administration Nystatin 500,000 units 05/16/19 00:00 05/21/19 06:06 Nystatin Oral Suspension - PO 500,000 units Q6HPO [facility] Administration Sodium Chloride 2 spray 05/15/19 18:50 [place] - NS Q1H PRN NASAL CONGESTION Impression 1. CKD 2. dyspnea 3. kidney transplant 4. copd 5. pna 6. DM 7. HLD 8. HTN Plan - renal function is stable - follow prograf level - pt still pending transfer - needs transplant eval as resistive index was high on last ultrasound - avoid nephrotoxins - pt is not on MMF (hx of leukopenia)
--- NOTE | 2019-05-21 14:46 | PN ---
Progress Note, Physician History of Present Illness: AWAKE, ALERT IN BED SL TACHYPNEIC ON NASAL CANNULA O2 4L REPORTS NO COUGH; NO SPUTUM PRODUCTION OR HEMOPTYSIS NO C/O CHEST PAIN NO F/C AFEBRILE WBC IMPROVED WNL BC (-) LEGIONELLA AG (-) FUNGITELL (+) - Current Medication List Current Medications: Active Medications Amlodipine Besylate (Norvasc -) 10 mg PO HS [facility] Last Admin: 05/20/19 23:03 Dose: 10 mg Aspirin (Asa -) 81 mg PO DAILY [facility] Last Admin: 05/21/19 09:30 Dose: 81 mg Atorvastatin Calcium (Lipitor -) 10 mg PO HS [facility] Last Admin: 05/20/19 23:02 Dose: 10 mg Carvedilol (Coreg -) 25 mg PO BID [facility] Last Admin: 05/21/19 09:30 Dose: 25 mg Fluticasone Propionate (Flonase -) 1 spray NS BID [facility] Last Admin: 05/21/19 09:30 Dose: 1 spray Levofloxacin (Levaquin 500 Mg Premixed Ivpb -) 500 mg in 100 mls @ 100 mls/hr IVPB DAILY [facility]; Protocol Last Admin: 05/21/19 09:30 Dose: 100 mls/hr Insulin Aspart (Novolog Vial Sliding Scale -) 1 vial SQ ACHS [facility]; Protocol Last Admin: 05/21/19 12:21 Dose: 7 unit Insulin Aspart (Novolog) 7 units SQ TID@0700,1200,1630 [facility] Last Admin: 05/21/19 12:21 Dose: 7 units Insulin Detemir (Levemir Vial) 46 units SQ HS [facility] Last Admin: 05/20/19 23:06 Dose: 46 units Loratadine (Claritin -) 10 mg PO HS [facility] Last Admin: 05/20/19 23:02 Dose: 10 mg Methylprednisolone Sodium Succinate (Solu-Medrol -) 20 mg IVPUSH BID [facility] Non-Formulary Medication (Fluticasone/Vilanterol [Breo Ellipta 100-25 Mcg Inh]) 1 each IH DAILY [facility] Tacrolimus [Envarsus (Xr] 4 Mg Tab) 12 mg PO DAILY [facility] Last Admin: 05/21/19 09:30 Dose: 12 mg Nystatin (Nystatin Oral Suspension -) 500,000 units PO Q6HPO [facility] Last Admin: 05/21/19 12:26 Dose: 500,000 units Sodium Chloride ([place] Nasal [place] -) 2 spray NS Q1H PRN PRN Reason: NASAL CONGESTION - Objective Vital Signs: Vital Signs Temperature 98.2 F 05/21/19 10:00 Pulse Rate 68 05/21/19 10:00 Respiratory Rate 20 05/21/19 10:00 Blood Pressure 130/60 05/21/19 10:00 O2 Sat by Pulse Oximetry (%) 98 05/21/19 09:00 Constitutional: Yes: No Distress Eyes: Yes: Conjunctiva Clear Cardiovascular: Yes: Regular Rate and Rhythm, S1, S2 Respiratory: Yes: Diminished Gastrointestinal: Yes: Normal Bowel Sounds, Soft. No: Tenderness Edema: No Labs: CBC, BMP 05/21/19 05:08 05/21/19 05:08 Assessment/Plan PNEUMONIA ? ETIO COPD EXACERBATION R/O CAVITARY LUNG LESION RENAL TRANSPLANT ON IMMUNOSUPPRESSIVE TX + SPUTUM C/S PSEUDOMONAS, MOLD CONTINUE LEVAQUIN ? BRONCH TRANSFER TO TRANSPLANT CTR
--- NOTE | 2019-05-21 18:08 | PN ---
Progress Note, Physician History of Present Illness: Pt w/o CP, palpitations, SOB, abd pain, N, V; pt's breathing is the same like yesterday. - Current Medication List Current Medications: Active Medications Amlodipine Besylate (Norvasc -) 10 mg PO HS [facility] Last Admin: 05/20/19 23:03 Dose: 10 mg Aspirin (Asa -) 81 mg PO DAILY [facility] Last Admin: 05/21/19 09:30 Dose: 81 mg Atorvastatin Calcium (Lipitor -) 10 mg PO [facility] Last Admin: 05/20/19 23:02 Dose: 10 mg Carvedilol (Coreg -) 25 mg PO BID [facility] Last Admin: 05/21/19 09:30 Dose: 25 mg Fluticasone Propionate (Flonase -) 1 spray NS BID [facility] Last Admin: 05/21/19 09:30 Dose: 1 spray Levofloxacin (Levaquin 500 Mg Premixed Ivpb -) 500 mg in 100 mls @ 100 mls/hr IVPB DAILY [facility]; Protocol Last Admin: 05/21/19 09:30 Dose: 100 mls/hr Insulin Aspart (Novolog Vial Sliding Scale -) 1 vial SQ ACHS [facility]; Protocol Last Admin: 05/21/19 17:19 Dose: 3 unit Insulin Aspart (Novolog) 7 units SQ TID@0700,1200,1630 [facility] Last Admin: 05/21/19 17:19 Dose: 7 units Insulin Detemir (Levemir Vial) 46 units SQ [facility] Last Admin: 05/20/19 23:06 Dose: 46 units Loratadine (Claritin -) 10 mg PO [facility] Last Admin: 05/20/19 23:02 Dose: 10 mg Methylprednisolone Sodium Succinate (Solu-Medrol -) 20 mg IVPUSH BID [facility] Non-Formulary Medication (Fluticasone/Vilanterol [Breo Ellipta 100-25 Mcg Inh]) 1 each IH DAILY [facility] Tacrolimus [Envarsus (Xr] 4 Mg Tab) 12 mg PO DAILY [facility] Last Admin: 05/21/19 09:30 Dose: 12 mg Nystatin (Nystatin Oral Suspension -) 500,000 units PO Q6HPO [facility] Last Admin: 05/21/19 17:18 Dose: 500,000 units Sodium Chloride ([place] Nasal [place] -) 2 spray NS Q1H PRN PRN Reason: NASAL CONGESTION - Objective Vital Signs: Vital Signs Temperature 97.6 F 05/21/19 14:00 Pulse Rate 74 05/21/19 14:00 Respiratory Rate 20 05/21/19 14:00 Blood Pressure 135/75 05/21/19 14:00 O2 Sat by Pulse Oximetry (%) 98 05/21/19 09:00 Constitutional: Yes: No Distress, Calm Cardiovascular: Yes: Regular Rate and Rhythm, S1, S2 Respiratory: Yes: Regular, Rhonchi (diminushed) Gastrointestinal: Yes: Normal Bowel Sounds, Soft. No: Tenderness Edema: No Neurological: Yes: Alert, Oriented Labs: CBC, BMP 05/21/19 05:08 05/21/19 05:08 Problem List - Problems (1) Pneumonia Code(s): J18.9 - PNEUMONIA, UNSPECIFIED ORGANISM Qualifiers: Pneumonia type: due to unspecified organism Laterality: bilateral Lung location: lower lobe of lung Qualified Code(s): J18.1 - Lobar pneumonia, unspecified organism (2) Hemoptysis, unspecified Code(s): R04.2 - HEMOPTYSIS (3) COPD (chronic obstructive pulmonary disease) with emphysema Code(s): J43.9 - EMPHYSEMA, UNSPECIFIED (4) COPD with acute exacerbation Code(s): J44.1 - CHRONIC OBSTRUCTIVE PULMONARY DISEASE W (ACUTE) EXACERBATION (5) Renal transplant recipient Code(s): Z94.0 - KIDNEY TRANSPLANT STATUS (6) CRF (chronic renal failure) Code(s): N18.9 - CHRONIC KIDNEY DISEASE, UNSPECIFIED (7) Diabetes mellitus Code(s): E11.9 - TYPE 2 DIABETES MELLITUS WITHOUT COMPLICATIONS (8) Generalized weakness Code(s): R53.1 - WEAKNESS (9) Anemia Code(s): D64.9 - ANEMIA, UNSPECIFIED Qualifiers: Anemia type: due to chronic kidney disease Chronic kidney disease stage: stage 5, not on chronic dialysis Qualified Code(s): N18.5 - Chronic kidney disease, stage 5; D63.1 - Anemia in chronic kidney disease Assessment/Plan IV abtx IV steroids ID, Pulmonary, Renal consults are appreciated. Levemir dose was increased. BGM are better, but not controlled yet. To continue to monitor BGM. To f/u sputum CX Pending transfer to [facility] AM labs
[2019-05-21] MEDS: LORATADINE 10 MG TABLET PO SCH (21:15)
[2019-05-21] MEDS: amLODIPine BESYLATE 10 MG TABLET (FP) PO SCH (21:15)
[2019-05-21] MEDS: ATORVASTATIN CA 10 MG TABLET (FP) PO SCH (21:15)
[2019-05-21] MEDS: INSULIN (LEVEMIR) 100 UNITS/ML UNITS SQ SCH (21:16)
[2019-05-22] MEDS: NYSTATIN 500,000 UNITS/5 ML SUSPENSION PO SCH ×4 (05:48→17:37)
[2019-05-22] MEDS: INSULIN SLIDING SCALE (NOVOLOG) 1 VIAL SQ SCH ×5 (07:02→22:02)
[2019-05-22] MEDS: Insulin (LOG) Aspart 100 UNITS/ML VIAL SQ SCH ×3 (07:03→17:37)
[2019-05-22 08:39] LABS: BLOOD UREA NITROGEN 42.5 mg/dL (7-18); CREATININE 1.2 mg/dL (0.55-1.3); POTASSIUM 4.8 mmol/L (3.5-5.1)
[2019-05-22 08:40] LABS: HEMATOCRIT 31.4 % (35.4-49); HEMOGLOBIN 10.1 GM/dL (11.7-16.9); MCHC 32.2 g/dl (32.0-35.9); MEAN CELL VOLUME 80.7 fl (80-96); MEAN PLT VOLUME 7.3 fl (7.5-11.1); PLATELET COUNT 239 K/MM3 (134-434); RBC 3.89 M/mm3 (4.00-5.60); RDW 18.1 % (11.9-15.9); WHITE BLOOD COUNT 8.1 K/mm3 (4.0-10.0)
--- NOTE | 2019-05-22 10:11 | PN ---
Progress Note, Physician History of Present Illness: Pt w/o CP, palpitations, SOB, abd pain, N, V. Pt states that is waiting for more improvement in this breathing to allow his to perform minimal activities (e.g. standing and washing his face) without SOB - Current Medication List Current Medications: Active Medications Amlodipine Besylate (Norvasc -) 10 mg PO HS [facility] Last Admin: 05/21/19 21:15 Dose: 10 mg Aspirin (Asa -) 81 mg PO DAILY [facility] Last Admin: 05/21/19 09:30 Dose: 81 mg Atorvastatin Calcium (Lipitor -) 10 mg PO HS [facility] Last Admin: 05/21/19 21:15 Dose: 10 mg Carvedilol (Coreg -) 25 mg PO BID [facility] Last Admin: 05/21/19 21:15 Dose: 25 mg Fluticasone Propionate (Flonase -) 1 spray NS BID [facility] Last Admin: 05/21/19 21:29 Dose: Not Given Levofloxacin (Levaquin 500 Mg Premixed Ivpb -) 500 mg in 100 mls @ 100 mls/hr IVPB DAILY [facility]; Protocol Last Admin: 05/21/19 09:30 Dose: 100 mls/hr Insulin Aspart (Novolog Vial Sliding Scale -) 1 vial SQ ACHS [facility]; Protocol Last Admin: 05/22/19 07:04 Dose: 7 unit Insulin Aspart (Novolog) 7 units SQ TID@0700,1200,1630 [facility] Last Admin: 05/22/19 07:03 Dose: 7 units Insulin Detemir (Levemir Vial) 46 units SQ [facility] Last Admin: 05/21/19 21:16 Dose: 46 units Loratadine (Claritin -) 10 mg PO HS [facility] Last Admin: 05/21/19 21:15 Dose: 10 mg Methylprednisolone Sodium Succinate (Solu-Medrol -) 20 mg IVPUSH BID [facility] Last Admin: 05/21/19 21:14 Dose: 20 mg Tacrolimus [Envarsus (Xr] 4 Mg Tab) 12 mg PO DAILY [facility] Last Admin: 05/21/19 09:30 Dose: 12 mg Nystatin (Nystatin Oral Suspension -) 500,000 units PO Q6HPO [facility] Last Admin: 05/22/19 05:48 Dose: 500,000 units Sodium Chloride ([place] Nasal [place] -) 2 spray NS Q1H PRN PRN Reason: NASAL CONGESTION - Objective Vital Signs: Vital Signs Temperature 97.7 F 05/22/19 02:00 Pulse Rate 71 05/22/19 06:54 Respiratory Rate 20 05/22/19 06:54 Blood Pressure 144/66 05/22/19 06:54 O2 Sat by Pulse Oximetry (%) 98 05/21/19 21:00 Constitutional: Yes: No Distress, Calm Cardiovascular: Yes: Regular Rate and Rhythm, S1, S2 Respiratory: Yes: Regular, Other (coarse BS, atelectasis bilat). No: Rhonchi Gastrointestinal: Yes: Normal Bowel Sounds, Soft. No: Tenderness Edema: No Neurological: Yes: Alert, Oriented Labs: CBC, BMP 05/22/19 05:30 05/22/19 05:30 Problem List - Problems (1) Pneumonia Code(s): J18.9 - PNEUMONIA, UNSPECIFIED ORGANISM Qualifiers: Pneumonia type: due to unspecified organism Laterality: bilateral Lung location: lower lobe of lung Qualified Code(s): J18.1 - Lobar pneumonia, unspecified organism (2) Hemoptysis, unspecified Code(s): R04.2 - HEMOPTYSIS (3) COPD (chronic obstructive pulmonary disease) with emphysema Code(s): J43.9 - EMPHYSEMA, UNSPECIFIED (4) COPD with acute exacerbation Code(s): J44.1 - CHRONIC OBSTRUCTIVE PULMONARY DISEASE W (ACUTE) EXACERBATION (5) Renal transplant recipient Code(s): Z94.0 - KIDNEY TRANSPLANT STATUS (6) CRF (chronic renal failure) Code(s): N18.9 - CHRONIC KIDNEY DISEASE, UNSPECIFIED (7) Diabetes mellitus Code(s): E11.9 - TYPE 2 DIABETES MELLITUS WITHOUT COMPLICATIONS (8) Generalized weakness Code(s): R53.1 - WEAKNESS (9) Anemia Code(s): D64.9 - ANEMIA, UNSPECIFIED Qualifiers: Anemia type: due to chronic kidney disease Chronic kidney disease stage: stage 5, not on chronic dialysis Qualified Code(s): N18.5 - Chronic kidney disease, stage 5; D63.1 - Anemia in chronic kidney disease Assessment/Plan IV abtx IV steroids -to f/u with Pulmonary ID, Pulmonary, Renal consults are appreciated. Levemir dose was increased. BGM are better, but not controlled yet. To continue to monitor BGM. To f/u sputum CX Pending transfer to [facility], pending insurance approval AM labs
[2019-05-22] MEDS: methylPREDNISolone NA SUCC 40 MG/1 ML VIAL IVPUSH SCH ×2 (11:03→22:01)
[2019-05-22] MEDS: ASPIRIN 81 MG CHEWABLE TABLETS PO SCH (11:04)
[2019-05-22] MEDS: CARVEDILOL 25 MG TABLET (FP) PO SCH ×2 (11:04→22:08)
[2019-05-22] MEDS: FLUTICASONE PROP 0.05% 16 GM NASAL SPRAY NS SCH ×2 (11:05→22:00)
[2019-05-22] MEDS: TACROLIMUS 4 MG PO SCH (11:06)
--- NOTE | 2019-05-22 11:27 | PN ---
Progress Note, Physician History of Present Illness: pulmonary alert,still c/o weakness,less dyspneic - Current Medication List Current Medications: Active Medications Amlodipine Besylate (Norvasc -) 10 mg PO HS [facility] Last Admin: 05/21/19 21:15 Dose: 10 mg Aspirin (Asa -) 81 mg PO DAILY [facility] Last Admin: 05/22/19 11:04 Dose: 81 mg Atorvastatin Calcium (Lipitor -) 10 mg PO HS [facility] Last Admin: 05/21/19 21:15 Dose: 10 mg Carvedilol (Coreg -) 25 mg PO BID [facility] Last Admin: 05/22/19 11:04 Dose: 25 mg Fluticasone Propionate (Flonase -) 1 spray NS BID [facility] Last Admin: 05/22/19 11:05 Dose: 1 spray Levofloxacin (Levaquin 500 Mg Premixed Ivpb -) 500 mg in 100 mls @ 100 mls/hr IVPB DAILY [facility]; Protocol Last Admin: 05/22/19 11:04 Dose: 100 mls/hr Insulin Aspart (Novolog Vial Sliding Scale -) 1 vial SQ ACHS [facility]; Protocol Last Admin: 05/22/19 07:04 Dose: 7 unit Insulin Aspart (Novolog) 7 units SQ TID@0700,1200,1630 [facility] Last Admin: 05/22/19 07:03 Dose: 7 units Insulin Detemir (Levemir Vial) 46 units SQ [facility] Last Admin: 05/21/19 21:16 Dose: 46 units Loratadine (Claritin -) 10 mg PO [facility] Last Admin: 05/21/19 21:15 Dose: 10 mg Methylprednisolone Sodium Succinate (Solu-Medrol -) 20 mg IVPUSH BID [facility] Last Admin: 05/22/19 11:03 Dose: 20 mg Tacrolimus [Envarsus (Xr] 4 Mg Tab) 12 mg PO DAILY [facility] Last Admin: 05/22/19 11:06 Dose: 12 mg Nystatin (Nystatin Oral Suspension -) 500,000 units PO Q6HPO [facility] Last Admin: 05/22/19 05:48 Dose: 500,000 units Sodium Chloride ([place] Nasal [place] -) 2 spray NS Q1H PRN PRN Reason: NASAL CONGESTION - Objective Vital Signs: Vital Signs Temperature 97.7 F 05/22/19 02:00 Pulse Rate 71 05/22/19 06:54 Respiratory Rate 20 05/22/19 06:54 Blood Pressure 144/66 05/22/19 06:54 O2 Sat by Pulse Oximetry (%) 98 05/21/19 21:00 Constitutional: Yes: Calm, Thin Eyes: Yes: WNL HENT: Yes: WNL Neck: Yes: WNL Cardiovascular: Yes: Regular Rate and Rhythm, S1, S2 Respiratory: Yes: Rales (romero crackles 1/3 up) Gastrointestinal: Yes: Normal Bowel Sounds, Soft Extremities: Yes: WNL Edema: No Labs: CBC, BMP 05/22/19 05:30 05/22/19 05:30 Assessment/Plan Problem List - Problems (1) COPD with acute exacerbation Code(s): J44.1 - CHRONIC OBSTRUCTIVE PULMONARY DISEASE W (ACUTE) EXACERBATION (2) Acute exacerbation of bronchiectasis Code(s): J47.1 - BRONCHIECTASIS WITH (ACUTE) EXACERBATION Assessment/Plan Acute COPD/Bronchiectasis Exacerbation improving Hemoptysis resolved Pneumonia clinically improving r/o Fungal Pneumonia Chronic Hypoxic Respiratory Failure CKD s/p Renal Transplant on immunosuppressants HTN DM Hyperlipidemia - continue medrol taper - IV antibiotics as per ID?antifungals - inhaled bronchodilators - O2 to keep SpO2 >90% - monitor urine output, creatinine - awaiting transfer to transplant center - DVT prophylaxis DR SALDANA
[2019-05-22] MEDS ORDERED: INSULIN (NOVOLOG) ASPART 100 UNITS/ML 10ML VIAL ONE (11:33)
--- NOTE | 2019-05-22 14:14 | PN ---
Progress Note, Physician History of Present Illness: Pt seen and examined at bedside. He is awake and alert. He does not feel that his breathing is improved. He denies dysuria or hematuria. - Current Medication List Current Medications: Active Medications Amlodipine Besylate (Norvasc -) 10 mg PO [facility] Last Admin: 05/21/19 21:15 Dose: 10 mg Aspirin (Asa -) 81 mg PO DAILY [facility] Last Admin: 05/22/19 11:04 Dose: 81 mg Atorvastatin Calcium (Lipitor -) 10 mg PO [facility] Last Admin: 05/21/19 21:15 Dose: 10 mg Carvedilol (Coreg -) 25 mg PO BID [facility] Last Admin: 05/22/19 11:04 Dose: 25 mg Fluticasone Propionate (Flonase -) 1 spray NS BID [facility] Last Admin: 05/22/19 11:05 Dose: 1 spray Levofloxacin (Levaquin 500 Mg Premixed Ivpb -) 500 mg in 100 mls @ 100 mls/hr IVPB DAILY [facility]; Protocol Last Admin: 05/22/19 11:04 Dose: 100 mls/hr Insulin Aspart (Novolog Vial Sliding Scale -) 1 vial SQ ACHS [facility]; Protocol Last Admin: 05/22/19 11:23 Dose: 3 unit Insulin Aspart (Novolog) 7 units SQ TID@0700,1200,1630 [facility] Last Admin: 05/22/19 11:24 Dose: 7 units Insulin Detemir (Levemir Vial) 46 units SQ [facility] Last Admin: 05/21/19 21:16 Dose: 46 units Loratadine (Claritin -) 10 mg PO [facility] Last Admin: 05/21/19 21:15 Dose: 10 mg Methylprednisolone Sodium Succinate (Solu-Medrol -) 20 mg IVPUSH BID [facility] Last Admin: 05/22/19 11:03 Dose: 20 mg Tacrolimus [Envarsus (Xr] 4 Mg Tab) 12 mg PO DAILY [facility] Last Admin: 05/22/19 11:06 Dose: 12 mg Nystatin (Nystatin Oral Suspension -) 500,000 units PO Q6HPO [facility] Last Admin: 05/22/19 12:05 Dose: 500,000 units Sodium Chloride ([place] Nasal Stone -) 2 spray NS Q1H PRN PRN Reason: NASAL CONGESTION - Objective Vital Signs: Vital Signs Temperature 97.7 F 05/22/19 02:00 Pulse Rate 71 05/22/19 06:54 Respiratory Rate 20 05/22/19 06:54 Blood Pressure 144/66 05/22/19 06:54 O2 Sat by Pulse Oximetry (%) 98 05/21/19 21:00 Constitutional: Yes: Calm Eyes: Yes: Conjunctiva Clear HENT: Yes: Atraumatic Cardiovascular: Yes: S1, S2 Respiratory: Yes: On Nasal O2 Gastrointestinal: Yes: Normal Bowel Sounds, Soft Genitourinary: Yes: WNL, Other (graft soft and non tender) Musculoskeletal: Yes: WNL Edema: No Integumentary: Yes: WNL Neurological: Yes: Oriented Psychiatric: Yes: Oriented Labs: CBC, BMP 05/22/19 05:30 05/22/19 05:30 Problem List - Problems (1) Shortness of breath Code(s): R06.02 - SHORTNESS OF BREATH (2) COPD (chronic obstructive pulmonary disease) with emphysema Code(s): J43.9 - EMPHYSEMA, UNSPECIFIED (3) CRF (chronic renal failure) Code(s): N18.9 - CHRONIC KIDNEY DISEASE, UNSPECIFIED (4) Renal transplant recipient Code(s): Z94.0 - KIDNEY TRANSPLANT STATUS Assessment/Plan Current Medications Generic Name Dose Route Start Last Admin Trade Name Freq PRN Reason Stop Dose Admin Amlodipine Besylate 10 mg 05/15/19 22:00 05/21/19 21:15 Norvasc - PO 10 mg HS [facility] Administration Aspirin 81 mg 05/16/19 10:00 05/22/19 11:04 Asa - PO 81 mg DAILY [facility] Administration Atorvastatin Calcium 10 mg 05/15/19 22:00 05/21/19 21:15 Lipitor - PO 10 mg HS [facility] Administration Carvedilol 25 mg 05/15/19 22:00 05/22/19 11:04 Coreg - PO 25 mg BID [facility] Administration Fluticasone Propionate 1 spray 05/15/19 22:00 05/22/19 11:05 Flonase - NS 1 spray BID [facility] Administration Levofloxacin 500 mg in 100 mls @ 100 mls/hr 05/16/19 10:00 05/22/19 11:04 Levaquin 500 Mg Premixed Ivpb - IVPB 100 mls/hr DAILY [facility] Administration Protocol Insulin Aspart 1 vial 05/15/19 22:00 05/22/19 11:23 Novolog Vial Sliding Scale - SQ 3 unit ACHS [facility] Administration Protocol Insulin Aspart 7 units 05/16/19 09:20 05/22/19 11:24 Novolog SQ 7 units TID@0700,1200,1630 [facility] Administration Insulin Detemir 46 units 05/19/19 15:53 05/21/19 21:16 Levemir Vial SQ 46 units HS [facility] Administration Loratadine 10 mg 05/15/19 22:00 05/21/19 21:15 Claritin - PO 10 mg HS [facility] Administration Methylprednisolone Sodium Succinate 20 mg 05/21/19 10:35 05/22/19 11:03 Solu-Medrol - IVPUSH 20 mg BID [facility] Administration Tacrolimus [Envarsus 12 mg 05/16/19 10:00 05/22/19 11:06 Xr] 4 Mg Tab PO 12 mg DAILY [facility] Administration Nystatin 500,000 units 05/16/19 00:00 05/22/19 12:05 Nystatin Oral Suspension - PO 500,000 units Q6HPO [facility] Administration Sodium Chloride 2 spray 05/15/19 18:50 [place] Nasal [place] - NS Q1H PRN NASAL CONGESTION Impression 1. CKD 2. dyspnea 3. kidney transplant 4. copd 5. pna 6. DM 7. HLD 8. 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
--- NOTE | 2019-05-22 16:19 | PN ---
Progress Note, Physician History of Present Illness: AWAKE, ALERT IN BED APPEARS COMFORTABLE ON NASAL CANNULA O2 4L WAS ABLE TO COUGH UP GREEN[place] SPUTUM SPECIMEN NO HEMOPTYSIS NO C/O CHEST PAIN NO F/C AFEBRILE WBC IMPROVED WNL BC (-) LEGIONELLA AG (-) FUNGITELL (+) ASPERGILLUS AG (-) - Current Medication List Current Medications: Active Medications Amlodipine Besylate (Norvasc -) 10 mg PO HS [facility] Last Admin: 05/21/19 21:15 Dose: 10 mg Aspirin (Asa -) 81 mg PO DAILY [facility] Last Admin: 05/22/19 11:04 Dose: 81 mg Atorvastatin Calcium (Lipitor -) 10 mg PO HS [facility] Last Admin: 05/21/19 21:15 Dose: 10 mg Carvedilol (Coreg -) 25 mg PO BID [facility] Last Admin: 05/22/19 11:04 Dose: 25 mg Fluticasone Propionate (Flonase -) 1 spray NS BID [facility] Last Admin: 05/22/19 11:05 Dose: 1 spray Levofloxacin (Levaquin 500 Mg Premixed Ivpb -) 500 mg in 100 mls @ 100 mls/hr IVPB DAILY [facility]; Protocol Last Admin: 05/22/19 11:04 Dose: 100 mls/hr Insulin Aspart (Novolog Vial Sliding Scale -) 1 vial SQ ACHS [facility]; Protocol Last Admin: 05/22/19 11:23 Dose: 3 unit Insulin Aspart (Novolog) 7 units SQ TID@0700,1200,1630 [facility] Last Admin: 05/22/19 11:24 Dose: 7 units Insulin Detemir (Levemir Vial) 46 units SQ [facility] Last Admin: 05/21/19 21:16 Dose: 46 units Loratadine (Claritin -) 10 mg PO HS [facility] Last Admin: 05/21/19 21:15 Dose: 10 mg Methylprednisolone Sodium Succinate (Solu-Medrol -) 20 mg IVPUSH BID [facility] Last Admin: 05/22/19 11:03 Dose: 20 mg Tacrolimus [Envarsus (Xr] 4 Mg Tab) 12 mg PO DAILY [facility] Last Admin: 05/22/19 11:06 Dose: 12 mg Nystatin (Nystatin Oral Suspension -) 500,000 units PO Q6HPO [facility] Last Admin: 05/22/19 12:05 Dose: 500,000 units Sodium Chloride ([place] Nasal [place] -) 2 spray NS Q1H PRN PRN Reason: NASAL CONGESTION - Objective Vital Signs: Vital Signs Temperature 97.9 F 05/22/19 14:00 Pulse Rate 72 05/22/19 14:00 Respiratory Rate 20 05/22/19 14:00 Blood Pressure 142/67 05/22/19 14:00 O2 Sat by Pulse Oximetry (%) 98 05/21/19 21:00 Constitutional: Yes: No Distress Cardiovascular: Yes: Regular Rate and Rhythm, S1, S2 Respiratory: Yes: Other (FEW CREPITATIONS R BASE) Gastrointestinal: Yes: Normal Bowel Sounds, Soft. No: Tenderness Edema: Yes Edema: LLE: 1+, RLE: 1+ Labs: CBC, BMP 05/22/19 05:30 05/22/19 05:30 Assessment/Plan PNEUMONIA ? ETIO COPD EXACERBATION R/O CAVITARY LUNG LESION RENAL TRANSPLANT ON IMMUNOSUPPRESSIVE TX + SPUTUM C/S PSEUDOMONAS, MOLD CONTINUE LEVAQUIN ? BRONCH TRANSFER TO TRANSPLANT CTR
[2019-05-22] MEDS ORDERED: PT OWN MED DRAWER 7, Y5N ONE (19:50)
[2019-05-22] MEDS: ALBUTEROL SO4 0.083% IH SOL 2.5 MG/3 ML VIAL.NEB. NEB PRN (21:10)
[2019-05-22] MEDS: ATORVASTATIN CA 10 MG TABLET (FP) PO SCH (22:00)
[2019-05-22] MEDS: LORATADINE 10 MG TABLET PO SCH (22:00)
[2019-05-22] MEDS: amLODIPine BESYLATE 10 MG TABLET (FP) PO SCH (22:00)
[2019-05-22] MEDS: INSULIN (LEVEMIR) 100 UNITS/ML UNITS SQ SCH (22:02)
[2019-05-23] MEDS: NYSTATIN 500,000 UNITS/5 ML SUSPENSION PO SCH ×4 (06:28→19:21)
[2019-05-23 06:33] LABS: HEMATOCRIT 29.5 % (35.4-49); HEMOGLOBIN 9.3 GM/dL (11.7-16.9); MCH 25.6 pg (25.7-33.7); MCHC 31.4 g/dl (32.0-35.9); MEAN CELL VOLUME 81.4 fl (80-96); MEAN PLT VOLUME 7.4 fl (7.5-11.1); PLATELET COUNT 209 K/MM3 (134-434); RBC 3.62 M/mm3 (4.00-5.60); RDW 18.2 % (11.9-15.9); WHITE BLOOD COUNT 6.3 K/mm3 (4.0-10.0)
[2019-05-23] MEDS: INSULIN SLIDING SCALE (NOVOLOG) 1 VIAL SQ SCH ×4 (06:36→22:39)
[2019-05-23] MEDS: Insulin (LOG) Aspart 100 UNITS/ML VIAL SQ SCH ×3 (06:36→17:44)
[2019-05-23 06:58] LABS: CALCIUM 8.9 mg/dL (8.5-10.1); CREATININE 1.3 mg/dL (0.55-1.3); POTASSIUM 5.1 mmol/L (3.5-5.1)
[2019-05-23] MEDS: CARVEDILOL 25 MG TABLET (FP) PO SCH ×2 (10:27→22:34)
[2019-05-23] MEDS: ASPIRIN 81 MG CHEWABLE TABLETS PO SCH (10:27)
[2019-05-23] MEDS: TACROLIMUS 4 MG PO SCH (10:28)
[2019-05-23] MEDS: methylPREDNISolone NA SUCC 40 MG/1 ML VIAL IVPUSH SCH ×2 (10:28→22:34)
[2019-05-23] MEDS: FLUTICASONE PROP 0.05% 16 GM NASAL SPRAY NS SCH ×2 (10:37→22:39)
[2019-05-23] MEDS ORDERED: PT OWN MED DRAWER 7, Y5N ONE (10:43)
[2019-05-23] MEDS: ALBUTEROL SO4 0.083% IH SOL 2.5 MG/3 ML VIAL.NEB. NEB PRN ×2 (11:15→20:29)
--- NOTE | 2019-05-23 11:31 | PN ---
Progress Note, Physician History of Present Illness: PULMONARY ALERT,FEELS WEAK ,LESS DYSPNEIC,-HEMOPTYSIS - Current Medication List Current Medications: Active Medications Albuterol Sulfate (Ventolin 0.083% Nebulizer Soln -) 1 amp NEB Q4H PRN PRN Reason: SHORT OF BREATH/WHEEZING Last Admin: 05/22/19 21:10 Dose: 1 amp Amlodipine Besylate (Norvasc -) 10 mg PO [facility] Last Admin: 05/22/19 22:00 Dose: 10 mg Aspirin (Asa -) 81 mg PO DAILY [facility] Last Admin: 05/23/19 10:27 Dose: 81 mg Atorvastatin Calcium (Lipitor -) 10 mg PO [facility] Last Admin: 05/22/19 22:00 Dose: 10 mg Carvedilol (Coreg -) 25 mg PO BID [facility] Last Admin: 05/23/19 10:27 Dose: 25 mg Fluticasone Propionate (Flonase -) 1 spray NS BID [facility] Last Admin: 05/23/19 10:37 Dose: Not Given Levofloxacin (Levaquin 500 Mg Premixed Ivpb -) 500 mg in 100 mls @ 100 mls/hr IVPB DAILY [facility]; Protocol Last Admin: 05/23/19 10:28 Dose: 100 mls/hr Insulin Aspart (Novolog Vial Sliding Scale -) 1 vial SQ ACHS [facility]; Protocol Last Admin: 05/23/19 06:36 Dose: 10 unit Insulin Aspart (Novolog) 7 units SQ TID@0700,1200,1630 [facility] Last Admin: 05/23/19 06:36 Dose: 7 units Insulin Detemir (Levemir Vial) 46 units SQ [facility] Last Admin: 05/22/19 22:02 Dose: 46 units Loratadine (Claritin -) 10 mg PO [facility] Last Admin: 05/22/19 22:00 Dose: 10 mg Methylprednisolone Sodium Succinate (Solu-Medrol -) 20 mg IVPUSH BID [facility] Last Admin: 05/23/19 10:28 Dose: 20 mg Tacrolimus [Envarsus (Xr] 4 Mg Tab) 12 mg PO DAILY [facility] Last Admin: 05/23/19 10:28 Dose: 12 mg Nystatin (Nystatin Oral Suspension -) 500,000 units PO Q6HPO [facility] Last Admin: 05/23/19 06:28 Dose: 500,000 units Sodium Chloride ([place] Nasal [place] -) 2 spray NS Q1H PRN PRN Reason: NASAL CONGESTION - Objective Vital Signs: Vital Signs Temperature 98.2 F 05/23/19 05:58 Pulse Rate 73 05/23/19 05:58 Respiratory Rate 20 05/23/19 05:58 Blood Pressure 142/64 05/23/19 05:58 O2 Sat by Pulse Oximetry (%) 98 05/22/19 20:40 Constitutional: Yes: Calm, Thin Eyes: Yes: WNL HENT: Yes: WNL Neck: Yes: WNL Cardiovascular: Yes: Regular Rate and Rhythm, S1, S2 Respiratory: Yes: Rales (BIB[place]ILAR RALES) Gastrointestinal: Yes: Normal Bowel Sounds, Soft Extremities: Yes: WNL Edema: No Labs: CBC, BMP 05/23/19 05:02 05/23/19 05:02 Assessment/Plan Problem List - Problems (1) COPD with acute exacerbation Code(s): J44.1 - CHRONIC OBSTRUCTIVE PULMONARY DISEASE W (ACUTE) EXACERBATION (2) Acute exacerbation of bronchiectasis Code(s): J47.1 - BRONCHIECTASIS WITH (ACUTE) EXACERBATION Assessment/Plan Acute COPD/Bronchiectasis Exacerbation improving Hemoptysis resolved Pneumonia clinically improving r/o Fungal Pneumonia Chronic Hypoxic Respiratory Failure CKD s/p Renal Transplant on immunosuppressants HTN DM Hyperlipidemia - Prednisone 40 mmg daily - IV antibiotics as per ID?antifungals - inhaled bronchodilators - O2 to keep SpO2 >90% - monitor urine output, creatinine - awaiting transfer to transplant center - DVT prophylaxis - f/u chest ct - possible flex bronch DR SALDANA
--- NOTE | 2019-05-23 13:17 | PN ---
Progress Note, Physician History of Present Illness: Pt seen and examined at bedside. He does not feel much different. He denies fevers or chills. - Current Medication List Current Medications: Active Medications Albuterol Sulfate (Ventolin 0.083% Nebulizer Soln -) 1 amp NEB Q4H PRN PRN Reason: SHORT OF BREATH/WHEEZING Last Admin: 05/22/19 21:10 Dose: 1 amp Amlodipine Besylate (Norvasc -) 10 mg PO HS [facility] Last Admin: 05/22/19 22:00 Dose: 10 mg Aspirin (Asa -) 81 mg PO DAILY [facility] Last Admin: 05/23/19 10:27 Dose: 81 mg Atorvastatin Calcium (Lipitor -) 10 mg PO HS [facility] Last Admin: 05/22/19 22:00 Dose: 10 mg Carvedilol (Coreg -) 25 mg PO BID [facility] Last Admin: 05/23/19 10:27 Dose: 25 mg Fluticasone Propionate (Flonase -) 1 spray NS BID [facility] Last Admin: 05/23/19 10:37 Dose: Not Given Levofloxacin (Levaquin 500 Mg Premixed Ivpb -) 500 mg in 100 mls @ 100 mls/hr IVPB DAILY [facility]; Protocol Last Admin: 05/23/19 10:28 Dose: 100 mls/hr Insulin Aspart (Novolog Vial Sliding Scale -) 1 vial SQ ACHS [facility]; Protocol Last Admin: 05/23/19 12:31 Dose: 3 unit Insulin Aspart (Novolog) 7 units SQ TID@0700,1200,1630 [facility] Last Admin: 05/23/19 12:30 Dose: 7 units Insulin Detemir (Levemir Vial) 46 units SQ HS [facility] Last Admin: 05/22/19 22:02 Dose: 46 units Loratadine (Claritin -) 10 mg PO HS [facility] Last Admin: 05/22/19 22:00 Dose: 10 mg Methylprednisolone Sodium Succinate (Solu-Medrol -) 20 mg IVPUSH BID [facility] Stop: 05/23/19 23:00 Last Admin: 05/23/19 10:28 Dose: 20 mg Tacrolimus [Envarsus (Xr] 4 Mg Tab) 12 mg PO DAILY [facility] Last Admin: 05/23/19 10:28 Dose: 12 mg Nystatin (Nystatin Oral Suspension -) 500,000 units PO Q6HPO [facility] Last Admin: 05/23/19 12:35 Dose: 500,000 units Prednisone (Deltasone -) 40 mg PO DAILY [facility] Sodium Chloride ([place] Nasal [place] -) 2 spray NS Q1H PRN PRN Reason: NASAL CONGESTION - Objective Vital Signs: Vital Signs Temperature 98.0 F 05/23/19 09:45 Pulse Rate 71 05/23/19 09:45 Respiratory Rate 21 H 05/23/19 09:45 Blood Pressure 142/65 05/23/19 09:45 O2 Sat by Pulse Oximetry (%) 99 05/23/19 09:00 Constitutional: Yes: Calm Eyes: Yes: Conjunctiva Clear HENT: Yes: Atraumatic Neck: Yes: Supple Cardiovascular: Yes: S1, S2 Respiratory: Yes: On Nasal O2 Gastrointestinal: Yes: Normal Bowel Sounds, Soft Genitourinary: Yes: Other (graft soft and non tender) Musculoskeletal: Yes: WNL Edema: No Neurological: Yes: Oriented Psychiatric: Yes: Oriented Labs: CBC, BMP 05/23/19 05:02 05/23/19 05:02 Problem List - Problems (1) Shortness of breath Code(s): R06.02 - SHORTNESS OF BREATH (2) COPD (chronic obstructive pulmonary disease) with emphysema Code(s): J43.9 - EMPHYSEMA, UNSPECIFIED (3) CRF (chronic renal failure) Code(s): N18.9 - CHRONIC KIDNEY DISEASE, UNSPECIFIED (4) Renal transplant recipient Code(s): Z94.0 - KIDNEY TRANSPLANT STATUS Assessment/Plan Current Medications Generic Name Dose Route Start Last Admin Trade Name Freq PRN Reason Stop Dose Admin Albuterol Sulfate 1 amp 05/22/19 19:58 05/22/19 21:10 Ventolin 0.083% Nebulizer Soln - NEB 1 amp Q4H PRN Administration SHORT OF BREATH/WHEEZING Amlodipine Besylate 10 mg 05/15/19 22:00 05/22/19 22:00 Norvasc - PO 10 mg HS [facility] Administration Aspirin 81 mg 05/16/19 10:00 05/23/19 10:27 Asa - PO 81 mg DAILY [facility] Administration Atorvastatin Calcium 10 mg 05/15/19 22:00 05/22/19 22:00 Lipitor - PO 10 mg HS [facility] Administration Carvedilol 25 mg 05/15/19 22:00 05/23/19 10:27 Coreg - PO 25 mg BID [facility] Administration Fluticasone Propionate 1 spray 05/15/19 22:00 05/23/19 10:37 Flonase - NS Not Given BID [facility] Levofloxacin 500 mg in 100 mls @ 100 mls/hr 05/16/19 10:00 05/23/19 10:28 Levaquin 500 Mg Premixed Ivpb - IVPB 100 mls/hr DAILY [facility] Administration Protocol Insulin Aspart 1 vial 05/15/19 22:00 05/23/19 12:31 Novolog Vial Sliding Scale - SQ 3 unit ACHS [facility] Administration Protocol Insulin Aspart 7 units 05/16/19 09:20 05/23/19 12:30 Novolog SQ 7 units TID@0700,1200,1630 [facility] Administration Insulin Detemir 46 units 05/19/19 15:53 05/22/19 22:02 Levemir Vial SQ 46 units HS [facility] Administration Loratadine 10 mg 05/15/19 22:00 05/22/19 22:00 Claritin - PO 10 mg HS [facility] Administration Methylprednisolone Sodium Succinate 20 mg 05/21/19 10:35 05/23/19 10:28 Solu-Medrol - IVPUSH 05/23/19 23:00 20 mg BID [facility] Administration Tacrolimus [Envarsus 12 mg 05/16/19 10:00 05/23/19 10:28 Xr] 4 Mg Tab PO 12 mg DAILY [facility] Administration Nystatin 500,000 units 05/16/19 00:00 05/23/19 12:35 Nystatin Oral Suspension - PO 500,000 units Q6HPO [facility] Administration Prednisone 40 mg 05/24/19 10:00 Deltasone - PO DAILY [facility] Sodium Chloride 2 spray 05/15/19 18:50 [place] Nasal [place] - NS Q1H PRN NASAL CONGESTION Laboratory Tests 05/05/19 05/21/19 06:00 05:08 Tacrolimus Pending 4.1 Impression 1. CKD 2. dyspnea 3. kidney transplant 4. copd 5. pna 6. DM 7. HLD 8. HTN Plan - renal function is stable - avoid nephrotoxins - still pending transfer to tertiary care center - discussed with pulmonary - needs transplant eval as resistive index was high on last ultrasound - pt is not on MMF (hx of leukopenia)
--- NOTE | 2019-05-23 17:49 | PN ---
Progress Note, Physician History of Present Illness: Pt w/o CP, palpitations, SOB, abd pain, N, V. Pt states that his breathing is the same for the last couple of days - Current Medication List Current Medications: Active Medications Albuterol Sulfate (Ventolin 0.083% Nebulizer Soln -) 1 amp NEB Q4H PRN PRN Reason: SHORT OF BREATH/WHEEZING Last Admin: 05/23/19 11:15 Dose: 1 amp Amlodipine Besylate (Norvasc -) 10 mg PO [facility] Last Admin: 05/22/19 22:00 Dose: 10 mg Aspirin (Asa -) 81 mg PO DAILY [facility] Last Admin: 05/23/19 10:27 Dose: 81 mg Atorvastatin Calcium (Lipitor -) 10 mg PO HS [facility] Last Admin: 05/22/19 22:00 Dose: 10 mg Carvedilol (Coreg -) 25 mg PO BID [facility] Last Admin: 05/23/19 10:27 Dose: 25 mg Fluticasone Propionate (Flonase -) 1 spray NS BID [facility] Last Admin: 05/23/19 10:37 Dose: Not Given Levofloxacin (Levaquin 500 Mg Premixed Ivpb -) 500 mg in 100 mls @ 100 mls/hr IVPB DAILY [facility]; Protocol Last Admin: 05/23/19 10:28 Dose: 100 mls/hr Insulin Aspart (Novolog Vial Sliding Scale -) 1 vial SQ ACHS [facility]; Protocol Last Admin: 05/23/19 12:31 Dose: 3 unit Insulin Aspart (Novolog) 7 units SQ TID@0700,1200,1630 [facility] Last Admin: 05/23/19 12:30 Dose: 7 units Insulin Detemir (Levemir Vial) 46 units SQ HS [facility] Last Admin: 05/22/19 22:02 Dose: 46 units Loratadine (Claritin -) 10 mg PO HS [facility] Last Admin: 05/22/19 22:00 Dose: 10 mg Methylprednisolone Sodium Succinate (Solu-Medrol -) 20 mg IVPUSH BID [facility] Stop: 05/23/19 23:00 Last Admin: 05/23/19 10:28 Dose: 20 mg Tacrolimus [Envarsus (Xr] 4 Mg Tab) 12 mg PO DAILY [facility] Last Admin: 05/23/19 10:28 Dose: 12 mg Nystatin (Nystatin Oral Suspension -) 500,000 units PO Q6HPO [facility] Last Admin: 05/23/19 12:35 Dose: 500,000 units Prednisone (Deltasone -) 40 mg PO DAILY [facility] Sodium Chloride ([place] Nasal Dequin[place] -) 2 spray NS Q1H PRN PRN Reason: NASAL CONGESTION - Objective Vital Signs: Vital Signs Temperature 97.7 F 05/23/19 15:36 Pulse Rate 75 05/23/19 15:36 Respiratory Rate 20 05/23/19 15:36 Blood Pressure 136/61 05/23/19 15:36 O2 Sat by Pulse Oximetry (%) 99 05/23/19 09:00 Constitutional: Yes: No Distress, Calm Cardiovascular: Yes: Regular Rate and Rhythm, S1, S2 Respiratory: Yes: Regular, Rhonchi, Other (coarse BS bilaterally). No: Wheezes Gastrointestinal: Yes: Normal Bowel Sounds, Soft, Tenderness Edema: No Neurological: Yes: Alert, Oriented Labs: CBC, BMP 05/23/19 05:02 05/23/19 05:02 Problem List - Problems (1) Pneumonia Code(s): J18.9 - PNEUMONIA, UNSPECIFIED ORGANISM Qualifiers: Pneumonia type: due to unspecified organism Laterality: bilateral Lung location: lower lobe of lung Qualified Code(s): J18.1 - Lobar pneumonia, unspecified organism (2) Hemoptysis, unspecified Code(s): R04.2 - HEMOPTYSIS (3) COPD (chronic obstructive pulmonary disease) with emphysema Code(s): J43.9 - EMPHYSEMA, UNSPECIFIED (4) COPD with acute exacerbation Code(s): J44.1 - CHRONIC OBSTRUCTIVE PULMONARY DISEASE W (ACUTE) EXACERBATION (5) Renal transplant recipient Code(s): Z94.0 - KIDNEY TRANSPLANT STATUS (6) CRF (chronic renal failure) Code(s): N18.9 - CHRONIC KIDNEY DISEASE, UNSPECIFIED (7) Diabetes mellitus Code(s): E11.9 - TYPE 2 DIABETES MELLITUS WITHOUT COMPLICATIONS (8) Generalized weakness Code(s): R53.1 - WEAKNESS (9) Anemia Code(s): D64.9 - ANEMIA, UNSPECIFIED Qualifiers: Anemia type: due to chronic kidney disease Chronic kidney disease stage: stage 5, not on chronic dialysis Qualified Code(s): N18.5 - Chronic kidney disease, stage 5; D63.1 - Anemia in chronic kidney disease Assessment/Plan IV abtx IV steroids -to f/u with Pulmonary ID, Pulmonary, Renal consults are appreciated. Pt's condition was d/w Dr. Muniz at bedside; consider repeating chest CT scan. Consider bronchospcopy if pt is consider stable enough. To continue to monitor BGM. Sputum CX, form previous admission, came back + for Aspergillus Fumigatus but Aspergillus antibody is negative AM labs
[2019-05-23] MEDS: amLODIPine BESYLATE 10 MG TABLET (FP) PO SCH (22:33)
[2019-05-23] MEDS: LORATADINE 10 MG TABLET PO SCH (22:33)
[2019-05-23] MEDS: ATORVASTATIN CA 10 MG TABLET (FP) PO SCH (22:34)
[2019-05-23] MEDS: INSULIN (LEVEMIR) 100 UNITS/ML UNITS SQ SCH (22:36)
[2019-05-24] MEDS: NYSTATIN 500,000 UNITS/5 ML SUSPENSION PO SCH ×4 (01:27→17:51)
[2019-05-24] MEDS: ALBUTEROL SO4 0.083% IH SOL 2.5 MG/3 ML VIAL.NEB. NEB PRN ×2 (02:39→18:20)
[2019-05-24] MEDS: INSULIN SLIDING SCALE (NOVOLOG) 1 VIAL SQ SCH ×4 (06:46→22:00)
[2019-05-24] MEDS: Insulin (LOG) Aspart 100 UNITS/ML VIAL SQ SCH ×3 (06:47→17:51)
[2019-05-24] MEDS: TACROLIMUS 4 MG PO SCH (09:21)
[2019-05-24] MEDS: CARVEDILOL 25 MG TABLET (FP) PO SCH ×2 (09:21→21:12)
[2019-05-24] MEDS: predniSONE 20 MG TABLET (UD) PO SCH (09:21)
[2019-05-24] MEDS: ASPIRIN 81 MG CHEWABLE TABLETS PO SCH (09:21)
[2019-05-24] MEDS: FLUTICASONE PROP 0.05% 16 GM NASAL SPRAY NS SCH ×2 (09:32→21:22)
--- NOTE | 2019-05-24 11:21 | PN ---
Progress Note, Physician History of Present Illness: PULMONARY ALERT,NO CHANGE,+ DIETZ,WEAK - Current Medication List Current Medications: Active Medications Albuterol Sulfate (Ventolin 0.083% Nebulizer Soln -) 1 amp NEB Q4H PRN PRN Reason: SHORT OF BREATH/WHEEZING Last Admin: 05/24/19 02:39 Dose: 1 amp Amlodipine Besylate (Norvasc -) 10 mg PO [facility] Last Admin: 05/23/19 22:33 Dose: 10 mg Aspirin (Asa -) 81 mg PO DAILY [facility] Last Admin: 05/24/19 09:21 Dose: 81 mg Atorvastatin Calcium (Lipitor -) 10 mg PO HS [facility] Last Admin: 05/23/19 22:34 Dose: 10 mg Carvedilol (Coreg -) 25 mg PO BID [facility] Last Admin: 05/24/19 09:21 Dose: 25 mg Fluticasone Propionate (Flonase -) 1 spray NS BID [facility] Last Admin: 05/24/19 09:32 Dose: 1 spray Levofloxacin (Levaquin 500 Mg Premixed Ivpb -) 500 mg in 100 mls @ 100 mls/hr IVPB DAILY [facility]; Protocol Last Admin: 05/24/19 09:21 Dose: 100 mls/hr Insulin Aspart (Novolog Vial Sliding Scale -) 1 vial SQ ACHS [facility]; Protocol Last Admin: 05/24/19 06:46 Dose: 7 unit Insulin Aspart (Novolog) 7 units SQ TID@0700,1200,1630 [facility] Last Admin: 05/24/19 06:47 Dose: 7 units Insulin Detemir (Levemir Vial) 46 units SQ [facility] Last Admin: 05/23/19 22:36 Dose: 46 units Loratadine (Claritin -) 10 mg PO HS [facility] Last Admin: 05/23/19 22:33 Dose: 10 mg Tacrolimus [Envarsus (Xr] 4 Mg Tab) 12 mg PO DAILY [facility] Last Admin: 05/24/19 09:21 Dose: 12 mg Nystatin (Nystatin Oral Suspension -) 500,000 units PO Q6HPO [facility] Last Admin: 05/24/19 06:46 Dose: 500,000 units Prednisone (Deltasone -) 40 mg PO DAILY [facility] Last Admin: 05/24/19 09:21 Dose: 40 mg Sodium Chloride ([place] Nasal [place] -) 2 spray NS Q1H PRN PRN Reason: NASAL CONGESTION - Objective Vital Signs: Vital Signs Temperature 97.4 F L 05/24/19 10:00 Pulse Rate 80 05/24/19 10:00 Respiratory Rate 22 H 05/24/19 10:00 Blood Pressure 160/76 05/24/19 10:00 O2 Sat by Pulse Oximetry (%) 99 05/23/19 21:00 Constitutional: Yes: Calm, Thin Eyes: Yes: WNL HENT: Yes: WNL Neck: Yes: WNL Cardiovascular: Yes: Regular Rate and Rhythm, S1, S2 Respiratory: Yes: Rales (BILATERAL COARSE RALES) Gastrointestinal: Yes: Normal Bowel Sounds, Soft Extremities: Yes: WNL Edema: No Labs: Assessment/Plan Problem List - Problems (1) COPD with acute exacerbation Code(s): J44.1 - CHRONIC OBSTRUCTIVE PULMONARY DISEASE W (ACUTE) EXACERBATION (2) Acute exacerbation of bronchiectasis Code(s): J47.1 - BRONCHIECTASIS WITH (ACUTE) EXACERBATION Assessment/Plan Acute COPD/Bronchiectasis Exacerbation improving Hemoptysis resolved Pneumonia clinically improving r/o Fungal Pneumonia Chronic Hypoxic Respiratory Failure CKD s/p Renal Transplant on immunosuppressants HTN DM Hyperlipidemia - Prednisone 40 mg daily - IV antibiotics as per ID?antifungals - inhaled bronchodilators - O2 to keep SpO2 >90% - monitor urine output, creatinine - awaiting transfer to transplant center - DVT prophylaxis - possible flex bronch DR SALDANA
--- NOTE | 2019-05-24 12:58 | PN ---
Progress Note, Physician History of Present Illness: Pt seen and examined at bedside. He is awake and alert. He does not feel that his breathing is improved. He denies dysuria or hematuria. - Current Medication List Current Medications: Active Medications Albuterol Sulfate (Ventolin 0.083% Nebulizer Soln -) 1 amp NEB Q4H PRN PRN Reason: SHORT OF BREATH/WHEEZING Last Admin: 05/24/19 02:39 Dose: 1 amp Amlodipine Besylate (Norvasc -) 10 mg PO HS [facility] Last Admin: 05/23/19 22:33 Dose: 10 mg Aspirin (Asa -) 81 mg PO DAILY [facility] Last Admin: 05/24/19 09:21 Dose: 81 mg Atorvastatin Calcium (Lipitor -) 10 mg PO HS [facility] Last Admin: 05/23/19 22:34 Dose: 10 mg Carvedilol (Coreg -) 25 mg PO BID [facility] Last Admin: 05/24/19 09:21 Dose: 25 mg Fluticasone Propionate (Flonase -) 1 spray NS BID [facility] Last Admin: 05/24/19 09:32 Dose: 1 spray Levofloxacin (Levaquin 500 Mg Premixed Ivpb -) 500 mg in 100 mls @ 100 mls/hr IVPB DAILY [facility]; Protocol Last Admin: 05/24/19 09:21 Dose: 100 mls/hr Insulin Aspart (Novolog Vial Sliding Scale -) 1 vial SQ ACHS [facility]; Protocol Last Admin: 05/24/19 12:36 Dose: 3 unit Insulin Aspart (Novolog) 7 units SQ TID@0700,1200,1630 [facility] Last Admin: 05/24/19 12:36 Dose: 7 units Insulin Detemir (Levemir Vial) 46 units SQ HS [facility] Last Admin: 05/23/19 22:36 Dose: 46 units Loratadine (Claritin -) 10 mg PO HS [facility] Last Admin: 05/23/19 22:33 Dose: 10 mg Tacrolimus [Envarsus (Xr] 4 Mg Tab) 12 mg PO DAILY [facility] Last Admin: 05/24/19 09:21 Dose: 12 mg Nystatin (Nystatin Oral Suspension -) 500,000 units PO Q6HPO [facility] Last Admin: 05/24/19 12:36 Dose: 500,000 units Prednisone (Deltasone -) 40 mg PO DAILY [facility] Last Admin: 05/24/19 09:21 Dose: 40 mg Sodium Chloride ([place]al [place] -) 2 spray NS Q1H PRN PRN Reason: NASAL CONGESTION - Objective Vital Signs: Vital Signs Temperature 97.4 F L 05/24/19 10:00 Pulse Rate 80 05/24/19 10:00 Respiratory Rate 22 H 05/24/19 10:00 Blood Pressure 160/76 05/24/19 10:00 O2 Sat by Pulse Oximetry (%) 99 05/23/19 21:00 Constitutional: Yes: Calm Eyes: Yes: Conjunctiva Clear HENT: Yes: Atraumatic Neck: Yes: Supple Cardiovascular: Yes: S1, S2 Respiratory: Yes: On Nasal O2, Rhonchi Gastrointestinal: Yes: Soft Genitourinary: Yes: WNL Musculoskeletal: Yes: WNL Edema: No Neurological: Yes: Oriented Psychiatric: Yes: Oriented Labs: CBC, BMP 05/23/19 05:02 05/23/19 05:02 Problem List - Problems (1) Shortness of breath Code(s): R06.02 - SHORTNESS OF BREATH (2) COPD (chronic obstructive pulmonary disease) with emphysema Code(s): J43.9 - EMPHYSEMA, UNSPECIFIED (3) CRF (chronic renal failure) Code(s): N18.9 - CHRONIC KIDNEY DISEASE, UNSPECIFIED (4) Renal transplant recipient Code(s): Z94.0 - KIDNEY TRANSPLANT STATUS Assessment/Plan Current Medications Generic Name Dose Route Start Last Admin Trade Name Freq PRN Reason Stop Dose Admin Albuterol Sulfate 1 amp 05/22/19 19:58 05/24/19 02:39 Ventolin 0.083% Nebulizer Soln - NEB 1 amp Q4H PRN Administration SHORT OF BREATH/WHEEZING Amlodipine Besylate 10 mg 05/15/19 22:00 05/23/19 22:33 Norvasc - PO 10 mg HS [facility] Administration Aspirin 81 mg 05/16/19 10:00 05/24/19 09:21 Asa - PO 81 mg DAILY [facility] Administration Atorvastatin Calcium 10 mg 05/15/19 22:00 05/23/19 22:34 Lipitor - PO 10 mg HS [facility] Administration Carvedilol 25 mg 05/15/19 22:00 05/24/19 09:21 Coreg - PO 25 mg BID [facility] Administration Fluticasone Propionate 1 spray 05/15/19 22:00 05/24/19 09:32 Flonase - NS 1 spray BID [facility] Administration Levofloxacin 500 mg in 100 mls @ 100 mls/hr 05/16/19 10:00 05/24/19 09:21 Levaquin 500 Mg Premixed Ivpb - IVPB 100 mls/hr DAILY [facility] Administration Protocol Insulin Aspart 1 vial 05/15/19 22:00 05/24/19 12:36 Novolog Vial Sliding Scale - SQ 3 unit ACHS [facility] Administration Protocol Insulin Aspart 7 units 05/16/19 09:20 05/24/19 12:36 Novolog SQ 7 units TID@0700,1200,1630 [facility] Administration Insulin Detemir 46 units 05/19/19 15:53 05/23/19 22:36 Levemir Vial SQ 46 units HS [facility] Administration Loratadine 10 mg 05/15/19 22:00 05/23/19 22:33 Claritin - PO 10 mg HS [facility] Administration Tacrolimus [Envarsus 12 mg 05/16/19 10:00 05/24/19 09:21 Xr] 4 Mg Tab PO 12 mg DAILY [facility] Administration Nystatin 500,000 units 05/16/19 00:00 05/24/19 12:36 Nystatin Oral Suspension - PO 500,000 units Q6HPO [facility] Administration Prednisone 40 mg 05/24/19 10:00 05/24/19 09:21 Deltasone - PO 40 mg DAILY [facility] Administration Sodium Chloride 2 spray 05/15/19 18:50 [place] Nasal [place] - NS Q1H PRN NASAL CONGESTION Impression 1. CKD 2. dyspnea 3. kidney transplant 4. copd 5. pna 6. DM 7. HLD 8. HTN Plan - check bmp - follow up ct scan, results pending - ID follow up - avoid nephrotoxins if possible - still pending transfer to tertiary care center - needs transplant eval as resistive index was high on last ultrasound - pt is not on MMF (hx of leukopenia)
[2019-05-24] MEDS ORDERED: PT OWN MED DRAWER 7, Y5N ONE (18:13)
--- NOTE | 2019-05-24 19:24 | PN ---
Progress Note, Physician History of Present Illness: Pt w/o CP, palpitations, SOB, abd pain, N, V. Pt states that his breathing is unchanged. - Current Medication List Current Medications: Active Medications Albuterol Sulfate (Ventolin 0.083% Nebulizer Soln -) 1 amp NEB Q4H PRN PRN Reason: SHORT OF BREATH/WHEEZING Last Admin: 05/24/19 18:20 Dose: 1 amp Amlodipine Besylate (Norvasc -) 10 mg PO HS [facility] Last Admin: 05/23/19 22:33 Dose: 10 mg Aspirin (Asa -) 81 mg PO DAILY [facility] Last Admin: 05/24/19 09:21 Dose: 81 mg Atorvastatin Calcium (Lipitor -) 10 mg PO HS [facility] Last Admin: 05/23/19 22:34 Dose: 10 mg Carvedilol (Coreg -) 25 mg PO BID [facility] Last Admin: 05/24/19 09:21 Dose: 25 mg Fluticasone Propionate (Flonase -) 1 spray NS BID [facility] Last Admin: 05/24/19 09:32 Dose: 1 spray Levofloxacin (Levaquin 500 Mg Premixed Ivpb -) 500 mg in 100 mls @ 100 mls/hr IVPB DAILY [facility]; Protocol Last Admin: 05/24/19 09:21 Dose: 100 mls/hr Insulin Aspart (Novolog Vial Sliding Scale -) 1 vial SQ ACHS [facility]; Protocol Last Admin: 05/24/19 17:51 Dose: 7 unit Insulin Aspart (Novolog) 7 units SQ TID@0700,1200,1630 [facility] Last Admin: 05/24/19 17:51 Dose: 7 units Insulin Detemir (Levemir Vial) 46 units SQ HS [facility] Last Admin: 05/23/19 22:36 Dose: 46 units Loratadine (Claritin -) 10 mg PO HS [facility] Last Admin: 05/23/19 22:33 Dose: 10 mg Tacrolimus [Envarsus (Xr] 4 Mg Tab) 12 mg PO DAILY [facility] Last Admin: 05/24/19 09:21 Dose: 12 mg Nystatin (Nystatin Oral Suspension -) 500,000 units PO Q6HPO [facility] Last Admin: 05/24/19 17:51 Dose: 500,000 units Prednisone (Deltasone -) 40 mg PO DAILY [facility] Last Admin: 05/24/19 09:21 Dose: 40 mg Sodium Chloride ([place] Nasal [place] -) 2 spray NS Q1H PRN PRN Reason: NASAL CONGESTION - Objective Vital Signs: Vital Signs Temperature 98.3 F 05/24/19 17:00 Pulse Rate 82 05/24/19 17:00 Respiratory Rate 20 05/24/19 17:00 Blood Pressure 151/69 05/24/19 17:00 O2 Sat by Pulse Oximetry (%) 96 05/24/19 09:00 Constitutional: Yes: No Distress, Calm Cardiovascular: Yes: Regular Rate and Rhythm, S1, S2 Respiratory: Yes: Regular, Rhonchi, Other (coarse BS bilat) Gastrointestinal: Yes: Normal Bowel Sounds, Soft. No: Tenderness Edema: No Neurological: Yes: Alert, Oriented Labs: CBC, BMP 05/23/19 05:02 05/23/19 05:02 Problem List - Problems (1) Pneumonia Code(s): J18.9 - PNEUMONIA, UNSPECIFIED ORGANISM Qualifiers: Pneumonia type: due to unspecified organism Laterality: bilateral Lung location: lower lobe of lung Qualified Code(s): J18.1 - Lobar pneumonia, unspecified organism (2) Hemoptysis, unspecified Code(s): R04.2 - HEMOPTYSIS (3) COPD (chronic obstructive pulmonary disease) with emphysema Code(s): J43.9 - EMPHYSEMA, UNSPECIFIED (4) COPD with acute exacerbation Code(s): J44.1 - CHRONIC OBSTRUCTIVE PULMONARY DISEASE W (ACUTE) EXACERBATION (5) Renal transplant recipient Code(s): Z94.0 - KIDNEY TRANSPLANT STATUS (6) CRF (chronic renal failure) Code(s): N18.9 - CHRONIC KIDNEY DISEASE, UNSPECIFIED (7) Diabetes mellitus Code(s): E11.9 - TYPE 2 DIABETES MELLITUS WITHOUT COMPLICATIONS (8) Generalized weakness Code(s): R53.1 - WEAKNESS (9) Anemia Code(s): D64.9 - ANEMIA, UNSPECIFIED Qualifiers: Anemia type: due to chronic kidney disease Chronic kidney disease stage: stage 5, not on chronic dialysis Qualified Code(s): N18.5 - Chronic kidney disease, stage 5; D63.1 - Anemia in chronic kidney disease Assessment/Plan IV abtx PO steroids -to f/u with Pulmonary ID, Pulmonary, Renal consults are appreciated. To continue to monitor BGM. Sputum CX, form previous admission, came back + for Aspergillus Fumigatus but Aspergillus antibody is negative. To f/u wiht Pulmonary if pt can tolerate bronchoscopy AM labs
[2019-05-24] MEDS: ALBUTEROL SO4 0.083% IH SOL 2.5 MG/3 ML VIAL.NEB. NEB SCH (21:00)
[2019-05-24] MEDS: LORATADINE 10 MG TABLET PO SCH (21:12)
[2019-05-24] MEDS: ATORVASTATIN CA 10 MG TABLET (FP) PO SCH (21:12)
[2019-05-24] MEDS: amLODIPine BESYLATE 10 MG TABLET (FP) PO SCH (21:12)
[2019-05-24] MEDS: INSULIN (LEVEMIR) 100 UNITS/ML UNITS SQ SCH (21:21)
[2019-05-25] MEDS: NYSTATIN 500,000 UNITS/5 ML SUSPENSION PO SCH ×4 (05:25→17:10)
[2019-05-25] MEDS: INSULIN SLIDING SCALE (NOVOLOG) 1 VIAL SQ SCH ×4 (06:32→21:57)
[2019-05-25] MEDS: Insulin (LOG) Aspart 100 UNITS/ML VIAL SQ SCH ×3 (06:57→17:11)
[2019-05-25] MEDS: ALBUTEROL SO4 0.083% IH SOL 2.5 MG/3 ML VIAL.NEB. NEB SCH ×3 (07:50→20:30)
[2019-05-25 08:04] LABS: HEMATOCRIT 29.2 % (35.4-49); HEMOGLOBIN 9.5 GM/dL (11.7-16.9); MCH 26.5 pg (25.7-33.7); MCHC 32.4 g/dl (32.0-35.9); MEAN CELL VOLUME 81.8 fl (80-96); MEAN PLT VOLUME 7.5 fl (7.5-11.1); PLATELET COUNT 199 K/MM3 (134-434); RBC 3.57 M/mm3 (4.00-5.60); RDW 19.5 % (11.9-15.9); WHITE BLOOD COUNT 5.5 K/mm3 (4.0-10.0)
[2019-05-25 08:36] LABS: BILIRUBIN,TOTAL 0.2 mg/dL (0.2-1); BLOOD UREA NITROGEN 52.7 mg/dL (7-18); CALCIUM 9.1 mg/dL (8.5-10.1); CREATININE 1.4 mg/dL (0.55-1.3); POTASSIUM 4.5 mmol/L (3.5-5.1); TOT PROT 5.3 g/dl (6.4-8.2)
[2019-05-25] MEDS: ASPIRIN 81 MG CHEWABLE TABLETS PO SCH (10:16)
[2019-05-25] MEDS: TACROLIMUS 4 MG PO SCH (10:16)
[2019-05-25] MEDS: predniSONE 20 MG TABLET (UD) PO SCH (10:16)
[2019-05-25] MEDS: CARVEDILOL 25 MG TABLET (FP) PO SCH ×2 (10:16→21:52)
[2019-05-25] MEDS: FLUTICASONE PROP 0.05% 16 GM NASAL SPRAY NS SCH ×2 (10:17→21:57)
[2019-05-25] MEDS ORDERED: PT OWN MED DRAWER 7, Y5N ONE (10:32)
--- NOTE | 2019-05-25 11:03 | PN ---
Progress Note, Physician History of Present Illness: pulmonary alert,still c/o sob with min exertion,+ cough,brown sputum - Current Medication List Current Medications: Active Medications Albuterol Sulfate (Ventolin 0.083% Nebulizer Soln -) 1 amp NEB RTID [facility] Last Admin: 05/25/19 07:50 Dose: 1 amp Amlodipine Besylate (Norvasc -) 10 mg PO [facility] Last Admin: 05/24/19 21:12 Dose: 10 mg Aspirin (Asa -) 81 mg PO DAILY [facility] Last Admin: 05/25/19 10:16 Dose: 81 mg Atorvastatin Calcium (Lipitor -) 10 mg PO HS [facility] Last Admin: 05/24/19 21:12 Dose: 10 mg Carvedilol (Coreg -) 25 mg PO BID [facility] Last Admin: 05/25/19 10:16 Dose: 25 mg Fluticasone Propionate (Flonase -) 1 spray NS BID [facility] Last Admin: 05/25/19 10:17 Dose: 1 spray Levofloxacin (Levaquin 500 Mg Premixed Ivpb -) 500 mg in 100 mls @ 100 mls/hr IVPB DAILY [facility]; Protocol Last Admin: 05/25/19 10:16 Dose: 100 mls/hr Insulin Aspart (Novolog Vial Sliding Scale -) 1 vial SQ ACHS [facility]; Protocol Last Admin: 05/25/19 06:32 Dose: Not Given Insulin Aspart (Novolog) 7 units SQ TID@0700,1200,1630 [facility] Last Admin: 05/25/19 06:57 Dose: 7 units Insulin Detemir (Levemir Vial) 46 units SQ [facility] Last Admin: 05/24/19 21:21 Dose: 46 units Loratadine (Claritin -) 10 mg PO HS [facility] Last Admin: 05/24/19 21:12 Dose: 10 mg Tacrolimus [Envarsus (Xr] 4 Mg Tab) 12 mg PO DAILY [facility] Last Admin: 05/25/19 10:16 Dose: 12 mg Nystatin (Nystatin Oral Suspension -) 500,000 units PO Q6HPO [facility] Last Admin: 05/25/19 05:25 Dose: 500,000 units Prednisone (Deltasone -) 40 mg PO DAILY [facility] Last Admin: 05/25/19 10:16 Dose: 40 mg Sodium Chloride ([place] Nasal [place] -) 2 spray NS Q1H PRN PRN Reason: NASAL CONGESTION - Objective Vital Signs: Vital Signs Temperature 98.3 F 05/25/19 02:00 Pulse Rate 79 05/25/19 06:00 Respiratory Rate 20 05/25/19 09:00 Blood Pressure 134/62 05/25/19 06:00 O2 Sat by Pulse Oximetry (%) 95 05/25/19 09:00 Constitutional: Yes: Calm, Thin Eyes: Yes: WNL HENT: Yes: WNL Neck: Yes: WNL Cardiovascular: Yes: Regular Rate and Rhythm, S1, S2 Respiratory: Yes: Rales (romero crackles1/3 up) Gastrointestinal: Yes: Normal Bowel Sounds, Soft Extremities: Yes: WNL Edema: Yes Labs: CBC, BMP 05/25/19 05:23 05/25/19 05:23 - ....Imaging Cat Scan: Report Reviewed, Image Reviewed Assessment/Plan Problem List - Problems (1) COPD with acute exacerbation Code(s): J44.1 - CHRONIC OBSTRUCTIVE PULMONARY DISEASE W (ACUTE) EXACERBATION (2) Acute exacerbation of bronchiectasis Code(s): J47.1 - BRONCHIECTASIS WITH (ACUTE) EXACERBATION Assessment/Plan Acute COPD/Bronchiectasis Exacerbation improving Hemoptysis resolved Pneumonia clinically improving r/o Fungal Pneumonia Chronic Hypoxic Respiratory Failure CKD s/p Renal Transplant on immunosuppressants HTN DM Hyperlipidemia - Prednisone 40 mg daily - IV antibiotics as per ID?antifungals - inhaled bronchodilators - O2 to keep SpO2 >90% - monitor urine output, creatinine - awaiting transfer to transplant center - DVT prophylaxis - possible flex bronch DR SALDANA
[2019-05-25] MEDS ORDERED: DEXTROSE 50%-WATER - 25 GM/50 ML VIAL ONE (11:20)
[2019-05-25] MEDS ORDERED: DEXTROSE 50%-WATER - 25 GM/50 ML VIAL IVPUSH ONE (12:00)
--- NOTE | 2019-05-25 13:33 | PN ---
Progress Note, Physician History of Present Illness: Pt seen and examined at bedside. He is awake and alert. He denies dysuria. - Current Medication List Current Medications: Active Medications Albuterol Sulfate (Ventolin 0.083% Nebulizer Soln -) 1 amp NEB RTID [facility] Last Admin: 05/25/19 07:50 Dose: 1 amp Amlodipine Besylate (Norvasc -) 10 mg PO HS [facility] Last Admin: 05/24/19 21:12 Dose: 10 mg Aspirin (Asa -) 81 mg PO DAILY [facility] Last Admin: 05/25/19 10:16 Dose: 81 mg Atorvastatin Calcium (Lipitor -) 10 mg PO HS [facility] Last Admin: 05/24/19 21:12 Dose: 10 mg Carvedilol (Coreg -) 25 mg PO BID [facility] Last Admin: 05/25/19 10:16 Dose: 25 mg Fluticasone Propionate (Flonase -) 1 spray NS BID [facility] Last Admin: 05/25/19 10:17 Dose: 1 spray Levofloxacin (Levaquin 500 Mg Premixed Ivpb -) 500 mg in 100 mls @ 100 mls/hr IVPB DAILY [facility]; Protocol Last Admin: 05/25/19 10:16 Dose: 100 mls/hr Insulin Aspart (Novolog Vial Sliding Scale -) 1 vial SQ ACHS [facility]; Protocol Last Admin: 05/25/19 12:34 Dose: Not Given Insulin Aspart (Novolog) 7 units SQ TID@0700,1200,1630 [facility] Last Admin: 05/25/19 12:35 Dose: Not Given Insulin Detemir (Levemir Vial) 46 units SQ HS [facility] Last Admin: 05/24/19 21:21 Dose: 46 units Loratadine (Claritin -) 10 mg PO HS [facility] Last Admin: 05/24/19 21:12 Dose: 10 mg Tacrolimus [Envarsus (Xr] 4 Mg Tab) 12 mg PO DAILY [facility] Last Admin: 05/25/19 10:16 Dose: 12 mg Nystatin (Nystatin Oral Suspension -) 500,000 units PO Q6HPO [facility] Last Admin: 05/25/19 12:52 Dose: 500,000 units Prednisone (Deltasone -) 40 mg PO DAILY [facility] Last Admin: 05/25/19 10:16 Dose: 40 mg Sodium Chloride ([place] Nasal [place] -) 2 spray NS Q1H PRN PRN Reason: NASAL CONGESTION - Objective Vital Signs: Vital Signs Temperature 98.3 F 05/25/19 02:00 Pulse Rate 79 05/25/19 06:00 Respiratory Rate 20 05/25/19 09:00 Blood Pressure 134/62 05/25/19 06:00 O2 Sat by Pulse Oximetry (%) 95 05/25/19 09:00 Constitutional: Yes: Calm Eyes: Yes: Conjunctiva Clear HENT: Yes: Atraumatic Cardiovascular: Yes: S1, S2 Respiratory: Yes: On Nasal O2 Gastrointestinal: Yes: Soft Genitourinary: Yes: WNL Musculoskeletal: Yes: WNL Edema: No Neurological: Yes: Oriented Psychiatric: Yes: Oriented Labs: CBC, BMP 05/25/19 05:23 05/25/19 05:23 Problem List - Problems (1) Shortness of breath Code(s): R06.02 - SHORTNESS OF BREATH (2) COPD (chronic obstructive pulmonary disease) with emphysema Code(s): J43.9 - EMPHYSEMA, UNSPECIFIED (3) CRF (chronic renal failure) Code(s): N18.9 - CHRONIC KIDNEY DISEASE, UNSPECIFIED (4) Renal transplant recipient Code(s): Z94.0 - KIDNEY TRANSPLANT STATUS Assessment/Plan Current Medications Generic Name Dose Route Start Last Admin Trade Name Freq PRN Reason Stop Dose Admin Albuterol Sulfate 1 amp 05/24/19 20:00 05/25/19 07:50 Ventolin 0.083% Nebulizer Soln - NEB 1 amp RTID [facility] Administration Amlodipine Besylate 10 mg 05/15/19 22:00 05/24/19 21:12 Norvasc - PO 10 mg HS [facility] Administration Aspirin 81 mg 05/16/19 10:00 05/25/19 10:16 Asa - PO 81 mg DAILY [facility] Administration Atorvastatin Calcium 10 mg 05/15/19 22:00 05/24/19 21:12 Lipitor - PO 10 mg HS [facility] Administration Carvedilol 25 mg 05/15/19 22:00 05/25/19 10:16 Coreg - PO 25 mg BID [facility] Administration Fluticasone Propionate 1 spray 05/15/19 22:00 05/25/19 10:17 Flonase - NS 1 spray BID [facility] Administration Levofloxacin 500 mg in 100 mls @ 100 mls/hr 05/16/19 10:00 05/25/19 10:16 Levaquin 500 Mg Premixed Ivpb - IVPB 100 mls/hr DAILY [facility] Administration Protocol Insulin Aspart 1 vial 05/15/19 22:00 05/25/19 12:34 Novolog Vial Sliding Scale - SQ Not Given ACHS [facility] Protocol Insulin Aspart 7 units 05/16/19 09:20 05/25/19 12:35 Novolog SQ Not Given TID@0700,1200,1630 [facility] Insulin Detemir 46 units 05/19/19 15:53 05/24/19 21:21 Levemir Vial SQ 46 units HS [facility] Administration Loratadine 10 mg 05/15/19 22:00 05/24/19 21:12 Claritin - PO 10 mg HS [facility] Administration Tacrolimus [Envarsus 12 mg 05/16/19 10:00 05/25/19 10:16 Xr] 4 Mg Tab PO 12 mg DAILY [facility] Administration Nystatin 500,000 units 05/16/19 00:00 05/25/19 12:52 Nystatin Oral Suspension - PO 500,000 units Q6HPO [facility] Administration Prednisone 40 mg 05/24/19 10:00 05/25/19 10:16 Deltasone - PO 40 mg DAILY [facility] Administration Sodium Chloride 2 spray 05/15/19 18:50 [place] Nasal [place] - NS Q1H PRN NASAL CONGESTION Impression 1. CKD 2. dyspnea 3. kidney transplant 4. copd 5. pna 6. DM 7. HLD 8. 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
--- NOTE | 2019-05-25 14:44 | PN ---
Progress Note, Physician History of Present Illness: AWAKE, ALERT IN BED SL TACHYPNEIC AT REST + COUGH , YELLOW SPUTUM NO HEMOPTYSIS NO C/O CHEST PAIN NO F/C AFEBRILE BC (-) LEGIONELLA AG (-) FUNGITELL (+) ASPERGILLUS AG (-) REPEAT SPUTUM GROWING MOLD - Current Medication List Current Medications: Active Medications Albuterol Sulfate (Ventolin 0.083% Nebulizer Soln -) 1 amp NEB RTID [facility] Last Admin: 05/25/19 07:50 Dose: 1 amp Amlodipine Besylate (Norvasc -) 10 mg PO HS [facility] Last Admin: 05/24/19 21:12 Dose: 10 mg Aspirin (Asa -) 81 mg PO DAILY [facility] Last Admin: 05/25/19 10:16 Dose: 81 mg Atorvastatin Calcium (Lipitor -) 10 mg PO HS [facility] Last Admin: 05/24/19 21:12 Dose: 10 mg Carvedilol (Coreg -) 25 mg PO BID [facility] Last Admin: 05/25/19 10:16 Dose: 25 mg Fluticasone Propionate (Flonase -) 1 spray NS BID [facility] Last Admin: 05/25/19 10:17 Dose: 1 spray Levofloxacin (Levaquin 500 Mg Premixed Ivpb -) 500 mg in 100 mls @ 100 mls/hr IVPB DAILY [facility]; Protocol Last Admin: 05/25/19 10:16 Dose: 100 mls/hr Insulin Aspart (Novolog Vial Sliding Scale -) 1 vial SQ ACHS [facility]; Protocol Last Admin: 05/25/19 12:34 Dose: Not Given Insulin Aspart (Novolog) 7 units SQ TID@0700,1200,1630 [facility] Last Admin: 05/25/19 12:35 Dose: Not Given Insulin Detemir (Levemir Vial) 46 units SQ HS [facility] Last Admin: 05/24/19 21:21 Dose: 46 units Loratadine (Claritin -) 10 mg PO HS [facility] Last Admin: 05/24/19 21:12 Dose: 10 mg Tacrolimus [Envarsus (Xr] 4 Mg Tab) 12 mg PO DAILY [facility] Last Admin: 05/25/19 10:16 Dose: 12 mg Nystatin (Nystatin Oral Suspension -) 500,000 units PO Q6HPO [facility] Last Admin: 05/25/19 12:52 Dose: 500,000 units Prednisone (Deltasone -) 40 mg PO DAILY [facility] Last Admin: 05/25/19 10:16 Dose: 40 mg Sodium Chloride ([place] Nasal [place] -) 2 spray NS Q1H PRN PRN Reason: NASAL CONGESTION - Objective Vital Signs: Vital Signs Temperature 98.3 F 05/25/19 02:00 Pulse Rate 79 05/25/19 06:00 Respiratory Rate 20 05/25/19 09:00 Blood Pressure 134/62 05/25/19 06:00 O2 Sat by Pulse Oximetry (%) 95 05/25/19 09:00 Constitutional: Yes: No Distress Cardiovascular: Yes: Regular Rate and Rhythm, S1, S2 Respiratory: Yes: Other (+ CREPITATIONS AT BASES) Edema: No Labs: CBC, BMP 05/25/19 05:23 05/25/19 05:23 Assessment/Plan PNEUMONIA ? ETIO + SPUTUM C/S PSEUDOMONAS, MOLD COPD EXACERBATION R/O CAVITARY LUNG LESION RENAL TRANSPLANT ON IMMUNOSUPPRESSIVE TX CONTINUE LEVAQUIN WANT TO START VORICONAZOLE BUT TACROLIMUS DOSE NEEDS TO BE REDUCED TO ONE THIRD PRESENT DOSE CALL PLACED TO RENAL TRANSPLANT CTR TO ADVISE
--- NOTE | 2019-05-25 20:01 | PN ---
Progress Note, Physician History of Present Illness: Pt w/o CP, palpitations, SOB, abd pain, N, V. Pt states that his breathing is unchanged, better in AM, worse at night. - Current Medication List Current Medications: Active Medications Albuterol Sulfate (Ventolin 0.083% Nebulizer Soln -) 1 amp NEB RTID [facility] Last Admin: 05/25/19 14:42 Dose: 1 amp Amlodipine Besylate (Norvasc -) 10 mg PO HS [facility] Last Admin: 05/24/19 21:12 Dose: 10 mg Aspirin (Asa -) 81 mg PO DAILY [facility] Last Admin: 05/25/19 10:16 Dose: 81 mg Atorvastatin Calcium (Lipitor -) 10 mg PO HS [facility] Last Admin: 05/24/19 21:12 Dose: 10 mg Carvedilol (Coreg -) 25 mg PO BID [facility] Last Admin: 05/25/19 10:16 Dose: 25 mg Fluticasone Propionate (Flonase -) 1 spray NS BID [facility] Last Admin: 05/25/19 10:17 Dose: 1 spray Levofloxacin (Levaquin 500 Mg Premixed Ivpb -) 500 mg in 100 mls @ 100 mls/hr IVPB DAILY [facility]; Protocol Last Admin: 05/25/19 10:16 Dose: 100 mls/hr Insulin Aspart (Novolog Vial Sliding Scale -) 1 vial SQ ACHS [facility]; Protocol Last Admin: 05/25/19 17:10 Dose: 10 unit Insulin Aspart (Novolog) 7 units SQ TID@0700,1200,1630 [facility] Last Admin: 05/25/19 17:11 Dose: 7 units Insulin Detemir (Levemir Vial) 46 units SQ HS [facility] Last Admin: 05/24/19 21:21 Dose: 46 units Loratadine (Claritin -) 10 mg PO HS [facility] Last Admin: 05/24/19 21:12 Dose: 10 mg Tacrolimus [Envarsus (Xr] 4 Mg Tab) 12 mg PO DAILY [facility] Last Admin: 05/25/19 10:16 Dose: 12 mg Nystatin (Nystatin Oral Suspension -) 500,000 units PO Q6HPO [facility] Last Admin: 05/25/19 17:10 Dose: 500,000 units Prednisone (Deltasone -) 40 mg PO DAILY [facility] Last Admin: 05/25/19 10:16 Dose: 40 mg Sodium Chloride ([place] Nasal [place] -) 2 spray NS Q1H PRN PRN Reason: NASAL CONGESTION - Objective Vital Signs: Vital Signs Temperature 97.8 F 05/25/19 14:00 Pulse Rate 74 05/25/19 14:00 Respiratory Rate 22 H 05/25/19 14:00 Blood Pressure 139/61 05/25/19 14:00 O2 Sat by Pulse Oximetry (%) 95 05/25/19 09:00 Constitutional: Yes: No Distress, Calm Cardiovascular: Yes: Regular Rate and Rhythm, S1, S2 Respiratory: Yes: Regular, Rhonchi, Wheezes Gastrointestinal: Yes: Normal Bowel Sounds, Soft. No: Tenderness Edema: No Labs: CBC, BMP 05/25/19 05:23 05/25/19 05:23 Problem List - Problems (1) Pneumonia Code(s): J18.9 - PNEUMONIA, UNSPECIFIED ORGANISM Qualifiers: Pneumonia type: due to unspecified organism Laterality: bilateral Lung location: lower lobe of lung Qualified Code(s): J18.1 - Lobar pneumonia, unspecified organism (2) Hemoptysis, unspecified Code(s): R04.2 - HEMOPTYSIS (3) COPD (chronic obstructive pulmonary disease) with emphysema Code(s): J43.9 - EMPHYSEMA, UNSPECIFIED (4) COPD with acute exacerbation Code(s): J44.1 - CHRONIC OBSTRUCTIVE PULMONARY DISEASE W (ACUTE) EXACERBATION (5) Renal transplant recipient Code(s): Z94.0 - KIDNEY TRANSPLANT STATUS (6) CRF (chronic renal failure) Code(s): N18.9 - CHRONIC KIDNEY DISEASE, UNSPECIFIED (7) Diabetes mellitus Code(s): E11.9 - TYPE 2 DIABETES MELLITUS WITHOUT COMPLICATIONS (8) Generalized weakness Code(s): R53.1 - WEAKNESS (9) Anemia Code(s): D64.9 - ANEMIA, UNSPECIFIED Qualifiers: Anemia type: due to chronic kidney disease Chronic kidney disease stage: stage 5, not on chronic dialysis Qualified Code(s): N18.5 - Chronic kidney disease, stage 5; D63.1 - Anemia in chronic kidney disease Assessment/Plan IV abtx PO steroids -to f/u with Pulmonary ID, Pulmonary, Renal consults are appreciated. To continue to monitor BGM. Sputum CX, form previous admission, came back + for Aspergillus Fumigatus but Aspergillus antibody is negative. ID note was noted To f/u with Pulmonary if pt can tolerate bronchoscopy To decrease Levemir dose AM labs
[2019-05-25] MEDS: LORATADINE 10 MG TABLET PO SCH (21:52)
[2019-05-25] MEDS: amLODIPine BESYLATE 10 MG TABLET (FP) PO SCH (21:52)
[2019-05-25] MEDS: ATORVASTATIN CA 10 MG TABLET (FP) PO SCH (21:52)
[2019-05-25] MEDS ORDERED: INSULIN (LEVEMIR) 100 UNITS/ML UNITS SQ SCH (22:00)
[2019-05-26] MEDS: INSULIN SLIDING SCALE (NOVOLOG) 1 VIAL SQ SCH ×4 (06:38→21:10)
[2019-05-26] MEDS: NYSTATIN 500,000 UNITS/5 ML SUSPENSION PO SCH ×4 (06:38→17:14)
[2019-05-26] MEDS: ALBUTEROL SO4 0.083% IH SOL 2.5 MG/3 ML VIAL.NEB. NEB SCH ×3 (07:46→19:30)
[2019-05-26 08:34] LABS: HEMATOCRIT 31.1 % (35.4-49); MCH 26.1 pg (25.7-33.7); MCHC 32.1 g/dl (32.0-35.9); MEAN CELL VOLUME 81.5 fl (80-96); MEAN PLT VOLUME 7.2 fl (7.5-11.1); PLATELET COUNT 205 K/MM3 (134-434); RBC 3.81 M/mm3 (4.00-5.60); RDW 19.6 % (11.9-15.9); WHITE BLOOD COUNT 5.7 K/mm3 (4.0-10.0)
[2019-05-26 08:45] LABS: ALBUMIN 2.2 g/dl (3.4-5.0); BILIRUBIN,TOTAL 0.3 mg/dL (0.2-1); BLOOD UREA NITROGEN 43.4 mg/dL (7-18); CREATININE 1.2 mg/dL (0.55-1.3); POTASSIUM 4.4 mmol/L (3.5-5.1); TOT PROT 5.9 g/dl (6.4-8.2)
[2019-05-26] MEDS: Insulin (LOG) Aspart 100 UNITS/ML VIAL SQ SCH ×3 (09:01→17:14)
[2019-05-26] MEDS: CARVEDILOL 25 MG TABLET (FP) PO SCH ×2 (10:23→21:07)
[2019-05-26] MEDS: ASPIRIN 81 MG CHEWABLE TABLETS PO SCH (10:23)
[2019-05-26] MEDS: predniSONE 20 MG TABLET (UD) PO SCH (10:23)
[2019-05-26] MEDS: TACROLIMUS 4 MG PO SCH (10:24)
[2019-05-26] MEDS: FLUTICASONE PROP 0.05% 16 GM NASAL SPRAY NS SCH ×2 (10:24→21:12)
[2019-05-26] MEDS ORDERED: DEXTROSE 50%-WATER - 25 GM/50 ML VIAL ONE (11:55)
[2019-05-26] MEDS ORDERED: DEXTROSE 50%-WATER 25 GM/50 ML DISP.SYRIN IVPUSH ONE (12:30)
--- NOTE | 2019-05-26 12:49 | PN ---
Progress Note, Physician History of Present Illness: OOB IN CHAIR TACHYPNEIC AT REST + COUGH , YELLOW SPUTUM NO HEMOPTYSIS NO C/O CHEST PAIN NO F/C AFEBRILE BC (-) LEGIONELLA AG (-) FUNGITELL (+) ASPERGILLUS AG (-) REPEAT SPUTUM GROWING MOLD - Current Medication List Current Medications: Active Medications Albuterol Sulfate (Ventolin 0.083% Nebulizer Soln -) 1 amp NEB RTID [facility] Last Admin: 05/26/19 07:46 Dose: 1 amp Amlodipine Besylate (Norvasc -) 10 mg PO HS [facility] Last Admin: 05/25/19 21:52 Dose: 10 mg Aspirin (Asa -) 81 mg PO DAILY [facility] Last Admin: 05/26/19 10:23 Dose: 81 mg Atorvastatin Calcium (Lipitor -) 10 mg PO HS [facility] Last Admin: 05/25/19 21:52 Dose: 10 mg Carvedilol (Coreg -) 25 mg PO BID [facility] Last Admin: 05/26/19 10:23 Dose: 25 mg Fluticasone Propionate (Flonase -) 1 spray NS BID [facility] Last Admin: 05/26/19 10:24 Dose: 1 spray Levofloxacin (Levaquin 500 Mg Premixed Ivpb -) 500 mg in 100 mls @ 100 mls/hr IVPB DAILY [facility]; Protocol Last Admin: 05/26/19 10:23 Dose: 100 mls/hr Voriconazole 445 mg/ Dextrose 294.5 mls @ 147.25 mls/hr IVPB Q12H [facility]; Protocol Insulin Aspart (Novolog Vial Sliding Scale -) 1 vial SQ ACHS [facility]; Protocol Last Admin: 05/26/19 12:24 Dose: Not Given Insulin Aspart (Novolog) 7 units SQ TID@0700,1200,1630 [facility] Last Admin: 05/26/19 12:40 Dose: Not Given Insulin Detemir (Levemir Vial) 35 units SQ HS [facility] Last Admin: 05/25/19 21:53 Dose: 35 units Loratadine (Claritin -) 10 mg PO HS [facility] Last Admin: 05/25/19 21:52 Dose: 10 mg Non-Formulary Medication (Patient's Own Med) 1 each PO DAILY [facility] Nystatin (Nystatin Oral Suspension -) 500,000 units PO Q6HPO [facility] Last Admin: 05/26/19 12:40 Dose: 500,000 units Prednisone (Deltasone -) 40 mg PO DAILY [facility] Last Admin: 05/26/19 10:23 Dose: 40 mg Sodium Chloride ([place] Nasal [place] -) 2 spray NS Q1H PRN PRN Reason: NASAL CONGESTION - Objective Vital Signs: Vital Signs Temperature 98.1 F 05/26/19 09:00 Pulse Rate 88 05/26/19 09:00 Respiratory Rate 20 05/26/19 09:00 Blood Pressure 137/54 L 05/26/19 09:00 O2 Sat by Pulse Oximetry (%) 97 05/26/19 09:00 Constitutional: Yes: No Distress Cardiovascular: Yes: Regular Rate and Rhythm, S1, S2 Respiratory: Yes: Other (FEW CREPITATIONS, BASES) Gastrointestinal: Yes: Normal Bowel Sounds, Soft. No: Tenderness Labs: CBC, BMP 05/26/19 07:35 05/26/19 07:35 Assessment/Plan PNEUMONIA ? ETIO + SPUTUM C/S PSEUDOMONAS, MOLD COPD EXACERBATION R/O CAVITARY LUNG LESION RENAL TRANSPLANT ON IMMUNOSUPPRESSIVE TX CONTINUE LEVAQUIN CALL PLACED TO RENAL TRANSPLANT CTR DR OLMOS SPOKE WITH COVERING PHYSICIAN DR FLORIAN SHE AGREES WITH STARTING VORICONAZOLE AND TO REDUCE ENVARSUS XR TO 4MG DAILY SHE WILL CHECK STATUS OF PT TRANSFER TO [facility]
[2019-05-26] MEDS ORDERED: PT OWN MED DRAWER 7, Y5N ONE ×2 (12:50→20:58)
--- NOTE | 2019-05-26 13:24 | PN ---
Progress Note, Physician History of Present Illness: Pt w/o CP, palpitations, abd pain, N, V. Pt is more SOB today than yesterday. - Current Medication List Current Medications: Active Medications Albuterol Sulfate (Ventolin 0.083% Nebulizer Soln -) 1 amp NEB RTID [facility] Last Admin: 05/26/19 07:46 Dose: 1 amp Amlodipine Besylate (Norvasc -) 10 mg PO HS [facility] Last Admin: 05/25/19 21:52 Dose: 10 mg Aspirin (Asa -) 81 mg PO DAILY [facility] Last Admin: 05/26/19 10:23 Dose: 81 mg Atorvastatin Calcium (Lipitor -) 10 mg PO HS [facility] Last Admin: 05/25/19 21:52 Dose: 10 mg Carvedilol (Coreg -) 25 mg PO BID [facility] Last Admin: 05/26/19 10:23 Dose: 25 mg Fluticasone Propionate (Flonase -) 1 spray NS BID [facility] Last Admin: 05/26/19 10:24 Dose: 1 spray Levofloxacin (Levaquin 500 Mg Premixed Ivpb -) 500 mg in 100 mls @ 100 mls/hr IVPB DAILY [facility]; Protocol Last Admin: 05/26/19 10:23 Dose: 100 mls/hr Voriconazole 445 mg/ Dextrose 294.5 mls @ 147.25 mls/hr IVPB BID [facility]; Protocol Insulin Aspart (Novolog Vial Sliding Scale -) 1 vial SQ ACHS [facility]; Protocol Last Admin: 05/26/19 12:24 Dose: Not Given Insulin Aspart (Novolog) 7 units SQ TID@0700,1200,1630 [facility] Last Admin: 05/26/19 12:40 Dose: Not Given Insulin Detemir (Levemir Vial) 35 units SQ HS [facility] Last Admin: 05/25/19 21:53 Dose: 35 units Loratadine (Claritin -) 10 mg PO HS [facility] Last Admin: 05/25/19 21:52 Dose: 10 mg Envarsus Xr 4 Mg (Tabs) 1 each PO DAILY [facility] Nystatin (Nystatin Oral Suspension -) 500,000 units PO Q6HPO [facility] Last Admin: 05/26/19 12:40 Dose: 500,000 units Prednisone (Deltasone -) 40 mg PO DAILY [facility] Last Admin: 05/26/19 10:23 Dose: 40 mg Sodium Chloride ([place] Nasal [place] -) 2 spray NS Q1H PRN PRN Reason: NASAL CONGESTION - Objective Vital Signs: Vital Signs Temperature 98.1 F 05/26/19 09:00 Pulse Rate 88 05/26/19 09:00 Respiratory Rate 20 05/26/19 09:00 Blood Pressure 137/54 L 05/26/19 09:00 O2 Sat by Pulse Oximetry (%) 97 05/26/19 09:00 Constitutional: Yes: No Distress, Calm Cardiovascular: Yes: Regular Rate and Rhythm, S1, S2 Respiratory: Yes: Regular, Rhonchi Gastrointestinal: Yes: Normal Bowel Sounds, Soft. No: Tenderness Edema: No (swollen feet) Neurological: Yes: Alert, Oriented Labs: CBC, BMP 05/26/19 07:35 05/26/19 07:35 Problem List - Problems (1) Pneumonia Code(s): J18.9 - PNEUMONIA, UNSPECIFIED ORGANISM Qualifiers: Pneumonia type: due to unspecified organism Laterality: bilateral Lung location: lower lobe of lung Qualified Code(s): J18.1 - Lobar pneumonia, unspecified organism (2) Hemoptysis, unspecified Code(s): R04.2 - HEMOPTYSIS (3) COPD (chronic obstructive pulmonary disease) with emphysema Code(s): J43.9 - EMPHYSEMA, UNSPECIFIED (4) COPD with acute exacerbation Code(s): J44.1 - CHRONIC OBSTRUCTIVE PULMONARY DISEASE W (ACUTE) EXACERBATION (5) Renal transplant recipient Code(s): Z94.0 - KIDNEY TRANSPLANT STATUS (6) CRF (chronic renal failure) Code(s): N18.9 - CHRONIC KIDNEY DISEASE, UNSPECIFIED (7) Diabetes mellitus Code(s): E11.9 - TYPE 2 DIABETES MELLITUS WITHOUT COMPLICATIONS (8) Generalized weakness Code(s): R53.1 - WEAKNESS (9) Anemia Code(s): D64.9 - ANEMIA, UNSPECIFIED Qualifiers: Anemia type: due to chronic kidney disease Chronic kidney disease stage: stage 5, not on chronic dialysis Qualified Code(s): N18.5 - Chronic kidney disease, stage 5; D63.1 - Anemia in chronic kidney disease Assessment/Plan IV abtx PO steroids -to f/u with Pulmonary ID, Pulmonary, Renal consults are appreciated. To continue to monitor BGM. Sputum CX, from previous admission, came back + for Aspergillus Fumigatus but Aspergillus antibody is negative. ID note was noted. Repeated sputum + again for mold. To start Voriconazole and Tacrolimus dose to be decreased. To decrease Levemir dose again (as pt was hypoglicemic). To f/u w [facility] for transfer. AM labs
[2019-05-26] MEDS: DEXTROSE 5% IVPB SCH ×2 (14:18→21:15)
[2019-05-26] MEDS: VORICONAZOLE IVPB SCH ×2 (14:18→21:15)
[2019-05-26] MEDS: WATER IVPB SCH ×2 (14:18→21:15)
--- NOTE | 2019-05-26 14:23 | PN ---
Progress Note (short form) - Note Progress Note: PULMONARY Still with shortness of breath, cough, wheezing. Vital Signs Period Temp Pulse Resp BP Sys/Grey Pulse Ox Last 24 Hr 98.1 F-98.4 F 80-88 20-22 137-162/54-82 97-99 Intake & Output 05/23/19 05/24/19 05/25/19 05/26/19 23:59 23:59 23:59 23:59 Intake Total 8323 171 7089 Output Total 1800 2700 1600 650 Balance -380 -2300 -90 -650 Gen: tachypneic with exertion Heart: RRR Lung: distant breath sounds, scattered rhonchi Abd: soft, nontender Ext: no edema CBC, BMP 05/26/19 07:35 05/26/19 07:35 Active Medications Albuterol Sulfate (Ventolin 0.083% Nebulizer Soln -) 1 amp NEB RTID [facility] Last Admin: 05/26/19 14:07 Dose: 1 amp Amlodipine Besylate (Norvasc -) 10 mg PO HS [facility] Last Admin: 05/25/19 21:52 Dose: 10 mg Aspirin (Asa -) 81 mg PO DAILY [facility] Last Admin: 05/26/19 10:23 Dose: 81 mg Atorvastatin Calcium (Lipitor -) 10 mg PO HS [facility] Last Admin: 05/25/19 21:52 Dose: 10 mg Carvedilol (Coreg -) 25 mg PO BID [facility] Last Admin: 05/26/19 10:23 Dose: 25 mg Fluticasone Propionate (Flonase -) 1 spray NS BID [facility] Last Admin: 05/26/19 10:24 Dose: 1 spray Levofloxacin (Levaquin 500 Mg Premixed Ivpb -) 500 mg in 100 mls @ 100 mls/hr IVPB DAILY [facility]; Protocol Last Admin: 05/26/19 10:23 Dose: 100 mls/hr Voriconazole 445 mg/ Dextrose 294.5 mls @ 147.25 mls/hr IVPB BID [facility]; Protocol Last Admin: 05/26/19 14:18 Dose: 147.25 mls/hr Insulin Aspart (Novolog Vial Sliding Scale -) 1 vial SQ ACHS [facility]; Protocol Last Admin: 05/26/19 12:24 Dose: Not Given Insulin Aspart (Novolog) 7 units SQ TID@0700,1200,1630 [facility] Last Admin: 05/26/19 12:40 Dose: Not Given Insulin Detemir (Levemir Vial) 35 units SQ HS [facility] Last Admin: 05/25/19 21:53 Dose: 35 units Loratadine (Claritin -) 10 mg PO HS [facility] Last Admin: 05/25/19 21:52 Dose: 10 mg Envarsus Xr 4 Mg (Tabs) 1 each PO DAILY [facility] Nystatin (Nystatin Oral Suspension -) 500,000 units PO Q6HPO [facility] Last Admin: 05/26/19 12:40 Dose: 500,000 units Prednisone (Deltasone -) 40 mg PO DAILY [facility] Last Admin: 05/26/19 10:23 Dose: 40 mg Sodium Chloride ([place] Nasal [place] -) 2 spray NS Q1H PRN PRN Reason: NASAL CONGESTION A/P Acute COPD/Bronchiectasis Exacerbation improving Hemoptysis resolved Pneumonia clinically improving r/o Fungal Pneumonia Chronic Hypoxic Respiratory Failure CKD s/p Renal Transplant on immunosuppressants HTN DM Hyperlipidemia - will change steroids to IV - antibiotics, antifungals per ID - inhaled bronchodilators - O2 to keep SpO2 >90% - monitor urine output, creatinine - awaiting transfer to transplant center - DVT prophylaxis - pt has positive sputum already, unclear if bronchoscopy would provide additional data, will d/w ID Problem List - Problems (1) COPD with acute exacerbation Code(s): J44.1 - CHRONIC OBSTRUCTIVE PULMONARY DISEASE W (ACUTE) EXACERBATION (2) Acute exacerbation of bronchiectasis Code(s): J47.1 - BRONCHIECTASIS WITH (ACUTE) EXACERBATION
[2019-05-26] MEDS ORDERED: ALBUTEROL SO4 0.083% IH SOL 2.5 MG/3 ML VIAL.NEB. NEB PRN (15:00)
[2019-05-26] MEDS ORDERED: methylPREDNISolone NA SUCC 40 MG/1 ML VIAL IVPUSH SCH (18:00)
--- NOTE | 2019-05-26 20:12 | PN ---
Progress Note (short form) - Note Progress Note: covering dr louis 1. CKD 2. dyspnea 3. kidney transplant 4. copd 5. pna 6. DM 7. HLD 8. HTN Current Medications Albuterol Sulfate (Ventolin 0.083% Nebulizer Soln -) 1 amp NEB RTID [facility] Last Admin: 05/26/19 19:30 Dose: 1 amp Albuterol Sulfate (Ventolin 0.083% Nebulizer Soln -) 1 amp NEB Q4H PRN PRN Reason: SHORT OF BREATH/WHEEZING Amlodipine Besylate (Norvasc -) 10 mg PO HS [facility] Last Admin: 05/25/19 21:52 Dose: 10 mg Aspirin (Asa -) 81 mg PO DAILY [facility] Last Admin: 05/26/19 10:23 Dose: 81 mg Atorvastatin Calcium (Lipitor -) 10 mg PO HS [facility] Last Admin: 05/25/19 21:52 Dose: 10 mg Carvedilol (Coreg -) 25 mg PO BID [facility] Last Admin: 05/26/19 10:23 Dose: 25 mg Fluticasone Propionate (Flonase -) 1 spray NS BID [facility] Last Admin: 05/26/19 10:24 Dose: 1 spray Levofloxacin (Levaquin 500 Mg Premixed Ivpb -) 500 mg in 100 mls @ 100 mls/hr IVPB DAILY [facility]; Protocol Last Admin: 05/26/19 10:23 Dose: 100 mls/hr Voriconazole 445 mg/ Dextrose 294.5 mls @ 147.25 mls/hr IVPB BID [facility]; Protocol Last Admin: 05/26/19 14:18 Dose: 147.25 mls/hr Insulin Aspart (Novolog Vial Sliding Scale -) 1 vial SQ ACHS [facility]; Protocol Last Admin: 05/26/19 17:14 Dose: 10 unit Insulin Aspart (Novolog) 7 units SQ TID@0700,1200,1630 [facility] Last Admin: 05/26/19 17:14 Dose: 7 units Insulin Detemir (Levemir Vial) 20 units SQ HS [facility] Loratadine (Claritin -) 10 mg PO HS [facility] Last Admin: 05/25/19 21:52 Dose: 10 mg Methylprednisolone Sodium Succinate (Solu-Medrol -) 40 mg IVPUSH Q8H-IV [facility] Last Admin: 05/26/19 17:14 Dose: 40 mg Envarsus Xr 4 Mg (Tabs) 1 each PO DAILY [facility] Nystatin (Nystatin Oral Suspension -) 500,000 units PO Q6HPO [facility] Last Admin: 05/26/19 17:14 Dose: 500,000 units Sodium Chloride ([place] Nasal [place] -) 2 spray NS Q1H PRN PRN Reason: NASAL CONGESTION Last Vital Signs Temp Pulse Resp BP Pulse Ox 98.2 F 86 20 148/62 97 05/26/19 15:41 05/26/19 15:41 05/26/19 15:41 05/26/19 15:41 05/26/19 09:00 CBC, BMP 05/26/19 07:35 05/26/19 07:35 Plan - monitor renal function - monitor prograf levels if there are changes in [place] [facility] - pending transfer - pulm follow up - needs transplant eval as resistive index was high on last ultrasound - pt is not on MMF (hx of leukopenia)
[2019-05-26] MEDS: ATORVASTATIN CA 10 MG TABLET (FP) PO SCH (21:07)
[2019-05-26] MEDS: LORATADINE 10 MG TABLET PO SCH (21:07)
[2019-05-26] MEDS: amLODIPine BESYLATE 10 MG TABLET (FP) PO SCH (21:07)
[2019-05-26] MEDS ORDERED: INSULIN (LEVEMIR) 100 UNITS/ML UNITS SQ SCH (22:00)
[2019-05-27] MEDS: NYSTATIN 500,000 UNITS/5 ML SUSPENSION PO SCH (00:15)
[2019-05-27 02:16] VITALS: BP 127/64; PULSE 79; TEMP 98.3
[2019-05-27] MEDS ORDERED: ENVARSUS 4 MG PO SCH (10:00)
== END 2019-05-27 02:30 | disposition short-term general hospital (02) | DRG 178 ==
LOC: JER 11:42 → JERBED 14:24 → J4W 18:11
PROVIDERS: ADMIT Specialist; ATTEND Specialist
DX: J15.1 Pneumonia due to Pseudomonas (principal); J44.1 Chronic obstructive pulmonary disease with (acute) exacerbation; R04.2 Hemoptysis; Z94.0 Kidney transplant status; J96.11 Chronic respiratory failure with hypoxia; N18.5 Chronic kidney disease, stage 5; R64 Cachexia; Z68.1 Body mass index [BMI] 19.9 or less, adult; E11.9 Type 2 diabetes mellitus without complications; R53.1 Weakness; D63.1 Anemia in chronic kidney disease; E78.5 Hyperlipidemia, unspecified; I12.9 Hypertensive chronic kidney disease with stage 1 through stage 4 chronic kidney disease, or unspecified chronic kidney disease
CPT/HCPCS: 36415; 36600; 71045-TC-FY; 71250-TC; 80048; 80053; 80197; 82375; 82550; 82803; 82962; 83050; 84484; 85025; 85027; 87040; 87070; 87102; 87107; 87186; 87205; 87210; 87305; 87449; 87899; 93005; 93010; 94640; 99284-25